=== PATIENT | male | born 1955 | race Caucasian/White ===

== ENCOUNTER 2016-11-18 22:45 | Inpatient (IN) | payer BC ==
[~2016-11-18] VITALS: Ht 182.9 cm; Wt 244.0 kg
[~2016-11-18 22:45] MED LIST: BUTA1TAB70 PO; CBCI IV; CHOL1TAB42 PO; CPR500 PO; EPP3 IM; INSDGI SC; LISI40TA PO; MAGNTAB4 PO; METO1TAB68 PO; MULT-877 PO; NVLGI/PEN PO; SIMV20TA2 PO; SITA50TA PO; TERA5CAP PO; WARF7.5T4 PO
[2016-11-18] MEDS ORDERED: SODIUM CHLORIDE 0.9% 1000ML 2,000 ML IV STA (23:18)
[2016-11-18] MEDS ORDERED: SODIUM CHLORIDE 0.9% IV STA (23:20)
[2016-11-18] MEDS ORDERED: PIPERACILLIN/TAZOBACTAM 4.5 GM/100ML D5W IV STA (23:20)
[2016-11-18] MEDS ORDERED: VANCOMYCIN IV STA (23:20)
[2016-11-18] MEDS ORDERED: ACETAMINOPHEN 500 MG TAB PO STA (23:23)
[2016-11-18] MEDS ORDERED: WARF5TAB90 PO (23:26)
[2016-11-18] MEDS ORDERED: DRON400T PO (23:30)
[2016-11-18] MEDS ORDERED: HYDROmorphone INJ 1 MG/ML SYR IV STA (23:33)
[2016-11-18] MEDS ORDERED: AMOX875T PO (23:33)
[2016-11-18] MEDS ORDERED: DOXY100C76 PO (23:34)
[2016-11-18] MEDS ORDERED: VANCOMYCIN INJ 2,700 MG in SODIUM CHLORIDE 0.9% 500ML 500 ML IV SCH (23:45)
[2016-11-19] VITALS (7 sets, daily range): BP systolic 132–168; BP diastolic 62–69; PULSE 81–90; TEMP 36.5–37.8; O2SAT 94–99; Ht 182.9 cm; Wt 244.0 kg
[2016-11-19 00:02] LABS: BASO % 0.1 %; BASO ABS # 0.01 K/uL (0-0.2); COMPLETE YES; EOS % 0.3 %; HEMATOCRIT 36.9 % (42-52); IG% 0.3 %; LYMPH % 3.2 %; LYMPH ABS # 0.37 K/uL (1.2-3.4); MEAN CORPUSCULAR HEMOGLOBIN 30.5 pg (25-34); MEAN CORPUSCULAR HGB CONC 33.9 g/dl (32-36); MEAN PLATELET VOLUME 9.4 fL (7.4-10.4); MONO % 3.8 %; NEUT % 92.3 %; PLATELET COUNT 103 K/uL (130-400); WHITE BLOOD COUNT 11.46 K/uL (4.8-10.8)
[2016-11-19] MEDS ORDERED: ONDANSETRON INJ 2 MG/ML 2 ML VIAL IV STA (00:10)
[2016-11-19 00:18] LABS: INR 2.1 (0.9-1.1)
[2016-11-19 00:25] LABS: ALT/SGPT 13 U/L (12-78); AST/SGOT 10 U/L (15-37); BLOOD UREA NITROGEN 35 mg/dl (7-18); BUN/CREATININE RATIO 18.2 (10-20); CALCIUM 8.3 mg/dl (8.5-10.1); CARBON DIOXIDE 29 mmol/L (21-32); CHLORIDE 108 mmol/L (98-107); GLUCOSE 150 mg/dl (70-99); MAGNESIUM 1.4 mg/dl (1.8-2.4); POTASSIUM 4.3 mmol/L (3.5-5.1); SODIUM 146 mmol/L (136-145)
[2016-11-19 00:30] LABS: ALKALINE PHOSPHATASE 47 U/L (45-117); CKMB/CK RATIO 2.2 (0-3.0)
[2016-11-19] MEDS ORDERED: SODIUM CHLORIDE 0.45% 1000ML 1,000 ML IV SCH (01:15)
[2016-11-19] MEDS ORDERED: ONDANSETRON INJ 2 MG/ML 2 ML VIAL IV PRN (02:00)
[2016-11-19] MEDS ORDERED: PROMETHAZINE HCL INJ 12.5 MG in SODIUM CHLORIDE 0.9% 50ML 50 ML IV PRN (02:00)
[2016-11-19] MEDS ORDERED: TRAMADOL HCL 50 MG TAB PO PRN (02:00)
[2016-11-19] MEDS ORDERED: LORAZEPAM 2 MG/ML 1 ML VIAL IV PRN (02:00)
[2016-11-19] MEDS ORDERED: HYDROmorphone INJ 1 MG/ML SYR IV PRN (02:00)
[2016-11-19] MEDS ORDERED: GLUCAGON FOR INJ 1 MG VIAL SQ PRN (02:00)
[2016-11-19] MEDS ORDERED: SODIUM CHLORIDE 0.45% 1000ML 1,000 ML IV ONE ×2 (02:00→02:45)
[2016-11-19] MEDS ORDERED: NITROGLYCERIN 0.4 MG SL PER TAB CHARGE SL PRN (02:00)
[2016-11-19] MEDS ORDERED: GLUCOSE 40% GEL 15 GM TUBE PO PRN (02:00)
[2016-11-19] MEDS ORDERED: DEXTROSE 50% 50 ML SYR IV PRN (02:00)
[2016-11-19] MEDS ORDERED: GLUCOSE 10 TABS/TUBE PO PRN (02:00)
[2016-11-19] MEDS ORDERED: METOPROLOL SUCC 50MG EXT REL TAB PO ONE (02:15)
[2016-11-19] MEDS ORDERED: INSULIN GLARGINE SOLOSTAR 100 UNITS/ML 3 ML PEN SC ONE (02:15)
[2016-11-19] MEDS: MAGNESIUM SULFATE 1GM / D5W 1 GM in PREMIXED IN D5W 100 ML IV SCH ×2 (03:00→03:11)
--- NOTE | 2016-11-19 04:13 | HISTORY & PHYSICAL EXAMINATION ---
DATE OF ADMISSION: 11/18/2016 PCP : Dr. Aden Mims. Hx obtained from px and records. CHIEF COMPLAINT: Fever, sick, left leg and left shoulder pain. 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 Recent confinement in April 2016 for cellulitis of LLE. Patient was discharged on IV daptomycin course. Yesterday, patient was not feeling well, left shoulder pain, left knee, left leg pain, left leg warm to touch, fever, chills, nausea and dry cough. No aspiration. No chest pain. Some shortness of breath. Patient was brought to the Emergency Room. Given vancomycin and Zosyn for sepsis. MEDICAL HISTORY: As above. SURGERIES: Gastric bypass, orthopedic surgeries, knee surgeries. HOME MEDICATIONS: Include; Hytrin, Coumadin, Zocor, NovoLog, Lantus, Toprol-XL, Slow-Mag, multivitamins, Januvia, butalbital, vitamin D, Multaq, monodox, EpiPen. ALLERGIES: TO BEE STING AND METFORMIN. FAMILY HISTORY: Diabetes, heart disease and hypertension. PERSONAL AND SOCIAL HISTORY: Nonsmoker. No chronic intake of alcoholic beverages. [employer] employee. REVIEW OF SYSTEMS: As per HPI, all other ROS negative. PHYSICAL EXAMINATION: VITAL SIGNS: Blood pressure was noted to 150/84 pulse rate 104, RR 27, T 38 O2sats 98 on room air. GENERAL: Noted to obese, slightly uncomfortable, min respiratory distress, anxious. SKIN : pallor GEN : pale palpebral conjunctivae. Dry mucosa. NECK: Short neck. LUNGS: Decreased effort. HEART: Tachycardic. ABDOMEN: Some distension, nontender. Healed midline incisional scar. EXTREMITIES: Bilateral lymphedema, left greater than the right; LLE warm to touch; tenderness on the left knee with some limitation of motion; Tenderness of left shoulder w/ some ROM limitation NEUROLOGIC: No gross focality. LABORATORIES: Hemoglobin was noted to be 12.5, hematocrit 36.9, white cell count 11.4 and platelets 103. Sodium 140, potassium 4.3, chloride 108, CO2 29, BUN 30, creatinine 1.9, glucose of 150. Lactic acid was normal. INR was 2.1. Hemoglobin A1c noted to March 2016 was 6.8. Chest x-ray; atelectasis. EKG : normal sinus rhythm, PVCs. ASSESSMENT: 1. Sepsis possible sources : recurrent LLE cellulitis, hx chronic lymphedem ro osteomyelitis septic arthritis, left knee and left shoulder, hx MRSA, Pseudomonas as per records 2. Hypertension, slightly elevated 3. PAF on Coumadin. Patient is slightly tachycardic. INR therapeutic. 4. hx morbid obesity sp gastric bypass. 5. ARF on CRI 2 to illness 6. DM2, insulin requiring, well-controlled as of recent HgA1c PLAN: PCU CS, Vancomycin, Zosyn Will ultimately need ID consult. Plain x-rays of the left shoulder, left knee (ro effusion ? septic joint) ; left tibia/fibula. (ro osteomyelitis). May need Orthopedics consult pending x-ray results. facilitate cindy BB, Multaq basal insulin, ISS BG goal 140-180 Patient is due for a hemoglobin A1c check. DVT prophylaxis, Coumadin INR 2-3. Full code. MTDD
[2016-11-19] MEDS ORDERED: LORAZEPAM INJ 0.5 MG in SYRINGE 0.75 ML IV PRN (05:00)
[2016-11-19] MEDS ORDERED: VANCOMYCIN CONSULT ACTIVE PRN (05:30)
[2016-11-19] MEDS ORDERED: PIPERACILL/TAZOBAC CONSULT ACTIVE PRN (05:30)
[2016-11-19] MEDS: PIPERACILL/TAZOBAC IV 4.5 GM in DEXTROSE 5% 100ML IV SCH ×3 (05:59→21:27)
[2016-11-19] MEDS ORDERED: VANCOMYCIN INJ 1,700 MG in SODIUM CHLORIDE 0.9% 500ML 500 ML IV ONE (06:00)
[2016-11-19 06:05] LABS: BASO % 0.1 %; BASO ABS # 0.01 K/uL (0-0.2); COMPLETE YES; HEMATOCRIT 34.9 % (42-52); IG% 0.5 %; LYMPH % 3.1 %; MEAN CELL VOLUME 89.7 fL (80-100); MEAN CORPUSCULAR HEMOGLOBIN 30.1 pg (25-34); MEAN CORPUSCULAR HGB CONC 33.5 g/dl (32-36); MEAN PLATELET VOLUME 9.3 fL (7.4-10.4); MONO % 3.6 %; NEUT % 92.7 %; PLATELET COUNT 102 K/uL (130-400); RED BLOOD COUNT 3.89 M/uL (4.7-6.1)
[2016-11-19 06:17] LABS: INR 2.3 (0.9-1.1); PROTHROMBIN TIME (PATIENT) 25.4 SECONDS (9.0-12.0)
[2016-11-19 06:31] LABS: ESTIMATED AVERAGE GLUCOSE 134 mg/dl; HA1C FLAG Normal (Normal)
--- NOTE | 2016-11-19 06:34 | EMERGENCY ROOM VISIT NOTE ---
History Report prepared by Deborah: Demetrius Geronimo Under the Supervision of: Dr. Carlos Wang M.D. First contact with patient: 23:09 Chief Complaint: PAIN (GENERALIZED) Stated Complaint: LEG, ARM, SHOULDER PAIN, NAUSEA, VOMITING History of Present Illness The patient is a 61 year old male who presents to the Emergency Room with complaints of persistent generalized pain for the past several hours. The patient's pain is mostly localized to the left leg and left shoulder. The pain is rated 8/10 in severity. He has not taken anything for pain. The patient also complains of nausea, vomiting, shortness of breath, and chills. He denies any fevers, chest pain, or abdominal pain. The patient also notes increased fluid buildup to the lower extremities and increased redness of the left lower extremity. The patient has had these symptoms before. He has a history of lymphedema and MRSA infection. He has had three total knee replacements, two of the left knee and one of the right. The patient is on Coumadin. He has a contact with a GI bug. Source of History: patient Onset: several hours Position: other (generalized) Symptom Intensity: 8/10 Timing: other (persistent) Associated Symptoms: + SOB, + chills, + nausea, + vomiting, No abdominal pain, No chest pain, No fevers Review of Systems See HPI for pertinent positives & negatives. A total of 10 systems reviewed and were otherwise negative. Past Medical & Surgical Medical Problems: (1) Atrial fibrillation (2) Benign hypertension (3) CKD (chronic kidney disease), stage III (4) Diabetes mellitus type 2 (5) Hyperlipidemia Nec/Nos (6) Lymphedema of both lower extremities (7) Methicillin resistant Staphylococcus aureus infection (8) Morbid Obesity (9) GISELL (obstructive sleep apnea) (10) Recurrent cellulitis of lower leg (11) Sepsis Surgical Problems: (1) H/O gastric bypass Family History Cancer Diabetes mellitus FATHER Heart disease FATHER MOTHER Hypertension MOTHER Social History Smoking Status: Never Smoker Alcohol Use: occasionally Drug Use: none Marital Status: Housing Status: lives with family Occupation Status: employed Current/Historical Medications Scheduled Amoxicillin & Pot Clavulanate (Augmentin 875-125 mg), 1 TAB PO DIRECTED Cholecalciferol (Vitamin D), 5,000 MG PO DAILY Doxycycline Monohydrate (Monodox), 100 MG PO BID Dronedarone Hcl (Multaq), 400 MG PO BID Epinephrine (Epipen *), 0.3 MG IM UD Insulin Aspart (Novolog Flexpen), 10 UNITS PO WM Insulin Glargine (Lantus), 52 UNITS SC HS Magnesium Chloride (Slow-Mag Tab), 64 MG PO BID Metoprolol Succinate (Toprol Xl), 100 MG PO DAILY Multiple Vitamins W/ Minerals (Multiple Vitamin/Minerals), 1 TAB PO DAILY Simvastatin (Zocor), 10 MG PO HS Sitagliptin Phosphate (Januvia), 50 MG PO DAILY Terazosin Hcl (Hytrin), 5 MG PO HS Warfarin Sodium (Coumadin), 5 MG PO DAILY Scheduled PRN Zzaldxzure-Fovcdginznqiy-Xgsmo (Esgic), 1 TAB PO UD PRN for Pain Allergies Coded Allergies: BEE STING (Verified Allergy, Intermediate, SWELLS, 11/18/16) Metformin (Verified Adverse Reaction, Intermediate, ITCH, 11/18/16) Physical Exam Vital Signs Date Time Temp Pulse Resp B/P Pulse Ox O2 Delivery O2 Flow Rate FiO2 11/19/16 00:57 102 11/19/16 00:49 102 21 141/69 95 Nasal Cannula 2.0 11/18/16 23:24 37.8 11/18/16 22:54 37.6 104 20 154/84 92 Room Air Physical Exam GENERAL: Patient is chronically unwell-appearing, ill-appearing, in moderate distress, morbidly obese. HEENT: No acute trauma, normocephalic atraumatic, mucous membranes moist, no nasal congestion, no scleral icterus. NECK: No stridor, no adenopathy, no meningismus, trachea is midline. LUNGS: No dyspnea. Clear to auscultation and equal bilaterally. No wheeze, no rhonchi. HEART: Tachycardic, regular rhythm. No murmurs, rubs, gallops appreciated. ABDOMEN: Soft, nontender, bowel sounds positive, no masses appreciated, no peritonitis. BACK: No midline tenderness, no CVA tenderness EXTREMITIES: Normal motion all extremities, no cyanosis. Extreme lymphedema to the bilateral lower legs, erythematous, warm cellulitis skin over the anterior left leg. NEUROLOGIC: Alert and oriented, no acute motor or sensory deficits, no focal weakness, cranial nerves grossly intact. SKIN: No rash, no jaundice, no diaphoresis. Medical Decision & Procedures ER Provider Diagnostic Interpretation: X ray results are stated below per my interpretation: Chest: 1 view: No infiltrate, no effusion, normal cardiac border. Laboratory Results Test 11/18/16 23:10 11/18/16 23:18 11/18/16 23:22 11/18/16 23:32 Influenza Type A Antigen Neg for Influ A (NEG) Influenza Type B Antigen Neg for Influ B (NEG) Est Creatinine Clear Calc Drug Dose 85.4 ml/min Estimated Average Glucose 134 mg/dl Hemoglobin A1c 6.3 % (4.5-5.6) Total Bilirubin 0.5 mg/dl (0.2-1) Direct Bilirubin 0.1 mg/dl (0-0.2) Aspartate Amino Transf (AST/SGOT) 10 U/L (15-37) Alanine Aminotransferase (ALT/SGPT) 13 U/L (12-78) Alkaline Phosphatase 47 U/L (45-117) Total Creatine Kinase 83 U/L (39-308) Creatine Kinase MB 1.8 ng/ml (0.5-3.6) Creatine Kinase MB Ratio 2.2 (0-3.0) Troponin I < 0.015 ng/ml (0-0.045) Total Protein 6.8 gm/dl (6.4-8.2) Albumin 3.5 gm/dl (3.4-5.0) Lipase 291 U/L (73-393) Thyroid Stimulating Hormone (TSH) 2.390 uIu/ml (0.300-4.500) Bedside Lactic Acid Venous 1.51 mmol/L (0.90-1.70) Laboratory results as reviewed by me. Medications Administered Medications (Trade) Dose Ordered Sig/Ching Route Start Time Stop Time Status Last Admin Dose Admin Sodium Chloride (Nss 1000ml) 2,000 ml @ 999 mls/hr Q2H1M STAT IV 11/18/16 23:18 11/19/16 01:16 DC 11/19/16 00:03 999 MLS/HR Piperacillin Sod/ Tazobactam Sod (Zosyn Iv) 4.5 gm NOW STAT IV 11/18/16 23:20 11/18/16 23:23 DC 11/19/16 00:47 4.5 GM Acetaminophen (Tylenol Tab) 1,000 mg NOW STAT PO 11/18/16 23:23 11/18/16 23:24 DC 11/18/16 23:56 1,000 MG Hydromorphone HCl 1 mg 1 mg NOW STAT IV 11/18/16 23:33 11/18/16 23:34 DC 11/19/16 00:04 1 MG Vancomycin HCl/ Sodium Chloride (Vancomycin Inj/ Nss 500ml) 554 ml @ 200 mls/hr TODAY@2345 IV 11/18/16 23:45 11/19/16 02:32 DC 11/19/16 01:19 200 MLS/HR Ondansetron HCl (Zofran Inj) 4 mg NOW STAT IV 11/19/16 00:10 11/19/16 00:11 DC 11/19/16 00:13 4 MG ECG Indication: back/shoulder pain Rate (beats per minute): 98 Rhythm: normal sinus Findings: 1st degree AV block, no acute ischemic change, no ectopy, other (QTC 383) ED Course 2311: The patient was evaluated in room B7. A complete history and physical exam was performed. 2320: Zosyn 4.5 gm IV. 2322: Patient has gained 30 kg since previous admission six months ago. 2323: Tylenol 1000 mg PO. 2333: Dilaudid 1 mg IV. 2345: Vancomycin HCl 2700 mg / NSS 554 ml @ 200 mls/hr. 0010: Zofran 4 mg IV. 0020: The patient is feeling better. 0103: [facility] The [facility] will be evaluated. Medical Decision Differential: Viral, Pharyngitis, Cellulitis, Pneumonia, Influenza, Meningitis, Sepsis, Bacteremia, UTI/Pyelonephritis, Endocrine, Toxicologic, amongst other pathologies entertained. 61 yr old male with long history of MRSA cellulitis causing sepsis arrives with left lower leg cellulitis and findings of early sepsis with rigors. He is ill appearing and in moderate distress. Empiric broad spectrum abx started along with fluid resus with 2 IVs. Labs note hypoMg. No hypotension and Lactic acid is OK currently. Consults Time Called: 99 Consulting Physician[facility] Returned Call: [phone]: [facility] The patient will be evaluated. Impression Primary Impression: Cellulitis of left leg Additional Impressions: Sepsis, Hypomagnesemia Scribe Attestation The scribe's documentation has been prepared under my direction and personally reviewed by me in its entirety. I confirm that the note above accurately reflects all work, treatment, procedures, and medical decision making performed by me. Departure Information Dispostion Being Evaluated By Hospitalist Referrals Aden Mims M.D. (PCP) Patient Instructions A Signature Page, My [facility]
--- NOTE | 2016-11-19 06:41 | DIAGNOSTIC IMAGING REPORT ---
CHEST ONE VIEW PORTABLE CLINICAL HISTORY: Fever. COMPARISON STUDY: Chest radiograph April 20, 2016. FINDINGS: This exam is compromised by suboptimal penetration related to portable technique and body habitus. Lung volumes are unchanged. Mild elevation of the right hemidiaphragm is unchanged. There is no evidence of pulmonary edema. No consolidation is identified. Cardiac size is normal. Mediastinal contours are normal. Arthritis of the left glenohumeral joint is incidentally noted. IMPRESSION: 1. No acute cardiopulmonary findings. 2. Study mildly compromised, as described above. Electronically signed by: Jesse Blount M.D. 11/19/2016 6:39 AM
[2016-11-19] MEDS: INSULIN ASPART 100 UNITS/ML 3 ML PEN SC SCH ×4 (07:00→21:00)
[2016-11-19] MEDS: CEROVITE ADV FORMULA TAB PO SCH (09:00)
[2016-11-19] MEDS: DRONEDARONE 400 MG TAB PO SCH ×2 (09:00→21:36)
[2016-11-19] MEDS ORDERED: CONSULT PHARMACY SCH (09:00)
--- NOTE | 2016-11-19 09:03 | DIAGNOSTIC IMAGING REPORT ---
LEFT TIBIA/FIBULA 2 VIEWS ROUTINE CLINICAL HISTORY: Left leg pain. Possible osteomyelitis. COMPARISON: None. DISCUSSION: Study is limited from a technical standpoint. There are postsurgical changes of the left knee arthroplasty. No acute fractures are visualized. No destructive lesions are evident. IMPRESSION: Technically limited study secondary to patient's large body habitus. No acute fracture. No conventional radiographic evidence of osteomyelitis. Soft tissue edema. Electronically signed by: Diego Deluca M.D. 11/19/2016 9:01 AM
--- NOTE | 2016-11-19 09:10 | DIAGNOSTIC IMAGING REPORT ---
LEFT SHOULDER MIN 2 VIEWS ROUTINE CLINICAL HISTORY: Left shoulder pain. COMPARISON: None FINDINGS: This exam is compromised by suboptimal penetration. There is no acute fracture. There is moderate to severe arthritis of the left acromioclavicular and glenohumeral joints. IMPRESSION: 1. 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 2. No acute fracture identified. Study compromised by suboptimal penetration. Electronically signed by: Jesse Blount M.D. 11/19/2016 9:08 AM
--- NOTE | 2016-11-19 09:15 | DIAGNOSTIC IMAGING REPORT ---
LEFT KNEE 1 OR 2 VIEWS ROUTINE CLINICAL HISTORY: Left knee pain. COMPARISON: CT of the left lower leg April 21, 2016 and left knee radiographs March 06, 2011. FINDINGS: This exam is compromised by suboptimal penetration and difficulty with positioning. There is subcutaneous edema. Alignment of the total left knee arthroplasty is anatomic. There is no periprosthetic fracture or lucency. Evaluation for joint effusion is significant compromised on this exam. 9 mm ossific density projects inferior to the patella. This is likely chronic. IMPRESSION: 1. Technically compromised exam, as described above. 2. Status post total left knee arthroplasty. Hardware intact with no periprosthetic fracture or lucency. 3. At least one ossific density either within or adjacent to the left knee joint which are likely chronic. 4. Edema of the left lower leg. Electronically signed by: Jesse Blount M.D. 11/19/2016 9:13 AM
[2016-11-19] MEDS: INSULIN GLARGINE SOLOSTAR 100 UNITS/ML 3 ML PEN SC SCH ×2 (10:10→21:35)
[2016-11-19 10:19] LABS: BUN/CREATININE RATIO 17.9 (10-20); CALCIUM 8.1 mg/dl (8.5-10.1); CREATININE 2.1 mg/dl (0.60-1.40); MAGNESIUM 1.9 mg/dl (1.8-2.4); POTASSIUM 4.4 mmol/L (3.5-5.1)
[2016-11-19] MEDS: SODIUM CHLORIDE 0.9% 1000ML 1,000 ML IV SCH ×2 (10:45→23:59)
--- NOTE | 2016-11-19 14:54 | Progress Note ---
Progress Note ID consult dictated #[id number] A/P: 1. LLE Cellulitis 2. Leukocytosis 3. Fever -Continue abx for now, follow blood cultures -Will follow, thank you
--- NOTE | 2016-11-19 15:32 | INFECT. DISEASE CONSULTATION ---
DATE OF CONSULTATION: 11/19/2016 DATE OF CONSULTATION: 11/19/2016. REQUESTING PHYSICIAN: Dr. Miranda. HISTORY OF PRESENT ILLNESS: This is a 61-year-old gentleman who was admitted after he had sudden onset of fever and shaking chills last evening while at home. He also noticed increasing pain in the left lower extremity. He does have a history of recurrent cellulitis. His most recent cultures are from March 2016. At that time he grew Enterococcus faecalis. In February of 2016 his wound cultures grew group B strep and pansensitive pseudomonas. He also has a history of knee replacement which resulted in infection with MRSA. He had this replaced in February of 2011. Per the H\T\P, he has been on chronic doxycycline for this. Yesterday when he noticed subjective fevers and chills he did take 1 pill of amoxicillin before coming to the hospital. Blood cultures were obtained in the hospital. He did have a fever of 37.8 on admission. Blood culture results are pending. He was started on broad spectrum antibiotics consisting of vancomycin and Zosyn and he is tolerating these well. He does have a history of kidney disease and his creatinine is 2.1 today. His vancomycin is being dosed by level. His family is present at the bedside. He currently is complaining of continued left lower extremity pain. He states this has not changed since admission. However, he does deny any additional fevers or chills. He is eating. He denies any nausea, vomiting, diarrhea or abdominal pain. He has no urinary symptoms. He denies any chest pain, cough, shortness of breath. All remaining review of systems are reviewed and are negative except or as noted above. PAST MEDICAL HISTORY: Significant for morbid obesity, hypertension, AFib on Coumadin, type 2 diabetes with insulin, obstructive sleep apnea with CPAP, lymphedema, history of MRSA, chronic kidney disease, anemia and thrombocytopenia. PAST SURGICAL HISTORY: Significant for gastric bypass, knee replacement with revision secondary to infection. ALLERGIES: HE HAS ALLERGIES TO METFORMIN. FAMILY HISTORY: Noncontributory. SOCIAL HISTORY: Negative for alcohol, drug or tobacco use. He does live with family. CURRENT MEDICATIONS: Include Toprol-XL, Hytrin, Coumadin, Multaq, Lantus, multivitamins, insulin, Zosyn, vancomycin, lorazepam, acetaminophen, nitroglycerin, Dilaudid, Toradol, Zofran, Ativan, promethazine. PHYSICAL EXAMINATION: VITAL SIGNS: T-max is 37.8, current temperature is 36.7, pulse 88, respiratory rate 20, blood pressure 132/68. Oxygen saturation is 94% on room air. GENERAL: He is awake, alert and oriented x3. He is in no acute distress. HEAD, EYES, EARS, NOSE, AND THROAT: Mucous membranes are dry. HEART: Without murmur. LUNGS: Clear anteriorly bilaterally. ABDOMEN: Soft, nontender, nondistended. EXTREMITIES: There is lymphedema of both lower extremities with chronic stasis changes. There is significant erythema of the left lower extremity with dried wounds, however there is no open draining wound on my exam. There is tenderness to palpation. LABORATORY STUDIES: CBC today reveals a white blood cell count of 12.7, hemoglobin 11.7, hematocrit 34.9 and platelets are 102. Chemistry panel reveals a sodium of 142, potassium 4.4, chloride 110, bicarbonate 22, BUN 38, creatinine 2.1, glucose 170. Urinalysis was canceled. Flu swab was negative. Blood cultures are pending. Chest x-ray was without acute disease. Shoulder x-ray showed severe degenerative arthritis. X-ray of the tibia and fibula of the left lower extremity showed soft tissue swelling with no evidence of osteomyelitis. Knee x-ray showed knee replacements to be intact without evidence of osteo. ASSESSMENT AND PLAN: 1. Left lower extremity cellulitis. 2. Leukocytosis. 3. Fever. He will be continued on broad-spectrum antibiotics pending the results of blood cultures. Should he have any additional fevers, repeat blood cultures can be obtained at that time. He will likely require broad-spectrum antibiotics with his history of pseudomonas and MRSA. We will follow along with you. Thank you for this consultation.
[2016-11-19] MEDS: DAPTOmycin IV 900 MG in SODIUM CHLORIDE 0.9% 50ML 50 ML IV SCH (16:21)
[2016-11-19] MEDS: WARFARIN SOD 5 MG TAB PO SCH (16:22)
[2016-11-19] MEDS: ACETAMINOPHEN 325 MG TAB PO PRN (16:23)
--- NOTE | 2016-11-19 16:49 | Hospitalist Progress Note ---
Hospitalist Progress Note Date of Service Nov 19, 2016. Subjective Pt evaluation today including: conversation w/ patient, physical exam, chart review, lab review, review of studies, review of inpatient medication list Patient is seen and examined at bedside. Patient complains of left lower extremity and left shoulder pain. Denies any chest pain, SOB currently. Medications Medications (Trade) Dose Ordered Sig/Ching Route Start Time Stop Time Status Last Admin Dose Admin Sodium Chloride (Nss 1000ml) 2,000 ml @ 999 mls/hr Q2H1M STAT IV 11/18/16 23:18 11/19/16 01:16 DC 11/19/16 00:03 999 MLS/HR Piperacillin Sod/ Tazobactam Sod (Zosyn Iv) 4.5 gm NOW STAT IV 11/18/16 23:20 11/18/16 23:23 DC 11/19/16 00:47 4.5 GM Acetaminophen (Tylenol Tab) 1,000 mg NOW STAT PO 11/18/16 23:23 11/18/16 23:24 DC 11/18/16 23:56 1,000 MG Hydromorphone HCl 1 mg 1 mg NOW STAT IV 11/18/16 23:33 11/18/16 23:34 DC 11/19/16 00:04 1 MG Vancomycin HCl/ Sodium Chloride (Vancomycin Inj/ Nss 500ml) 554 ml @ 200 mls/hr TODAY@2345 IV 11/18/16 23:45 11/19/16 02:32 DC 11/19/16 01:19 200 MLS/HR Ondansetron HCl 4 mg 4 mg NOW STAT IV 11/19/16 00:10 11/19/16 00:11 DC 11/19/16 00:13 4 MG Magnesium Sulfate/ Prmx (Magnesium Sulfate/Premixed D5W) 100 ml @ 100 mls/hr Q1H IV 11/19/16 02:00 11/19/16 03:59 DC 11/19/16 03:00 100 MLS/HR Insulin Glargine (Lantus Solostar Pen) 10 unit BID SC 11/19/16 09:00 12/19/16 08:59 11/19/16 10:10 10 UNIT Insulin Glargine (Lantus Solostar Pen) 15 unit 0215 ONCE SC 11/19/16 02:15 11/19/16 02:16 DC 11/19/16 03:12 15 UNIT Metoprolol Succinate 100 mg 100 mg 0215 ONCE PO 11/19/16 02:15 11/19/16 02:16 DC 11/19/16 02:26 100 MG Sodium Chloride 1,000 ml @ 100 mls/hr Q10H ONCE IV 11/19/16 02:45 11/19/16 12:44 DC 11/19/16 02:45 100 MLS/HR Vancomycin HCl 1700 mg/Sodium Chloride 534 ml @ 200 mls/hr TODAY@0600 ONCE IV 11/19/16 06:00 11/19/16 08:40 DC 11/19/16 05:59 200 MLS/HR Piperacillin Sod/ Tazobactam Sod/ Dextrose (Zosyn Iv/D5 100ml) 120 ml @ 30 mls/hr Q8H IV 11/19/16 06:00 11/21/16 05:59 11/19/16 13:59 30 MLS/HR Objective Vital Signs Date Time Temp Pulse Resp B/P Pulse Ox O2 Delivery O2 Flow Rate FiO2 11/19/16 15:50 37.8 81 24 168/62 96 Room Air 11/19/16 13:26 Room Air 11/19/16 13:24 88 20 132/68 94 Room Air 11/19/16 08:00 95 Nasal Cannula 2.0 11/19/16 07:57 36.7 83 20 135/69 99 Nasal Cannula 2.0 11/19/16 04:02 95 Nasal Cannula 2.0 11/19/16 02:50 36.5 90 20 150/63 95 Nasal Cannula 2.0 11/19/16 02:27 36.6 98 21 128/66 95 Nasal Cannula 2.0 11/19/16 01:20 37.2 11/19/16 00:57 102 11/19/16 00:49 102 21 141/69 95 Nasal Cannula 2.0 11/18/16 23:24 37.8 11/18/16 22:54 37.6 104 20 154/84 92 Room Air Physical Exam General Appearance: WD/WN, no apparent distress, + obese Eyes: normal inspection, PERRL, EOMI, sclerae normal ENT: normal ENT inspection, hearing grossly normal, TMs normal, pharynx normal Neck: supple, no adenopathy, thyroid normal, no JVD, no carotid bruits, trachea midline Respiratory/Chest: chest non-tender, lungs clear, normal breath sounds, no respiratory distress, no accessory muscle use Cardiovascular: regular rate, rhythm, no gallop, no JVD, no murmur Abdomen: normal bowel sounds, non tender, soft, no organomegaly, no pulsatile mass Extremities: + pertinent finding (Chronic lymphedematous legs, Left LE erythema , tender, chronic non open wounds) Neurologic/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: 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, no motor/sensory deficits, alert, normal mood/affect, oriented x 3 Skin: normal color, warm/dry, + rash Lymphatic: no adenopathy Laboratory Results Last 24 Hours Test 11/18/16 23:10 11/18/16 23:22 11/18/16 23:32 11/19/16 03:03 Influenza Type A Antigen Neg for Influ A Influenza Type B Antigen Neg for Influ B White Blood Count 11.46 K/uL Red Blood Count 4.10 M/uL Hemoglobin 12.5 g/dL Hematocrit 36.9 % Mean Corpuscular Volume 90.0 fL Mean Corpuscular Hemoglobin 30.5 pg Mean Corpuscular Hemoglobin Concent 33.9 g/dl Platelet Count 103 K/uL Mean Platelet Volume 9.4 fL Neutrophils (%) (Auto) 92.3 % Lymphocytes (%) (Auto) 3.2 % Monocytes (%) (Auto) 3.8 % Eosinophils (%) (Auto) 0.3 % Basophils (%) (Auto) 0.1 % Neutrophils # (Auto) 10.59 K/uL Lymphocytes # (Auto) 0.37 K/uL Monocytes # (Auto) 0.43 K/uL Eosinophils # (Auto) 0.03 K/uL Basophils # (Auto) 0.01 K/uL RDW Standard Deviation 48.9 fL RDW Coefficient of Variation 14.8 % Immature Granulocyte % (Auto) 0.3 % Immature Granulocyte # (Auto) 0.03 K/uL Prothrombin Time 23.0 SECONDS Prothromb Time International Ratio 2.1 Sodium Level 146 mmol/L Potassium Level 4.3 mmol/L Chloride Level 108 mmol/L Carbon Dioxide Level 29 mmol/L Anion Gap 9.0 mmol/L Blood Urea Nitrogen 35 mg/dl Creatinine 1.90 mg/dl Est Creatinine Clear Calc Drug Dose 85.4 ml/min Estimated GFR () 43.7 Estimated GFR (Non- 37.7 BUN/Creatinine Ratio 18.2 Random Glucose 150 mg/dl Estimated Average Glucose 134 mg/dl Hemoglobin A1c 6.3 % Calcium Level 8.3 mg/dl Magnesium Level 1.4 mg/dl Total Bilirubin 0.5 mg/dl Direct Bilirubin 0.1 mg/dl Aspartate Amino Transf (AST/SGOT) 10 U/L Alanine Aminotransferase (ALT/SGPT) 13 U/L Alkaline Phosphatase 47 U/L Total Creatine Kinase 83 U/L Creatine Kinase MB 1.8 ng/ml Creatine Kinase MB Ratio 2.2 Troponin I < 0.015 ng/ml Total Protein 6.8 gm/dl Albumin 3.5 gm/dl Lipase 291 U/L Thyroid Stimulating Hormone (TSH) 2.390 uIu/ml Bedside Lactic Acid Venous 1.51 mmol/L Bedside Glucose 183 mg/dl Test 11/19/16 05:33 11/19/16 11:36 White Blood Count 12.70 K/uL Red Blood Count 3.89 M/uL Hemoglobin 11.7 g/dL Hematocrit 34.9 % Mean Corpuscular Volume 89.7 fL Mean Corpuscular Hemoglobin 30.1 pg Mean Corpuscular Hemoglobin Concent 33.5 g/dl Platelet Count 102 K/uL Mean Platelet Volume 9.3 fL Neutrophils (%) (Auto) 92.7 % Lymphocytes (%) (Auto) 3.1 % Monocytes (%) (Auto) 3.6 % Eosinophils (%) (Auto) 0.0 % Basophils (%) (Auto) 0.1 % Neutrophils # (Auto) 11.77 K/uL Lymphocytes # (Auto) 0.40 K/uL Monocytes # (Auto) 0.46 K/uL Eosinophils # (Auto) 0.00 K/uL Basophils # (Auto) 0.01 K/uL RDW Standard Deviation 48.9 fL RDW Coefficient of Variation 15.0 % Immature Granulocyte % (Auto) 0.5 % Immature Granulocyte # (Auto) 0.06 K/uL Prothrombin Time 25.4 SECONDS Prothromb Time International Ratio 2.3 Sodium Level 142 mmol/L Potassium Level 4.4 mmol/L Chloride Level 110 mmol/L Carbon Dioxide Level 22 mmol/L Anion Gap 10.0 mmol/L Blood Urea Nitrogen 38 mg/dl Creatinine 2.10 mg/dl Est Creatinine Clear Calc Drug Dose 77.2 ml/min Estimated GFR () 38.8 Estimated GFR (Non- 33.4 BUN/Creatinine Ratio 17.9 Random Glucose 191 mg/dl Calcium Level 8.1 mg/dl Magnesium Level 1.9 mg/dl Bedside Glucose 170 mg/dl Diagnostic Results CXR: 1. No acute cardiopulmonary findings. 2. Study mildly compromised, as described above. Left Tibial X ray: Technically limited study secondary to patient's large body habitus. No acute fracture. No conventional radiographic evidence of osteomyelitis. Soft tissue edema. Left Shoulder X ray: 1. 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 2. No acute fracture identified. Study compromised by suboptimal penetration. Left Knee X ray: 1. Technically compromised exam, as described above. 2. Status post total left knee arthroplasty. Hardware intact with no periprosthetic fracture or lucency. 3. At least one ossific density either within or adjacent to the left knee joint which are likely chronic. 4. Edema of the left lower leg. 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
[2016-11-19 19:08] LABS: URINE APPEARANCE CLEAR (CLEAR); URINE BILIRUBIN NEG (NEG); URINE COLOR YELLOW; URINE NITRITE NEG (NEG); URINE SPECIFIC GRAVITY 1.016 (1.000-1.030); UROBILINOGEN NEG (NEG); ZZUR CULT IF INDIC CLEAN CATCH NO
[2016-11-19 19:12] LABS: MANUAL MICROSCOPIC REQUIRED? NO; REVIEW REQ? NO
[2016-11-20 00:15] VITALS: O2SAT 96
[2016-11-20 00:28] VITALS: BP 161/72; PULSE 75; TEMP 37.2; O2SAT 95
[2016-11-20] MEDS: PIPERACILL/TAZOBAC IV 4.5 GM in DEXTROSE 5% 100ML IV SCH ×3 (05:44→21:47)
[2016-11-20 07:25] LABS: HEMATOCRIT 32.6 % (42-52); MEAN CELL VOLUME 90.6 fL (80-100); MEAN CORPUSCULAR HEMOGLOBIN 29.7 pg (25-34); MEAN CORPUSCULAR HGB CONC 32.8 g/dl (32-36); WHITE BLOOD COUNT 6.12 K/uL (4.8-10.8)
[2016-11-20 07:28] LABS: PROTHROMBIN TIME (PATIENT) 22.2 SECONDS (9.0-12.0)
[2016-11-20 07:50] LABS: BUN/CREATININE RATIO 15.2 (10-20); CREATININE 2.4 mg/dl (0.60-1.40); POTASSIUM 4.1 mmol/L (3.5-5.1)
[2016-11-20 07:53] LABS: BASO % 0.2 %; BASO ABS # 0.01 K/uL (0-0.2); COMPLETE YES; EOS % 1.1 %; IG% 0.2 %; LYMPH % 10.6 %; LYMPH ABS # 0.65 K/uL (1.2-3.4); MEAN PLATELET VOLUME 9.8 fL (7.4-10.4); MONO % 6.5 %; NEUT % 81.4 %; PLATELET COUNT 81 K/uL (130-400); PLT ESTIMATE DECREASED
[2016-11-20 08:55] VITALS: BP 155/69; PULSE 75; TEMP 36.8; O2SAT 94
--- NOTE | 2016-11-20 09:08 | DIAGNOSTIC IMAGING REPORT ---
RENAL ULTRASOUND HISTORY: Acute kidney injury on chronic kidney disease. COMPARISON: Renal ultrasound 11/13/2011. FINDINGS: Right kidney: 15.5 cm. No hydronephrosis. Normal corticomedullary differentiation with moderate cortical thinning. Left kidney: 15.4 cm. No hydronephrosis. Normal corticomedullary differentiation with moderate cortical thinning. Probable 9 mm cyst within the kidney. Bladder: Not identified. IMPRESSION: 1. No hydronephrosis. 2. The bladder is not identified. 3. Bilateral moderate cortical thinning. Electronically signed by: Jae Robins M.D. 11/20/2016 9:07 AM
[2016-11-20] MEDS: CEROVITE ADV FORMULA TAB PO SCH (09:18)
[2016-11-20] MEDS: METOPROLOL SUCC 50MG EXT REL TAB PO SCH (09:18)
[2016-11-20] MEDS: DRONEDARONE 400 MG TAB PO SCH ×2 (09:18→21:16)
[2016-11-20] MEDS: INSULIN ASPART 100 UNITS/ML 3 ML PEN SC SCH ×4 (09:19→21:15)
[2016-11-20] MEDS: INSULIN GLARGINE SOLOSTAR 100 UNITS/ML 3 ML PEN SC SCH ×2 (09:22→21:15)
[2016-11-20] MEDS ORDERED: NURSING VERBAL MED ORDER ONE (09:45)
[2016-11-20] MEDS: SODIUM CHLORIDE 0.9% 1000ML 1,000 ML IV SCH ×2 (10:38→18:06)
--- NOTE | 2016-11-20 10:50 | Progress Note ---
Subjective Date of Service: Nov 20, 2016. Subjective Pt evaluation today including: conversation w/ patient, conversation w/ family , physical exam, chart review, lab review pt feeling much better today, sitting in bed, working on computer. isolated fever overnight, tmax 37.8, pt asymptomatic. No fevers this am. Changed to dapto /zosyn overnight. chronic doxy suppression held this admission. no n/v/d. only complaint today is of chronic left shoulder pain. States pain, swelling, erythema in lle is much improved today. all remaining ros reviewed and are negative. wbc significanlty improved today, blood cultures engative. Problem List Medical Problems: (1) Cellulitis Status: Acute (2) Cellulitis of left leg Status: Acute (3) Cellulitis of left lower extremity Status: Acute (4) Failure of outpatient treatment Status: Acute (5) Fever Status: Acute (6) History of bacteremia Status: Acute (7) Hypomagnesemia Status: Acute (8) Influenza Status: Acute (9) Sepsis Status: Acute Objective Vital Signs Date Time Temp Pulse Resp B/P Pulse Ox O2 Delivery O2 Flow Rate FiO2 11/20/16 08:58 Room Air 11/20/16 08:55 36.8 75 22 155/69 94 Room Air 11/20/16 00:28 37.2 75 18 161/72 95 CPAP 11/20/16 00:15 96 CPAP 11/19/16 16:03 96 Room Air 11/19/16 15:50 37.8 81 24 168/62 96 Room Air 11/19/16 13:26 Room Air 11/19/16 13:24 88 20 132/68 94 Room Air Physical Exam General Appearance: WD/WN, no apparent distress Eyes: normal inspection Neck: supple Respiratory/Chest: lungs clear, normal breath sounds, no respiratory distress Cardiovascular: regular rate, rhythm Abdomen: soft Extremities: non-tender Neurologic/Psychiatric: alert, oriented x 3 Skin: normal color Comments: lymphedema b/l le unchanged, lle erythema resolved, warmth resolved, non tender, significantly improved Laboratory Results Item Value Date Time Blood Culture - Preliminary Resulted 11/18/16 0035 Blood NO GROWTH TO DATE. Blood Culture - Preliminary Resulted 11/18/16 2322 Blood NO GROWTH TO DATE. Last 24 Hours Test 11/19/16 11:36 11/19/16 17:01 11/19/16 17:10 1/3/17 21:16 Bedside Glucose 170 mg/dl 163 mg/dl 154 mg/dl Urine Color YELLOW Urine Appearance CLEAR Urine pH 5.0 Urine Specific [place] 1.016 Urine Protein NEG Urine Glucose (UA) NEG Urine Ketones NEG Urine Occult Blood 1+ Urine Nitrite NEG Urine Bilirubin NEG Urine Urobilinogen NEG Urine Leukocyte Esterase NEG Urine WBC (Auto) 1-5 /hpf Urine RBC (Auto) 0-4 /hpf Urine Hyaline Casts (Auto) 1-5 /lpf Urine Epithelial Cells (Auto) 10-20 /lpf Urine Bacteria (Auto) NEG Test 11/20/16 06:48 11/20/16 07:57 White Blood Count 6.12 K/uL Red Blood Count 3.60 M/uL Hemoglobin 10.7 g/dL Hematocrit 32.6 % Mean Corpuscular Volume 90.6 fL Mean Corpuscular Hemoglobin 29.7 pg Mean Corpuscular Hemoglobin Concent 32.8 g/dl Platelet Count 81 K/uL Mean Platelet Volume 9.8 fL Neutrophils (%) (Auto) 81.4 % Lymphocytes (%) (Auto) 10.6 % Monocytes (%) (Auto) 6.5 % Eosinophils (%) (Auto) 1.1 % Basophils (%) (Auto) 0.2 % Neutrophils # (Auto) 4.98 K/uL Lymphocytes # (Auto) 0.65 K/uL Monocytes # (Auto) 0.40 K/uL Eosinophils # (Auto) 0.07 K/uL Basophils # (Auto) 0.01 K/uL RDW Standard Deviation 51.5 fL RDW Coefficient of Variation 15.3 % Immature Granulocyte % (Auto) 0.2 % Immature Granulocyte # (Auto) 0.01 K/uL Platelet Estimate DECREASED Red Blood Cell Morphology Unremarkable Prothrombin Time 22.2 SECONDS Prothromb Time International Ratio 2.0 Sodium Level 141 mmol/L Potassium Level 4.1 mmol/L Chloride Level 108 mmol/L Carbon Dioxide Level 25 mmol/L Anion Gap 8.0 mmol/L Blood Urea Nitrogen 36 mg/dl Creatinine 2.40 mg/dl Est Creatinine Clear Calc Drug Dose 67.6 ml/min Estimated GFR () 33.0 Estimated GFR (Non- 28.5 BUN/Creatinine Ratio 15.2 Random Glucose 163 mg/dl Calcium Level 8.0 mg/dl Bedside Glucose 176 mg/dl Assessment and Plan (1) Cellulitis of left leg Status: Acute Assessment & Plan: resolving, much improved today. can continue IV abx for now , upon d/c wound restart doxy suppression and additionally give 7 day course of keflex, renally dosed for strep coverage. hopefully can d/c in am (2) Leukocytosis Assessment & Plan: resolved (3) Lymphedema of both lower extremities Status: Chronic
--- NOTE | 2016-11-20 14:34 | Hospitalist Progress Note ---
Hospitalist Progress Note Date of Service Nov 20, 2016. Subjective Pt evaluation today including: conversation w/ patient, physical exam, lab review, review of inpatient medication list Patient is interviewed and examined at bedside. Left LE redness and pain is improving. Still has left shoulder pain. Denies any new symptoms. Medications Medications (Trade) Dose Ordered Sig/Ching Route Start Time Stop Time Status Last Admin Dose Admin Metoprolol Succinate (Toprol Xl Tab) 100 mg DAILY PO 11/20/16 09:00 12/20/16 08:59 11/20/16 09:18 100 MG Terazosin HCl (Hytrin Cap) 5 mg HS PO 11/19/16 21:00 12/19/16 20:59 11/19/16 21:27 5 MG Warfarin Sodium 5 mg 5 mg DAILY@16 PO 11/19/16 16:00 12/19/16 15:59 11/19/16 16:22 5 MG Daptomycin/Sodium Chloride (Cubicin IV/Nss 50ml) 68 ml @ 120 mls/hr DAILY@1600 IV 11/19/16 16:00 11/29/16 15:59 11/19/16 16:21 120 MLS/HR Objective Vital Signs Date Time Temp Pulse Resp B/P Pulse Ox O2 Delivery O2 Flow Rate FiO2 11/20/16 08:58 Room Air 11/20/16 08:55 36.8 75 22 155/69 94 Room Air 11/20/16 00:28 37.2 75 18 161/72 95 CPAP 11/20/16 00:15 96 CPAP 11/19/16 16:03 96 Room Air 11/19/16 15:50 37.8 81 24 168/62 96 Room Air Physical Exam Notes: General Appearance: WD/WN, no apparent distress, + obese Eyes: normal inspection, PERRL, EOMI, sclerae normal ENT: normal ENT inspection, hearing grossly normal, TMs normal, pharynx normal Neck: supple, no adenopathy, thyroid normal, no JVD, no carotid bruits, trachea midline Respiratory/Chest: chest non-tender, lungs clear, normal breath sounds, no respiratory distress, no accessory muscle use Cardiovascular: regular rate, rhythm, no gallop, no JVD, no murmur Abdomen: normal bowel sounds, non tender, soft, no organomegaly, no pulsatile mass Extremities: + pertinent finding (Chronic lymphedematous legs, Left LE erythema improving, non tender, chronic non open wounds) Neurologic/Psychiatric: 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, no motor/sensory deficits, alert, normal mood/affect, oriented x 3 Skin: normal color, warm/dry, + rash Lymphatic: no adenopathy Laboratory Results Last 24 Hours Test 11/19/16 17:01 11/19/16 17:10 11/19/16 21:16 11/20/16 06:48 Bedside Glucose 163 mg/dl 154 mg/dl Urine Color YELLOW Urine Appearance CLEAR Urine pH 5.0 Urine Specific [place] 1.016 Urine Protein NEG Urine Glucose (UA) NEG Urine Ketones NEG Urine Occult Blood 1+ Urine Nitrite NEG Urine Bilirubin NEG Urine Urobilinogen NEG Urine Leukocyte Esterase NEG Urine WBC (Auto) 1-5 /hpf Urine RBC (Auto) 0-4 /hpf Urine Hyaline Casts (Auto) 1-5 /lpf Urine Epithelial Cells (Auto) 10-20 /lpf Urine Bacteria (Auto) NEG White Blood Count 6.12 K/uL Red Blood Count 3.60 M/uL Hemoglobin 10.7 g/dL Hematocrit 32.6 % Mean Corpuscular Volume 90.6 fL Mean Corpuscular Hemoglobin 29.7 pg Mean Corpuscular Hemoglobin Concent 32.8 g/dl Platelet Count 81 K/uL Mean Platelet Volume 9.8 fL Neutrophils (%) (Auto) 81.4 % Lymphocytes (%) (Auto) 10.6 % Monocytes (%) (Auto) 6.5 % Eosinophils (%) (Auto) 1.1 % Basophils (%) (Auto) 0.2 % Neutrophils # (Auto) 4.98 K/uL Lymphocytes # (Auto) 0.65 K/uL Monocytes # (Auto) 0.40 K/uL Eosinophils # (Auto) 0.07 K/uL Basophils # (Auto) 0.01 K/uL RDW Standard Deviation 51.5 fL RDW Coefficient of Variation 15.3 % Immature Granulocyte % (Auto) 0.2 % Immature Granulocyte # (Auto) 0.01 K/uL Platelet Estimate DECREASED Red Blood Cell Morphology Unremarkable Prothrombin Time 22.2 SECONDS Prothromb Time International Ratio 2.0 Sodium Level 141 mmol/L Potassium Level 4.1 mmol/L Chloride Level 108 mmol/L Carbon Dioxide Level 25 mmol/L Anion Gap 8.0 mmol/L Blood Urea Nitrogen 36 mg/dl Creatinine 2.40 mg/dl Est Creatinine Clear Calc Drug Dose 67.6 ml/min Estimated GFR () 33.0 Estimated GFR (Non- 28.5 BUN/Creatinine Ratio 15.2 Random Glucose 163 mg/dl Calcium Level 8.0 mg/dl Test 11/20/16 07:57 11/20/16 11:32 Bedside Glucose 176 mg/dl 211 mg/dl Diagnostic Results Renal Ultrasound: 1. No hydronephrosis. 2. The bladder is not identified. 3. Bilateral moderate cortical thinning. 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 Continue IV fluids, IV zosyn and Daptomycin Plan to DC on Keflex for 7 days-renally dosed & Doxy suppresive therapy Pain control X ray: negative for any fractures Appreciate ID help PT/OT ARF on CKD II: Will increase IV fluids Renal Ultrasound: wnl Monitor renal function Left Shoulder pain: Probably musculoskeletal X ray of shoulder: no fracture Pain control, Cold therapy, PT/OT Will hold off on Ortho eval for now DM II: controlled Hb A1C: March 2016: 6.8 ISS, Lantus, Accu checks P.Afib: Stable, Continue Coumadin, Multaq, BB Monitor INR Hypertension: Stable Continue BB, Multaq H/O Morbid Obesity S/P Gastric Bypass Stable DVT Px: INR therapeutic, on Coumadin
[2016-11-20 15:03] VITALS: BP 166/77; PULSE 62; TEMP 36.5; O2SAT 97
[2016-11-20 16:00] VITALS: O2SAT 97
[2016-11-20] MEDS: DAPTOmycin IV 900 MG in SODIUM CHLORIDE 0.9% 50ML 50 ML IV SCH (16:25)
[2016-11-20] MEDS: WARFARIN SOD 5 MG TAB PO SCH (16:30)
[2016-11-20] MEDS: EUCERIN CR 120 GM JAR EXT SCH (21:16)
[2016-11-21] MEDS: ACETAMINOPHEN 325 MG TAB PO PRN (00:24)
[2016-11-21 00:49] VITALS: BP 181/82; PULSE 67; TEMP 36.7; O2SAT 98
[2016-11-21] MEDS ORDERED: HydrALAZINE HCL 20 MG/ML VIAL IV. STA (02:27)
[2016-11-21] MEDS: SODIUM CHLORIDE 0.9% 1000ML 1,000 ML IV SCH ×2 (04:03→13:44)
[2016-11-21 07:42] VITALS: BP 138/74; PULSE 75; TEMP 36.3; O2SAT 95
[2016-11-21 08:00] LABS: HEMATOCRIT 31.9 % (42-52); MEAN CELL VOLUME 88.1 fL (80-100); MEAN CORPUSCULAR HEMOGLOBIN 29.6 pg (25-34); MEAN CORPUSCULAR HGB CONC 33.5 g/dl (32-36); RED BLOOD COUNT 3.62 M/uL (4.7-6.1); WHITE BLOOD COUNT 4.81 K/uL (4.8-10.8)
[2016-11-21 08:03] LABS: BASO % 0.2 %; BASO ABS # 0.01 K/uL (0-0.2); COMPLETE YES; EOS % 2.3 %; IG% 0.2 %; LYMPH % 15.8 %; LYMPH ABS # 0.76 K/uL (1.2-3.4); MONO % 9.1 %; NEUT % 72.4 %; PLATELET COUNT 86 K/uL (130-400)
[2016-11-21 08:07] LABS: INR 1.8 (0.9-1.1); PROTHROMBIN TIME (PATIENT) 19.6 SECONDS (9.0-12.0)
[2016-11-21] MEDS: METOPROLOL SUCC 50MG EXT REL TAB PO SCH (08:24)
[2016-11-21] MEDS: INSULIN ASPART 100 UNITS/ML 3 ML PEN SC SCH ×4 (08:24→20:42)
[2016-11-21] MEDS: DRONEDARONE 400 MG TAB PO SCH ×2 (08:24→20:13)
[2016-11-21] MEDS: EUCERIN CR 120 GM JAR EXT SCH ×2 (08:24→20:13)
[2016-11-21] MEDS: CEROVITE ADV FORMULA TAB PO SCH (08:25)
[2016-11-21 08:26] LABS: BUN/CREATININE RATIO 13.5 (10-20); CALCIUM 7.9 mg/dl (8.5-10.1); CREATININE 2.1 mg/dl (0.60-1.40); POTASSIUM 3.8 mmol/L (3.5-5.1)
[2016-11-21] MEDS: INSULIN GLARGINE SOLOSTAR 100 UNITS/ML 3 ML PEN SC SCH ×2 (08:28→20:42)
[2016-11-21] MEDS: PIPERACILL/TAZOBAC IV 4.5 GM in DEXTROSE 5% 100ML IV SCH ×2 (12:06→20:13)
[2016-11-21 15:43] VITALS: BP 156/72; PULSE 62; TEMP 36.6; O2SAT 98
[2016-11-21 16:00] VITALS: O2SAT 98
[2016-11-21] MEDS: WARFARIN SOD 5 MG TAB PO SCH (16:14)
[2016-11-21] MEDS: DAPTOmycin IV 900 MG in SODIUM CHLORIDE 0.9% 50ML 50 ML IV SCH (16:14)
--- NOTE | 2016-11-21 16:18 | Hospitalist Progress Note ---
Hospitalist Progress Note Date of Service Nov 21, 2016. Subjective Pt evaluation today including: conversation w/ patient, physical exam, lab review, review of inpatient medication list Patient is seen and examined at bedside. States leg pain and redness is improving. Had an episode of diarrhea overnight. Medications Medications (Trade) Dose Ordered Sig/Ching Route Start Time Stop Time Status Last Admin Dose Admin Multi-Ingredient Ointment 1 appln 1 appln BID EXT 11/20/16 21:00 12/20/16 20:59 11/21/16 08:24 1 APPLN Sodium Chloride (Nss 1000ml) 1,000 ml @ 100 mls/hr Q10H IV 11/20/16 18:01 12/20/16 18:00 11/21/16 13:44 100 MLS/HR Insulin Glargine (Lantus Solostar Pen) 15 unit BID SC 11/20/16 21:00 12/20/16 20:59 11/21/16 08:28 15 UNIT Hydralazine HCl 10 mg 10 mg NOW STAT IV. 11/21/16 02:27 11/21/16 02:28 DC 11/21/16 03:17 10 MG Piperacillin Sod/ Tazobactam Sod/ Dextrose (Zosyn Iv/D5 100ml) 120 ml @ 30 mls/hr Q8H IV 11/21/16 11:30 11/29/16 11:29 11/21/16 12:06 30 MLS/HR Objective Vital Signs Date Time Temp Pulse Resp B/P Pulse Ox O2 Delivery O2 Flow Rate FiO2 11/21/16 15:43 36.6 62 17 156/72 98 Room Air 11/21/16 09:04 Room Air 11/21/16 07:42 36.3 75 18 138/74 95 Room Air 11/21/16 00:49 36.7 67 20 181/82 98 Room Air 11/21/16 00:00 Room Air Physical Exam Notes: General Appearance: WD/WN, no apparent distress, + obese Eyes: normal inspection, PERRL, EOMI, sclerae normal ENT: normal ENT inspection, hearing grossly normal, TMs normal, pharynx normal Neck: supple, no adenopathy, thyroid normal, no JVD, no carotid bruits, trachea midline Respiratory/Chest: chest non-tender, lungs clear, normal breath sounds, no respiratory distress, no accessory muscle use Cardiovascular: regular rate, rhythm, no gallop, no JVD, no murmur Abdomen: normal bowel sounds, non tender, soft, no organomegaly, no pulsatile mass Extremities: + pertinent finding (Chronic lymphedematous legs, Left LE erythema improving, non tender, chronic non open wounds) 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, no motor/sensory deficits, alert, normal mood/affect, oriented x 3 Skin: normal color, warm/dry, + rash Lymphatic: no adenopathy Laboratory Results Last 24 Hours Test 11/20/16 20:54 11/21/16 07:12 11/21/16 07:56 11/21/16 11:39 Bedside Glucose 221 mg/dl 170 mg/dl 181 mg/dl White Blood Count 4.81 K/uL Red Blood Count 3.62 M/uL Hemoglobin 10.7 g/dL Hematocrit 31.9 % Mean Corpuscular Volume 88.1 fL Mean Corpuscular Hemoglobin 29.6 pg Mean Corpuscular Hemoglobin Concent 33.5 g/dl Platelet Count 86 K/uL Mean Platelet Volume 10.0 fL Neutrophils (%) (Auto) 72.4 % Lymphocytes (%) (Auto) 15.8 % Monocytes (%) (Auto) 9.1 % Eosinophils (%) (Auto) 2.3 % Basophils (%) (Auto) 0.2 % Neutrophils # (Auto) 3.48 K/uL Lymphocytes # (Auto) 0.76 K/uL Monocytes # (Auto) 0.44 K/uL Eosinophils # (Auto) 0.11 K/uL Basophils # (Auto) 0.01 K/uL RDW Standard Deviation 48.1 fL RDW Coefficient of Variation 14.8 % Immature Granulocyte % (Auto) 0.2 % Immature Granulocyte # (Auto) 0.01 K/uL Prothrombin Time 19.6 SECONDS Prothromb Time International Ratio 1.8 Sodium Level 143 mmol/L Potassium Level 3.8 mmol/L Chloride Level 111 mmol/L Carbon Dioxide Level 24 mmol/L Anion Gap 8.0 mmol/L Blood Urea Nitrogen 28 mg/dl Creatinine 2.10 mg/dl Est Creatinine Clear Calc Drug Dose 77.2 ml/min Estimated GFR () 38.8 Estimated GFR (Non- 33.4 BUN/Creatinine Ratio 13.5 Random Glucose 167 mg/dl Calcium Level 7.9 mg/dl Assessment and Plan Patient is a 61 Yr old male with multiple comorbidities including recurrent cellulitis, chronic lymphedema and DM II, Afib on coumadin, GISELL on CPAP, CKD and chronic anemia Obesity S/P gastric bypass presented with not feeling well, left shoulder pain, left leg pain associated with warm to touch, fever, chills, nausea and dry cough, exertional SOB Sepsis: Secondary to left Lower Extremity Cellulitis Sepsis parameter and Erythema, leg pain improving H/O MRSA, 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 Continue IV zosyn and Daptomycin Plan to DC on Keflex for 7 days-renally dosed & Doxy suppressive therapy Pain control X ray: negative for any fractures Appreciate ID input PT/OT ARF on CKD II: Cr levels; 2.1 today Continue IV fluids Renal Ultrasound: wnl Monitor renal function Left Shoulder pain: Probably musculoskeletal X ray of shoulder: no fracture Pain and ROM improving Pain control, Cold therapy, PT/OT DM II: controlled Hb A1C: March 2016: 6.8 ISS, Lantus, Accu checks P.Afib: Stable, Continue Coumadin, Multaq, BB Monitor INR Hypertension: Stable Continue BB, Multaq H/O Morbid Obesity S/P Gastric Bypass Stable DVT Px: on Coumadin
[2016-11-21 20:17] VITALS: BP 178/81; PULSE 67; O2SAT 97
[2016-11-22 00:07] VITALS: BP 149/66; PULSE 65; TEMP 36.7; O2SAT 97
[2016-11-22] MEDS: SODIUM CHLORIDE 0.9% 1000ML 1,000 ML IV SCH (01:47)
[2016-11-22] MEDS: ACETAMINOPHEN 325 MG TAB PO PRN (01:53)
[2016-11-22] MEDS: PIPERACILL/TAZOBAC IV 4.5 GM in DEXTROSE 5% 100ML IV SCH (03:17)
[2016-11-22 07:42] VITALS: BP 160/63; PULSE 60; TEMP 36.7; O2SAT 96
[2016-11-22 07:44] LABS: HEMATOCRIT 31.2 % (42-52); MEAN CELL VOLUME 89.1 fL (80-100); MEAN CORPUSCULAR HEMOGLOBIN 29.7 pg (25-34); MEAN CORPUSCULAR HGB CONC 33.3 g/dl (32-36); WHITE BLOOD COUNT 3.98 K/uL (4.8-10.8)
[2016-11-22 07:55] LABS: INR 1.5 (0.9-1.1); PROTHROMBIN TIME (PATIENT) 16.4 SECONDS (9.0-12.0)
[2016-11-22 08:00] VITALS: O2SAT 96
[2016-11-22 08:10] LABS: BUN/CREATININE RATIO 11.9 (10-20); MEAN PLATELET VOLUME 9.4 fL (7.4-10.4); PLATELET COUNT 99 K/uL (130-400); POTASSIUM 3.8 mmol/L (3.5-5.1)
[2016-11-22 08:20] LABS: BASO % 0.3 %; BASO ABS # 0.01 K/uL (0-0.2); COMPLETE YES; IG% 0.3 %; LYMPH % 22.4 %; LYMPH ABS # 0.89 K/uL (1.2-3.4); MONO % 7.3 %; NEUT % 67.7 %
[2016-11-22] MEDS: DRONEDARONE 400 MG TAB PO SCH (09:07)
[2016-11-22] MEDS: CEROVITE ADV FORMULA TAB PO SCH (09:07)
[2016-11-22] MEDS: METOPROLOL SUCC 50MG EXT REL TAB PO SCH (09:07)
[2016-11-22] MEDS: EUCERIN CR 120 GM JAR EXT SCH (09:08)
[2016-11-22] MEDS: INSULIN ASPART 100 UNITS/ML 3 ML PEN SC SCH ×3 (09:09→16:30)
[2016-11-22] MEDS: INSULIN GLARGINE SOLOSTAR 100 UNITS/ML 3 ML PEN SC SCH (09:11)
--- NOTE | 2016-11-22 09:31 | Hospitalist Progress Note ---
Hospitalist Progress Note Date of Service Nov 22, 2016. Subjective Pt evaluation today including: conversation w/ patient, physical exam, lab review, review of inpatient medication list Patient is seen and examined at bedside. He reports left leg and shoulder pain is much improved. Denies any chest pain, SOB. Feels he ready to go home. Objective Vital Signs Date Time Temp Pulse Resp B/P Pulse Ox O2 Delivery O2 Flow Rate FiO2 11/22/16 07:42 36.7 60 20 160/63 96 11/22/16 00:07 36.7 65 16 149/66 97 Room Air 11/22/16 00:00 Room Air 11/21/16 20:17 67 178/81 97 Room Air 11/21/16 16:00 98 Room Air 11/21/16 15:43 36.6 62 17 156/72 98 Room Air Physical Exam Notes: General Appearance: WD/WN, no apparent distress, + obese Eyes: normal inspection, PERRL, EOMI, sclerae normal ENT: normal ENT inspection, hearing grossly normal, TMs normal, pharynx normal Neck: supple, no adenopathy, thyroid normal, no JVD, no carotid bruits, trachea midline Respiratory/Chest: chest non-tender, lungs clear, normal breath sounds, no respiratory distress, no accessory muscle use Cardiovascular: regular rate, rhythm, no gallop, no JVD, no murmur Abdomen: normal bowel sounds, non tender, soft, no organomegaly, no pulsatile mass Extremities: + pertinent finding (Chronic lymphedematous legs, Left LE erythema improving, non tender, chronic non open wounds) Neurologic/Psychiatric: dehydrator tender II-XII nml as tested, no motor/sensory deficits, alert, normal mood/affect, oriented x 3 Skin: normal color, warm/dry, Lymphatic: no adenopathy Laboratory Results Last 24 Hours Test 11/21/16 11:39 11/21/16 16:13 11/21/16 20:29 11/22/16 07:28 Bedside Glucose 181 mg/dl 172 mg/dl 209 mg/dl White Blood Count 3.98 K/uL Red Blood Count 3.50 M/uL Hemoglobin 10.4 g/dL Hematocrit 31.2 % Mean Corpuscular Volume 89.1 fL Mean Corpuscular Hemoglobin 29.7 pg Mean Corpuscular Hemoglobin Concent 33.3 g/dl Platelet Count 99 K/uL Mean Platelet Volume 9.4 fL Neutrophils (%) (Auto) 67.7 % Lymphocytes (%) (Auto) 22.4 % Monocytes (%) (Auto) 7.3 % Eosinophils (%) (Auto) 2.0 % Basophils (%) (Auto) 0.3 % Neutrophils # (Auto) 2.70 K/uL Lymphocytes # (Auto) 0.89 K/uL Monocytes # (Auto) 0.29 K/uL Eosinophils # (Auto) 0.08 K/uL Basophils # (Auto) 0.01 K/uL RDW Standard Deviation 48.4 fL RDW Coefficient of Variation 14.8 % Immature Granulocyte % (Auto) 0.3 % Immature Granulocyte # (Auto) 0.01 K/uL Red Blood Cell Morphology Unremarkable Prothrombin Time 16.4 SECONDS Prothromb Time International Ratio 1.5 Sodium Level 145 mmol/L Potassium Level 3.8 mmol/L Chloride Level 110 mmol/L Carbon Dioxide Level 26 mmol/L Anion Gap 9.0 mmol/L Blood Urea Nitrogen 24 mg/dl Creatinine 2.00 mg/dl Est Creatinine Clear Calc Drug Dose 81.1 ml/min Estimated GFR () 41.1 Estimated GFR (Non- 35.5 BUN/Creatinine Ratio 11.9 Random Glucose 144 mg/dl Calcium Level 8.0 mg/dl Test 11/22/16 07:38 Bedside Glucose 146 mg/dl Assessment and Plan Patient is a 61 Yr old male with multiple comorbidities including recurrent cellulitis, chronic lymphedema and DM II, Afib on coumadin, GISELL on CPAP, CKD and chronic anemia Obesity S/P gastric bypass presented with not feeling well, left shoulder pain, left leg pain associated with warm to touch, fever, chills, nausea and dry cough, exertional SOB Sepsis: Secondary to left Lower Extremity Cellulitis Sepsis parameter and Erythema, leg pain improving H/O MRSA, 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 DC IV zosyn and Daptomycin Start PO antibiotics today Plan to DC on Keflex for 7 days-renally dosed & Doxy suppressive therapy Pain control- well controlled X ray: negative for any fractures Appreciate ID input PT/OT ARF on CKD II: Cr levels; 2.0 today, Near baseline DC IV fluids Renal Ultrasound: wnl Monitor renal function Left Shoulder pain: Probably musculoskeletal Resolved X ray of shoulder: no fracture Pain and ROM improving Pain control, Cold therapy, PT/OT DM II: controlled Hb A1C: March 2016: 6.8 ISS, Lantus, Accu checks P.Afib: Stable, Continue Coumadin, Multaq, BB Monitor INR: subtherapeutic at 1.5 today Give 7.5 mg coumadin today and FU with with material planning analyst for further Coumadin dose management Hypertension: Stable Continue BB, Multaq H/O Morbid Obesity S/P Gastric Bypass Stable DVT Px: on Coumadin
[2016-11-22] MEDS ORDERED: CMD75 PO (09:45)
[2016-11-22] MEDS ORDERED: CMD5 PO (09:45)
[2016-11-22] MEDS ORDERED: CEPH500C2 PO ×2 (09:51→09:53)
--- NOTE | 2016-11-22 09:59 | Discharge Instructions ---
Discharge Instructions Admission Reason for Admission: Sepsis Discharge Discharge Diagnosis / Problem: Left leg cellulitis Discharge Goals Goal(s): Decrease discomfort, Improve function Activity Recommendations Activity Limitations: resume your previous activity . Instructions / Follow-Up Instructions / Follow-Up Follow up with your PCP within 1 week Also follow up with Sherice Modi on 12/03/16 at 1:00pm Complete the antibiotic course as prescribed Take 7.5 mg coumadin today(11/22/16) as your INR is low Start taking 5mg coumadin starting tomorrow (11/23/16) daily Follow up with your coagulation clinic for follow labs and further coumadin dosage Current Hospital Diet Patient's current hospital diet: Diabetes Type 2 Diet Discharge Diet Recommended Diet: Diabetes Type 2 Diet Pending Studies Studies pending at discharge: no Laboratory Results Hemoglobin A1c Test 11/18/16 23:22 Range/Units Estimated Average Glucose 134 mg/dl Hemoglobin A1c 6.3 H 4.5-5.6 % Medical Emergencies . Who to Call and When: Medical Emergencies: If at any time you feel your situation is an emergency, please call 911 immediately. . Non-Emergent Contact Non-Emergency issues call your: Primary Care Provider . . "Provider Documentation" section prepared by Gabe Nunez. VTE Core Measure Inpt VTE Proph given/why not?: Warfarin (Coumadin)
[2016-11-22 14:46] VITALS: BP 175/82; PULSE 61; TEMP 36.6; O2SAT 96
[2016-11-22 16:00] VITALS: O2SAT 96
[2016-11-22] MEDS: DAPTOmycin IV 900 MG in SODIUM CHLORIDE 0.9% 50ML 50 ML IV SCH (16:04)
[2016-11-22] MEDS: WARFARIN SOD 5 MG TAB PO SCH (16:04)
--- NOTE | 2016-11-22 18:53 | Discharge Summary ---
Discharge Summary Admission Date: Nov 19, 2016 at 01:17 Discharge Date: Nov 22, 2016 Principal Diagnosis: Sepsis, Left leg cellulitis Secondary Diagnoses/Problems: GARY on CKD III DM II P.afib Hypertension Procedures: CXR: 1. No acute cardiopulmonary findings. 2. Study mildly compromised, as described above. Left Tibia/Fibula X ray: Technically limited study secondary to patient's large body habitus. No acute fracture. No conventional radiographic evidence of osteomyelitis. Soft tissue edema. Left Shoulder X ray: 1. 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 2. No acute fracture identified. Study compromised by suboptimal penetration. Left Knee X ray: 1. Technically compromised exam, as described above. 2. Status post total left knee arthroplasty. Hardware intact with no periprosthetic fracture or lucency. 3. At least one ossific density either within or adjacent to the left knee joint which are likely chronic. 4. Edema of the left lower leg. Renal Ultrasound: 1. No hydronephrosis. 2. The bladder is not identified. 3. Bilateral moderate cortical thinning. Consultations: Infectious Disease Pending Studies/Follow-Up: Follow up with your PCP within 1 week Also follow up with Sherice Modi on 12/03/16 at 1:00pm Medication Reconciliation New Medications: Cephalexin Monohydrate (Keflex) 500 Mg Cap 500 MG PO BID for 7 Days, #14 CAP Continued Medications: Eekxkdsjcw-Duryndgyojfkl-Snlef (Esgic) 1 Tab Tab 1 TAB PO UD PRN for Pain Cholecalciferol (Vitamin D) 5,000 Unit Tab 5000 MG PO DAILY Doxycycline Monohydrate (Monodox) 100 Mg Cap 100 MG PO BID, CAP Dronedarone Hcl (Multaq) 400 Mg Tab 400 MG PO BID for 90 Days, #180 TAB 3 Refills Epinephrine (Epipen *) 0.3 Mg Inj 0.3 MG IM UD, 0 Refills Insulin Aspart (Novolog Flexpen) 100 Units/Ml Inj 10 UNITS PO WM Insulin Glargine (Lantus) Vial 52 UNITS SC HS, VIAL Magnesium Chloride (Slow-Mag Tab) 64 Mg Tabcr 64 MG PO BID, TAB Metoprolol Succinate (Toprol Xl) 100 Mg Tab 100 MG PO DAILY, TAB Multiple Vitamins W/ Minerals (Multiple Vitamin/Minerals) 1 Tab Tab 1 TAB PO DAILY Simvastatin (Zocor) 20 Mg Tab 10 MG PO HS Sitagliptin Phosphate (Januvia) 50 Mg Tab 50 MG PO DAILY, TAB Terazosin Hcl (Hytrin) 5 Mg Cap 5 MG PO HS, CAP Warfarin Sodium (Coumadin) 5 Mg Tab 5 MG PO DAILY, TAB Discontinued Medications: Amoxicillin & Pot Clavulanate (Augmentin 875-125 mg) 1 Tab Tab 1 TAB PO DIRECTED, #14 TAB pt to take if feels he is getting an infection Admission Information HPI (per Admitting provider): CHIEF COMPLAINT: Fever, sick, left leg and left shoulder pain. 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 Recent confinement in April 2016 for cellulitis of LLE. Patient was discharged on IV daptomycin course. Yesterday, patient was not feeling well, left shoulder pain, left knee, left leg pain, left leg warm to touch, fever, chills, nausea and dry cough. No aspiration. No chest pain. Some shortness of breath. Patient was brought to the Emergency Room. Given vancomycin and Zosyn for sepsis. PHYSICAL EXAMINATION: VITAL SIGNS: Blood pressure was noted to 150/84 pulse rate 104, RR 27, T 38 O2sats 98 on room air. GENERAL: Noted to obese, slightly uncomfortable, min respiratory distress, anxious. SKIN : pallor GEN : pale palpebral conjunctivae. Dry mucosa. NECK: Short neck. LUNGS: Decreased effort. HEART: Tachycardic. ABDOMEN: Some distension, nontender. Healed midline incisional scar. EXTREMITIES: Bilateral lymphedema, left greater than the right; LLE warm to touch; tenderness on the left knee with some limitation of motion; Tenderness of left shoulder w/ some ROM limitation NEUROLOGIC: No gross focality. Hospital Course Patient is a 61 Yr old male with multiple comorbidities including recurrent cellulitis, chronic lymphedema and DM II, Afib on coumadin, GISELL on CPAP, CKD and chronic anemia Obesity S/P gastric bypass presented with not feeling well, left shoulder pain, left leg pain associated with warm to touch, fever, chills, nausea and dry cough, exertional SOB. On further evaluation patient was diagnosed to have sepsis secondary to left LE cellulitis. Patient was treated with IV antibiotics, fluids and ID was consulted. Patient was advised to continue Doxycycline suppressive therapy and to take Keflex for 1 week given H/ O MRSA, Pseudomonas in the past. Patient was also found to have GARY which improved with IV fluids, renal ultrasound showed no acute pathology. Patient improved clinically with above management and was discharged home in stable condition. Sepsis: Secondary to left Lower Extremity Cellulitis Sepsis parameter and Erythema, leg pain improving H/O MRSA, 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 DC IV zosyn and Daptomycin Start PO antibiotics today Plan to DC on Keflex for 7 days-renally dosed & Doxy suppressive therapy Pain control- well controlled X ray: negative for any fractures Appreciate ID input PT/OT ARF on CKD II: Cr levels; 2.0 today, Near baseline DC IV fluids Renal Ultrasound: wnl Monitor renal function Left Shoulder pain: Probably musculoskeletal Resolved X ray of shoulder: no fracture Pain and ROM improving Pain control, Cold therapy, PT/OT DM II: controlled Hb A1C: March 2016: 6.8 ISS, Lantus, Accu checks P.Afib: Stable, Continue Coumadin, Multaq, BB Monitor INR: subtherapeutic at 1.5 today Give 7.5 mg coumadin today and FU with with prototype fabricator for further Coumadin dose management Hypertension: Stable Continue BB, Multaq H/O Morbid Obesity S/P Gastric Bypass Stable DVT Px: on Coumadin Total time spent on discharge = This includes examination of the patient, discharge planning, medication reconciliation, and communication with other providers. Discharge Instructions Discharge Instructions Admission Reason for Admission: Sepsis Discharge Discharge Diagnosis / Problem: Left leg cellulitis Discharge Goals Goal(s): Decrease discomfort, Improve function Activity Recommendations Activity Limitations: resume your previous activity . Instructions / Follow-Up Instructions / Follow-Up Follow up with your PCP within 1 week Also follow up with Sherice Modi on 12/03/16 at 1:00pm Complete the antibiotic course as prescribed Take 7.5 mg coumadin today(11/22/16) as your INR is low Start taking 5mg coumadin starting tomorrow (11/23/16) daily Follow up with your coagulation clinic for follow labs and further coumadin dosage Current Hospital Diet Patient's current hospital diet: Diabetes Type 2 Diet Discharge Diet Recommended Diet: Diabetes Type 2 Diet Pending Studies Studies pending at discharge: no Laboratory Results Hemoglobin A1c Test 11/18/16 23:22 Range/Units Estimated Average Glucose 134 mg/dl Hemoglobin A1c 6.3 H 4.5-5.6 % Medical Emergencies . Who to Call and When: Medical Emergencies: If at any time you feel your situation is an emergency, please call 911 immediately. . Non-Emergent Contact Non-Emergency issues call your: Primary Care Provider . . "Provider Documentation" section prepared by Gabe Nunez. VTE Core Measure Inpt VTE Proph given/why not?: Warfarin (Coumadin)
[2017-02-27] MEDS ORDERED: PRED10TA PO (13:44)
== END 2016-11-22 17:33 | disposition home or self-care (01) | DRG 872 ==
LOC: ENRESERVDT → CANRESERV → ENRESERVTM → EDBD 22:45 → C.EDB 22:47 → C.2T 11-19 01:17 → EDBEDREQ 11-19 01:50 → C.MS2W 11-19 12:58
PROVIDERS: ADMIT Internal Medicine; ATTEND Internal Medicine
DX: A41.9 Sepsis, unspecified organism (principal); L03.116 Cellulitis of left lower limb; N17.9 Acute kidney failure, unspecified; Z68.45 Body mass index [BMI] 70 or greater, adult; I48.0 Paroxysmal atrial fibrillation; G47.33 Obstructive sleep apnea (adult) (pediatric); I89.0 Lymphedema, not elsewhere classified; E66.01 Morbid (severe) obesity due to excess calories; N18.3 Chronic kidney disease, stage 3 (moderate); D64.9 Anemia, unspecified; D72.829 Elevated white blood cell count, unspecified; E78.5 Hyperlipidemia, unspecified; E83.42 Hypomagnesemia; B96.5 Pseudomonas (aeruginosa) (mallei) (pseudomallei) as the cause of diseases classified elsewhere; M25.512 Pain in left shoulder; I12.9 Hypertensive chronic kidney disease with stage 1 through stage 4 chronic kidney disease, or unspecified chronic kidney disease; E11.22 Type 2 diabetes mellitus with diabetic chronic kidney disease; Z86.14 Personal history of Methicillin resistant Staphylococcus aureus infection; Z79.01 Long term (current) use of anticoagulants; Z99.89 Dependence on other enabling machines and devices; Z96.659 Presence of unspecified artificial knee joint; Z98.84 Bariatric surgery status; Z79.4 Long term (current) use of insulin; Z79.2 Long term (current) use of antibiotics; Z79.899 Other long term (current) drug therapy

== ENCOUNTER 2017-02-24 01:24 | Inpatient (IN) | payer BC ==
[2017-02-24] VITALS (11 sets, daily range): BP systolic 149–171; BP diastolic 61–84; PULSE 64–88; TEMP 36.6–37.6; O2SAT 95–99; Ht 182.9 cm; Wt 235.4 kg
[~2017-02-24] VITALS: Ht 182.9 cm; Wt 235.4 kg
[~2017-02-24 01:24] MED LIST changes: -CBCI IV; -CPR500 PO; +DOXY100C76 PO; +DRON400T PO; -LISI40TA PO; +METO-479 PO; -METO1TAB68 PO; +WARF5TAB90 PO; -WARF7.5T4 PO
--- NOTE | 2017-02-24 04:59 | History and Physical ---
History & Physical Date & Time of Service: Feb 24, 2017 at 04:58 Chief Complaint: Copd Exacerbation Primary Care Physician: Kell History of Present Illness Source: patient, spouse This is a 62 yo Male with hx of Morbid obesity , s/p gastric bypass , HTN , Hx of Paroxysmal Afib on Coumadin , type 2 DM on insulin , GISELL on CPAP at night , chronic bilateral lower extremity severe Lymphedema , Hx of MRSA on chronic doxycycline , CKD stage 3 ( baseline Cr 1.5 ) , chronic anemia( baseline Hb ~9 ) , chronic thrombocytopenia was last admitted to [facility] form 11/19/16 to 11/22 for sepsis due to left lower leg cellulitis Pt mentions he recently recovered form respiratory infection , completed 1 week course of antibiotic developed worsening of SOB , cough and chest heaviness EMS was called , pt was initially taken to [facility] -as he was found to be hypoxic en route as per ED attending in [facility] pt's respiratory status improved after Neb tx , still requiring 2 L 02 ( not on home 02 ) Cxray was unremarkable , no infiltrate or effusion had mild elevation of WBC ~11 ; possible COPD exacerbation -pt was transferred to [facility] as he received all his prior care here/family and pt requests transfer Past Medical/Surgical History Medical Problems: (1) Atrial fibrillation Status: Chronic (2) Benign hypertension Status: Chronic (3) CKD (chronic kidney disease), stage III Status: Chronic (4) Diabetes mellitus type 2 Status: Chronic (5) Hyperlipidemia Nec/Nos Status: Chronic (6) Lymphedema of both lower extremities Status: Chronic (7) Methicillin resistant Staphylococcus aureus infection Status: Chronic (8) Morbid Obesity Status: Chronic (9) GISELL (obstructive sleep apnea) Status: Chronic Surgical Problems: (1) H/O gastric bypass Status: Chronic Family History Cancer Diabetes mellitus FATHER Heart disease FATHER MOTHER Hypertension MOTHER Social History Smoking Status: Never Smoker Drug Use: none Marital Status: Housing status: lives with family Occupational Status: employed Immunizations History of Influenza Vaccine: No Influenza Vaccine Date: Aug 17, 2010 History of Tetanus Vaccine?: Yes History of Pneumococcal: Yes Pneumococcal Date: Jan 15, 2010 History of Hepatitis B Vaccine: No Multi-Drug Resistant Organisms History of MDRO: Yes Type of MDRO: MRSA Allergies Coded Allergies: BEE STING (Verified Allergy, Intermediate, SWELLS, 11/18/16) Metformin (Verified Adverse Reaction, Intermediate, ITCH, 11/18/16) Home Medications Scheduled Cholecalciferol (Vitamin D), 5,000 MG PO DAILY Doxycycline Monohydrate (Monodox), 100 MG PO BID Dronedarone Hcl (Multaq), 400 MG PO BID Epinephrine (Epipen *), 0.3 MG IM UD Insulin Aspart (Novolog Flexpen), 10 UNITS PO WM Insulin Glargine (Lantus), 52 UNITS SC HS Magnesium Chloride (Slow-Mag Tab), 64 MG PO BID Metoprolol Succinate (Toprol Xl), 100 MG PO DAILY Multiple Vitamins W/ Minerals (Multiple Vitamin/Minerals), 1 TAB PO DAILY Simvastatin (Zocor), 10 MG PO HS Sitagliptin Phosphate (Januvia), 50 MG PO DAILY Terazosin Hcl (Hytrin), 5 MG PO HS Warfarin Sodium (Coumadin), 5 MG PO DAILY Scheduled PRN Pjezxgejxu-Yswpdhgrivckm-Irebv (Esgic), 1 TAB PO UD PRN for Pain Review of Systems Constitutional: + chills, + fatigue, + fever, + sweats, + weakness Respiratory: + cough, + dyspnea at rest, + dyspnea on exertion, + shortness of breath, + sputum Cardiovascular: + PND, + chest pain, + edema, + orthopnea Abdomen: + nausea Musculoskeletal: + joint pain, + muscle pain, + swelling (worsening of bilateral lower ext lyumphedema r> L ) Genitourinary - Male: No dysuria, No hematuria, No impotence, No lesions, No penile discharge, No problem reported, No urinary frequency, No urinary hesitancy, No urinary incontinence, No urinary retention, No urinary urgency Neurologic: + numbness/tingling, + vertigo, + weakness Endocrine: + fatigue Physical Exam Vital Signs Date Time Temp Pulse Resp B/P Pulse Ox O2 Delivery O2 Flow Rate FiO2 02/24/17 03:50 37.6 88 20 171/71 97 Nasal Cannula 2.0 General Appearance: no apparent distress (obese male , in moderate distress due to SOB , complains of pain in left shoulder and back ) Head: normocephalic, atraumatic Eyes: sclerae normal Respiratory/Chest: + decreased breath sounds, + wheezing Cardiovascular: regular rate, rhythm Abdomen/GI: non tender, soft Extremities/Musculoskelatal: + pedal edema (bilateral significant lymphedema with chronic venous statis change ) Neurologic/Psych: alert, normal mood/affect, oriented x 3 Skin: + pertinent finding (bilateral lower ext marked lymphedema , shallow 2x3 cm skin opening /ulcer on rt lower leg , with serous drainage ) Diagnostics Laboratory Results Results Past 24 Hours Test 02/24/17 04:54 02/24/17 04:55 Range/Units Diagnostic Radiology CHEST ONE VIEW PORTABLE CLINICAL HISTORY: Shortness of breath. COMPARISON STUDY: Chest radiograph November 18, 2016. FINDINGS: This study is compromised by suboptimal penetration related to portable technique and body habitus. The patient is rotated. The cardiomediastinal silhouette is stable. There is no evidence of pulmonary edema. Mild elevation of the right hemidiaphragm is unchanged. The appearance of the chest is unchanged. There is no lobar consolidation. IMPRESSION: 1. No acute cardiopulmonary findings. No change in appearance of the chest. 2. Technically compromised exam, as discussed above. Impression Assessment and Plan SOB /HYPOXIA/COPD EXACERBATION : with possible associated obesity hypoventilation syndrome cont Neb tx IV Solu Medrol empiric Abx with Levaquin Pulmonology eval requested low suspicion of PE as INR therapeutic ECHO ordered to assess LV function /pulmonary HTN TYPE 2 DM : on Insulin Lantus , , Januvia BSG elevated > 300 HB a1c 6.8 on 11/2016 repeat level ordered insulin SSI ordered Pharmacy consulted for glycemic control -as possible episode of steroid induced hyperglycemia GARY ON CKD STAGE 3 due to dehydration Cr elevated ~2 ( baseline 1.5 ) avoid NSAID , Nephrotoxins pt is not on any diuretics gentle IV F ordered NSS @ 75 ml /hr X1 liter only follow PRP HX OF PAROXYSMAL AFIB ON COUMADIN ; rate controlled cont Multaq /Lopressor INR therapeutic 2.2 cont Coumadin daily PT/INT monitoring as pt is on Levaquin GISELL ON CPAP ordered for CPAP at night CHRONIC LOWER EXT CELLULITIS : on Doxycycline chronic suppressive therapy for hx of MRSA -which will be continued gram stain and culture ordered for rt lower leg shallow ulcer wound care nurse consulted pt will need bariatric bed , offloading of heels already on Levaquin -should provide adequate coverage ID consulted -pt is known to the service LEFT SHOULDER PAIN : chronic had work up done in last admission on 11/2016 -DJD pain control , avoid NSAID for GARY ordered for heating pad PT/OT FULL CODE DVT PROPHYLAXIS : on Coumadin INR therapeutic DISPOSITION : to home when medically stable PT/OT eval prior to discharge home Level of Care Telemetry Resuscitation Status FULL RESUSCITATION VTE Prophylaxis VTE Risk Assessment Done? Y/N: Yes Risk Level: Moderate Given or contraindicated: Warfarin (Coumadin)
[2017-02-24] MEDS ORDERED: POLYETHYLENE (MIRALAX) 17 GM PACK PO PRN (05:00)
[2017-02-24] MEDS ORDERED: NITROGLYCERIN 0.4 MG SL PER TAB CHARGE SL PRN (05:00)
[2017-02-24] MEDS ORDERED: ALUMINUM/MAGNESIUM/SIMETH (MAALOX MAX) 30 ML UDC PO PRN (05:00)
[2017-02-24] MEDS ORDERED: MAGNESIUM HYDROXIDE SUSP 30 ML UDC PO PRN (05:00)
[2017-02-24] MEDS ORDERED: EPINEPHRINE ADULT AUTO-INJECT 0.3 MG SYR IM PRN (05:00)
[2017-02-24] MEDS ORDERED: ONDANSETRON INJ 2 MG/ML 2 ML VIAL IV PRN (05:00)
[2017-02-24] MEDS ORDERED: ZOLPIDEM TARTRATE 5 MG TAB PO PRN (05:00)
[2017-02-24] MEDS ORDERED: HydrALAZINE HCL 20 MG/ML VIAL IV. STA (05:02)
[2017-02-24] MEDS ORDERED: PATIENT'S HEIGHT AND/OR WEIGHT NEEDED SCH (05:15)
[2017-02-24 05:48] LABS: ALLEN TEST POS (POS); ARTERIAL BLD GAS O2 SATURATION 98.8 % (90-95); ARTERIAL BLOOD GAS BASE EXCESS 0.2 mEq/L (-9-1.8); ARTERIAL BLOOD GAS HCO3 24 mmol/L (19-24); ARTERIAL BLOOD GAS PO2 129 mm/Hg (80-95); ARTERIAL BLOOD GAS pH 7.46 (7.35-7.45); O2 ADMINISTRATION 4.5L
[2017-02-24 05:52] LABS: HEMATOCRIT 32.6 % (42-52); MEAN CELL VOLUME 88.6 fL (80-100); MEAN CORPUSCULAR HEMOGLOBIN 30.2 pg (25-34); MEAN PLATELET VOLUME 9.4 fL (7.4-10.4); PLATELET COUNT 117 K/uL (130-400); RED BLOOD COUNT 3.68 M/uL (4.7-6.1); WHITE BLOOD COUNT 14.59 K/uL (4.8-10.8)
[2017-02-24 06:02] LABS: PROTHROMBIN TIME (PATIENT) 22.2 SECONDS (9.0-12.0)
[2017-02-24] MEDS: LEVOFLOXACIN / D5W 750 MG in PREMIXED IN D5W 150 ML IV SCH (06:21)
[2017-02-24 06:22] LABS: BUN/CREATININE RATIO 18.8 (10-20); CALCIUM 8.2 mg/dl (8.5-10.1); CREATININE 1.9 mg/dl (0.60-1.40); POTASSIUM 4.2 mmol/L (3.5-5.1)
[2017-02-24 06:24] LABS: ALB/GLOB RATIO 0.9 (0.9-2)
[2017-02-24 07:00] LABS: ESTIMATED AVERAGE GLUCOSE 137 mg/dl; HA1C FLAG Normal (Normal)
--- NOTE | 2017-02-24 07:21 | DIAGNOSTIC IMAGING REPORT ---
CHEST ONE VIEW PORTABLE CLINICAL HISTORY: Shortness of breath. COMPARISON STUDY: Chest radiograph November 18, 2016. FINDINGS: This study is compromised by suboptimal penetration related to portable technique and body habitus. The patient is rotated. The cardiomediastinal silhouette is stable. There is no evidence of pulmonary edema. Mild elevation of the right hemidiaphragm is unchanged. The appearance of the chest is unchanged. There is no lobar consolidation. IMPRESSION: 1. No acute cardiopulmonary findings. No change in appearance of the chest. 2. Technically compromised exam, as discussed above. Electronically signed by: Jesse Blount M.D. 02/24/2017 7:19 AM Dictated Date/Time: 02/24/2017 7:18 AM
[2017-02-24] MEDS: ALBUT/IPRATROP 3MG/0.5MG NEB 3 ML VIAL INH SCH ×4 (07:26→20:07)
[2017-02-24] MEDS: SITAGLIPTIN 25 MG TAB PO SCH (08:55)
[2017-02-24] MEDS: DRONEDARONE 400 MG TAB PO SCH ×2 (08:56→21:10)
[2017-02-24] MEDS: CEROVITE ADV FORMULA TAB PO SCH (08:56)
[2017-02-24] MEDS: MAGNESIUM CHLORIDE 64MG DELAYED REL TAB PO SCH ×2 (08:57→21:10)
[2017-02-24] MEDS: METOPROLOL SUCC 50MG EXT REL TAB PO SCH (08:57)
[2017-02-24] MEDS: CHOLECALCIFEROL 1000 INTER.UNIT TAB PO SCH (08:58)
[2017-02-24] MEDS: ACETAMINOPHEN 325 MG TAB PO PRN (09:00)
[2017-02-24] MEDS ORDERED: PHARMACY GLYCEMIC MGMT CONSULT PRN (09:19)
[2017-02-24] MEDS ORDERED: MoRPHine SULFATE 2 MG/ML CARP IV PRN ×2 (09:30)
[2017-02-24] MEDS ORDERED: SODIUM CHLORIDE 0.9% 1000ML 1,000 ML IV ONE (09:30)
[2017-02-24] MEDS ORDERED: DEXTROSE 50% 50 ML SYR IV PRN (09:45)
[2017-02-24] MEDS ORDERED: GLUCOSE 40% GEL 15 GM TUBE PO PRN (09:45)
[2017-02-24] MEDS ORDERED: GLUCOSE 10 TABS/TUBE PO PRN (09:45)
[2017-02-24] MEDS ORDERED: INSULIN DETEMIR FLEXPEN/FLEX TOUCH 100 UNITS/ML 3ML SC ONE (09:45)
[2017-02-24] MEDS ORDERED: GLUCAGON FOR INJ 1 MG VIAL SQ PRN (09:45)
[2017-02-24] MEDS: DOXYCYCLINE HYCLATE 100 MG CAP PO SCH ×2 (10:13→21:09)
[2017-02-24] MEDS: INSULIN ASPART 100 UNITS/ML 3 ML PEN SC SCH ×4 (10:16→21:04)
[2017-02-24] MEDS: METHYLPREDNISOLONE IV 30 MG in SYRINGE 0 ML IV SCH ×2 (10:49→18:08)
--- NOTE | 2017-02-24 10:59 | PULMONARY CONSULTATION ---
DATE OF CONSULTATION: 02/24/2017 HISTORY OF PRESENT ILLNESS: The patient is a very pleasant 62-year-old male who was admitted to the hospital for possible cellulitis of the lower extremities. Dr. St has asked me to evaluate the patient from a pulmonary standpoint for COPD with exacerbation. The patient has chronic exertional dyspnea related to massive obesity. He was out traveling with his yesterday just mostly arriving in the automobile at dinner last night and after developed feeling of feeling poorly. 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 He has had a history of pseudomonas infection there as well. He had been hospitalized here in November 18 with sepsis. In general, he is followed by infectious disease. He carries a history of chronic anemia and chronic renal insufficiency, severe profound chronic lymphedema. Interestingly, he carries a history of sarcoid as well. He had a biopsy of his tattoo to his right arm about 30 years ago and was told he had sarcoid. He was not sure whether he had it in the lung. He does not remember any treatment. He also carries a history of severe obstructive sleep apnea. He has been on CPAP and is very compliant with that. From a pulmonary standpoint other than shortness of breath with exertion, he has no complaints. He denies cough, chest pain, fevers, night sweats, aspiration, reflux, hoarseness, hemoptysis or wheezing. Nothing in environment turns on any problems. He has never had industrial exposures. 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 He has never used tobacco. REVIEW OF SYSTEMS: Otherwise is unremarkable from a pulmonary standpoint. He denies any orthopnea. Apparently, his family physician had placed him on an inhaler in the past for some mild wheezing after respiratory infection, but he does not use it much. PAST MEDICAL HISTORY: Significant for gastric bypass, massive obesity, obstructive sleep apnea, degenerative joint disease of the knees with knee surgery, diabetes, chronic renal insufficiency, sarcoid, chronic cellulitis of the lower extremities, profound lymphedema, chronic kidney disease stage III, paroxysmal atrial fibrillation, diastolic congestive heart failure, hyperlipidemia, BPH, vitamin D deficiency. There is a history of intrinsic asthma from the records as far back as February 2016. I spoke with the patient and his and he states he has never had any asthma in the past. ALLERGIES: METFORMIN AND BEE STINGS. SOCIAL HISTORY: He has never been a tobacco or alcohol user. From an occupational standpoint, he has not had any industrial exposures. FAMILY HISTORY: No family history of any lung disease. MEDICATIONS: Are noted. PHYSICAL EXAMINATION: VITAL SIGNS: Stable and he is afebrile. Blood pressure is 152/61, oxygen saturation 99% on 4 liters. His weight is 236.3 kilograms. He was 215 kilograms in April of 2016. Some of this may be severe lymphedema of the lower extremities. HEENT: Reveals normal nose with no facial asymmetry. He has a very small posterior pharynx, a large tongue, redundant tissue in the posterior pharynx with no evidence of upper airway obstruction. No thrush is noted. No adenopathy is noted. Thyroid nonpalpable. HEART: Regular rate and rhythm. Heart sounds are distant. No murmurs are heard. LUNGS: Clear. Forced expiratory maneuver at 2 seconds with no wheezing. ABDOMEN: Soft and massively obese. No tenderness noted. EXTREMITIES: He has stasis changes of the lower extremities with profound lymphedema of the lower extremities. LABORATORY DATA: White count is 14.59, hemoglobin 11.1, platelet count 117,000, blood gas revealed pH 7.46, pCO2 of 34, pO2 129 on 4 liters, BUN is 36, creatinine 1.9. Liver function studies are normal. CO2 is normal at 26. INR is 2. Urinalysis is pending. IMAGING DATA: Chest x-ray done showed poor inspiratory effort and is a very light film, but no significant parenchymal abnormalities were noted. ASSESSMENT AND PLAN: 1. 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 I find no evidence of any significant obstructive lung disease. 2. Obstructive sleep apnea on CPAP. He has 100% compliant with that. I have instructed his to bring his CPAP machine in from home and she has agreed to do that today. 3. Cellulitis of the lower extremities. 4. Diabetes mellitus. 5. History of paroxysmal atrial fibrillation. RECOMMENDATIONS: At this point, I would continue his present antimicrobial agents. I would have infectious disease evaluate the patient. I do not see a need to add any inhalers or steroids at this point. He is on DuoNeb prn. MTDD
--- NOTE | 2017-02-24 12:21 | Progress Note ---
Progress Note Date of Service Feb 24, 2017. Progress Note ID Consult Dictated # [id number] A/P: 1. Lymphedema 2. Leukocytosis -Continue abx and follow cultures will follow
--- NOTE | 2017-02-24 13:59 | INFECT. DISEASE CONSULTATION ---
DATE OF CONSULTATION: 02/24/2017 REQUESTING PHYSICIAN: Dr. St. HISTORY OF PRESENT ILLNESS: This is a 62-year-old gentleman who was admitted secondary to left lower extremity pain and respiratory distress. He was reportedly on AN antibiotic as an outpatient but had worsening cough, chest heaviness and congestion. He did have an x-ray in the ER which was unremarkable. There was no consolidation noted. There was pulmonary edema and was unchanged from the previous x-ray in November. He did have a leukocytosis of 14.5. He is on chronic doxycycline for lower extremity cellulitis. He did have a temperature of 37.6 in the ER but is currently afebrile. He was placed on Levaquin, maintained on his doxycycline and also given IV steroids. All cultures are pending. On my examination, he states he is feeling better. He denies any shortness of breath, cough or chest pain on my examination. He denies any nausea, vomiting, diarrhea or abdominal pain. He does not admit to any weeping, drainage or erythema in his lower extremities, but states he has pain in the left lower extremity. All remaining review of systems is reviewed and is unremarkable. PAST MEDICAL HISTORY: Significant for aFib, hypertension, chronic kidney disease, type 2 diabetes, hyperlipidemia, lymphedema, history of MRSA infection, morbid obesity, and obstructive sleep apnea on CPAP. PAST SURGICAL HISTORY: Significant for gastric bypass. He also has some right knee surgery. FAMILY HISTORY: Noncontributory. SOCIAL HISTORY: Negative for tobacco use, drug use or alcohol use. He is and lives with his family. ALLERGIES: METFORMIN. CURRENT MEDICATIONS: Include Zocor, terazosin, Levemir, Coumadin, Solu-Medrol, insulin, morphine, doxycycline, Multaq, magnesium, multivitamins, Toprol-XL, Januvia, vitamin D, levofloxacin, DuoNebs, hydralazine, Tylenol, Maalox, milk of magnesia, Ambien, Zofran, and MiraLax. PHYSICAL EXAMINATION: VITAL SIGNS: Temperature is T-max of 37.6, current temperature is 36.9; pulse 70, respiratory rate 16, blood pressure 153/61, oxygen saturation is 99% on 4 liters nasal cannula. GENERAL: He is awake, alert and oriented x3 and he is in no acute distress. HEENT: Mucous membranes are moist. Extraocular muscles are intact. HEART: Regular. LUNGS: Clear. ABDOMEN: Soft. There is lymphedema bilaterally. There is no warmth, erythema, or tenderness bilaterally. LABORATORY STUDIES: Her white blood cell count is 14.5, hemoglobin 11.1, platelets are 117. Chemistry panel reveals a sodium of 142, potassium 4.2, chloride 107, bicarbonate 26, BUN 36, creatinine 1.9, glucose is 304. LFTs are within normal limits. Urinalysis is pending. Cultures are pending. IMAGING DATA: X-ray is as above. ASSESSMENT AND PLAN: 1. Leukocytosis, question of steroids versus underlying infection. He does have underlying lymphedema and is on chronic antibiotics. Blood cultures and wound cultures have been obtained and will follow the results of this. Thank you for this consultation.
--- NOTE | 2017-02-24 14:54 | Pharmacy Progress Note ---
Glycemic Control Intl Consult Date of Service Feb 24, 2017. Scope Glycemic Pharmacist consulted by Dr St on 02/24 for glycemic control and to write orders per [facility] inpatient glycemic control protocol Objective Weight (Kilograms): 236.300 Accuchecks BSG (last 24hrs): Test 02/24/17 05:23 02/24/17 08:53 02/24/17 11:23 Random Glucose 209 mg/dl (70-99) Bedside Glucose 304 mg/dl (70-99) 238 mg/dl (70-99) Laboratory Data (last 24hrs) Test 02/24/17 05:23 Anion Gap 9.0 mmol/L BUN/Creatinine Ratio 18.8 Blood Urea Nitrogen 36 mg/dl Creatinine 1.90 mg/dl Hemoglobin A1c 6.4 % Potassium Level 4.2 mmol/L Sodium Level 142 mmol/L White Blood Count 14.59 K/uL HbA1c Test 02/24/17 05:23 Hemoglobin A1c 6.4 % (4.5-5.6) H Recent Pertinent Medications Outpatient Anti-diabetic Regimen: (confirmed w/ patient's ) * Levemir 52 units qHS * Novolog 10 units w/ meals * Januvia 50 mg daily Risk Factors for Insulin Resistance: * Steroids: Solu-medrol 30 mg q8h - 1st dose at 1000 today * Infection: COPD exacerbation * Diet: AHA/type 2 diabetes Assessment & Plan ASSESSMENT: * ADA & AACE recommend a goal blood sugar range 140-180 mg/dl for the majority of critically ill & non-critically ill patients. However, more stringent targets may be selected in individual cases. 02/24/17 * Mr. Cooper is a 62 y/o male known to the glycemic service from a previous admission, admitted now for a COPD exacerbation and on ATC steroids * His A1c indicates excellent outpatient glycemic control on his current regimen * As an inpatient, will plan to utilize basal in the form of Levemir (since pt on at home) and correctional/prandial using Novolog. Januvia has been ordered and this is okay to continue as there are no contraindications at this time. * The patient required 50 units of basal + CF 15, CR 5 on a previous admission WITHOUT steroids (TDD ~80 units) so I'm going to dose him this admission based upon an est TDD of 120 units * He did not receive his Levemir last night so I started BID dosing 1st thing this AM - can transition back to qHS dosing closer to discharge PLAN FOR INPATIENT GLYCEMIC CONTROL: * Levemir 30 units BID * Novolog ACHS * Goal 110-140 mg/dL * CF 15 mg/dL/unit * CR 1 unit per 4 gm CHO consumed * Januvia 50 mg daily * Please note that the plan above was derived based on current level of insulin resistance and hospital stress. These recommendations are appropriate for inpatient admission only. Plan of care upon discharge will need to be reassessed to avoid potential outpatient hypo/hyperglycemia. Thank you.
[2017-02-24] MEDS ORDERED: LVMI SQ (14:55)
[2017-02-24] MEDS: WARFARIN SOD 5 MG TAB PO SCH (15:42)
--- NOTE | 2017-02-24 16:16 | DIAGNOSTIC IMAGING REPORT ---
ULTRASOUND BILATERAL LOWER EXTREMITY VENOUS CLINICAL HISTORY: Leg pain and swelling. COMPARISON STUDY: Bilateral lower extremity venous ultrasound dated 04/13/2016. TECHNIQUE: Real-time, grayscale, and color Doppler sonography of the deep veins of the right and left lower extremity was performed from the inguinal crease to the calf. Compression and augmentation were utilized. FINDINGS: There is no sonographic evidence of deep venous thrombosis identified in the right or left lower extremity. The common femoral, superficial femoral, and popliteal veins are patent and normally compressible bilaterally. The greater saphenous vein and the profunda femoris vein at the junction with the common femoral vein are clear in both legs. The visualized calf veins are patent bilaterally. Soft tissue edema is present in both calves. IMPRESSION: There is no sonographic evidence of deep venous thrombosis identified in the right or left lower extremity. Electronically signed by: Satish Rodriguez M.D. 02/24/2017 4:14 PM Dictated Date/Time: 02/24/2017 4:14 PM
--- NOTE | 2017-02-24 19:21 | Progress Note ---
Internal Med Progress Note Date of Service: Feb 24, 2017. Provider Documentation: SUBJECTIVE: The patient was seen and examined Morbidly obese but reasonably functional Admitted with leg cellulitis and SOB OBJECTIVE: Vital Signs-as noted below Exam: General-No distress at rest Eyes-normal ENT-normal Neck-supple Lungs-decreased breath sound bilaterally Heart-Regular Abdomen-Distended,fatty,difficult to feel for any organs Extremities-Chronic lymphedema some redness ,dry ulcer no drainage Neuro-AAOx3 Lab data as noted below. ASSESSMENT & PLAN: CHRONIC LOWER EXT CELLULITIS : on Doxycycline chronic suppressive therapy for hx of MRSA -which will be continued No draining ulcer noted in legs Wound care nurse consulted Pt will need bariatric bed , offloading of heels Already on Levaquin -should provide adequate coverage ID consulted -pt is known to the service SOB /HYPOXIA/COPD EXACERBATION : Has Sarcoid Obesity hypoventilation syndrome Has been on IV Solu Medrol and Nebs Empiric Abx with Levaquin Pulmonology eval requested -appreciate input Doubt any PE given therapeutic INR ECHO ordered to assess LV function /pulmonary HTN TYPE 2 DM : On Insulin Lantus , , Januvia BSG elevated > 300 HB a1c 6.8 on 11/2016 SSI and Blood sugars [facility] consulted for glycemic control -as possible episode of steroid induced hyperglycemia GARY ON CKD STAGE 3 Complicated by dehydration Cr elevated ~2 ( baseline 1.5 ) Avoid NSAID , Nephrotoxins Gentle IV F ordered NSS @ 75 ml /hr X1 liter only HX OF PAROXYSMAL AFIB ON COUMADIN ; Rate controlled Cont Multaq /Lopressor INR therapeutic 2.2 GISELL ON CPAP ordered for CPAP at night LEFT SHOULDER PAIN and PAIN IN GENERAL Chronic Had work up done in last admission on 11/2016 -DJD Pain control , avoid NSAID for GARY Ordered for heating pad PT/OT FULL CODE DVT PROPHYLAXIS : on Coumadin INR therapeutic DISPOSITION : to home when medically stable PT/OT eval prior to discharge home Discussed with the Vital Signs: Date Time Temp Pulse Resp B/P Pulse Ox O2 Delivery O2 Flow Rate FiO2 02/24/17 16:18 36.7 64 18 161/79 96 02/24/17 16:00 Room Air 02/24/17 15:06 64 18 96 Room Air 02/24/17 12:00 Nasal Cannula 2.0 02/24/17 11:35 36.6 73 16 149/84 99 Nasal Cannula 2.0 02/24/17 11:34 67 18 98 Nasal Cannula 2.0 02/24/17 08:00 Nasal Cannula 4.0 02/24/17 07:41 36.9 70 16 153/61 99 Nasal Cannula 4.0 02/24/17 07:26 73 18 99 Nasal Cannula 4.0 02/24/17 04:57 37.6 88 20 171/71 Nasal Cannula 2.0 02/24/17 03:50 37.6 88 20 171/71 97 Nasal Cannula 2.0 Lab Results: Results Past 24 Hours Test 02/24/17 05:23 02/24/17 05:34 02/24/17 08:53 02/24/17 11:23 Range/Units White Blood Count 14.59 4.8-10.8 K/uL Red Blood Count 3.68 4.7-6.1 M/uL Hemoglobin 11.1 14.0-18.0 g/dL Hematocrit 32.6 42-52 % Mean Corpuscular Volume 88.6 80-100 fL Mean Corpuscular Hemoglobin 30.2 25-34 pg Mean Corpuscular Hemoglobin Concent 34.0 32-36 g/dl RDW Standard Deviation 49.8 36.4-46.3 fL RDW Coefficient of Variation 15.3 11.5-14.5 % Platelet Count 117 130-400 K/uL Mean Platelet Volume 9.4 7.4-10.4 fL Prothrombin Time 22.2 9.0-12.0 SECONDS Prothromb Time International Ratio 2.0 0.9-1.1 Sodium Level 142 136-145 mmol/L Potassium Level 4.2 3.5-5.1 mmol/L Chloride Level 107 98-107 mmol/L Carbon Dioxide Level 26 21-32 mmol/L Anion Gap 9.0 3-11 mmol/L Blood Urea Nitrogen 36 7-18 mg/dl Creatinine 1.90 0.60-1.40 mg/dl Est Creatinine Clear Calc Drug Dose 82.5 ml/min Estimated GFR () 43.4 Estimated GFR (Non- 37.5 BUN/Creatinine Ratio 18.8 10-20 Random Glucose 209 70-99 mg/dl Estimated Average Glucose 137 mg/dl Hemoglobin A1c 6.4 4.5-5.6 % Calcium Level 8.2 8.5-10.1 mg/dl Total Bilirubin 0.9 0.2-1 mg/dl Aspartate Amino Transf (AST/SGOT) 12 15-37 U/L Alanine Aminotransferase (ALT/SGPT) 14 12-78 U/L Alkaline Phosphatase 40 45-117 U/L Total Protein 6.5 6.4-8.2 gm/dl Albumin 3.1 3.4-5.0 gm/dl Globulin 3.4 2.5-4.0 gm/dl Albumin/Globulin Ratio 0.9 0.9-2 Arterial Blood pH 7.46 7.35-7.45 Arterial Blood Partial Pressure CO2 34 35-46 mmHg Arterial Blood Partial Pressure O2 129 80-95 mm/Hg Arterial Blood HCO3 24 19-24 mmol/L Arterial Blood Oxygen Saturation 98.8 90-95 % Arterial Blood Base Excess 0.2 -9-1.8 mEq/L Arterial Blood Gas Delivery 4.5L Moisés Test POS POS Bedside Glucose 304 238 70-99 mg/dl Test 02/24/17 16:30 Range/Units Bedside Glucose 212 70-99 mg/dl Microbiology Results 02/24/17 Blood Culture, Received Pending 02/24/17 Blood Culture, Received Pending 02/24/17 MRSA DNA Surveillance Screen - Final, Complete Specimen Negative for MRSA by DNA Probe
[2017-02-24] MEDS ORDERED: INSULIN GLARGINE SOLOSTAR 100 UNITS/ML 3 ML PEN SC SCH (21:00)
[2017-02-24] MEDS ORDERED: INSULIN DETEMIR FLEXPEN/FLEX TOUCH 100 UNITS/ML 3ML SC SCH ×2 (21:00)
[2017-02-24] MEDS: SIMVASTATIN 10 MG TAB PO SCH (21:09)
[2017-02-25] VITALS (14 sets, daily range): BP systolic 142–200; BP diastolic 74–92; PULSE 58–102; TEMP 36.4–36.6; O2SAT 94–98
[2017-02-25 00:36] LABS: URINE APPEARANCE CLEAR (CLEAR); URINE BILIRUBIN NEG (NEG); URINE COLOR YELLOW; URINE NITRITE NEG (NEG); URINE SPECIFIC GRAVITY 1.025 (1.000-1.030); UROBILINOGEN NEG (NEG); ZZUR CULT IF INDIC CLEAN CATCH NO
[2017-02-25 00:37] LABS: MANUAL MICROSCOPIC REQUIRED? NO; REVIEW REQ? NO
[2017-02-25] MEDS: METHYLPREDNISOLONE IV 30 MG in SYRINGE 0 ML IV SCH ×3 (01:21→18:23)
[2017-02-25] MEDS: LEVOFLOXACIN / D5W 750 MG in PREMIXED IN D5W 150 ML IV SCH (05:38)
[2017-02-25 06:05] LABS: HEMATOCRIT 32.1 % (42-52); MEAN CELL VOLUME 88.2 fL (80-100); MEAN CORPUSCULAR HEMOGLOBIN 29.4 pg (25-34); MEAN CORPUSCULAR HGB CONC 33.3 g/dl (32-36); MEAN PLATELET VOLUME 9.3 fL (7.4-10.4); PLATELET COUNT 110 K/uL (130-400); RED BLOOD COUNT 3.64 M/uL (4.7-6.1); WHITE BLOOD COUNT 9.56 K/uL (4.8-10.8)
[2017-02-25 06:44] LABS: BUN/CREATININE RATIO 22.8 (10-20); CALCIUM 8.1 mg/dl (8.5-10.1); CREATININE 1.8 mg/dl (0.60-1.40); POTASSIUM 4.5 mmol/L (3.5-5.1)
[2017-02-25] MEDS: ALBUT/IPRATROP 3MG/0.5MG NEB 3 ML VIAL INH SCH ×4 (07:34→20:01)
[2017-02-25] MEDS: METOPROLOL SUCC 50MG EXT REL TAB PO SCH (09:39)
[2017-02-25] MEDS: CEROVITE ADV FORMULA TAB PO SCH (09:39)
[2017-02-25] MEDS: DRONEDARONE 400 MG TAB PO SCH ×2 (09:40→20:40)
[2017-02-25] MEDS: SITAGLIPTIN 25 MG TAB PO SCH (09:40)
[2017-02-25] MEDS: MAGNESIUM CHLORIDE 64MG DELAYED REL TAB PO SCH ×2 (09:41→20:40)
[2017-02-25] MEDS: CHOLECALCIFEROL 1000 INTER.UNIT TAB PO SCH (09:41)
[2017-02-25] MEDS: DOXYCYCLINE HYCLATE 100 MG CAP PO SCH ×2 (09:41→20:40)
[2017-02-25] MEDS: INSULIN ASPART 100 UNITS/ML 3 ML PEN SC SCH ×4 (09:44→20:43)
[2017-02-25] MEDS: INSULIN DETEMIR FLEXPEN/FLEX TOUCH 100 UNITS/ML 3ML SC SCH ×2 (09:45→20:43)
--- NOTE | 2017-02-25 13:16 | ECHOCARDIOGRAM REPORT ---
*NOTICE TO RECEIVING [employer] This information is strictly Confidential and protected under [place] law. [place] law prohibits you from making any further disclosure of this information unless further disclosure is expressly permitted by the written consent of the person to whom it pertains or is authorized by law. A general authorization for the release of medical or other information is not sufficient for this purpose. Hospital accepts no responsibility if the information is made available to any other person, INCLUDING THE PATIENT. Interpretation Summary * Name: KOBE RO Study Date: 02/25/2017 10:05 AM BP: 153/61 mmHg * Patient Location: [facility]\S\N288\S\2 HR: 70 * : 1955 (M/d/yyyy) Gender: Male Height: 72 in * Age: 62 yrs Ethnicity: CT Weight: 520 lb * Ordering Physician: Twyla St * Referring Physician: Twyla St * Performed By: Kim Salas RDCS * * Reason For Study: Congestive heart failure * BSA: 3.2 m2 * -- Conclusions -- * The left ventricle is normal in size. * There is normal left ventricular wall thickness. * Left ventricular systolic function is normal. * The left ventricular wall motion is normal. * Ejection Fraction = 55-60%. * Borderline left atrial enlargement. * The right ventricle is mildly dilated. * There is trace tricuspid regurgitation. * Doppler findings do not suggest pulmonary hypertension. Procedure Details * A complete two-dimensional transthoracic echocardiogram was performed (2D, M-mode, Doppler and color flow Doppler). * A contrast injection of Definity was performed to improve assessment of LV function. * Contrast was injected into an intravenous site in the right arm. * One vial of Definity ultrasound contrast was diluted in normal saline to a total volume of 10 ml. A total of '2' ml of solution was administered during imaging. * Lot # [id number] of Definity utilized for procedure. * Expiration date 1 JAN 04. * The attending nurse who injected the contrast agent was Deanna Osborn RN. Left Ventricle * The left ventricle is normal in size. * There is normal left ventricular wall thickness. * Ejection Fraction = 55-60%. * Left ventricular systolic function is normal. * The left ventricular wall motion is normal. Right Ventricle * The right ventricle is mildly dilated. Atria * Borderline left atrial enlargement. * Right atrial size is normal. * No ASD detected; PFO is not assessed. Mitral Valve * The mitral valve anatomy is normal. * There is no mitral valve stenosis. * There is trace mitral regurgitation. Tricuspid Valve * The tricuspid valve anatomy is normal. * There is no tricuspid stenosis. * There is trace tricuspid regurgitation. * Doppler findings do not suggest pulmonary hypertension. Aortic Valve * The aortic valve is trileaflet. * No hemodynamically significant valvular aortic stenosis. * No aortic regurgitation is present. Pulmonic Valve * The pulmonic valve is not well visualized. Great Vessels * The aortic root is normal size. Pericardium/Pleural * There is no pericardial effusion. Great Vessels * Normal inferior vena cava diameter and respiratory variation suggests normal central venous pressure. MMode 2D Measurements and Calculations IVSd 1.2 cm LVIDd 3.9 cm LVIDs 2.5 cm LVPWd 1.2 cm IVS/LVPW 1.0 FS 36.1 % EDV(Teich) 66.5 ml ESV(Teich) 22.4 ml EF(Teich) 66.4 % EDV(cubed) 60.0 ml ESV(cubed) 15.7 ml EF(cubed) 73.9 % LV mass(C)d 161.9 grams LV mass(C)dI 50.6 grams/m\S\2 SV(Teich) 44.1 ml SI(Teich) 13.8 ml/m\S\2 SV(cubed) 44.3 ml SI(cubed) 13.9 ml/m\S\2 Ao root diam 3.6 cm Ao root area 10.1 cm\S\2 ACS 2.1 cm asc Aorta Diam 4.1 cm LVOT diam 2.0 cm LVOT area 3.1 cm\S\2 LVAd ap4 34.2 cm\S\2 LVLd ap4 9.1 cm EDV(MOD-sp4) 105.6 ml EDV(sp4-el) 109.4 ml LVAs ap4 18.1 cm\S\2 LVLs ap4 7.6 cm ESV(MOD-sp4) 35.5 ml ESV(sp4-el) 36.6 ml EF(MOD-sp4) 66.4 % EF(sp4-el) 66.6 % LVAd ap2 28.3 cm\S\2 LVLd ap2 8.5 cm EDV(MOD-sp2) 77.3 ml EDV(sp2-el) 80.4 ml LVAs ap2 15.3 cm\S\2 LVLs ap2 6.9 cm ESV(MOD-sp2) 27.4 ml ESV(sp2-el) 28.5 ml EF(MOD-sp2) 64.5 % EF(sp2-el) 64.5 % LVLd %diff -7.31 % EDV(MOD-bp) 94.0 ml LVLs %diff -10.04 % ESV(MOD-bp) 32.8 ml EF(MOD-bp) 65.1 % SV(MOD-sp4) 70.1 ml SI(MOD-sp4) 21.9 ml/m\S\2 SV(MOD-sp2) 49.8 ml SI(MOD-sp2) 15.6 ml/m\S\2 SV(MOD-bp) 61.2 ml SI(MOD-bp) 19.1 ml/m\S\2 SV(sp4-el) 72.8 ml SI(sp4-el) 22.8 ml/m\S\2 SV(sp2-el) 51.8 ml SI(sp2-el) 16.2 ml/m\S\2 Doppler Measurements and Calculations MV E max payam 109.1 cm/sec MV dec time 0.21 sec Ao V2 max 134.5 cm/sec Ao max PG 7.2 mmHg Ao max PG (full) 2.8 mmHg PASHA(V,A) 2.4 cm\S\2 PASHA(V,D) 2.4 cm\S\2 LV V1 max PG 4.5 mmHg LV V1 max 105.8 cm/sec PA V2 max 96.4 cm/sec PA max PG 3.7 mmHg PA acc slope 872.5 cm/sec\S\2 PA acc time 0.08 sec TR max payam 242.4 cm/sec PA pr(Accel) 41.0 mmHg
--- NOTE | 2017-02-25 13:25 | Pharmacy Progress Note ---
Glycemic Control: Progress Nt Date of Service Feb 25, 2017. Scope Glycemic Pharmacist consulted by Dr St on 02/24 for glycemic control and to write orders per [facility] inpatient glycemic control protocol. Objective Accuchecks BSG (last 24hrs): Test 02/24/17 16:30 02/24/17 20:56 02/25/17 05:42 02/25/17 08:01 Bedside Glucose 212 mg/dl (70-99) 255 mg/dl (70-99) 242 mg/dl (70-99) Random Glucose 247 mg/dl (70-99) Test 02/25/17 11:10 Bedside Glucose 275 mg/dl (70-99) Laboratory Data (last 24hrs) Test 02/25/17 05:42 Anion Gap 6.0 mmol/L BUN/Creatinine Ratio 22.8 Blood Urea Nitrogen 41 mg/dl Creatinine 1.80 mg/dl Potassium Level 4.5 mmol/L Sodium Level 140 mmol/L White Blood Count 9.56 K/uL HbA1c: Test 02/24/17 05:23 Hemoglobin A1c 6.4 % (4.5-5.6) H Recent Pertinent Medications Outpatient Anti-diabetic Regimen: (confirmed w/ patient's ) * Levemir 52 units qHS * Novolog 10 units w/ meals * Januvia 50 mg daily Risk Factors for Insulin Resistance: * Steroids: Solu-medrol 30 mg q8h * Infection: COPD exacerbation * Diet: AHA/type 2 diabetes - ave of 50 gm CHO with each meal Assessment & Plan ASSESSMENT: * ADA & AACE recommend a goal blood sugar range 140-180 mg/dl for the majority of critically ill & non-critically ill patients. However, more stringent targets may be selected in individual cases. 02/24/17 * Mr. Cooper is a 62 y/o male known to the glycemic service from a previous admission, admitted now for a COPD exacerbation and on ATC steroids * His A1c indicates excellent outpatient glycemic control on his current regimen * As an inpatient, will plan to utilize basal in the form of Levemir (since pt on at home) and correctional/prandial using Novolog. Januvia has been ordered and this is okay to continue as there are no contraindications at this time. * The patient required 50 units of basal + CF 15, CR 5 on a previous admission WITHOUT steroids (TDD ~80 units) so I'm going to dose him this admission based upon an est TDD of 120 units * He did not receive his Levemir last night so I started BID dosing 1st thing this AM - can transition back to qHS dosing closer to discharge 02/25/17 * BSGs have remained in the mid 200s after receiving 121 units yesterday * Will adjust regimen based upon est TDD of 160 units and add overnight accucheck to provide addl correctional insulin PLAN FOR INPATIENT GLYCEMIC CONTROL: * Increase Levemir to 40 units BID * Novolog ACHS + 0200 accucheck * Goal 110-140 mg/dL * TIGHTEN CF 10 mg/dL/unit * TIGHTEN CR 1 unit per 3 gm CHO consumed * Continue Januvia 50 mg daily * Please note that the plan above was derived based on current level of insulin resistance and hospital stress. These recommendations are appropriate for inpatient admission only. Plan of care upon discharge will need to be reassessed to avoid potential outpatient hypo/hyperglycemia. Thank you.
[2017-02-25] MEDS ORDERED: PERFLUTREN LIPID MICROSPHERE (DEFINITY) IV ONE (14:00)
[2017-02-25] MEDS: WARFARIN SOD 5 MG TAB PO SCH (16:28)
--- NOTE | 2017-02-25 17:23 | Progress Note ---
Internal Med Progress Note Date of Service: Feb 25, 2017. Provider Documentation: SUBJECTIVE: Has pain in his left leg afebrile denies sob or cough no chest pain says he ambulated without help at home OBJECTIVE: Vital Signs-as noted below Exam: General-alert and awake and oriented. Morbidly obese ENT-normal hearing Neck-no neck masses Lungs-cta b/l no wheezing or crackles Heart-s1 and s2 heard regular rate and rhythm no murmurs Abdomen-soft bowel sounds present non tender no distension Extremities- b/l lower extremities chronic lymphedema with chronic changes Left lower extremity erythematous above the ankle region Neuro-alert and awake moves extremities Lab data as noted below. 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 TYPE 2 DM : On Insulin Lantus , , Januvia BSG elevated > 300 HB a1c 6.8 on 11/2016 will monitor GARY ON CKD STAGE 3 Complicated by dehydration Cr elevated ~2 ( baseline 1.5 ) received fluids cr 1.8 today will f/u labs HX OF PAROXYSMAL AFIB ON COUMADIN ; Rate controlled Cont Multaq /Lopressor INR therapeutic 2.0 GISELL ON CPAP CPAP at night LEFT SHOULDER PAIN and PAIN IN GENERAL Chronic Had work up done in last admission on 11/2016 -DJD pt/ot FULL CODE DVT PROPHYLAXIS : on Coumadin INR therapeutic DISPOSITION : expect to d/c home when stable PT/OT eval prior to discharge home Vital Signs: Date Time Temp Pulse Resp B/P Pulse Ox O2 Delivery O2 Flow Rate FiO2 02/25/17 15:19 36.5 71 20 167/89 95 Room Air 02/25/17 14:52 67 18 98 Room Air 02/25/17 12:00 94 Room Air 02/25/17 11:39 36.4 58 20 173/85 97 02/25/17 11:25 68 18 97 Room Air 02/25/17 08:19 36.5 63 20 200/75 96 02/25/17 08:00 94 Room Air 02/25/17 07:33 68 18 94 Room Air 02/25/17 04:05 36.5 68 16 142/74 94 Room Air 02/24/17 23:58 36.6 67 18 151/71 95 Room Air 02/24/17 19:30 96 Room Air 02/24/17 19:30 36.6 67 20 159/81 96 Room Air 02/24/17 19:05 68 18 96 Room Air Lab Results: Results Past 24 Hours Test 02/24/17 20:56 02/24/17 23:40 02/25/17 05:42 02/25/17 08:01 Range/Units Bedside Glucose 255 242 70-99 mg/dl Urine Color YELLOW Urine Appearance CLEAR CLEAR Urine pH 5.0 4.5-7.5 Urine Specific [place] 1.025 1.000-1.030 Urine Protein NEG NEG Urine Glucose (UA) 3+ NEG Urine Ketones NEG NEG Urine Occult Blood NEG NEG Urine Nitrite NEG NEG Urine Bilirubin NEG NEG Urine Urobilinogen NEG NEG Urine Leukocyte Esterase NEG NEG White Blood Count 9.56 4.8-10.8 K/uL Red Blood Count 3.64 4.7-6.1 M/uL Hemoglobin 10.7 14.0-18.0 g/dL Hematocrit 32.1 42-52 % Mean Corpuscular Volume 88.2 80-100 fL Mean Corpuscular Hemoglobin 29.4 25-34 pg Mean Corpuscular Hemoglobin Concent 33.3 32-36 g/dl RDW Standard Deviation 49.6 36.4-46.3 fL RDW Coefficient of Variation 15.2 11.5-14.5 % Platelet Count 110 130-400 K/uL Mean Platelet Volume 9.3 7.4-10.4 fL Sodium Level 140 136-145 mmol/L Potassium Level 4.5 3.5-5.1 mmol/L Chloride Level 107 98-107 mmol/L Carbon Dioxide Level 27 21-32 mmol/L Anion Gap 6.0 3-11 mmol/L Blood Urea Nitrogen 41 7-18 mg/dl Creatinine 1.80 0.60-1.40 mg/dl Est Creatinine Clear Calc Drug Dose 87.1 ml/min Estimated GFR () 46.4 Estimated GFR (Non- 40.0 BUN/Creatinine Ratio 22.8 10-20 Random Glucose 247 70-99 mg/dl Calcium Level 8.1 8.5-10.1 mg/dl Magnesium Level 2.0 1.8-2.4 mg/dl Test 02/25/17 11:10 02/25/17 16:03 Range/Units Bedside Glucose 275 281 70-99 mg/dl
[2017-02-25] MEDS: ACETAMINOPHEN 325 MG TAB PO PRN (20:36)
[2017-02-25] MEDS: SIMVASTATIN 10 MG TAB PO SCH (20:40)
[2017-02-25] MEDS: HydrALAZINE HCL 20 MG/ML VIAL IV. PRN (22:31)
[2017-02-25] MEDS ORDERED: NURSING VERBAL MED ORDER ONE (23:30)
[2017-02-25] MEDS: OXYCODONE/ACETAMINOPHEN 5-325 TAB PO PRN (23:47)
[2017-02-26] VITALS (14 sets, daily range): BP systolic 120–186; BP diastolic 73–95; PULSE 64–85; TEMP 36.4–36.9; O2SAT 93–99
[2017-02-26] MEDS ORDERED: INSULIN ASPART 100 UNITS/ML 3 ML PEN SC ONE (02:00)
[2017-02-26] MEDS: METHYLPREDNISOLONE IV 30 MG in SYRINGE 0 ML IV SCH ×3 (02:08→16:05)
[2017-02-26 06:32] LABS: HEMATOCRIT 33.4 % (42-52); MEAN CELL VOLUME 87.7 fL (80-100); MEAN CORPUSCULAR HEMOGLOBIN 29.7 pg (25-34); MEAN CORPUSCULAR HGB CONC 33.8 g/dl (32-36); MEAN PLATELET VOLUME 9.6 fL (7.4-10.4); PLATELET COUNT 124 K/uL (130-400); RED BLOOD COUNT 3.81 M/uL (4.7-6.1); WHITE BLOOD COUNT 9.31 K/uL (4.8-10.8)
[2017-02-26 06:40] LABS: INR 2.3 (0.9-1.1); PROTHROMBIN TIME (PATIENT) 25.8 SECONDS (9.0-12.0)
[2017-02-26 06:48] LABS: BUN/CREATININE RATIO 24.4 (10-20); CREATININE 1.6 mg/dl (0.60-1.40); MAGNESIUM 1.9 mg/dl (1.8-2.4); POTASSIUM 4.4 mmol/L (3.5-5.1)
[2017-02-26] MEDS: ALBUT/IPRATROP 3MG/0.5MG NEB 3 ML VIAL INH SCH ×2 (07:25→11:35)
[2017-02-26] MEDS: CHOLECALCIFEROL 1000 INTER.UNIT TAB PO SCH (08:32)
[2017-02-26] MEDS: SITAGLIPTIN 25 MG TAB PO SCH (08:32)
[2017-02-26] MEDS: CEROVITE ADV FORMULA TAB PO SCH (08:32)
[2017-02-26] MEDS: DRONEDARONE 400 MG TAB PO SCH ×2 (08:33→20:41)
[2017-02-26] MEDS: METOPROLOL SUCC 50MG EXT REL TAB PO SCH (08:33)
[2017-02-26] MEDS: DOXYCYCLINE HYCLATE 100 MG CAP PO SCH ×2 (08:33→20:41)
[2017-02-26] MEDS: MAGNESIUM CHLORIDE 64MG DELAYED REL TAB PO SCH ×2 (08:33→20:41)
[2017-02-26] MEDS: INSULIN ASPART 100 UNITS/ML 3 ML PEN SC SCH ×4 (08:36→21:16)
[2017-02-26] MEDS: INSULIN DETEMIR FLEXPEN/FLEX TOUCH 100 UNITS/ML 3ML SC SCH ×2 (08:36→20:47)
[2017-02-26] MEDS ORDERED: INSULIN DETEMIR FLEXPEN/FLEX TOUCH 100 UNITS/ML 3ML SC SCH (09:00)
[2017-02-26] MEDS ORDERED: LEVOFLOXACIN 750 MG TAB PO SCH (11:00)
--- NOTE | 2017-02-26 11:07 | Pharmacy Progress Note ---
Glycemic Control: Progress Nt Date of Service Feb 26, 2017. Scope Glycemic Pharmacist consulted by Dr St on 02/24 for glycemic control and to write orders per [facility] inpatient glycemic control protocol. Objective Accuchecks BSG (last 24hrs): Test 02/25/17 11:10 02/25/17 16:03 02/25/17 20:04 02/26/17 02:01 Bedside Glucose 275 mg/dl (70-99) 281 mg/dl (70-99) 268 mg/dl (70-99) 225 mg/dl (70-99) Test 02/26/17 06:16 02/26/17 07:52 Random Glucose 157 mg/dl (70-99) Bedside Glucose 125 mg/dl (70-99) Laboratory Data (last 24hrs) Test 02/26/17 06:16 Anion Gap 6.0 mmol/L BUN/Creatinine Ratio 24.4 Blood Urea Nitrogen 39 mg/dl Creatinine 1.60 mg/dl Potassium Level 4.4 mmol/L Sodium Level 140 mmol/L White Blood Count 9.31 K/uL HbA1c: Test 02/24/17 05:23 Hemoglobin A1c 6.4 % (4.5-5.6) H Recent Pertinent Medications Outpatient Anti-diabetic Regimen: (confirmed w/ patient's ) * Levemir 52 units qHS * Novolog 10 units w/ meals * Januvia 50 mg daily Risk Factors for Insulin Resistance: * Steroids: Solu-medrol 30 mg q8h * Infection: COPD exacerbation * Diet: AHA/type 2 diabetes - ave of 70 gm CHO with each meal Assessment & Plan ASSESSMENT: * ADA & AACE recommend a goal blood sugar range 140-180 mg/dl for the majority of critically ill & non-critically ill patients. However, more stringent targets may be selected in individual cases. 02/24/17 * Mr. Cooper is a 62 y/o male known to the glycemic service from a previous admission, admitted now for a COPD exacerbation and on ATC steroids * His A1c indicates excellent outpatient glycemic control on his current regimen * As an inpatient, will plan to utilize basal in the form of Levemir (since pt on at home) and correctional/prandial using Novolog. Januvia has been ordered and this is okay to continue as there are no contraindications at this time. * The patient required 50 units of basal + CF 15, CR 5 on a previous admission WITHOUT steroids (TDD ~80 units) so I'm going to dose him this admission based upon an est TDD of 120 units * He did not receive his Levemir last night so I started BID dosing 1st thing this AM - can transition back to qHS dosing closer to discharge 02/25/17 * BSGs have remained in the mid 200s after receiving 121 units yesterday * Will adjust regimen based upon est TDD of 160 units and add overnight accucheck to provide addl correctional insulin 02/26/17 * Mr. Cooper received 196 units of insulin yesterday and we are finally seeing some improvement in BSGs as of this AM * He received 9 units of correctional insulin overnight so I have added this into his basal dose * I initially tightened his CF and CR this AM but I feel this may be too much so will plan to go back to previously ordered CF/CR based upon est TDD of ~200 units * Will need to continue to follow BSGs closely and adjust regimen once steroids are tapered - will also attempt to transition back to outpatient regimen (once daily Levemir dosing) closer to discharge PLAN FOR INPATIENT GLYCEMIC CONTROL: * Increase Levemir to 45 units BID * Novolog ACHS * Goal 110-140 mg/dL * Continue CF 10 mg/dL/unit * Continue CR 1 unit per 3 gm CHO consumed * Continue Januvia 50 mg daily RECOMMENDATIONS FOR DISCHARGE: * A1c indicates excellent control as an outpatient * Resume outpatient regimen upon discharge Thank you.
[2017-02-26] MEDS: HydrALAZINE HCL 20 MG/ML VIAL IV. PRN (14:47)
--- NOTE | 2017-02-26 14:59 | Progress Note ---
Subjective Date of Service: Feb 26, 2017. Subjective pt wound culture cancelled, blood cultures negative. no clots noted. remains afebrile on abx. wbc improved. Problem List Medical Problems: (1) Cellulitis Status: Acute (2) Cellulitis of left leg Status: Acute (3) Cellulitis of left lower extremity Status: Acute (4) Failure of outpatient treatment Status: Acute (5) Fever Status: Acute (6) History of bacteremia Status: Acute (7) Hypomagnesemia Status: Acute (8) Influenza Status: Acute (9) Sepsis Status: Acute Medications Item Value Date Time Blood Culture - Preliminary Resulted 11/18/16 0035 Blood NO GROWTH TO DATE. Blood Culture - Preliminary Resulted 11/18/16 2322 Blood NO GROWTH TO DATE. C.difficile Toxin B Gene (PCR) - Final Complete 11/21/161999 Stool No C. difficile toxin B gene detected Blood Culture - Preliminary Resulted 02/24/17 0523 Blood NO GROWTH TO DATE. Blood Culture - Preliminary Resulted 02/24/17 0534 Blood NO GROWTH TO DATE. Objective Vital Signs Date Time Temp Pulse Resp B/P Pulse Ox O2 Delivery O2 Flow Rate FiO2 02/26/17 12:00 98 Room Air 02/26/17 11:35 36.4 64 16 168/80 99 Room Air 02/26/17 11:35 73 18 98 Room Air 02/26/17 08:09 36.7 69 16 159/75 97 Room Air 02/26/17 08:00 94 Room Air 02/26/17 07:28 67 18 98 Room Air 02/26/17 04:00 36.6 64 20 150/95 98 CPAP 02/26/17 01:41 36.6 76 18 154/80 97 Room Air 2.0 02/26/17 00:14 36.6 76 18 154/80 97 Room Air 02/25/17 22:25 82 183/79 02/25/17 20:02 102 18 98 Room Air 02/25/17 20:00 95 Room Air CPAP 02/25/17 19:35 36.6 75 18 186/92 98 Room Air 02/25/17 16:00 95 Room Air CPAP 02/25/17 15:19 36.5 71 20 167/89 95 Room Air Laboratory Results Last 24 Hours Test 02/25/17 16:03 02/25/17 20:04 02/26/17 02:01 02/26/17 06:16 Bedside Glucose 281 mg/dl 268 mg/dl 225 mg/dl White Blood Count 9.31 K/uL Red Blood Count 3.81 M/uL Hemoglobin 11.3 g/dL Hematocrit 33.4 % Mean Corpuscular Volume 87.7 fL Mean Corpuscular Hemoglobin 29.7 pg Mean Corpuscular Hemoglobin Concent 33.8 g/dl RDW Standard Deviation 49.0 fL RDW Coefficient of Variation 15.3 % Platelet Count 124 K/uL Mean Platelet Volume 9.6 fL Prothrombin Time 25.8 SECONDS Prothromb Time International Ratio 2.3 Sodium Level 140 mmol/L Potassium Level 4.4 mmol/L Chloride Level 107 mmol/L Carbon Dioxide Level 27 mmol/L Anion Gap 6.0 mmol/L Blood Urea Nitrogen 39 mg/dl Creatinine 1.60 mg/dl Est Creatinine Clear Calc Drug Dose 97.7 ml/min Estimated GFR () 53.5 Estimated GFR (Non- 46.1 BUN/Creatinine Ratio 24.4 Random Glucose 157 mg/dl Calcium Level 8.2 mg/dl Magnesium Level 1.9 mg/dl Test 02/26/17 07:52 02/26/17 11:51 Bedside Glucose 125 mg/dl 163 mg/dl Assessment and Plan (1) Lymphedema of both lower extremities Assessment & Plan: No clear sign of infection, remains on abx. can change to po doxy. If blood cultures remain negative, will likely stop levaquin.
--- NOTE | 2017-02-26 15:35 | Progress Note ---
Internal Med Progress Note Date of Service: Feb 26, 2017. Provider Documentation: SUBJECTIVE: pain in his left leg improved afebrile says has some sob on ambulation no chest pain says wants to go home OBJECTIVE: Vital Signs-as noted below Exam: General-alert and awake and oriented. Morbidly obese ENT-normal hearing Neck-no neck masses Lungs-cta b/l no wheezing or crackles Heart-s1 and s2 heard regular rate and rhythm no murmurs Abdomen-soft bowel sounds present non tender no distension Extremities- b/l lower extremities chronic lymphedema with chronic changes Left lower extremity erythematous above the ankle region Neuro-alert and awake moves extremities Lab data as noted below. 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 TYPE 2 DM : On Insulin Lantus , , Januvia BSG elevated > 300 HB a1c 6.8 on 11/2016 will monitor GARY ON CKD STAGE 3 Complicated by dehydration Cr elevated ~2 ( baseline 1.5 ) received fluids cr 1.6today will f/u labs HX OF PAROXYSMAL AFIB ON COUMADIN ; Rate controlled Cont Multaq /Lopressor INR therapeutic 2.3 GISELL ON CPAP CPAP at night LEFT SHOULDER PAIN and PAIN IN GENERAL Chronic Had work up done in last admission on 11/2016 -DJD pt/ot FULL CODE DVT PROPHYLAXIS : on Coumadin INR therapeutic DISPOSITION : possible d/c home in am ambulate in hallway PT/OT eval prior to discharge home Vital Signs: Date Time Temp Pulse Resp B/P Pulse Ox O2 Delivery O2 Flow Rate FiO2 02/26/17 15:05 36.6 70 16 186/88 97 Room Air 02/26/17 12:00 98 Room Air 02/26/17 11:35 36.4 64 16 168/80 99 Room Air 02/26/17 11:35 73 18 98 Room Air 02/26/17 08:09 36.7 69 16 159/75 97 Room Air 02/26/17 08:00 94 Room Air 02/26/17 07:28 67 18 98 Room Air 02/26/17 04:00 36.6 64 20 150/95 98 CPAP 02/26/17 01:41 36.6 76 18 154/80 97 Room Air 2.0 02/26/17 00:14 36.6 76 18 154/80 97 Room Air 02/25/17 22:25 82 183/79 02/25/17 20:02 102 18 98 Room Air 02/25/17 20:00 95 Room Air CPAP 02/25/17 19:35 36.6 75 18 186/92 98 Room Air 02/25/17 16:00 95 Room Air CPAP Lab Results: Results Past 24 Hours Test 02/25/17 16:03 02/25/17 20:04 02/26/17 02:01 02/26/17 06:16 Range/Units Bedside Glucose 281 268 225 70-99 mg/dl White Blood Count 9.31 4.8-10.8 K/uL Red Blood Count 3.81 4.7-6.1 M/uL Hemoglobin 11.3 14.0-18.0 g/dL Hematocrit 33.4 42-52 % Mean Corpuscular Volume 87.7 80-100 fL Mean Corpuscular Hemoglobin 29.7 25-34 pg Mean Corpuscular Hemoglobin Concent 33.8 32-36 g/dl RDW Standard Deviation 49.0 36.4-46.3 fL RDW Coefficient of Variation 15.3 11.5-14.5 % Platelet Count 124 130-400 K/uL Mean Platelet Volume 9.6 7.4-10.4 fL Prothrombin Time 25.8 9.0-12.0 SECONDS Prothromb Time International Ratio 2.3 0.9-1.1 Sodium Level 140 136-145 mmol/L Potassium Level 4.4 3.5-5.1 mmol/L Chloride Level 107 98-107 mmol/L Carbon Dioxide Level 27 21-32 mmol/L Anion Gap 6.0 3-11 mmol/L Blood Urea Nitrogen 39 7-18 mg/dl Creatinine 1.60 0.60-1.40 mg/dl Est Creatinine Clear Calc Drug Dose 97.7 ml/min Estimated GFR () 53.5 Estimated GFR (Non- 46.1 BUN/Creatinine Ratio 24.4 10-20 Random Glucose 157 70-99 mg/dl Calcium Level 8.2 8.5-10.1 mg/dl Magnesium Level 1.9 1.8-2.4 mg/dl Test 02/26/17 07:52 02/26/17 11:51 Range/Units Bedside Glucose 125 163 70-99 mg/dl
[2017-02-26 15:42] LABS: CALCIUM 8.8 mg/dl (8.5-10.1)
[2017-02-26] MEDS: WARFARIN SOD 5 MG TAB PO SCH (16:05)
[2017-02-26] MEDS ORDERED: ALBUT/IPRATROP 3MG/0.5MG NEB 3 ML VIAL INH PRN (17:15)
[2017-02-26] MEDS: SIMVASTATIN 10 MG TAB PO SCH (20:41)
[2017-02-26] MEDS: OXYCODONE/ACETAMINOPHEN 5-325 TAB PO PRN (20:42)
[2017-02-26] MEDS: IPRATROPIUM BROMIDE/ALBUTEROL respimat INH INH SCH (20:48)
[2017-02-27] MEDS: METHYLPREDNISOLONE IV 30 MG in SYRINGE 0 ML IV SCH ×2 (01:47→13:29)
[2017-02-27 04:43] VITALS: BP 148/89; PULSE 54; TEMP 36.8; O2SAT 97
[2017-02-27 06:34] LABS: HEMATOCRIT 35.2 % (42-52); MEAN CELL VOLUME 89.6 fL (80-100); MEAN CORPUSCULAR HEMOGLOBIN 30.5 pg (25-34); MEAN CORPUSCULAR HGB CONC 34.1 g/dl (32-36); MEAN PLATELET VOLUME 9.6 fL (7.4-10.4); PLATELET COUNT 143 K/uL (130-400); RED BLOOD COUNT 3.93 M/uL (4.7-6.1); WHITE BLOOD COUNT 8.88 K/uL (4.8-10.8)
[2017-02-27 06:44] LABS: INR 2.1 (0.9-1.1); PROTHROMBIN TIME (PATIENT) 22.8 SECONDS (9.0-12.0)
[2017-02-27 07:30] LABS: BUN/CREATININE RATIO 23.4 (10-20); CALCIUM 8.6 mg/dl (8.5-10.1); CREATININE 1.6 mg/dl (0.60-1.40); POTASSIUM 4.5 mmol/L (3.5-5.1)
[2017-02-27 07:41] VITALS: BP 172/82; PULSE 58; TEMP 36.3; O2SAT 99
[2017-02-27 08:00] VITALS: O2SAT 94
[2017-02-27] MEDS ORDERED: INSULIN DETEMIR FLEXPEN/FLEX TOUCH 100 UNITS/ML 3ML SC SCH (09:00)
[2017-02-27] MEDS: IPRATROPIUM BROMIDE/ALBUTEROL respimat INH INH SCH ×2 (09:01→13:30)
[2017-02-27] MEDS: METOPROLOL SUCC 50MG EXT REL TAB PO SCH (09:01)
[2017-02-27] MEDS: CEROVITE ADV FORMULA TAB PO SCH (09:01)
[2017-02-27] MEDS: MAGNESIUM CHLORIDE 64MG DELAYED REL TAB PO SCH (09:02)
[2017-02-27] MEDS: DOXYCYCLINE HYCLATE 100 MG CAP PO SCH (09:02)
[2017-02-27] MEDS: DRONEDARONE 400 MG TAB PO SCH (09:02)
[2017-02-27] MEDS: SITAGLIPTIN 25 MG TAB PO SCH (09:02)
[2017-02-27] MEDS: CHOLECALCIFEROL 1000 INTER.UNIT TAB PO SCH (09:03)
[2017-02-27] MEDS: INSULIN ASPART 100 UNITS/ML 3 ML PEN SC SCH ×2 (09:07→13:34)
--- NOTE | 2017-02-27 10:03 | Pharmacy Progress Note ---
Glycemic Control: Progress Nt Date of Service Feb 27, 2017. Scope Glycemic Pharmacist consulted by Dr St on 02/24 for glycemic control and to write orders per [facility] inpatient glycemic control protocol. Objective Accuchecks BSG (last 24hrs): Test 02/26/17 11:51 02/26/17 16:19 02/26/17 20:16 02/27/17 06:00 Bedside Glucose 163 mg/dl (70-99) 198 mg/dl (70-99) 183 mg/dl (70-99) Random Glucose 101 mg/dl (70-99) Test 02/27/17 07:25 Bedside Glucose 102 mg/dl (70-99) Laboratory Data (last 24hrs) Test 02/27/17 06:00 Anion Gap 6.0 mmol/L BUN/Creatinine Ratio 23.4 Blood Urea Nitrogen 37 mg/dl Creatinine 1.60 mg/dl Potassium Level 4.5 mmol/L Sodium Level 141 mmol/L White Blood Count 8.88 K/uL HbA1c: Test 02/24/17 05:23 Hemoglobin A1c 6.4 % (4.5-5.6) H Recent Pertinent Medications Outpatient Anti-diabetic Regimen: (confirmed w/ patient's ) * Levemir 52 units qHS * Novolog 10 units w/ meals * Januvia 50 mg daily Risk Factors for Insulin Resistance: * Steroids: Solu-medrol 30 mg q8h (this has not changed from admission) * Infection: COPD exacerbation * Diet: AHA/type 2 diabetes - ave of 70 gm CHO with each meal Assessment & Plan ASSESSMENT: * ADA & AACE recommend a goal blood sugar range 140-180 mg/dl for the majority of critically ill & non-critically ill patients. However, more stringent targets may be selected in individual cases. 02/24/17 * Mr. Cooper is a 62 y/o male known to the glycemic service from a previous admission, admitted now for a COPD exacerbation and on ATC steroids * His A1c indicates excellent outpatient glycemic control on his current regimen * As an inpatient, will plan to utilize basal in the form of Levemir (since pt on at home) and correctional/prandial using Novolog. Januvia has been ordered and this is okay to continue as there are no contraindications at this time. * The patient required 50 units of basal + CF 15, CR 5 on a previous admission WITHOUT steroids (TDD ~80 units) so I'm going to dose him this admission based upon an est TDD of 120 units * He did not receive his Levemir last night so I started BID dosing 1st thing this AM - can transition back to qHS dosing closer to discharge 02/25/17 * BSGs have remained in the mid 200s after receiving 121 units yesterday * Will adjust regimen based upon est TDD of 160 units and add overnight accucheck to provide addl correctional insulin 02/26/17 * Mr. Cooper received 196 units of insulin yesterday and we are finally seeing some improvement in BSGs as of this AM * He received 9 units of correctional insulin overnight so I have added this into his basal dose * I initially tightened his CF and CR this AM but I feel this may be too much so will plan to go back to previously ordered CF/CR based upon est TDD of ~200 units * Will need to continue to follow BSGs closely and adjust regimen once steroids are tapered - will also attempt to transition back to outpatient regimen (once daily Levemir dosing) closer to discharge 02/27/17 * Pt rec'd 196 units of insulin yesterday with BSGs ranging from 101-198 * BSGs are well controlled at this point but need to put the brakes on the insulin dosing as I'm concerned they will start to fall further as the Levemir dose reaches steady state * In addition, physician's note indicates that pt may be going home today so will most likely be on a steroid taper PLAN FOR INPATIENT GLYCEMIC CONTROL: * Decrease Levemir to 38 units BID - if pt to be discharged today, this will still provide ~90 units of basal, which is most likely needed if going home on steroids * Novolog ACHS * Goal 110-140 mg/dL * Continue CF 10 mg/dL/unit * Continue CR 1 unit per 3 gm CHO consumed * Continue Januvia 50 mg daily RECOMMENDATIONS FOR DISCHARGE: * A1c indicates excellent control as an outpatient * Resume outpatient regimen upon discharge - please consider calling pharmacy if the patient is going to be discharged on a steroid taper as insulin regimen will most likely need to be adjusted Thank you.
[2017-02-27 11:17] VITALS: BP 176/80; PULSE 61; TEMP 36.3; O2SAT 98
[2017-02-27 12:00] VITALS: O2SAT 94
--- NOTE | 2017-02-27 12:44 | Discharge Instructions ---
Discharge Instructions Date of Service Feb 27, 2017. Admission Reason for Admission: Copd Exacerbation? B/L lower extremity cellulitis Discharge Discharge Diagnosis / Problem: b/l lower extremity cellulitis Discharge Goals Goal(s): Decrease discomfort Activity Recommendations Activity Limitations: resume your previous activity . Instructions / Follow-Up Instructions / Follow-Up FOLLOWUP WITH FAMILY DOCTOR IN ONE WEEK. FOLLOWUP WITH PULMONARY SCHEDULED. FOLLOWUP WITH INFECTIOUS DISEASE SCHEDULED. Current Hospital Diet Patient's current hospital diet: AHA Diet (Heart Healthy), Diabetes Type 2 Diet Discharge Diet Recommended Diet: AHA Diet (Heart Healthy), Diabetes Type 2 Diet Pending Studies Studies pending at discharge: no Laboratory Results Hemoglobin A1c Test 02/24/17 05:23 Range/Units Estimated Average Glucose 137 mg/dl Hemoglobin A1c 6.4 H 4.5-5.6 % Medical Emergencies . Who to Call and When: Medical Emergencies: If at any time you feel your situation is an emergency, please call 911 immediately. . Non-Emergent Contact Non-Emergency issues call your: Primary Care Provider . . "Provider Documentation" section prepared by López Kay. VTE Core Measure Inpt VTE Proph given/why not?: Warfarin (Coumadin)
--- NOTE | 2017-02-27 12:45 | Progress Note ---
Subjective Date of Service: Feb 27, 2017. Subjective blood cultures remain negative, less pain, afebrile. wbc nml. tolerating abx. no events. Problem List Medical Problems: (1) Cellulitis Status: Acute (2) Cellulitis of left leg Status: Acute (3) Cellulitis of left lower extremity Status: Acute (4) Failure of outpatient treatment Status: Acute (5) Fever Status: Acute (6) History of bacteremia Status: Acute (7) Hypomagnesemia Status: Acute (8) Influenza Status: Acute (9) Sepsis Status: Acute Objective Vital Signs Date Time Temp Pulse Resp B/P Pulse Ox O2 Delivery O2 Flow Rate FiO2 02/27/17 12:00 94 Room Air 02/27/17 11:17 36.3 61 18 176/80 98 Room Air 02/27/17 08:00 94 Room Air 02/27/17 07:41 36.3 58 18 172/82 99 Room Air 02/27/17 04:43 36.8 54 20 148/89 97 CPAP 02/27/17 04:00 Room Air 02/27/17 00:00 Room Air 02/26/17 23:45 148/89 02/26/17 23:30 36.5 85 18 164/75 93 Room Air 02/26/17 20:03 36.6 85 18 153/82 97 Room Air 02/26/17 20:00 Room Air 02/26/17 16:15 68 18 98 Room Air 02/26/17 16:00 Room Air 02/26/17 15:05 36.6 70 16 186/88 97 Room Air Laboratory Results Item Value Date Time Blood Culture - Preliminary Resulted 02/24/17 0534 Blood NO GROWTH TO DATE. Blood Culture - Preliminary Resulted 02/24/17 0523 Blood NO GROWTH TO DATE. Last 24 Hours Test 02/26/17 16:19 02/26/17 20:16 02/27/17 06:00 02/27/17 07:25 Bedside Glucose 198 mg/dl 183 mg/dl 102 mg/dl White Blood Count 8.88 K/uL Red Blood Count 3.93 M/uL Hemoglobin 12.0 g/dL Hematocrit 35.2 % Mean Corpuscular Volume 89.6 fL Mean Corpuscular Hemoglobin 30.5 pg Mean Corpuscular Hemoglobin Concent 34.1 g/dl RDW Standard Deviation 50.9 fL RDW Coefficient of Variation 15.5 % Platelet Count 143 K/uL Mean Platelet Volume 9.6 fL Prothrombin Time 22.8 SECONDS Prothromb Time International Ratio 2.1 Sodium Level 141 mmol/L Potassium Level 4.5 mmol/L Chloride Level 107 mmol/L Carbon Dioxide Level 28 mmol/L Anion Gap 6.0 mmol/L Blood Urea Nitrogen 37 mg/dl Creatinine 1.60 mg/dl Est Creatinine Clear Calc Drug Dose 97.7 ml/min Estimated GFR () 53.5 Estimated GFR (Non- 46.1 BUN/Creatinine Ratio 23.4 Random Glucose 101 mg/dl Calcium Level 8.6 mg/dl Magnesium Level 2.0 mg/dl Test 02/27/17 11:10 Bedside Glucose 149 mg/dl Assessment and Plan (1) Lymphedema of both lower extremities Assessment & Plan: will stop levaquin, cultures negative, remains afebrile. continue po doxy suppression upon d/c. ok for d/c from ID standpoint when medically clear.
[2017-02-27 13:07] VITALS: BP 176/80; PULSE 61; TEMP 36.3; O2SAT 94
[2017-02-27] MEDS ORDERED: PRED10TA PO (13:44)
--- NOTE | 2017-02-27 18:51 | Progress Note ---
Internal Med Progress Note Date of Service: Feb 27, 2017. Provider Documentation: SUBJECTIVE: pain in his left leg improved ambulating ok' has some on exertion which is chronic afebrile want to go home OBJECTIVE: Vital Signs-as noted below Exam: General-alert and awake and oriented. Morbidly obese ENT-normal hearing Neck-no neck masses Lungs-cta b/l no wheezing or crackles Heart-s1 and s2 heard regular rate and rhythm no murmurs Abdomen-soft bowel sounds present non tender no distension Extremities- b/l lower extremities chronic lymphedema with chronic changes Left lower extremity erythematous above the ankle region improving Neuro-alert and awake moves extremities Lab data as noted below. ASSESSMENT & PLAN: Acute on CHRONIC LOWER EXT CELLULITIS : on Doxycycline chronic suppressive therapy for hx of MRSA -which will be continued No draining ulcer noted in legs ID consulted on Levaquin cx no growth so far discharged on home doxycycline to f/u with ID SOB /HYPOXIA/COPD EXACERBATION : Has Sarcoid Obesity hypoventilation syndrome echo unremarkable on iv steroid and nebs pulmonary on board tapering steroids f//u with pulmonary TYPE 2 DM : On Insulin Lantus , , Januvia BSG elevated > 300 HB a1c 6.8 on 11/2016 will monitor GARY ON CKD STAGE 3 Complicated by dehydration Cr elevated ~2 ( baseline 1.5 ) received fluids cr 1.6today will f/u labs HX OF PAROXYSMAL AFIB ON COUMADIN ; Rate controlled Cont Multaq /Lopressor INR therapeutic 2.1 GISLEL ON CPAP CPAP at night LEFT SHOULDER PAIN and PAIN IN GENERAL Chronic Had work up done in last admission on 11/2016 -DJD pt/ot Discharged home Vital Signs: Date Time Temp Pulse Resp B/P Pulse Ox O2 Delivery O2 Flow Rate FiO2 02/27/17 13:07 36.3 61 18 94 Nasal Cannula 02/27/17 12:00 94 Room Air 02/27/17 11:17 36.3 61 18 176/80 98 Room Air 02/27/17 08:00 94 Room Air 02/27/17 07:41 36.3 58 18 172/82 99 Room Air 02/27/17 04:43 36.8 54 20 148/89 97 CPAP 02/27/17 04:00 Room Air 02/27/17 00:00 Room Air 02/26/17 23:45 148/89 02/26/17 23:30 36.5 85 18 164/75 93 Room Air 02/26/17 20:03 36.6 85 18 153/82 97 Room Air 02/26/17 20:00 Room Air Lab Results: Results Past 24 Hours Test 02/26/17 20:16 02/27/17 06:00 02/27/17 07:25 02/27/17 11:10 Range/Units Bedside Glucose 183 102 149 70-99 mg/dl White Blood Count 8.88 4.8-10.8 K/uL Red Blood Count 3.93 4.7-6.1 M/uL Hemoglobin 12.0 14.0-18.0 g/dL Hematocrit 35.2 42-52 % Mean Corpuscular Volume 89.6 80-100 fL Mean Corpuscular Hemoglobin 30.5 25-34 pg Mean Corpuscular Hemoglobin Concent 34.1 32-36 g/dl RDW Standard Deviation 50.9 36.4-46.3 fL RDW Coefficient of Variation 15.5 11.5-14.5 % Platelet Count 143 130-400 K/uL Mean Platelet Volume 9.6 7.4-10.4 fL Prothrombin Time 22.8 9.0-12.0 SECONDS Prothromb Time International Ratio 2.1 0.9-1.1 Sodium Level 141 136-145 mmol/L Potassium Level 4.5 3.5-5.1 mmol/L Chloride Level 107 98-107 mmol/L Carbon Dioxide Level 28 21-32 mmol/L Anion Gap 6.0 3-11 mmol/L Blood Urea Nitrogen 37 7-18 mg/dl Creatinine 1.60 0.60-1.40 mg/dl Est Creatinine Clear Calc Drug Dose 97.7 ml/min Estimated GFR () 53.5 Estimated GFR (Non- 46.1 BUN/Creatinine Ratio 23.4 10-20 Random Glucose 101 70-99 mg/dl Calcium Level 8.6 8.5-10.1 mg/dl Magnesium Level 2.0 1.8-2.4 mg/dl
--- NOTE | 2017-02-27 18:54 | Discharge Summary ---
Discharge Summary Date of Service Feb 27, 2017. Discharge Summary Admission Date: Feb 24, 2017 at 03:27 Discharge Date: Feb 27, 2017 Discharge Disposition: Home Principal Diagnosis: LOWER EXTREMITY CELLULITIS SOB/HYPOXIA/COPD EX Secondary Diagnoses/Problems: (1) Atrial fibrillation Status: Chronic (2) Benign hypertension Status: Chronic (3) CKD (chronic kidney disease), stage III Status: Chronic (4) Diabetes mellitus type 2 Status: Chronic (5) Hyperlipidemia Nec/Nos Status: Chronic (6) Lymphedema of both lower extremities Status: Chronic (7) Methicillin resistant Staphylococcus aureus infection Status: Chronic (8) Morbid Obesity Status: Chronic (9) GISELL (obstructive sleep apnea) Status: Chronic Procedures: CXR: 1. No acute cardiopulmonary findings. No change in appearance of the chest. 2. Technically compromised exam VENOUS DOPPLER; There is no sonographic evidence of deep venous thrombosis identified in the right or left lower extremity. ECHO: * The left ventricle is normal in size. * There is normal left ventricular wall thickness. * Left ventricular systolic function is normal. * The left ventricular wall motion is normal. * Ejection Fraction = 55-60%. * Borderline left atrial enlargement. * The right ventricle is mildly dilated. * There is trace tricuspid regurgitation. Doppler findings do not suggest pulmonary hypertension Consultations: ID PULMONARY Medication Reconciliation New Medications: Prednisone Tab (Prednisone) 10 Mg Tab 40 MG PO UD, #20 TAB PREDNISONE 40MG PO DAILY X 2DAYS THEN PREDNISONE 30MG PO DAILY X 2DAYS THEN PREDNISONE 20MG PO DAILY X 2DAYS THEN PREDNISONE 10MG PO DAILY X 2DAYS AND STOP. Continued Medications: Srhrvtteid-Qqqwashxccspd-Mephw (Esgic) 1 Tab Tab 1 TAB PO UD PRN for Pain Cholecalciferol (Vitamin D) 5,000 Unit Tab 5000 MG PO DAILY Doxycycline Monohydrate (Monodox) 100 Mg Cap 100 MG PO BID, CAP Dronedarone Hcl (Multaq) 400 Mg Tab 400 MG PO BID for 90 Days, #180 TAB 3 Refills Epinephrine (Epipen *) 0.3 Mg Inj 0.3 MG IM UD, 0 Refills Insulin Aspart (Novolog Flexpen) 100 Units/Ml Inj 10 UNITS PO WM Insulin Detemir (Levemir) 100 Units/Ml Inj 52 UNITS SQ HS Magnesium Chloride (Slow-Mag Tab) 64 Mg Tabcr 64 MG PO BID, TAB Metoprolol Succinate (Toprol Xl) 100 Mg Tab 100 MG PO DAILY, TAB Multiple Vitamins W/ Minerals (Multiple Vitamin/Minerals) 1 Tab Tab 1 TAB PO DAILY Simvastatin (Zocor) 20 Mg Tab 10 MG PO HS Sitagliptin Phosphate (Januvia) 50 Mg Tab 50 MG PO DAILY, TAB Terazosin Hcl (Hytrin) 5 Mg Cap 5 MG PO HS, CAP Warfarin Sodium (Coumadin) 5 Mg Tab 5 MG PO DAILY, TAB Admission Information HPI (per Admitting provider): This is a 62 yo Male with hx of Morbid obesity , s/p gastric bypass , HTN , Hx of Paroxysmal Afib on Coumadin , type 2 DM on insulin , GISELL on CPAP at night , chronic bilateral lower extremity severe Lymphedema , Hx of MRSA on chronic doxycycline , CKD stage 3 ( baseline Cr 1.5 ) , chronic anemia( baseline Hb ~9 ) , chronic thrombocytopenia was last admitted to [facility] form 11/19/16 to 11/22 for sepsis due to left lower leg cellulitis Pt mentions he recently recovered form respiratory infection , completed 1 week course of antibiotic developed worsening of SOB , cough and chest heaviness EMS was called , pt was initially taken to [facility] -as he was found to be hypoxic en route as per ED attending in [facility] pt's respiratory status improved after Neb tx , still requiring 2 L 02 ( not on home 02 ) Cxray was unremarkable , no infiltrate or effusion had mild elevation of WBC ~11 ; possible COPD exacerbation -pt was transferred to [facility] as he received all his prior care here/family and pt requests transfer Physical Exam (per Admitting): General Appearance: no apparent distress (obese male , in moderate distress due to SOB , complains of pain in left shoulder and back ) Head: normocephalic, atraumatic Eyes: sclerae normal Respiratory/Chest: + decreased breath sounds, + wheezing Cardiovascular: regular rate, rhythm Abdomen/GI: non tender, soft Extremities/Musculoskelatal: + pedal edema (bilateral significant lymphedema with chronic venous statis change ) Neurologic/Psych: alert, normal mood/affect, oriented x 3 Skin: + pertinent finding (bilateral lower ext marked lymphedema , shallow 2x3 cm skin opening /ulcer on rt lower leg , with serous drainage ) Hospital Course Acute on CHRONIC LOWER EXT CELLULITIS : on Doxycycline chronic suppressive therapy for hx of MRSA -which will be continued No draining ulcer noted in legs ID consulted on Levaquin cx no growth so far discharged on home doxycycline to f/u with ID SOB /HYPOXIA/COPD EXACERBATION : Has Sarcoid Obesity hypoventilation syndrome echo unremarkable on iv steroid and nebs pulmonary on board tapering steroids f//u with pulmonary TYPE 2 DM : On Insulin Lantus , , Januvia BSG elevated > 300 HB a1c 6.8 on 11/2016 will monitor GARY ON CKD STAGE 3 Complicated by dehydration Cr elevated ~2 ( baseline 1.5 ) received fluids cr 1.6today will f/u labs HX OF PAROXYSMAL AFIB ON COUMADIN ; Rate controlled Cont Multaq /Lopressor INR therapeutic 2.1 GISELL ON CPAP CPAP at night LEFT SHOULDER PAIN and PAIN IN GENERAL Chronic Had work up done in last admission on 11/2016 -DJD pt/ot Discharged home Total time spent on discharge = 35MINUTES This includes examination of the patient, discharge planning, medication reconciliation, and communication with other providers. Discharge Instructions Discharge Instructions Date of Service Feb 27, 2017. Admission Reason for Admission: Copd Exacerbation? B/L lower extremity cellulitis Discharge Discharge Diagnosis / Problem: b/l lower extremity cellulitis Discharge Goals Goal(s): Decrease discomfort Activity Recommendations Activity Limitations: resume your previous activity . Instructions / Follow-Up Instructions / Follow-Up FOLLOWUP WITH FAMILY DOCTOR IN ONE WEEK. FOLLOWUP WITH PULMONARY SCHEDULED. FOLLOWUP WITH INFECTIOUS DISEASE SCHEDULED. Current Hospital Diet Patient's current hospital diet: AHA Diet (Heart Healthy), Diabetes Type 2 Diet Discharge Diet Recommended Diet: AHA Diet (Heart Healthy), Diabetes Type 2 Diet Pending Studies Studies pending at discharge: no Laboratory Results Hemoglobin A1c Test 02/24/17 05:23 Range/Units Estimated Average Glucose 137 mg/dl Hemoglobin A1c 6.4 H 4.5-5.6 % Medical Emergencies . Who to Call and When: Medical Emergencies: If at any time you feel your situation is an emergency, please call 911 immediately. . Non-Emergent Contact Non-Emergency issues call your: Primary Care Provider . . "Provider Documentation" section prepared by López Kay. VTE Core Measure Inpt VTE Proph given/why not?: Warfarin (Coumadin)
== END 2017-02-27 14:46 | disposition home or self-care (01) | DRG 191 ==
LOC: C.MED 03:27
PROVIDERS: ADMIT Hospitalist; ATTEND Internal Medicine
DX: J44.1 Chronic obstructive pulmonary disease with (acute) exacerbation (principal); Z68.45 Body mass index [BMI] 70 or greater, adult; E66.2 Morbid (severe) obesity with alveolar hypoventilation; N17.9 Acute kidney failure, unspecified; L03.116 Cellulitis of left lower limb; L03.115 Cellulitis of right lower limb; I13.0 Hypertensive heart and chronic kidney disease with heart failure and stage 1 through stage 4 chronic kidney disease, or unspecified chronic kidney disease; I50.30 Unspecified diastolic (congestive) heart failure; B95.62 Methicillin resistant Staphylococcus aureus infection as the cause of diseases classified elsewhere; R09.02 Hypoxemia; E11.65 Type 2 diabetes mellitus with hyperglycemia; T38.0X5A Adverse effect of glucocorticoids and synthetic analogues, initial encounter; E86.0 Dehydration; E11.628 Type 2 diabetes mellitus with other skin complications; D86.3 Sarcoidosis of skin; I48.0 Paroxysmal atrial fibrillation; E11.22 Type 2 diabetes mellitus with diabetic chronic kidney disease; N18.3 Chronic kidney disease, stage 3 (moderate); D64.9 Anemia, unspecified; E78.5 Hyperlipidemia, unspecified; I89.0 Lymphedema, not elsewhere classified; D69.6 Thrombocytopenia, unspecified; N40.0 Benign prostatic hyperplasia without lower urinary tract symptoms; E55.9 Vitamin D deficiency, unspecified; M17.0 Bilateral primary osteoarthritis of knee; G89.29 Other chronic pain; M25.512 Pain in left shoulder; M19.012 Primary osteoarthritis, left shoulder; Z98.84 Bariatric surgery status; Z79.01 Long term (current) use of anticoagulants; Z79.2 Long term (current) use of antibiotics; Z79.4 Long term (current) use of insulin; Z79.84 Long term (current) use of oral hypoglycemic drugs; Z79.899 Other long term (current) drug therapy

== ENCOUNTER 2017-12-19 17:48 | Inpatient (IN) | payer BC ==
[~2017-12-19] VITALS: Ht 182.9 cm; Wt 201.0 kg
[~2017-12-19 17:48] MED LIST changes: -INSDGI SC; +LVMI SQ
[2017-12-19] MEDS ORDERED: ONDANSETRON INJ 2 MG/ML 2 ML VIAL IV STA (18:08)
[2017-12-19] MEDS ORDERED: MoRPHine SULFATE 4 MG/ML 1 ML CARP\\VIAL IV STA (18:08)
[2017-12-19] MEDS ORDERED: ACET-1079 PO (18:27)
[2017-12-19] MEDS ORDERED: WARF5TAB7 PO (18:27)
[2017-12-19] MEDS ORDERED: FURO-85 PO (18:29)
[2017-12-19] MEDS ORDERED: LISI-729 PO (18:29)
[2017-12-19] MEDS ORDERED: ALLO100T PO (18:29)
[2017-12-19] MEDS ORDERED: IPRA1AER2 INH (18:29)
--- NOTE | 2017-12-19 18:31 | DIAGNOSTIC IMAGING REPORT ---
LEFT KNEE 2 VIEWS CLINICAL HISTORY: Left knee pain. FINDINGS: AP and crosstable lateral views of the left knee are compared to study dated 11/19/2016. The examination is degraded by large body habitus and inability to properly position the patient. The skeletal structures are osteopenic. A left knee arthroplasty is in place. There is mild posterior subluxation of the tibia seen on the lateral projection. Clinical correlation be required. There has been undersurface remodeling of the patella. No acute fracture is seen. A small ossific density is again noted within the joint space and may represent a loose body. There is a small joint effusion. Soft tissue edema is present around the knee. IMPRESSION: 1. Soft tissue swelling and joint effusion. No fracture is identified. 2. There is mild posterior subluxation of the tibia seen on the lateral projection. Clinical correlation will be required Electronically signed by: Satish Rodriguez M.D. 12/19/2017 6:30 PM Dictated Date/Time: 12/19/2017 6:27 PM
[2017-12-19 18:52] LABS: BASO % 0.1 %; BASO ABS # 0.01 K/uL (0-0.2); EOS % 0.5 %; EOS ABS # 0.05 K/uL (0-0.5); HEMATOCRIT 37.8 % (42-52); HEMOGLOBIN 12.5 g/dL (14.0-18.0); IG# 0.02 K/uL (0.00-0.02); LYMPH % 11.9 %; MEAN CELL VOLUME 92.2 fL (80-100); MEAN CORPUSCULAR HEMOGLOBIN 30.5 pg (25-34); MEAN CORPUSCULAR HGB CONC 33.1 g/dl (32-36); MEAN PLATELET VOLUME 9.8 fL (7.4-10.4); MONO % 4.2 %; MONO ABS # 0.39 K/uL (0.11-0.59); NEUT % 83.1 %; PLATELET COUNT 161 K/uL (130-400); RED CELL DISTRIBUTION WIDTH CV 14.9 % (11.5-14.5); RED CELL DISTRIBUTION WIDTH SD 50.6 fL (36.4-46.3); WHITE BLOOD COUNT 9.27 K/uL (4.8-10.8)
[2017-12-19 19:00] LABS: INR 1.9 (0.9-1.1); PTT PATIENT 30.9 SECONDS (21.0-31.0)
[2017-12-19] MEDS ORDERED: OPTIRAY 320 IV PRN (19:00)
[2017-12-19 19:07] LABS: CALCIUM 8.7 mg/dl (8.5-10.1); CREATININE 2.32 mg/dl (0.60-1.40); POTASSIUM 4.7 mmol/L (3.5-5.1)
--- NOTE | 2017-12-19 19:27 | DIAGNOSTIC IMAGING REPORT ---
L ANGIOGRAPHY LOWER EXT COMBO CLINICAL HISTORY: 62 years-old Male presenting with dislocation, dissection. TECHNIQUE: Multidetector CT angiography of the left knee was performed after the administration of intravenous contrast. 3-D volumetric and/or maximum intensity projection (MIP) images were subsequently reconstructed for review. IV contrast: None. A dose lowering technique was used consistent with the principles of ALARA (as low as reasonably achievable). Stenosis measurements were based on NASCET-like criteria. COMPARISON: None. CT DOSE (mGy.cm): The estimated cumulative dose is 1753.01 mGy.cm. FINDINGS: Conversion Developer topogram: Unremarkable. Streak artifact arising from orthopedic hardware degrades evaluation of the popliteal artery. Allowing for this, superficial femoral, popliteal, anterior and posterior tibial, and peroneal arteries are patent. Mild atherosclerosis without significant narrowing. No evidence of arterial dissection or occlusion to suggest injury. Diffuse significant infiltration of the subcutaneous fat which is visible not only in the left lower extremity but also in the right lower extremity. Associated skin thickening. Post surgical changes of total left knee arthroplasty with patellar resurfacing. No dislocation at this time. However, there is significant anterior subluxation of the femoral component relative to the prosthetic tibial plateau. Evaluation of soft tissues is limited on CT. Evaluation of regional soft tissues further limited by streak artifact arising from orthopedic hardware. No evidence of fracture. IMPRESSION: 1. No evidence of injury of the popliteal artery allowing for streak artifact arising from orthopedic hardware. 2. No acute osseous injury. However, significant anterior subluxation of the femoral prosthetic component may be present. 3. Postsurgical changes of total left knee arthroplasty with patellar resurfacing. Electronically signed by: Dalton Stanton M.D. 12/19/2017 7:26 PM Dictated Date/Time: 12/19/2017 7:12 PM
[2017-12-19] MEDS ORDERED: SODIUM CHLORIDE 0.9% 500ML 500 ML IV STA (19:34)
--- NOTE | 2017-12-19 21:34 | DIAGNOSTIC IMAGING REPORT ---
CHEST ONE VIEW PORTABLE CLINICAL HISTORY: 62 years-old Male presenting with arf. TECHNIQUE: Portable upright AP view of the chest was obtained. COMPARISON: 02/24/2017. FINDINGS: Cardiac silhouette top normal in size. Pulmonary vasculature enlarged. Apparent deep right lateral costophrenic sulcus. No focal infiltrate allowing for patient body habitus. No large effusion. Osseous structures normal. Upper abdomen normal. IMPRESSION: 1. No acute cardiopulmonary disease. 2. Possible cardiomegaly. 3. Volume overload. 4. Deep right lateral costophrenic sulcus. It is unlikely that this patient has a pneumothorax. If there is clinical concern for pneumothorax, PA chest radiograph could be obtained. Electronically signed by: Dalton Stanton M.D. 12/19/2017 9:33 PM Dictated Date/Time: 12/19/2017 9:31 PM
[2017-12-19] MEDS ORDERED: INSULIN DETEMIR FLEXPEN/FLEX TOUCH 100 UNITS/ML 3ML SC ONE (22:08)
[2017-12-19] MEDS ORDERED: INSULIN ASPART 100 UNITS/ML 3 ML PEN SC ONE (22:08)
[2017-12-19] MEDS ORDERED: DRONEDARONE 400 MG TAB PO ONE (22:08)
[2017-12-19] MEDS ORDERED: DOXYCYCLINE HYCLATE 100 MG CAP PO ONE (22:08)
[2017-12-19 22:15] VITALS: BP 126/75; PULSE 75; TEMP 36.3; O2SAT 94; Ht 182.9 cm; Wt 201.0 kg
[2017-12-19] MEDS ORDERED: GLUCOSE 40% GEL 15 GM TUBE PO PRN (22:15)
[2017-12-19] MEDS ORDERED: ACETAMINOPHEN 325 MG TAB PO PRN (22:15)
[2017-12-19] MEDS ORDERED: DEXTROSE 50% 50 ML SYR IV PRN (22:15)
[2017-12-19] MEDS ORDERED: GLUCAGON FOR INJ 1 MG VIAL SQ PRN (22:15)
[2017-12-19] MEDS ORDERED: GLUCOSE 10 TABS/TUBE PO PRN (22:15)
[2017-12-19] MEDS ORDERED: PROCHLORPERAZINE INJ 5 MG in SYRINGE 4 ML IV PRN (22:15)
--- NOTE | 2017-12-19 22:24 | ORTHOPEDIC CONSULTATION ---
DATE OF CONSULTATION: 12/19/2017 HISTORY OF PRESENT ILLNESS: This is a 62-year-old gentleman seen at the request of the Emergency Department for sudden onset left knee pain earlier this evening. The patient was trying to get off his powered recliner chair when he was repositioning the left leg and felt a painful left knee pop and then had severe pain at rest, unable to flex or extend the knee and is unable to ambulate or stand. The patient had previous left total knee arthroplasty by Dr. Painter in 2009 and then had a revision of his left total knee due to MRSA infection in [address] Teran. The patient had 6 weeks of IV antibiotics. The patient also states that he had flu a ago week ago and his symptoms have been resolved. Had no recent falls on the knee. No prior trauma recently. No recent fevers or chills with the exception of the flu mentioned previously. PAST MEDICAL HISTORY: Atrial fibrillation, benign hypertension, chronic kidney disease stage III, COPD exacerbation, diabetes mellitus type 2, hyperlipidemia, leukocytosis, severe chronic lymphedema bilateral lower extremities, methicillin-resistant Staph aureus infection left knee, morbid obesity, obstructive sleep apnea, sepsis. PAST SURGICAL HISTORY: Gastric bypass, bilateral knee replacements with revision knee replacement on the left in 2010. Original knee replacements performed by Dr. Painter. Dr. Teran did revision on the left in 2010. ALLERGIES: TO BEE STINGS AND METFORMIN. MEDICATIONS: Zyloprim, vitamin D, Monodox, Multaq, EpiPen, Lasix, NovoLog FlexPen, Levemir, Prinivil, Slow-Mag tab, Toprol-XL, multivitamins, Zocor, Januvia, Hytrin, Jantoven and Coumadin. P.r.n. Tylenol with Codeine. P.r.n. Combivent Respimat. SOCIAL HISTORY: Denies tobacco use. He drinks occasionally. Denies drug use. He is and lives with his . He is employed. PHYSICAL EXAMINATION: This is a morbidly obese 62-year-old gentleman with severe chronic lower extremity lymphedema, who is lying supine in the hospital room bed. He has discomfort related to his left knee. He is alert and oriented x3. Speech clear and fluent. Affect is appropriate. is present at bedside. He has chronic venous stasis changes bilateral lower extremities. He has severe hypertrophic lymphedema in bilateral lower extremities. He has small skin abrasions on his lower legs with hypertrophic skin. Dorsalis pedis and posterior tibial pulses are palpable bilateral lower extremities. Feet are warm. He is unable to actively or passively move the left knee due to pain. He has abnormal contour to the left knee compared to the right total knee replacement. He has midline, well-healed incisions bilaterally. There is no evidence of erythema, fluctuance or abscess bilateral knees. The left knee is in a resting position at approximately 25 degrees of flexion. The patient cannot tolerate any flexion or extension of the left knee. There is some varus and valgus movement; however, it causes extreme discomfort. It is difficult to palpate the musculotendinous anatomy due to the patient's severely obese body habitus. The tibia rests slightly posterior to its normal position as would be anticipated status post total knee replacement on the left compared to the right. Radiographs and CT images reviewed and demonstrate total knee arthroplasty on the left with what appears to be slight rotatory and posterior subluxation. There is no marcela dislocation noted. CT scan images, slightly obscured due to artifact, however, appear to have some degree of rotatory subluxation, possible subluxation of the polyethylene post. No definitive dislocation could be ascertained on radiographs or CT scans. LABORATORIES: Reviewed. IMPRESSION: 1. Left knee subluxation. 2. Painful total knee arthroplasty, possible subluxation. 3. Consider polyethylene subluxation versus spontaneous quadriceps tendon rupture versus patellar tendon rupture versus collateral ligament rupture. RECOMMENDATION: Ice and comfort care of the left knee. Recommend admission to the hospital for medical optimization for closed reduction, possible open reduction, possible ligament or tendon repair of the left knee. We will discuss the case with Dr. Painter for his recommendations and we will discuss with the ER physician and the director internal communications. The patient is not a candidate for surgical reduction at this time as the patient ate at approximately 3:00 p.m., and due to his delayed gastric emptying time due to his diabetes, it will be approximately midnight before he is ready for any type of anesthesia and the patient will not be ready for surgical incision or intervention due to his anticoagulation with Coumadin. We will plan for either closed reduction or open operative intervention when cleared by the Department of Medicine. Thank you for the opportunity to consult in the care of this patient.
[2017-12-19 22:53] LABS: ALBUMIN 3.4 gm/dl (3.4-5.0)
[2017-12-19 23:23] VITALS: BP 132/72; PULSE 73; TEMP 36.3; O2SAT 97
--- NOTE | 2017-12-19 23:39 | EMERGENCY ROOM VISIT NOTE ---
History Report prepared by Deborah: Moriah Nava Under the Supervision of: Dr. Thor Gatica M.D. First contact with patient: 18:03 Chief Complaint: KNEEPAIN Stated Complaint: L KNEE DISLOCATION History of Present Illness The patient is a 62 year old male who presents to the Emergency Room with complaints of an episode of a left knee injury occurring just prior to arrival. The patient states he was trying to get off his recliner when his left leg slid to the side and he felt his knee "pop". He states he did not fall. He reports he just sat back down on the recliner. The patient states he had the flu a week ago. He reports his symptoms from the flu are all resolved now. The patient has had both of his knees replaced. At baseline, the patient walks unassisted. Source of History: patient Onset: just prior to arrival Position: knee (left) Symptom Intensity: severe Quality: other (injury) Timing: other (episode) Modifying Factors (Worsening): movement Modifying Factors (Relieving): other (none) Review of Systems See HPI for pertinent positives & negatives. A total of 10 systems reviewed and were otherwise negative. Past Medical & Surgical Medical Problems: (1) ARF (acute renal failure) (2) Atrial fibrillation (3) Benign hypertension (4) CKD (chronic kidney disease), stage III (5) COPD exacerbation (6) Diabetes mellitus type 2 (7) Hyperlipidemia Nec/Nos (8) Leukocytosis (9) Lymphedema of both lower extremities (10) Methicillin resistant Staphylococcus aureus infection (11) Morbid Obesity (12) GISELL (obstructive sleep apnea) (13) Sepsis Surgical Problems: (1) H/O gastric bypass Family History Cancer Diabetes mellitus FATHER Heart disease FATHER MOTHER Hypertension MOTHER Social History Smoking Status: Never Smoker Alcohol Use: occasionally Drug Use: none Marital Status: Housing Status: lives with family Occupation Status: employed Current/Historical Medications Scheduled Allopurinol (Zyloprim), 100 MG PO BID Cholecalciferol (Vitamin D), 5,000 MG PO DAILY Doxycycline Monohydrate (Monodox), 100 MG PO BID Dronedarone Hcl (Multaq), 400 MG PO BID Epinephrine (Epipen *), 0.3 MG IM UD Furosemide (Lasix), 20 MG PO QPM Insulin Aspart (Novolog Flexpen), 10 UNITS PO WM Insulin Detemir (Levemir), 52 UNITS SQ HS Lisinopril (Prinivil), 5 MG PO QAM Magnesium Chloride (Slow-Mag Tab), 64 MG PO BID Metoprolol Succinate (Toprol Xl), 100 MG PO DAILY Multiple Vitamins W/ Minerals (Multiple Vitamin/Minerals), 1 TAB PO DAILY Simvastatin (Zocor), 10 MG PO HS Sitagliptin Phosphate (Januvia), 50 MG PO DAILY Terazosin Hcl (Hytrin), 5 MG PO HS Warfarin Sod (Jantoven), 12.5 MG PO DIRECTED Warfarin Sodium (Coumadin), 10 MG PO DIRECTED Scheduled PRN Acetaminophen W/ Codeine (Tylenol/Codeine #4), 1 TAB PO DAILY PRN for Pain Ipratropium-Albuterol (Combivent Respimat), 1 PUFFS INH QID PRN for Shortness of Breath Allergies Coded Allergies: BEE STING (Verified Allergy, Intermediate, SWELLS, 12/19/17) Metformin (Verified Adverse Reaction, Intermediate, ITCH, 12/19/17) Physical Exam Vital Signs Date Time Temp Pulse Resp B/P (MAP) Pulse Ox O2 Delivery O2 Flow Rate FiO2 12/19/17 20:28 66 18 120/69 98 Room Air 12/19/17 18:32 68 16 134/59 98 Room Air 12/19/17 18:08 62 12/19/17 17:52 36.6 62 22 149/70 97 Room Air Physical Exam Constitutional: Vital signs reviewed. Eyes: Pupils are equal round reactive to light. Conjunctiva are noninjected. ENT: Pharynx is clear without erythema or exudate. Mucous membranes are moist. Neck supple without meningeal signs. Respiratory: Clear to auscultation bilaterally. Breath sounds are equal bilaterally. Cardiovascular: Regular rate and rhythm. No rubs or gallops. GI: Soft, nondistended and nontender. Bowel sounds are present. Musculoskeletal: Diffuse tenderness to left knee. Difficult to access for deformity due to significant lymphedema bilaterally. 2+ dorsalis pedis pulse, unable to assess popliteal pulse secondary to lymphedema. Integumentary: No cyanosis. Neurological: The patient is awake and alert. No focal deficits. Psychiatric: Normal affect. Medical Decision & Procedures ER Provider Diagnostic Interpretation: Radiology results as stated below per my review and the radiologist's interpretation: LEFT KNEE 2 VIEWS FINDINGS: AP and crosstable lateral views of the left knee are compared to study dated 11/19/2016. The examination is degraded by large body habitus and inability to properly position the patient. The skeletal structures are osteopenic. A left knee arthroplasty is in place. There is mild posterior subluxation of the tibia seen on the lateral projection. Clinical correlation be required. There has been undersurface remodeling of the patella. No acute fracture is seen. A small ossific density is again noted within the joint space and may represent a loose body. There is a small joint effusion. Soft tissue edema is present around the knee. IMPRESSION: 1. Soft tissue swelling and joint effusion. No fracture is identified. 2. There is mild posterior subluxation of the tibia seen on the lateral projection. Clinical correlation will be required Electronically signed by: Satish Rodriguez M.D. L ANGIOGRAPHY LOWER EXT COMBO FINDINGS: Feeder/Folder topogram: Unremarkable. Streak artifact arising from orthopedic hardware degrades evaluation of the popliteal artery. Allowing for this, superficial femoral, popliteal, anterior and posterior tibial, and peroneal arteries are patent. Mild atherosclerosis without significant narrowing. No evidence of arterial dissection or occlusion to suggest injury. Diffuse significant infiltration of the subcutaneous fat which is visible not only in the left lower extremity but also in the right lower extremity. Associated skin thickening. Post surgical changes of total left knee arthroplasty with patellar resurfacing. No dislocation at this time. However, there is significant anterior subluxation of the femoral component relative to the prosthetic tibial plateau. Evaluation of soft tissues is limited on CT. Evaluation of regional soft tissues further limited by streak artifact arising from orthopedic hardware. No evidence of fracture. IMPRESSION: 1. No evidence of injury of the popliteal artery allowing for streak artifact arising from orthopedic hardware. 2. No acute osseous injury. However, significant anterior subluxation of the femoral prosthetic component may be present. 3. Postsurgical changes of total left knee arthroplasty with patellar resurfacing. Electronically signed by: Dalton Stanton M.D. Laboratory Results 12/19/17 18:27 Red Blood Count 4.10, Mean Corpuscular Volume 92.2, Mean Corpuscular Hemoglobin 30.5, Mean Corpuscular Hemoglobin Concent 33.1, Mean Platelet Volume 9.8, Neutrophils (%) (Auto) 83.1, Lymphocytes (%) (Auto) 11.9, Monocytes (%) (Auto) 4.2, Eosinophils (%) (Auto) 0.5, Basophils (%) (Auto) 0.1, Neutrophils # (Auto) 7.70, Lymphocytes # (Auto) 1.10, Monocytes # (Auto) 0.39, Eosinophils # (Auto) 0.05, Basophils # (Auto) 0.01 12/19/17 18:27 Test 12/19/17 18:27 White Blood Count 9.27 K/uL (4.8-10.8) Red Blood Count 4.10 M/uL (4.7-6.1) Hemoglobin 12.5 g/dL (14.0-18.0) Hematocrit 37.8 % (42-52) Mean Corpuscular Volume 92.2 fL (80-100) Mean Corpuscular Hemoglobin 30.5 pg (25-34) Mean Corpuscular Hemoglobin Concent 33.1 g/dl (32-36) Platelet Count 161 K/uL (130-400) Mean Platelet Volume 9.8 fL (7.4-10.4) Neutrophils (%) (Auto) 83.1 % Lymphocytes (%) (Auto) 11.9 % Monocytes (%) (Auto) 4.2 % Eosinophils (%) (Auto) 0.5 % Basophils (%) (Auto) 0.1 % Neutrophils # (Auto) 7.70 K/uL (1.4-6.5) Lymphocytes # (Auto) 1.10 K/uL (1.2-3.4) Monocytes # (Auto) 0.39 K/uL (0.11-0.59) Eosinophils # (Auto) 0.05 K/uL (0-0.5) Basophils # (Auto) 0.01 K/uL (0-0.2) RDW Standard Deviation 50.6 fL (36.4-46.3) RDW Coefficient of Variation 14.9 % (11.5-14.5) Immature Granulocyte % (Auto) 0.2 % Immature Granulocyte # (Auto) 0.02 K/uL (0.00-0.02) Prothrombin Time 19.4 SECONDS (9.0-12.0) Prothromb Time International Ratio 1.9 (0.9-1.1) Activated Partial Thromboplast Time 30.9 SECONDS (21.0-31.0) Partial Thromboplastin Ratio 1.2 Anion Gap 5.0 mmol/L (3-11) Est Creatinine Clear Calc Drug Dose 64.3 ml/min Estimated GFR () 34.1 Estimated GFR (Non- 29.4 BUN/Creatinine Ratio 18.2 (10-20) Calcium Level 8.7 mg/dl (8.5-10.1) Magnesium Level 1.9 mg/dl (1.8-2.4) Total Bilirubin 0.5 mg/dl (0.2-1) Direct Bilirubin 0.2 mg/dl (0-0.2) Aspartate Amino Transf (AST/SGOT) 15 U/L (15-37) Alanine Aminotransferase (ALT/SGPT) 13 U/L (12-78) Alkaline Phosphatase 45 U/L (45-117) Total Protein 7.0 gm/dl (6.4-8.2) Albumin 3.4 gm/dl (3.4-5.0) Thyroid Stimulating Hormone (TSH) 1.110 uIu/ml (0.300-4.500) Laboratory results as reviewed by me. Medications Administered Medications (Trade) Dose Ordered Sig/Ching Route Start Time Stop Time Status Last Admin Dose Admin Morphine Sulfate (MoRPHine SULFATE INJ) 4 mg NOW STAT IV 12/19/17 18:08 12/19/17 18:10 DC 12/19/17 18:28 4 MG Ondansetron HCl (Zofran Inj) 4 mg NOW STAT IV 12/19/17 18:08 12/19/17 18:10 DC 12/19/17 18:28 4 MG Sodium Chloride 500 ml @ 999 mls/hr Q31M STAT IV 12/19/17 19:34 12/19/17 20:04 DC 12/19/17 19:58 999 MLS/HR ED Course 1803: The patient was evaluated in room B5. A complete history and physical exam was performed. 1807: Ordered Zofran Inj 4 mg IV, Morphine Sulfate 4 m IV. 1839: The patient states he ate a donut and milk at 1530. 3: I updated the patient on his test results. His dorsalis pedis pulses are still 2+. 1933: Ordered Sodium Chloride 500 ml @ 999 mls/hr IV. 1953: I spoke with Dr. Mccarthy of Orthopedics. We discussed the patient and his results. He will look at the patient's films. 2001: I spoke with Dr. Mccarthy of Orthopedics. He will come in and evaluate the patient. 2045: Dr. Mccarthy of Orthopedics evaluated the patient. He said it is either a quadriceps tendon rupture or patellar tendon rupture. He said not to do the arterial doppler and recommended talking to medicine about the patient's case. 2049: [facility] We discussed the patient and his results. The patient will be further evaluated by him. Medical Decision This is a 62-year-old male who presents with a knee injury. Differential diagnosis includes knee dislocation, subluxation, patellar dislocation, meniscal tear, tendon rupture, vascular injury. I did perform a limited focused review of portions of the patient's old chart on the electronic medical record. The patient has had no recent pertinent visits to this hospital. I did evaluate the patient as noted above. The patient is presenting with knee pain after trying to get up from a recliner. It is difficult to assess for deformity due to his lymphedema and his body habitus. His distal pulse is intact. IV access was established. I did treat him with IV morphine and Zofran. I did order and personally review the patient's knee x-rays as described above. He does appear to have posterior subluxation. I did order and review the patient's blood work as noted in the electronic medical record. Because of the potential for posterior dislocation with spontaneous reduction I was concerned about a vascular injury as well. I did explain to them that he has poor kidney function and that IV dye can worsen his kidney function but we need to assess for any vascular injury. He agreed to the CT scan with contrast. I did order a CT angiogram of the left knee.. I did review the images myself as well as the radiology report as described above. He does not have a dislocation and no acute vascular injury was noted. There was some streak artifact limiting interpretation. I did discuss the test results with the patient. I did treat him with IV normal saline. I did discuss case with Dr. Mccarthy of orthopedics who came and evaluated patient. He felt that the patient likely had a tendon injury. He was not concerned about any vascular injury and did not recommend arterial Dopplers. He did recommend hospitalization to the medical service. I did discuss case with the hospitalist and case consultant. Medication Reconcilliation Current Medication List: was personally reviewed by me Blood Pressure Screening Patient's blood pressure: Elevated blood pressure Blood pressure disposition: Referred to PCP Consults Time Called: 1949 Consulting Physician: Dr. Mccarthy-Orthopedics Returned Call: [address] GonsalvesOrthopedicbuster. We discussed the patient and his results. He will look at the patient's films. Additional Consults: Time Called: 2047 Consulted Physician: Dr. Severino Returned Call: 2049 Additional Comments: I spoke with Dr. Severino. We discussed the patient and his results. The patient will be further evaluated by him. Impression Primary Impression: Internal derangement of left knee Additional Impressions: CKD (chronic kidney disease) Ambulatory dysfunction Anticoagulated Scribe Attestation The scribe's documentation has been prepared under my direct and personally reviewed by me in its entirety. I confirm that the note above accurately reflects all work, treatment, procedures, and medical decision making performed by me. Departure Information Dispostion Being Evaluated By Hospitalist Referrals (PCP) Patient Instructions My [facility] Problem Qualifiers Additional Impressions: CKD (chronic kidney disease) Chronic kidney disease stage: unspecified stage Qualified Codes: N18.9 - Chronic kidney disease, unspecified
[2017-12-20] VITALS (7 sets, daily range): BP systolic 98–133; BP diastolic 65–75; PULSE 58–72; TEMP 36.2–36.6; O2SAT 95–97
[2017-12-20] MEDS ORDERED: MAGNESIUM SULFATE 1GM / D5W 1 GM in PREMIXED IN D5W 100 ML IV ONE (00:15)
[2017-12-20] MEDS: ALBUMIN HUMAN 25% 12.5 GM/50 ML VIAL IV SCH ×2 (00:38→01:31)
--- NOTE | 2017-12-20 01:02 | HISTORY & PHYSICAL EXAMINATION ---
DATE OF ADMISSION: 12/19/2017 PRIMARY CARE PHYSICIAN: Dr. Mims. CHIEF COMPLAINT: Left knee pain. HISTORY OF PRESENT ILLNESS: History obtained from patient, , records. Medical history significant for HTN, AFib on anticoagulation, hypertension, obesity status post gastric bypass, DM2 insulin requiring, sleep apnea on CPAP, chronic lymphedema, chronic renal insufficiency baseline creatinine 1.6, chronic anemia (baseline hemoglobin of 11-12), history of chronic doxycycline Rx for MRSA L knee infection as per patient GISELL on CPAP Recent confinement February 2017 for bronchitis, lower extremity cellulitis. This afternoon, patient noted a popping of his left knee followed by excruciating left knee pain. Unable to replace back, trouble standing up. Denies chest pain, shortness of breath, or unusual fluid retention. Patient brought to the Emergency Room. 2D echo from February 2017 showed EF 55-60%, borderline LA enlargement, RV dilatation. No pulmonary hypertension. [facility]. As per note, stable atrial fibrillation at that time. He sees a flow coordinator from [facility] (Dr. Arrington). SURGERIES: He has had gastric bypass, orthopedic surgeries, knee surgeries. HOME MEDICATIONS: Include Lasix, Combivent, NovoLog, Levemir, lisinopril, Toprol-XL, multivitamins, Januvia, Zocor, Hytrin, Coumadin, Tylenol, Zyloprim, vitamin D, Multaq, doxycycline. ALLERGIES: BEE STINGS, METFORMIN. FAMILY HISTORY: Diabetes, heart disease. PERSONAL AND SOCIAL HISTORY: Nonsmoker, no chronic intake of alcoholic beverages. [employer] employee. REVIEW OF SYSTEMS: As per HPI. All 10 systems reviewed. All other ROS negative. FUNCTIONAL HISTORY: Still able to do [employer] ground work without unusual cp, shortness breath on exertion. PHYSICAL EXAMINATION: VITAL SIGNS: Blood pressure noted to be 130/80, pulse rate 75, RR 18, temperature 36.3, sats 94 on room air. GENERAL: Noted to be morbidly obese, slightly uncomfortable, no respiratory distress. Unkempt. SKIN: Pallor. Warm. HEENT: Pale palpebral conjuctivae. No ptosis. Dry mucosa. NECK: Short, supple. CHEST: Decreased breath sounds. No wheeze, no tenderness. HEART: Irregular. No murmur. ABDOMEN: Soft, marked distension. EXTREMITIES: Bilateral lower extremity edema, venous stasis (chronic). No tenderness. NEUROLOGIC: Coherent. No gross focality. LABORATORY DATA: Hemoglobin was noted to be 12.5, hematocrit 37.8, white cell count 9, platelets 161. Sodium 139, potassium 3.7, chloride 104, CO2 30, BUN 40, creatinine 2.2, glucose 215. Hemoglobin A1c from February 2017 was 6.4. INR 1.9. Chest x-ray cardiomegaly, some congestion. EKG as per my interpretation, rate 65, AFib, PVCs. Lower extremity CTA showed significant anterior subluxation of femoral prosthetic components, postsurgical changes of total left knee arthroplasty. ASSESSMENT: 1. Acute renal failure on chronic renal insufficiency equivocal volume status. Patient denies unusual fluid retention Some congestion however noted on CXR 2. Spontaneous left knee subluxation 3. Hypertension, stable. 4. Atrial fibrillation, rate controlled. Coumadin slightly subtherapeutic. cardiac status is stable as per recent outpatient [facility] Cardiology visit. 5. DM2, insulin requiring, well controlled as of recent inpatient hemoglobin A1c from last year blood sugar is currently elevated. 6. Chronic anemia secondary CKD, hemoglobin at baseline 7. hx chronic MRSA L knee infection on Doxycycline suppression Rx 8. History chronic lymphedema 9. Obesity status post gastric bypass PLAN: [facility] monitor creatinine response to IV fluid bolus given in the ER. Will give additional IV albumin given mild congestion on x-ray. Baseline urinalysis. Appropriate to hold home diuretics and EVITA inhibitor for now. Aim to optimize kidney function prior to prospective knee surgery Renal US, Nephrology consult if kidney function does not improve with initial fluid resuscitation. Orthopedics consult RE left knee pain. ER provider already in touch with Dr. Mccarthy. Basal insulin, ISS BG goal 140-180. Patient due for hemoglobin A1c recheck. DVT prophylaxis, SCDs while INR less than 2 while Coumadin on hold in anticipation of surgery. Full code. Case discussed with Dr. Mccarthy, orthopedic cast specialist information officer. Tentative schedule for left knee surgery on 12/21/17. Final medical evaluation pending results of kidney function testing following initial intervention. [facility]
[2017-12-20 05:16] LABS: BASO % 0.3 %; BASO ABS # 0.02 K/uL (0-0.2); EOS % 1.4 %; EOS ABS # 0.09 K/uL (0-0.5); HEMOGLOBIN 11.2 g/dL (14.0-18.0); IG# 0.02 K/uL (0.00-0.02); LYMPH % 26.2 %; LYMPH ABS # 1.67 K/uL (1.2-3.4); MEAN CELL VOLUME 92.9 fL (80-100); MEAN CORPUSCULAR HEMOGLOBIN 30.6 pg (25-34); MEAN CORPUSCULAR HGB CONC 32.9 g/dl (32-36); MEAN PLATELET VOLUME 9.7 fL (7.4-10.4); MONO % 7.8 %; NEUT ABS # 4.08 K/uL (1.4-6.5); PLATELET COUNT 140 K/uL (130-400); RED CELL DISTRIBUTION WIDTH CV 15.3 % (11.5-14.5); RED CELL DISTRIBUTION WIDTH SD 51.7 fL (36.4-46.3); WHITE BLOOD COUNT 6.38 K/uL (4.8-10.8)
[2017-12-20 05:33] LABS: INR 1.9 (0.9-1.1)
[2017-12-20 05:43] LABS: CALCIUM 8.5 mg/dl (8.5-10.1); CREATININE 1.98 mg/dl (0.60-1.40); POTASSIUM 4.1 mmol/L (3.5-5.1)
--- NOTE | 2017-12-20 07:18 | DIAGNOSTIC IMAGING REPORT ---
CHEST ONE VIEW PORTABLE CLINICAL HISTORY: Follow-up congestion. COMPARISON STUDY: Chest radiograph December 19, 2017. FINDINGS: Elevation of the right hemidiaphragm is unchanged. There is no pneumothorax or pleural effusion. There is no evidence of pulmonary edema. Cardiomegaly is unchanged. Mediastinal contours are stable. 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 IMPRESSION: No acute cardiopulmonary findings. No change in appearance of the chest. Electronically signed by: Jesse Blount M.D. 12/20/2017 7:17 AM Dictated Date/Time: 12/20/2017 7:16 AM
[2017-12-20 07:39] LABS: HEMOGLOBIN A1C 6.7 % (4.5-5.6)
[2017-12-20] MEDS: METOPROLOL SUCC 50MG EXT REL TAB PO SCH (09:00)
[2017-12-20] MEDS: CEROVITE ADV FORMULA TAB PO SCH (09:06)
[2017-12-20] MEDS: DRONEDARONE 400 MG TAB PO SCH ×2 (09:06→20:57)
[2017-12-20] MEDS: ALLOPURINOL 100 MG TAB PO SCH ×2 (09:08→20:56)
[2017-12-20] MEDS: DOXYCYCLINE HYCLATE 100 MG CAP PO SCH ×2 (09:08→20:56)
[2017-12-20] MEDS: INSULIN ASPART 100 UNITS/ML 3 ML PEN SC SCH ×4 (09:14→20:56)
[2017-12-20] MEDS: SODIUM CHLORIDE 0.9% 1000ML 1,000 ML IV SCH (13:19)
[2017-12-20] MEDS: TRAMADOL HCL 50 MG TAB PO PRN (13:21)
--- NOTE | 2017-12-20 13:25 | Orthopedic Progress Note ---
Orthopedic Progress Note Date of Service Dec 20, 2017. Subjective Denies: chest pain, SOB, nausea / vomiting, light headedness Additional Notes: Left knee discomfort managed with pain medications. No new complaints. Objective calves soft nontender, N/V intact, capillary refill less than 2 sec., A&O x3, toes mobile Left knee with slightly flexed and rotated tibial resting position. Tibia slightly posterior to normal alignment. Unable to actively or passively move the left knee. No erythema or fluctuance of the left knee. Stable, severe B LE lymphedema. Palpable DP/PT pulses B LE. Date Time Temp Pulse Resp B/P (MAP) Pulse Ox O2 Delivery O2 Flow Rate FiO2 12/20/17 08:00 Room Air 12/20/17 07:18 36.2 58 16 124/72 (89) 96 Room Air 12/20/17 03:40 36.6 62 16 133/70 (91) 97 Room Air 12/20/17 01:31 36.5 70 18 98/65 (76) 97 Room Air 12/20/17 00:39 36.6 62 16 125/70 (88) 97 Room Air 12/19/17 23:30 Room Air 12/19/17 23:23 36.3 73 16 132/72 (92) 97 Room Air 12/19/17 22:15 36.3 75 18 126/75 94 Room Air 12/19/17 22:05 69 18 133/66 97 12/19/17 21:30 69 16 119/69 98 Room Air 12/19/17 20:28 66 18 120/69 98 Room Air 12/19/17 18:32 68 16 134/59 98 Room Air 12/19/17 18:08 62 12/19/17 17:52 36.6 62 22 149/70 97 Room Air Laboratory Results 24 Hours: Test 12/19/17 18:27 12/20/17 05:00 White Blood Count 9.27 K/uL 6.38 K/uL Red Blood Count 4.10 M/uL 3.66 M/uL Hemoglobin 12.5 g/dL 11.2 g/dL Hematocrit 37.8 % 34.0 % Mean Corpuscular Volume 92.2 fL 92.9 fL Mean Corpuscular Hemoglobin 30.5 pg 30.6 pg Mean Corpuscular Hemoglobin Concent 33.1 g/dl 32.9 g/dl Platelet Count 161 K/uL 140 K/uL Mean Platelet Volume 9.8 fL 9.7 fL Neutrophils (%) (Auto) 83.1 % 64.0 % Lymphocytes (%) (Auto) 11.9 % 26.2 % Monocytes (%) (Auto) 4.2 % 7.8 % Eosinophils (%) (Auto) 0.5 % 1.4 % Basophils (%) (Auto) 0.1 % 0.3 % Neutrophils # (Auto) 7.70 K/uL 4.08 K/uL Lymphocytes # (Auto) 1.10 K/uL 1.67 K/uL Monocytes # (Auto) 0.39 K/uL 0.50 K/uL Eosinophils # (Auto) 0.05 K/uL 0.09 K/uL Basophils # (Auto) 0.01 K/uL 0.02 K/uL Prothromb Time International Ratio 1.9 1.9 Prothrombin Time 19.4 SECONDS 20.2 SECONDS Assessment & Plan Assessment: Likely subluxed left knee with impingement of the polyethylene post outside of the femoral cam. Possible collateral ligament laxity/tear, Patellar tendon tear, Quadriceps tear versus generalized laxity and new onset polyethylene liner sizing mismatch. Morbid obesity Prior MRSA infection left knee Severe bilateral LE lymphedema CKD stage 3 with recently worsened creatinine levels Chronic anticoagulation with Coumadin- INR 1.9 today Plan: NPO after 10 pm tonight due to delayed gastric emptying To OR for closed reduction with exam under anesthesia left knee in am when optimized for surgery as per discussion w/ Dr Kay Consent on chart
[2017-12-20] MEDS: HYDROmorphone INJ 0.5 MG/0.5 ML SYR IV PRN (16:43)
[2017-12-20 17:07] LABS: INR 1.8 (0.9-1.1)
[2017-12-20] MEDS ORDERED: PHYTONADIONE 5 MG TAB PO STA (18:19)
--- NOTE | 2017-12-20 18:32 | Progress Note ---
Internal Med Progress Note Date of Service: Dec 20, 2017. Provider Documentation: SUBJECTIVE: has pain in left knee denies sob or chest pain afebrile no nausea no other complaints OBJECTIVE: Vital Signs-as noted below Exam: General-alert and oriented. Not in distress. Morbidly obese ENT-Normal hearing Neck-no neck masses Lungs-cta b/l no wheezing or crackles Heart-S1 and S2 heard regular rate and rhythm, no murmurs Abdomen-soft bowel sounds present no tenderness no distension Extremities- gross lower extremity lymphedema present . left knee tender Neuro-alert and awake moves extremities Lab data as noted below. ASSESSMENT & PLAN: 1. Acute renal failure on chronic renal insufficiency on gentle fluids holding Lasix and lisinopril presented with cr 2.3 cr today 1.9 will f/u labs 2. Spontaneous left knee subluxation plan for surgery in am Plan for surgery in am by ortho If renal function improving patient should be at acceptable risk to pcoeed with surgery. 3. Hypertension,. On Toprol xl. Holding lisinopril will monitor. 4. Atrial fibrillation, rate controlled. rate controlled on Toprol xl holding Coumadin for surgery cardiac status is stable as per recent outpatient [facility] visit as per admission notes. . 5. DM2, insulin requiring, on Levemir And iss will monitor. 6. Chronic anemia secondary CKD, hemoglobin at baseline 7. hx chronic MRSA L knee infection on Doxycycline suppression Rx 8. History chronic lymphedema 9. Morbid Obesity status post gastric bypass f/u with pcp DVT PROPHYLAXIS hep sub when INr down DISPOSITION to be determined Vital Signs: Date Time Temp Pulse Resp B/P (MAP) Pulse Ox O2 Delivery O2 Flow Rate FiO2 12/20/17 16:30 Room Air 12/20/17 15:19 36.6 64 20 129/68 (88) 95 Room Air 12/20/17 08:00 Room Air 12/20/17 07:18 36.2 58 16 124/72 (89) 96 Room Air 12/20/17 03:40 36.6 62 16 133/70 (91) 97 Room Air 12/20/17 01:31 36.5 70 18 98/65 (76) 97 Room Air 12/20/17 00:39 36.6 62 16 125/70 (88) 97 Room Air 12/19/17 23:30 Room Air 12/19/17 23:23 36.3 73 16 132/72 (92) 97 Room Air 12/19/17 22:15 36.3 75 18 126/75 94 Room Air 12/19/17 22:05 69 18 133/66 97 12/19/17 21:30 69 16 119/69 98 Room Air 12/19/17 20:28 66 18 120/69 98 Room Air 12/19/17 18:32 68 16 134/59 98 Room Air 12/19/17 18:08 62 Lab Results: Results Past 24 Hours Test 12/19/17 18:27 12/19/17 22:28 12/20/17 05:00 12/20/17 06:37 Range/Units White Blood Count 9.27 6.38 4.8-10.8 K/uL Red Blood Count 4.10 3.66 4.7-6.1 M/uL Hemoglobin 12.5 11.2 14.0-18.0 g/dL Hematocrit 37.8 34.0 42-52 % Mean Corpuscular Volume 92.2 92.9 80-100 fL Mean Corpuscular Hemoglobin 30.5 30.6 25-34 pg Mean Corpuscular Hemoglobin Concent 33.1 32.9 32-36 g/dl Platelet Count 161 140 130-400 K/uL Mean Platelet Volume 9.8 9.7 7.4-10.4 fL Neutrophils (%) (Auto) 83.1 64.0 % Lymphocytes (%) (Auto) 11.9 26.2 % Monocytes (%) (Auto) 4.2 7.8 % Eosinophils (%) (Auto) 0.5 1.4 % Basophils (%) (Auto) 0.1 0.3 % Neutrophils # (Auto) 7.70 4.08 1.4-6.5 K/uL Lymphocytes # (Auto) 1.10 1.67 1.2-3.4 K/uL Monocytes # (Auto) 0.39 0.50 0.11-0.59 K/uL Eosinophils # (Auto) 0.05 0.09 0-0.5 K/uL Basophils # (Auto) 0.01 0.02 0-0.2 K/uL RDW Standard Deviation 50.6 51.7 36.4-46.3 fL RDW Coefficient of Variation 14.9 15.3 11.5-14.5 % Immature Granulocyte % (Auto) 0.2 0.3 % Immature Granulocyte # (Auto) 0.02 0.02 0.00-0.02 K/uL Prothrombin Time 19.4 20.2 9.0-12.0 SECONDS Prothromb Time International Ratio 1.9 1.9 0.9-1.1 Activated Partial Thromboplast Time 30.9 21.0-31.0 SECONDS Partial Thromboplastin Ratio 1.2 Sodium Level 139 139 136-145 mmol/L Potassium Level 4.7 4.1 3.5-5.1 mmol/L Chloride Level 104 105 98-107 mmol/L Carbon Dioxide Level 30 28 21-32 mmol/L Anion Gap 5.0 6.0 3-11 mmol/L Blood Urea Nitrogen 42 40 7-18 mg/dl Creatinine 2.32 1.98 0.60-1.40 mg/dl Est Creatinine Clear Calc Drug Dose 64.3 71.3 ml/min Estimated GFR () 34.1 41.3 Estimated GFR (Non- 29.4 35.7 BUN/Creatinine Ratio 18.2 20.2 10-20 Random Glucose 215 161 70-99 mg/dl Estimated Average Glucose 146 mg/dl Hemoglobin A1c 6.7 4.5-5.6 % Calcium Level 8.7 8.5 8.5-10.1 mg/dl Magnesium Level 1.9 1.8-2.4 mg/dl Total Bilirubin 0.5 0.2-1 mg/dl Direct Bilirubin 0.2 0-0.2 mg/dl Aspartate Amino Transf (AST/SGOT) 15 15-37 U/L Alanine Aminotransferase (ALT/SGPT) 13 12-78 U/L Alkaline Phosphatase 45 45-117 U/L Total Protein 7.0 6.4-8.2 gm/dl Albumin 3.4 3.4-5.0 gm/dl Thyroid Stimulating Hormone (TSH) 1.110 0.300-4.500 uIu/ml Bedside Glucose 194 70-99 mg/dl Urine Color YELLOW Urine Appearance CLEAR CLEAR Urine pH 5.0 4.5-7.5 Urine Specific [place] 1.038 1.000-1.030 Urine Protein NEG NEG Urine Glucose (UA) NEG NEG Urine Ketones NEG NEG Urine Occult Blood NEG NEG Urine Nitrite NEG NEG Urine Bilirubin NEG NEG Urine Urobilinogen NEG NEG Urine Leukocyte Esterase TRACE NEG Urine WBC (Auto) 1-5 0-5 /hpf Urine RBC (Auto) 0-4 0-4 /hpf Urine Hyaline Casts (Auto) 1-5 0-5 /lpf Urine Epithelial Cells (Auto) >30 0-5 /lpf Urine Bacteria (Auto) NEG NEG Test 12/20/17 12:07 12/20/17 16:48 12/20/17 17:04 Range/Units Bedside Glucose 158 169 70-99 mg/dl Prothrombin Time 18.4 9.0-12.0 SECONDS Prothromb Time International Ratio 1.8 0.9-1.1
[2017-12-20] MEDS: INSULIN DETEMIR FLEXPEN/FLEX TOUCH 100 UNITS/ML 3ML SC SCH (20:55)
[2017-12-20] MEDS: SIMVASTATIN 10 MG TAB PO SCH (20:56)
[2017-12-21] VITALS (11 sets, daily range): BP systolic 111–167; BP diastolic 61–88; PULSE 42–94; TEMP 36.4–37; O2SAT 92–99
[2017-12-21] MEDS: HYDROmorphone INJ 0.5 MG/0.5 ML SYR IV PRN (00:53)
[2017-12-21] MEDS: SODIUM CHLORIDE 0.9% 1000ML 1,000 ML IV SCH (00:57)
[2017-12-21] MEDS ORDERED: NURSING DECISION MEDICATION ORDER SCH (01:45)
[2017-12-21] MEDS ORDERED: INSULIN ASPART 100 UNITS/ML 3 ML PEN SC SCH (06:00)
[2017-12-21 06:52] LABS: BASO % 0.2 %; BASO ABS # 0.01 K/uL (0-0.2); EOS ABS # 0.06 K/uL (0-0.5); HEMATOCRIT 35.7 % (42-52); HEMOGLOBIN 11.5 g/dL (14.0-18.0); IG# 0.01 K/uL (0.00-0.02); LYMPH % 23.8 %; LYMPH ABS # 1.45 K/uL (1.2-3.4); MEAN CELL VOLUME 92.7 fL (80-100); MEAN CORPUSCULAR HEMOGLOBIN 29.9 pg (25-34); MEAN CORPUSCULAR HGB CONC 32.2 g/dl (32-36); MEAN PLATELET VOLUME 9.2 fL (7.4-10.4); MONO % 7.9 %; MONO ABS # 0.48 K/uL (0.11-0.59); NEUT % 66.9 %; NEUT ABS # 4.08 K/uL (1.4-6.5); PLATELET COUNT 132 K/uL (130-400); WHITE BLOOD COUNT 6.09 K/uL (4.8-10.8)
[2017-12-21 06:58] LABS: INR 1.5 (0.9-1.1)
[2017-12-21 07:27] LABS: CALCIUM 8.5 mg/dl (8.5-10.1); CREATININE 1.64 mg/dl (0.60-1.40); POTASSIUM 4.1 mmol/L (3.5-5.1)
--- NOTE | 2017-12-21 07:44 | History & Physical Bridge Note ---
H&P Re-Evaluation Bridge Note: I have examined the patient, reviewed the History & Physical and in the interval since the performance of the History & Physical I have noted the following changes of clinical significance: To OR today for attempted closed reduction left total knee subluxation/dislocation. NPO.
[2017-12-21] MEDS ORDERED: PHENYLEPHRINE HCL INJ 10 MG/ML VIAL ONE (07:56)
[2017-12-21] MEDS ORDERED: DEXAMETHASONE SOD INJ 4 MG/ML VIAL ONE (07:56)
[2017-12-21] MEDS ORDERED: NEOSTIGMINE METHYLSULFATE 5 MG/5 ML SYR ONE (07:56)
[2017-12-21] MEDS ORDERED: LIDOCAINE HCL 2% 2 ML VIAL (20MG/ML) ONE (07:56)
[2017-12-21] MEDS ORDERED: ONDANSETRON INJ 2 MG/ML 2 ML VIAL ONE (07:56)
[2017-12-21] MEDS ORDERED: EpHEDrine SULFATE INJ 50 MG/ML AMP ONE (07:56)
[2017-12-21] MEDS ORDERED: SUCCINYLCHOLINE CHLORIDE 20 MG/ML 10 ML VIAL IV ONE (07:56)
[2017-12-21] MEDS ORDERED: FENTANYL CITRATE INJ 50 MCG/1 ML 2 ML VIAL ONE ×2 (07:56)
[2017-12-21] MEDS ORDERED: GLYCOPYRROLATE INJ 0.2 MG/ML VIAL ONE (07:56)
[2017-12-21] MEDS ORDERED: MIDAZOLAM HCL 1 MG/ML 2ML VIAL ONE (07:56)
[2017-12-21] MEDS ORDERED: PROPOFOL IV EMULSION 10 MG/ML 20 ML VIAL IV ONE (07:56)
[2017-12-21] MEDS ORDERED: BACITRACIN 50000 UNIT VIAL ONE (07:57)
[2017-12-21] MEDS ORDERED: KETAMINE HCL INJ 50 MG/ML 10 ML VIAL ONE (07:58)
[2017-12-21] MEDS ORDERED: SODIUM CHLORIDE 0.9% INJ 10 ML VIAL ONE (07:58)
--- NOTE | 2017-12-21 08:38 | [facility] Post Operative Brief Note ---
Immediate Operative Summary Operative Date Dec 21, 2017. Pre-Operative Diagnosis Dislocation/subluxation Left total knee arthroplasty Post-Operative Diagnosis Dislocation/subluxation Left total knee arthroplasty Procedure(s) Performed Closed reduction left total knee arthroplsty Surgeon Dr. Mccarthy Social Work Specialist Surgeon(s) Ileana Carter, PAKrzysztof Estimated Blood Loss None Findings Consistent with Post-Op Diagnosis Specimens None Drains None Anesthesia Type General Complication(s) none Disposition Accompanied Pt To Recover: no Disposition: Recovery Room / PACU
--- NOTE | 2017-12-21 09:03 | DIAGNOSTIC IMAGING REPORT ---
L KNEE 1 OR 2 VIEWS CLINICAL HISTORY: 62 years-old Male presenting with CLOSED REDUCTION LEFT KNEE. TECHNIQUE: 2 fluoroscopic spot image(s) obtained as part of an intraoperative procedure. COMPARISON: Plain radiographs and CT from 12/19/2017. FINDINGS/IMPRESSION: Post surgical changes of total left knee arthroplasty with patellar resurfacing. The femoral component of the prosthesis is now appropriately aligned with the tibial component. No lateral or anteroposterior subluxation. Please see surgical report for further details. Fluoroscopy dosage (mGy): 0.97. Fluoroscopy time: 7.7 seconds. Number of fluoroscopic spot images: 2. Electronically signed by: Dalton Stanton M.D. 12/21/2017 9:02 AM Dictated Date/Time: 12/21/2017 9:01 AM
[2017-12-21] MEDS ORDERED: EpHEDrine SULFATE INJ 50 MG/ML AMP IV PRN (09:15)
[2017-12-21] MEDS ORDERED: ATROPINE SULFATE 0.1 MG/ML 5ML SYR IV PRN (09:15)
[2017-12-21] MEDS: HYDROmorphone INJ 1 MG/ML SYR ONE ×2 (09:26→09:27)
--- NOTE | 2017-12-21 09:29 | Anesthesiology Progress Note ---
Anesthesia Post Op Note Date & Time Dec 21, 2017 at 09:29 Vital Signs Pain Intensity: 0 Vital Signs Past 12 Hours Date Time Temp Pulse Resp B/P (MAP) Pulse Ox O2 Delivery O2 Flow Rate FiO2 12/21/17 09:20 36.6 76 14 123/66 93 Room Air 12/21/17 09:10 69 14 144/68 100 Oxymask 5 12/21/17 09:00 68 18 125/65 100 Oxymask 10 12/21/17 08:53 36.0 67 20 112/57 100 Oxymask 10 12/21/17 07:05 36.5 64 16 141/77 (98) 98 Room Air 12/21/17 00:45 Room Air 12/20/17 23:04 36.6 72 16 111/65 (80) 96 Room Air Notes Mental Status: alert / awake / arousable, participated in evaluation Pt Amnestic to Procedure: Yes Nausea / Vomiting: adequately controlled Pain: adequately controlled Airway Patency, RR, SpO2: stable & adequate BP & HR: stable & adequate Hydration State: stable & adequate Anesthetic Complications: no major complications apparent
[2017-12-21] MEDS ORDERED: NURSING VERBAL MED ORDER ONE (09:45)
--- NOTE | 2017-12-21 10:01 | OPERATIVE REPORT ---
DATE OF OPERATION: 12/21/2017 PREOPERATIVE DIAGNOSIS: Left total knee arthroplasty subluxation dislocation. POSTOPERATIVE DIAGNOSIS: Same. PROCEDURES: 1. Closed reduction left total knee arthroplasty. 2. Examination under anesthesia of the left knee with fluoroscopy. SURGEON: Dr. Mp Mccarthy. GREENSKEEPER: Dr. Thor Painter and Ileana Leon PA-C, who were present for patient positioning, sterile prep and drape, management of retractors and instruments. He was present through the critical portions of the case including wound closure, application of sterile dressing and transport of the patient to recovery. ANESTHESIA: General endotracheal tube. SPECIMENS: None. DRAINS: None. COMPLICATIONS: None. BLOOD LOSS: Zero. PERTINENT HISTORY: This is a 62-year-old gentleman who had a prior left total knee arthroplasty in [address] Painter. He had subsequent infection in 2010 and underwent irrigation, debridement and polyethylene exchange [place] [address] Teran. On Friday evening, the patient was attempting to move out of his lift chair and he felt a painful pop and was unable to move his left knee. He was then transferred to [facility], examined, had radiographs and a CT angiogram, and noted to have subluxation of the left total knee arthroplasty, possible ligamentous injury. The patient was then admitted to the hospital and optimized for a surgery as indicated. The patient was then scheduled for surgery when medically optimized. All potential risks, benefits, complications, alternatives, rehab, potential for incomplete relief of symptoms, need for further surgery, DVT, PE, , persistent pain, swelling, scarring, weakness, neurovascular injury, wound complications, hardware failure, bone fracture, need for open surgery and polyethylene revision was discussed with the patient. The patient decided to proceed with the procedure as indicated. DESCRIPTION OF PROCEDURE: The patient was taken to the operative suite and placed supine on the operating room table. I reviewed the consent and identification of proper operative site, the patient was anesthetized, endotracheal tube was placed. Next, closed reduction maneuver was then performed in an atraumatic fashion. A palpable clunk was felt in the left knee and then range of motion became markedly easier. It was able to achieve 90 degrees of flexion and full extension. Examination under anesthesia then commenced with flexion, extension, internal and external rotation of the tibia as well as varus and valgus stress at 0 and 30 degrees with anterior and posterior drawer testing performed. The knee was stable in all planes with some degree of laxity within normal limits. C-arm fluoroscopy was then utilized to image the knee, noting reduction of the total knee arthroplasty in 2 planes. No bone fracture was appreciated. Normal alignment of the well-fixed components was also noted. The patient was then awakened and a straight leg knee immobilizer was then applied in tandem with another straight leg knee immobilizer due to the patient's large body habitus. The patient was awakened and then taken to recovery in stable condition. I attest to the content of the Intraoperative Record and any orders documented therein. Any exception s are noted below.
[2017-12-21] MEDS: CEROVITE ADV FORMULA TAB PO SCH (10:13)
[2017-12-21] MEDS: DRONEDARONE 400 MG TAB PO SCH ×2 (10:13→21:11)
[2017-12-21] MEDS: ALLOPURINOL 100 MG TAB PO SCH ×2 (10:14→21:16)
[2017-12-21] MEDS: METOPROLOL SUCC 50MG EXT REL TAB PO SCH (10:14)
[2017-12-21] MEDS: DOXYCYCLINE HYCLATE 100 MG CAP PO SCH ×2 (10:14→21:14)
[2017-12-21] MEDS: TRAMADOL HCL 50 MG TAB PO PRN ×2 (12:13→21:40)
[2017-12-21] MEDS: INSULIN ASPART 100 UNITS/ML 3 ML PEN SC SCH ×3 (13:08→21:35)
--- NOTE | 2017-12-21 15:53 | Progress Note ---
Internal Med Progress Note Date of Service: Dec 21, 2017. Provider Documentation: SUBJECTIVE: s/p close reduction of left knee no pain r resting comfortably afebrile no sob OBJECTIVE: Vital Signs-as noted below Exam: General-alert and oriented. Not in distress. Morbidly obese ENT-Normal hearing Neck-no neck masses Lungs-cta b/l no wheezing or crackles Heart-S1 and S2 heard regular rate and rhythm, no murmurs Abdomen-soft bowel sounds present no tenderness no distension Extremities- gross lower extremity lymphedema present . left knee tender Neuro-alert and awake moves extremities Lab data as noted below. ASSESSMENT & PLAN: 1. Acute renal failure on chronic renal insufficiency on gentle fluids holding Lasix and lisinopril presented with cr 2.3 cr today 1.6 will f/u labs in am 2. Spontaneous left knee subluxation plan for surgery in am s/p closed reduction by ortho today. 3. Hypertension,. On Toprol xl. Holding lisinopril will monitor. 4. Atrial fibrillation, rate controlled. rate controlled on Toprol xl holding Coumadin for surgery cardiac status is stable as per recent outpatient [facility] Cardiology visit as per admission notes. will restart Coumadin in am . 5. DM2, insulin requiring, on Levemir And iss will monitor. 6. Chronic anemia secondary CKD, hemoglobin at baseline 7. hx chronic MRSA L knee infection on Doxycycline suppression Rx 8. History chronic lymphedema 9. Morbid Obesity status post gastric bypass f/u with pcp DVT PROPHYLAXIS hep sub when INr down DISPOSITION pt/ot to be determined Vital Signs: Date Time Temp Pulse Resp B/P (MAP) Pulse Ox O2 Delivery O2 Flow Rate FiO2 12/21/17 15:23 44 12/21/17 15:22 36.8 42 18 147/61 (89) 92 Room Air 12/21/17 13:00 36.7 78 16 134/75 (94) 95 Room Air 12/21/17 12:00 94 18 136/75 (95) 98 Room Air 12/21/17 10:58 84 18 167/78 (107) 99 12/21/17 10:15 36.4 71 16 149/71 (97) 95 Room Air 12/21/17 09:45 Room Air 12/21/17 09:45 94 Room Air 12/21/17 09:30 81 18 138/67 94 Room Air 12/21/17 09:20 36.6 76 14 123/66 93 Room Air 12/21/17 09:10 69 14 144/68 100 Oxymask 5 12/21/17 09:00 68 18 125/65 100 Oxymask 10 12/21/17 08:53 36.0 67 20 112/57 100 Oxymask 10 12/21/17 07:05 36.5 64 16 141/77 (98) 98 Room Air 12/21/17 00:45 Room Air 12/20/17 23:04 36.6 72 16 111/65 (80) 96 Room Air 12/20/17 21:00 68 132/75 (94) 12/20/17 16:30 Room Air Lab Results: Results Past 24 Hours Test 12/20/17 16:48 12/20/17 17:04 12/20/17 20:38 12/21/17 05:51 Range/Units Prothrombin Time 18.4 9.0-12.0 SECONDS Prothromb Time International Ratio 1.8 0.9-1.1 Bedside Glucose 169 225 121 70-99 mg/dl Test 12/21/17 06:27 12/21/17 08:58 12/21/17 11:59 Range/Units White Blood Count 6.09 4.8-10.8 K/uL Red Blood Count 3.85 4.7-6.1 M/uL Hemoglobin 11.5 14.0-18.0 g/dL Hematocrit 35.7 42-52 % Mean Corpuscular Volume 92.7 80-100 fL Mean Corpuscular Hemoglobin 29.9 25-34 pg Mean Corpuscular Hemoglobin Concent 32.2 32-36 g/dl Platelet Count 132 130-400 K/uL Mean Platelet Volume 9.2 7.4-10.4 fL Neutrophils (%) (Auto) 66.9 % Lymphocytes (%) (Auto) 23.8 % Monocytes (%) (Auto) 7.9 % Eosinophils (%) (Auto) 1.0 % Basophils (%) (Auto) 0.2 % Neutrophils # (Auto) 4.08 1.4-6.5 K/uL Lymphocytes # (Auto) 1.45 1.2-3.4 K/uL Monocytes # (Auto) 0.48 0.11-0.59 K/uL Eosinophils # (Auto) 0.06 0-0.5 K/uL Basophils # (Auto) 0.01 0-0.2 K/uL RDW Standard Deviation 51.0 36.4-46.3 fL RDW Coefficient of Variation 15.0 11.5-14.5 % Immature Granulocyte % (Auto) 0.2 % Immature Granulocyte # (Auto) 0.01 0.00-0.02 K/uL Prothrombin Time 15.6 9.0-12.0 SECONDS Prothromb Time International Ratio 1.5 0.9-1.1 Sodium Level 139 136-145 mmol/L Potassium Level 4.1 3.5-5.1 mmol/L Chloride Level 107 98-107 mmol/L Carbon Dioxide Level 26 21-32 mmol/L Anion Gap 6.0 3-11 mmol/L Blood Urea Nitrogen 38 7-18 mg/dl Creatinine 1.64 0.60-1.40 mg/dl Est Creatinine Clear Calc Drug Dose 86.0 ml/min Estimated GFR () 51.9 Estimated GFR (Non- 44.8 BUN/Creatinine Ratio 23.2 10-20 Random Glucose 120 70-99 mg/dl Calcium Level 8.5 8.5-10.1 mg/dl Bedside Glucose 119 166 70-99 mg/dl
[2017-12-21] MEDS: SIMVASTATIN 10 MG TAB PO SCH (21:14)
[2017-12-21] MEDS: INSULIN DETEMIR FLEXPEN/FLEX TOUCH 100 UNITS/ML 3ML SC SCH (21:35)
[2017-12-21] MEDS ORDERED: WARFARIN SOD 5 MG TAB PO ONE (23:15)
[2017-12-22] MEDS: SODIUM CHLORIDE 0.9% 1000ML 1,000 ML IV SCH (00:20)
[2017-12-22 03:47] VITALS: BP 152/72; PULSE 96; TEMP 37.2; O2SAT 94
[2017-12-22 05:13] LABS: BASO % 0.1 %; BASO ABS # 0.01 K/uL (0-0.2); EOS % 1.3 %; EOS ABS # 0.09 K/uL (0-0.5); HEMATOCRIT 35.3 % (42-52); HEMOGLOBIN 11.4 g/dL (14.0-18.0); IG# 0.02 K/uL (0.00-0.02); LYMPH % 24.5 %; LYMPH ABS # 1.69 K/uL (1.2-3.4); MEAN CELL VOLUME 93.6 fL (80-100); MEAN CORPUSCULAR HEMOGLOBIN 30.2 pg (25-34); MEAN CORPUSCULAR HGB CONC 32.3 g/dl (32-36); MEAN PLATELET VOLUME 9.6 fL (7.4-10.4); MONO % 7.4 %; MONO ABS # 0.51 K/uL (0.11-0.59); NEUT % 66.4 %; NEUT ABS # 4.59 K/uL (1.4-6.5); PLATELET COUNT 126 K/uL (130-400); RED CELL DISTRIBUTION WIDTH SD 50.9 fL (36.4-46.3); WHITE BLOOD COUNT 6.91 K/uL (4.8-10.8)
[2017-12-22] MEDS ORDERED: NURSING DECISION MEDICATION ORDER SCH (05:15)
[2017-12-22 05:20] LABS: INR 1.2 (0.9-1.1)
[2017-12-22 05:30] LABS: CALCIUM 8.4 mg/dl (8.5-10.1); CREATININE 1.82 mg/dl (0.60-1.40); POTASSIUM 4.5 mmol/L (3.5-5.1)
[2017-12-22 08:01] VITALS: BP 137/85; PULSE 63; TEMP 36.5; O2SAT 96
[2017-12-22] MEDS: DRONEDARONE 400 MG TAB PO SCH ×2 (08:46→20:35)
[2017-12-22] MEDS: CEROVITE ADV FORMULA TAB PO SCH (08:47)
[2017-12-22] MEDS: METOPROLOL SUCC 50MG EXT REL TAB PO SCH (08:49)
[2017-12-22] MEDS: DOXYCYCLINE HYCLATE 100 MG CAP PO SCH ×2 (08:50→20:36)
[2017-12-22] MEDS: ALLOPURINOL 100 MG TAB PO SCH ×2 (08:51→20:36)
[2017-12-22] MEDS: INSULIN ASPART 100 UNITS/ML 3 ML PEN SC SCH ×4 (09:03→20:45)
[2017-12-22 09:22] VITALS: O2SAT 96
[2017-12-22] MEDS: TRAMADOL HCL 50 MG TAB PO PRN ×2 (10:27→21:59)
[2017-12-22] MEDS: HYDROmorphone INJ 0.5 MG/0.5 ML SYR IV PRN ×2 (13:01→20:20)
--- NOTE | 2017-12-22 13:20 | Orthopedic Progress Note ---
Orthopedic Progress Note Date of Service Dec 22, 2017. Subjective Post OP Day: 1 Reports: feeling well, complaints (HAVING SOME SHARP ABDOMINAL/FLANK PAINS THIS AFTERNOON. NO BM X SEVERAL DAYS. DENIES CHEST PAIN OR SOB.), Denies: chest pain , SOB, nausea / vomiting, light headedness, calf pain Objective calves soft nontender, N/V intact, capillary refill less than 2 sec., dressing C /D/I, A&O x3, toes mobile PATIENT CURRENTLY IN DOUBLE KNEE IMMOBILIZER. Date Time Temp Pulse Resp B/P (MAP) Pulse Ox O2 Delivery O2 Flow Rate FiO2 12/22/17 09:22 96 Room Air 12/22/17 08:01 36.5 63 24 137/85 (102) 96 Room Air 12/22/17 07:30 Room Air 12/22/17 03:47 37.2 96 24 152/72 (98) 94 Room Air 12/22/17 00:20 Room Air 12/21/17 22:54 36.9 72 20 111/84 (93) 96 Room Air 12/21/17 19:15 37.0 69 18 122/88 (99) 97 Room Air 12/21/17 15:30 Room Air 12/21/17 15:24 62 12/21/17 15:23 44 12/21/17 15:22 36.8 42 18 147/61 (89) 92 Room Air Laboratory Results 24 Hours: Test 12/22/17 05:00 White Blood Count 6.91 K/uL Red Blood Count 3.77 M/uL Hemoglobin 11.4 g/dL Hematocrit 35.3 % Mean Corpuscular Volume 93.6 fL Mean Corpuscular Hemoglobin 30.2 pg Mean Corpuscular Hemoglobin Concent 32.3 g/dl Platelet Count 126 K/uL Mean Platelet Volume 9.6 fL Neutrophils (%) (Auto) 66.4 % Lymphocytes (%) (Auto) 24.5 % Monocytes (%) (Auto) 7.4 % Eosinophils (%) (Auto) 1.3 % Basophils (%) (Auto) 0.1 % Neutrophils # (Auto) 4.59 K/uL Lymphocytes # (Auto) 1.69 K/uL Monocytes # (Auto) 0.51 K/uL Eosinophils # (Auto) 0.09 K/uL Basophils # (Auto) 0.01 K/uL Prothromb Time International Ratio 1.2 Prothrombin Time 12.5 SECONDS Assessment & Plan Assessment: POD#1 SP CLOSED REDUCTION LEFT TKA Possible collateral ligament laxity/tear, Patellar tendon tear, Quadriceps tear versus generalized laxity and new onset polyethylene liner sizing mismatch. Morbid obesity Prior MRSA infection left knee- CONTACT [employer] LIFTED. Severe bilateral LE lymphedema CKD stage 3 with recently worsened creatinine levels Chronic anticoagulation with Coumadin- INR 1.2 today Plan: WBAT WITH KNEE IMMOBILIZER PT/OT PAIN MANAGEMENT MEDICAL MANAGEMENT -BUN/CR IMPROVING -WILL DISCUSS ABDOMINAL PAIN WHEN THEY SEE HIM TODAY -[facility] DC PLANNING- PATIENT WANTS TO CONSIDER SHORT REHAB STAY. WB STATUS WAS ADJUSTED JUST THIS AFTERNOON SO WILL SEE HOW HE DOES IN A REPEAT PT SESSION. MAINTAIN KNEE IMMOBILIZER AT ALL TIMES, HIGH FALL RISK. WILL NEED SCRIPT FOR DC FOR CUSTOM IMMOBILIZER MAY RESUME COUMADIN, NO PLANS FOR FURTHER SURGERY AT THIS TIME.
[2017-12-22 15:13] VITALS: BP 150/74; PULSE 72; TEMP 36.7; O2SAT 97
[2017-12-22] MEDS: WARFARIN SOD 2.5 MG TAB PO SCH (15:33)
--- NOTE | 2017-12-22 18:46 | Progress Note ---
Internal Med Progress Note Date of Service: Dec 22, 2017. Provider Documentation: SUBJECTIVE: s/p close reduction of left knee 12/21/17 knee in brace says still has significant pain radiating to his back and groin area no fevers no chest pain or sob OBJECTIVE: Vital Signs-as noted below Exam: General-alert and oriented. Not in distress. Morbidly obese ENT-Normal hearing Neck-no neck masses Lungs-cta b/l no wheezing or crackles Heart-S1 and S2 heard regular rate and rhythm, no murmurs Abdomen-soft bowel sounds present no tenderness no distension Extremities- gross lower extremity lymphedema present . left knee in brace Neuro-alert and awake moves extremities Lab data as noted below. ASSESSMENT & PLAN: 62m morbidly obese patient presented with subluxation of left knee. It was closely reduced after reversing INR.Left knee is in brace. Still has significant pain. pain management consulted. May need rehab. 1. Acute renal failure on chronic renal insufficiency stage 3 on gentle fluids holding Lasix and lisinopril presented with cr 2.3 cr today 1.8 at [facility]ine will f/u labs in am 2. Spontaneous left knee subluxation s/p closed reduction by ortho 12/21/17 knee in brace still has pain no more interventions as per ortho pain management plan for rehab 3. Hypertension,. On Toprol xl. Holding lisinopril will monitor. 4. Atrial fibrillation, rate controlled. rate controlled on Toprol xl held Coumadin for surgery cardiac status is stable as per recent outpatient [facility] Cardiology visit as per admission notes. will restart Coumadin today f/u inr . 5. DM2, insulin requiring, on Levemir And iss will monitor. 6. Chronic anemia secondary CKD, hemoglobin at baseline 7. hx chronic MRSA L knee infection on Doxycycline suppression Rx 8. History chronic lymphedema 9. Morbid Obesity status post gastric bypass f/u with pcp. 10. ? abdominal pain will f/u ct scan DVT PROPHYLAXIS hep sub when INr down DISPOSITION pt/ot plan for rehab social service for d/c planning Vital Signs: Date Time Temp Pulse Resp B/P (MAP) Pulse Ox O2 Delivery O2 Flow Rate FiO2 12/22/17 15:30 Room Air 12/22/17 15:13 36.7 72 18 150/74 (99) 97 Room Air 12/22/17 09:22 96 Room Air 12/22/17 08:01 36.5 63 24 137/85 (102) 96 Room Air 12/22/17 07:30 Room Air 12/22/17 03:47 37.2 96 24 152/72 (98) 94 Room Air 12/22/17 00:20 Room Air 12/21/17 22:54 36.9 72 20 111/84 (93) 96 Room Air Lab Results: Results Past 24 Hours Test 12/21/17 20:38 12/22/17 05:00 12/22/17 07:58 12/22/17 11:53 Range/Units Bedside Glucose 183 126 163 70-99 mg/dl White Blood Count 6.91 4.8-10.8 K/uL Red Blood Count 3.77 4.7-6.1 M/uL Hemoglobin 11.4 14.0-18.0 g/dL Hematocrit 35.3 42-52 % Mean Corpuscular Volume 93.6 80-100 fL Mean Corpuscular Hemoglobin 30.2 25-34 pg Mean Corpuscular Hemoglobin Concent 32.3 32-36 g/dl Platelet Count 126 130-400 K/uL Mean Platelet Volume 9.6 7.4-10.4 fL Neutrophils (%) (Auto) 66.4 % Lymphocytes (%) (Auto) 24.5 % Monocytes (%) (Auto) 7.4 % Eosinophils (%) (Auto) 1.3 % Basophils (%) (Auto) 0.1 % Neutrophils # (Auto) 4.59 1.4-6.5 K/uL Lymphocytes # (Auto) 1.69 1.2-3.4 K/uL Monocytes # (Auto) 0.51 0.11-0.59 K/uL Eosinophils # (Auto) 0.09 0-0.5 K/uL Basophils # (Auto) 0.01 0-0.2 K/uL RDW Standard Deviation 50.9 36.4-46.3 fL RDW Coefficient of Variation 15.0 11.5-14.5 % Immature Granulocyte % (Auto) 0.3 % Immature Granulocyte # (Auto) 0.02 0.00-0.02 K/uL Prothrombin Time 12.5 9.0-12.0 SECONDS Prothromb Time International Ratio 1.2 0.9-1.1 Sodium Level 140 136-145 mmol/L Potassium Level 4.5 3.5-5.1 mmol/L Chloride Level 106 98-107 mmol/L Carbon Dioxide Level 29 21-32 mmol/L Anion Gap 5.0 3-11 mmol/L Blood Urea Nitrogen 36 7-18 mg/dl Creatinine 1.82 0.60-1.40 mg/dl Est Creatinine Clear Calc Drug Dose 77.5 ml/min Estimated GFR () 45.8 Estimated GFR (Non- 39.5 BUN/Creatinine Ratio 19.6 10-20 Random Glucose 141 70-99 mg/dl Calcium Level 8.4 8.5-10.1 mg/dl Test 12/22/17 17:17 Range/Units Bedside Glucose 140 70-99 mg/dl
--- NOTE | 2017-12-22 19:40 | DIAGNOSTIC IMAGING REPORT ---
ADDENDUM Addendum: IMPRESSION: (Impression #7 was inadvertently omitted from the original dictation) 7. 13 mm left lower lobe groundglass pulmonary nodule. A follow-up CT scan in 6-12 months per Fleischner criteria is recommended. Please refer to below summary of Fleischner criteria recommendations for follow-up of incidental CT nodules (Virgen Higuera, Guidelines for management of small pulmonary nodules detected on CT scans: A statement from the Fleischner Society, Radiology 237: [phone].) SOLID NODULES Solitary nodule size: <6 mm * low risk patients: no follow-up needed * high risk patients: optional CT at 12 months Solitary nodule size: 6-8 mm * low risk patients: follow-up at 6-12 months, then consider further follow-up at 18-24 months * high risk patients: initial follow-up CT at 6-12 months and then at 18-24 months if no change Solitary nodule size: >8 mm * either low or high risk patients - consider follow-up CT at 3 months, and/or CT-PET, and/or biopsy Multiple nodules size: <6 mm * low risk patients: no routine follow-up * high risk patients: optional CT at 12 months Multiple nodules size: 6-8 mm * low risk patients: follow-up at 3-6 months, then consider further follow-up at 18-24 months * high risk patients: follow-up at 3-6 months, then at 18-24 months if no change Multiple nodules size: >8 mm * low risk patients: follow-up at 3-6 months, then consider further follow-up at 18-24 months * high risk patients: follow-up at 3-6 months, then at 18-24 months if no change Note: newly detected indeterminate nodule in persons 35 years of age or older. * low risk patients: minimal or absent history of smoking and/or other known risk factors * high risk patients: history of smoking or of other known risk factors (e.g. first degree relative with lung cancer, or exposure to asbestos, radon, uranium) * if a nodule up to 8 mm is partly solid or is ground glass further follow-up is required after 24 months to exclude possible slow growing adenocarcinoma (ROSA) SUBSOLID NODULES Solitary pure ground-glass nodule * nodule size <6 mm - no CT follow-up required * nodule size >=6 mm - follow-up CT at 6-12 months, then every 2 years until 5 years Solitary part-solid nodule * nodule size <6 mm - no CT follow-up required * nodule size >=6 mm - follow-up CT at 3-6 months. If unchanged, and solid component remains <6 mm, then annual follow-up for 5 years Multiple subsolid nodules * nodule size <6 mm - follow-up CT at 3-6 months, consider further follow-up at 2 and 4 years if stable * nodule size >=6 mm - follow-up CT at 3-6 months, subsequent management based on the most suspicious nodule(s) Electronically signed by: Diego Deluca M.D. 12/22/2017 8:03 PM Dictated Date/Time: 12/22/2017 8:[address] SCAN OF THE ABDOMEN AND PELVIS WITHOUT CONTRAST CLINICAL HISTORY: abdominal pain GENERALIZED ABDOMINAL PAIN COMPARISON STUDY: No previous studies for comparison. TECHNIQUE: CT scan of the abdomen and pelvis was performed from the lung bases to the proximal femurs. Images are reviewed in the axial, sagittal, and coronal planes. IV contrast was not administered for this examination. A dose lowering technique was utilized adhering to the principles of ALARA. CT DOSE: 2537.32 mGy.cm FINDINGS: Lower chest: There is a 13 mm left lower lobe groundglass pulmonary nodule. There are trace bilateral pleural effusions Liver: The unenhanced liver is normal in size, contour, and attenuation. There is no intrahepatic biliary ductal dilatation. Gallbladder: Nonvisualized and presumed surgically absent Spleen: Normal in size and attenuation. Pancreas: Unremarkable. Adrenal glands: Unremarkable. Kidneys: There is a 37 mm right renal mass which exceeds water attenuation and is therefore indeterminate. A dedicated renal CT scan is recommended in follow-up. Bowel: There are no transition zones indicate bowel obstruction. There is apparent gastric suture line. A portion of the anterior colon is not visualized due to the patient's large body habitus which exceeds the [id number]. There is no evidence of acute diverticulitis. Scattered colonic diverticula are visualized. The appendix is not visualized. Peritoneum: There is minimal nonspecific infiltration of the central mesentery. No free air is visualized although portions of the anterior abdominal wall are not included on the study. There is no significant ascites. There is a fat-containing lower ventral hernia. Vasculature: The abdominal aorta is normal in course and caliber. Adenopathy: None. Pelvic viscera: The bladder, and pelvic viscera are unremarkable. Skeletal structures: No destructive osseous lesions are seen. IMPRESSION: 1. Technically limited study secondary to the patient's very large body habitus 2. No evidence of bowel obstruction. No evidence of free air 3. No acute inflammatory changes 4. Fat-containing ventral hernia 5. Indeterminate 37 mm right renal mass. A nonemergent dedicated renal CT scan is recommended in follow-up 6. Very subtle infiltration of the central mesentery. This could indicate a nonspecific mesenteritis Electronically signed by: Diego Deluca M.D. 12/22/2017 7:39 PM Dictated Date/Time: 12/22/2017 7:30 PM
[2017-12-22] MEDS: SIMVASTATIN 10 MG TAB PO SCH (20:36)
[2017-12-22] MEDS: INSULIN DETEMIR FLEXPEN/FLEX TOUCH 100 UNITS/ML 3ML SC SCH (20:46)
[2017-12-22] MEDS: HEPARIN SOD 5000 UNIT/0.5 ML CARP SQ SCH (21:55)
[2017-12-22 23:11] VITALS: BP 151/75; PULSE 76; TEMP 36.9; O2SAT 95
[2017-12-23] MEDS: HYDROmorphone INJ 0.5 MG/0.5 ML SYR IV PRN ×3 (00:08→22:43)
[2017-12-23 05:25] LABS: BASO % 0.4 %; BASO ABS # 0.03 K/uL (0-0.2); EOS % 1.4 %; HEMATOCRIT 34.3 % (42-52); HEMOGLOBIN 11.3 g/dL (14.0-18.0); IG# 0.01 K/uL (0.00-0.02); LYMPH % 26.4 %; LYMPH ABS # 1.86 K/uL (1.2-3.4); MEAN CORPUSCULAR HEMOGLOBIN 30.6 pg (25-34); MEAN CORPUSCULAR HGB CONC 32.9 g/dl (32-36); MONO % 9.4 %; MONO ABS # 0.66 K/uL (0.11-0.59); NEUT % 62.3 %; NEUT ABS # 4.38 K/uL (1.4-6.5); PLATELET COUNT 132 K/uL (130-400); RED CELL DISTRIBUTION WIDTH CV 14.7 % (11.5-14.5); WHITE BLOOD COUNT 7.04 K/uL (4.8-10.8)
[2017-12-23 05:33] LABS: INR 1.2 (0.9-1.1)
[2017-12-23 05:53] LABS: CALCIUM 8.7 mg/dl (8.5-10.1); CREATININE 1.71 mg/dl (0.60-1.40); POTASSIUM 4.3 mmol/L (3.5-5.1)
[2017-12-23] MEDS: HEPARIN SOD 5000 UNIT/0.5 ML CARP SQ SCH ×3 (06:11→22:19)
[2017-12-23 07:08] VITALS: BP 133/80; PULSE 68; TEMP 36.5; O2SAT 96
--- NOTE | 2017-12-23 08:58 | Pain Management Consultation ---
Pain Management Consultation Date of Consultation Dec 23, 2017. Reason for Consultation Left-sided posterior lateral chest wall pain and left-sided thoracolumbar back pain Pain Location 1 - History Mr. Cooper is a morbidly obese 62-year-old white male who was admitted for sudden onset of left knee pain on 12/19/17. Patient was reportedly readjusting and has power recliner chair whenever he developed the acute left knee pain. Patient was found to have subluxation/dislocation of left total knee arthroplasty. The patient underwent closed reduction under general anesthesia on 12/21/2017. Patient is currently in a knee brace and participating in physical therapy. Patient is reporting minimal discomfort associated with the left knee. The patient reported onset of his current pain complaint immediately after participating in physical therapy yesterday. Patient describing pain in the left posterior lateral lower chest wall, paraspinal thoracic and lumbar regions. He reports the pain is minimal while lying still and exacerbates with any movement. He denies change in pain with deep breathing , coughing or sneezing activities. He denies radiation of the pain to the anterior chest wall or or abdominal location. He describes the discomfort as aching and occasionally sharp in characteristic. He is unable to report myofascial spasming component to his symptoms. Patient denies any recent falls or injuries. He does report increased use of his upper body for movements due to the left knee subluxation/dislocation and recent closed reduction and diminished use. He denies any shortness of breath, fevers, chills or night sweats. He denies all other constitutional complaints at this time. Plan of care discussed with Dr. Carrera. Past Medical/Surgical History (1) History of total knee arthroplasty (2) Leukocytosis (3) COPD exacerbation (4) ARF (acute renal failure) (5) CKD (chronic kidney disease) (6) Anticoagulated (7) Internal derangement of left knee (8) Ambulatory dysfunction (9) Hyperlipidemia Nec/Nos (10) Morbid Obesity (11) GISELL (obstructive sleep apnea) (12) CKD (chronic kidney disease), stage III (13) Atrial fibrillation (14) Lymphedema of both lower extremities (15) Benign hypertension (16) Diabetes mellitus type 2 (17) Methicillin resistant Staphylococcus aureus infection (18) Sepsis (19) H/O gastric bypass Family History Cancer Diabetes mellitus FATHER Heart disease FATHER MOTHER Hypertension MOTHER Social / Work History Smoking Status: Never smoker Smokeless Tobacco Use: No Alcohol Use: occasionally Drug Use: none Marital Status: Housing Status: lives with family Occupation: employed Allergies Coded Allergies: BEE STING (Verified Allergy, Intermediate, SWELLS, 12/19/17) Metformin (Verified Adverse Reaction, Intermediate, ITCH, 12/19/17) Medications Current Inpatient Medications Medications (Trade) Dose Ordered Sig/Ching Route Start Time Stop Time Status Last Admin Dose Admin Ioversol (Optiray 320) 111 ml UD PRN IV 12/19/17 19:00 12/23/17 18:59 Acetaminophen (Tylenol Tab) 650 mg Q4H PRN PO 12/19/17 22:15 01/18/18 22:14 12/20/17 11:12 650 MG Glucose (Glucose 40% Gel) 15-30 GRAMS 15 GRAMS... UD PRN PO 12/19/17 22:15 01/18/18 22:14 Glucose (Glucose Chew Tab) 4-8 Tablets 4 Tabl... UD PRN PO 12/19/17 22:15 01/18/18 22:14 Dextrose (Dextrose 50% 50ML Syringe) 25-50ML OF 50% DW IV FOR... UD PRN IV 12/19/17 22:15 01/18/18 22:14 Glucagon (Glucagon Inj) 1 mg UD PRN SQ 12/19/17 22:15 01/18/18 22:14 Hydromorphone HCl (Dilaudid Inj) 0.5 mg Q3H PRN IV 12/19/17 22:15 01/02/18 22:14 12/23/17 00:08 0.5 MG Tramadol HCl (Ultram Tab) not relieved ... Q6H PRN PO 12/19/17 22:15 01/18/18 22:14 12/22/17 21:59 50 MG Prochlorperazine Edisylate 5 mg/ Syringe 5 ml @ 5 mls/min Q6H PRN IV 12/19/17 22:15 01/18/18 22:14 Allopurinol (Zyloprim Tab) 100 mg BID PO 12/20/17 09:00 01/19/18 08:59 12/22/17 20:36 100 MG Doxycycline Hyclate (Vibramycin Cap) 100 mg BID PO 12/20/17 09:00 01/19/18 08:59 12/22/17 20:36 100 MG Dronedarone (Multaq Tab) 400 mg BID PO 12/20/17 09:00 01/19/18 08:59 12/22/17 20:35 400 MG Metoprolol Succinate (Toprol Xl Tab) 100 mg DAILY PO 12/20/17 09:00 01/19/18 08:59 12/22/17 08:49 100 MG Multivitamins/ Minerals (Multivitamin W/ Minerals Tab) 1 tab DAILY PO 12/20/17 09:00 01/19/18 08:59 12/22/17 08:47 1 TAB Simvastatin (Zocor Tab) 10 mg HS PO 12/20/17 21:00 01/19/18 20:59 12/22/17 20:36 10 MG Terazosin HCl (Hytrin Cap) 5 mg HS PO 12/20/17 21:00 01/19/18 20:59 12/22/17 20:35 5 MG Insulin Detemir (Levemir Flexpen/ FlexTouch) 40 units HS SC 12/20/17 21:00 01/19/18 20:59 12/22/17 20:46 40 UNITS Insulin Aspart (novoLOG ASPART) SLIDING SCALE If C... ACHS SC 12/21/17 12:00 01/20/18 11:59 12/22/17 20:45 1 UNITS Warfarin Sodium (Coumadin Tab) 12.5 mg DAILY@16 PO 12/22/17 16:00 01/21/18 15:59 12/22/17 15:33 12.5 MG Heparin Sodium (Porcine) (Heparin Sq 5000 Unit/0.5ml) 5,000 unit Q8 SQ 12/22/17 22:00 01/21/18 21:59 12/23/17 06:11 5,000 UNIT Review of Systems Patient denies complaints related to cardiac, pulmonary, GI, , endocrine, neurologic, hepatic, renal, ENT, dermatologic or musculoskeletal other than those described above in HPI. Physical Exam Height & Weight: Height 6 feet, 0.00 inches. Weight 201.000 (Kilograms) 443 (Pounds) Last Vital Signs Documentation Date Time Temp Pulse Resp B/P (MAP) Pulse Ox O2 Delivery O2 Flow Rate FiO2 12/23/17 07:08 36.5 68 18 133/80 (97) 96 Room Air 12/21/17 09:10 5 Exam: General: Patient lying quietly upon entering the room in no acute distress. Patient is morbidly obese and physically deconditioned state. Patient appears to be older than his stated age of 62. Speech and thought process appropriate. Cognition was intact. Mood and affect appropriate. Chest: Patient moderately tender to lateral compression along the left lateral chest wall. Patient is nontender with AP compression. Patient is tender along the posterior lateral chest wall in the mid and lower thoracic location. No focal palpable abnormality along the rib or intercostal space was appreciated. No visible abnormalities. Abdomen: Soft and nondistended. No rebound or guarding. Back/spine: Patient tender along the paravertebral musculature of the thoracic mid and lower and upper lumbar spinal location. Patient tender along the left latissimus dorsi and upper quadratus lumborum musculature to palpation. Minimal appreciable spasm in the paravertebral musculature. No definable moderate trigger points. Patient nontender over the midline to palpation or percussion. No focal facet joint tenderness appreciated. Lower extremities: Diffuse lymphedema appreciated bilaterally with chronic hemosiderosis with venous stasis changes. Hinged knee immobilizer brace intact on the left knee. No evidence of edema or erythema surrounding the knee location. He has minimal tenderness to generalized palpation over the knee joint. Well-healed anterior patellar incision status post prior TKA bilaterally. Sensation intact distally without notable deficits. Lower extremities are warm to touch. Neurologic: Cranial nerves grossly intact. Ambulatory function not witnessed. Patient was able to partially log roll towards his right for physical examination with assistance. Laboratory Laboratory Results (Last CBC): 12/23/17 04:57 Red Blood Count 3.69 L, Mean Corpuscular Volume 93.0, Mean Corpuscular Hemoglobin 30.6, Mean Corpuscular Hemoglobin Concent 32.9, Mean Platelet Volume 10.0, Neutrophils (%) (Auto) 62.3, Lymphocytes (%) (Auto) 26.4, Monocytes (%) ( Auto) 9.4, Eosinophils (%) (Auto) 1.4, Basophils (%) (Auto) 0.4, Neutrophils # ( Auto) 4.38, Lymphocytes # (Auto) 1.86, Monocytes # (Auto) 0.66 H, Eosinophils # (Auto) 0.10, Basophils # (Auto) 0.[address]: reports reviewed CT Findings Patient: KOBE COOPER Address1: [address] [facility] Rec: [id number] Address2: [facility] [address] Acct ID: [id number] [facility] Zip: [place] [address] Date: 1955 Sex: M Room/Bed: [facility] Ref Phy: Aden Mims M.D. SC: C.MSN Att Phy: López Kay MD Report #: [id number] Diane Phy: Aden Mims M.D. Test: APWO Admit Phy: López Kay MD Adhesive Bandage Making Operator: MONICA Interpreting Phy: Diego Deluca M.D. Diagnosis: ARF (ACUTE RENAL FAILURE) Ordering Phy: López Kay MD Service Date: 12/22/17 Admit Date: 12/19/1801/02/18 MNE: [id number] CONF: DICTATED BY: Diego Deluca M.D.]] CC: López Kay MD Roscoe, Brandon M. M.D. Endcc: [~ rep ct add3]] ADDENDUM Addendum: IMPRESSION: (Impression #7 was inadvertently omitted from the original dictation) 7. 13 mm left lower lobe groundglass pulmonary nodule. A follow-up CT scan in 6-12 months per Fleischner criteria is recommended. Please refer to below summary of Fleischner criteria recommendations for follow-up of incidental CT nodules (Virgen Higuera, Guidelines for management of small pulmonary nodules detected on CT scans: A statement from the Fleischner Society, Radiology 237: [phone].) SOLID NODULES Solitary nodule size: <6 mm * low risk patients: no follow-up needed * high risk patients: optional CT at 12 months Solitary nodule size: 6-8 mm * low risk patients: follow-up at 6-12 months, then consider further follow-up at 18-24 months * high risk patients: initial follow-up CT at 6-12 months and then at 18-24 months if no change Solitary nodule size: >8 mm * either low or high risk patients - consider follow-up CT at 3 months, and/or CT-PET, and/or biopsy Multiple nodules size: <6 mm * low risk patients: no routine follow-up * high risk patients: optional CT at 12 months Multiple nodules size: 6-8 mm * low risk patients: follow-up at 3-6 months, then consider further follow-up at 18-24 months * high risk patients: follow-up at 3-6 months, then at 18-24 months if no change Multiple nodules size: >8 mm * low risk patients: follow-up at 3-6 months, then consider further follow-up at 18-24 months * high risk patients: follow-up at 3-6 months, then at 18-24 months if no change Note: newly detected indeterminate nodule in persons 35 years of age or older. * low risk patients: minimal or absent history of smoking and/or other known risk factors * high risk patients: history of smoking or of other known risk factors (e.g. first degree relative with lung cancer, or exposure to asbestos, radon, uranium) * if a nodule up to 8 mm is partly solid or is ground glass further follow-up is required after 24 months to exclude possible slow growing adenocarcinoma (ROSA) SUBSOLID NODULES Solitary pure ground-glass nodule * nodule size <6 mm - no CT follow-up required * nodule size >=6 mm - follow-up CT at 6-12 months, then every 2 years until 5 years Solitary part-solid nodule * nodule size <6 mm - no CT follow-up required * nodule size >=6 mm - follow-up CT at 3-6 months. If unchanged, and solid component remains <6 mm, then annual follow-up for 5 years Multiple subsolid nodules * nodule size <6 mm - follow-up CT at 3-6 months, consider further follow-up at 2 and 4 years if stable * nodule size >=6 mm - follow-up CT at 3-6 months, subsequent management based on the most suspicious nodule(s) Electronically signed by: Diego Deluca M.D. 12/22/2017 8:03 PM Dictated Date/Time: 12/22/2017 8:[address] SCAN OF THE ABDOMEN AND PELVIS WITHOUT CONTRAST CLINICAL HISTORY: abdominal pain GENERALIZED ABDOMINAL PAIN COMPARISON STUDY: No previous studies for comparison. TECHNIQUE: CT scan of the abdomen and pelvis was performed from the lung bases to the proximal femurs. Images are reviewed in the axial, sagittal, and coronal planes. IV contrast was not administered for this examination. A dose lowering technique was utilized adhering to the principles of ALARA. CT DOSE: 2537.32 mGy.cm FINDINGS: Lower chest: There is a 13 mm left lower lobe groundglass pulmonary nodule. There are trace bilateral pleural effusions Liver: The unenhanced liver is normal in size, contour, and attenuation. There is no intrahepatic biliary ductal dilatation. Gallbladder: Nonvisualized and presumed surgically absent Spleen: Normal in size and attenuation. Pancreas: Unremarkable. Adrenal glands: Unremarkable. Kidneys: There is a 37 mm right renal mass which exceeds water attenuation and is therefore indeterminate. A dedicated renal CT scan is recommended in follow-up. Bowel: There are no transition zones indicate bowel obstruction. There is apparent gastric suture line. A portion of the anterior colon is not visualized due to the patient's large body habitus which exceeds the [id number]. There is no evidence of acute diverticulitis. Scattered colonic diverticula are visualized. The appendix is not visualized. Peritoneum: There is minimal nonspecific infiltration of the central mesentery. No free air is visualized although portions of the anterior abdominal wall are not included on the study. There is no significant ascites. There is a fat-containing lower ventral hernia. Vasculature: The abdominal aorta is normal in course and caliber. Adenopathy: None. Pelvic viscera: The bladder, and pelvic viscera are unremarkable. Skeletal structures: No destructive osseous lesions are seen. IMPRESSION: 1. Technically limited study secondary to the patient's very large body habitus 2. No evidence of bowel obstruction. No evidence of free air 3. No acute inflammatory changes 4. Fat-containing ventral hernia 5. Indeterminate 37 mm right renal mass. A nonemergent dedicated renal CT scan is recommended in follow-up 6. Very subtle infiltration of the central mesentery. This could indicate a nonspecific mesenteritis Electronically signed by: Diego Deluca M.D. 12/22/2017 7:39 PM Dictated Date/Time: 12/22/2017 7:30 PM The status of this report is Signed. Draft = Not yet reviewed or approved by Radiologist. Signed = Reviewed and approved by Radiologist. <AttendingPhy>López Kay MD</AttendingPhy> <FamilyPhy>Aden Mims M.D.</FamilyPhy> <PrimaryPhy>Aden Mims M.D.</PrimaryPhy> <UnitNumber> [id number]</UnitNumber [place] Drug Monitoring Program Search Results: patient reviewed within database Drug Monitoring Findings: PDMP was reviewed which revealed 2 separate prescriptions for 30 tablets of Tylenol with codeine dated 04/25/2017 and 12/01/2017. Assessment 1. Myofascial pain left posterior lateral chest wall/paravertebral thoracic spine 2. Status post closed reduction of left knee subluxation/dislocation with prior history of TKA 3. History of atrial fibrillation on chronic anticoagulation therapy with Coumadin 4. Diabetes [id number] 5. Chronic renal insufficiency 6. Morbid obesity Recommendations 1. We discussed likely myofascial etiology of his presenting complaints and treatment options. Patient poor candidate for use of NSAIDs due to his chronic anticoagulation therapy with Coumadin 2. Will initiate Lidoderm patch 2 applied to the affected area 3. Will initiate baclofen 10 mg twice daily 4. Patient may continue with tramadol and hydromorphone as needed for breakthrough pain. Patient was encouraged to utilize tramadol versus hydromorphone prior to planned physical therapy activities. 5. No apparent need for further diagnostic imaging at this time. Further diagnostic evaluation based on symptom progression. Thank you for allowing us to participate in the care of Mr. Cooper.
[2017-12-23] MEDS: DOXYCYCLINE HYCLATE 100 MG CAP PO SCH ×2 (10:26→21:28)
[2017-12-23] MEDS: METOPROLOL SUCC 50MG EXT REL TAB PO SCH (10:26)
[2017-12-23] MEDS: TRAMADOL HCL 50 MG TAB PO PRN (10:27)
[2017-12-23] MEDS: ALLOPURINOL 100 MG TAB PO SCH ×2 (10:27→21:28)
[2017-12-23] MEDS: CEROVITE ADV FORMULA TAB PO SCH (10:27)
[2017-12-23] MEDS: DRONEDARONE 400 MG TAB PO SCH ×2 (10:27→21:29)
[2017-12-23] MEDS: INSULIN ASPART 100 UNITS/ML 3 ML PEN SC SCH ×4 (10:32→22:18)
[2017-12-23] MEDS ORDERED: NURSING DECISION MEDICATION ORDER SCH (12:30)
--- NOTE | 2017-12-23 12:42 | Orthopedic Progress Note ---
Orthopedic Progress Note Date of Service Dec 23, 2017. Subjective Additional Notes: Patient seen at bedside, comfortable, no acute issues overnight. Objective LLE : Compartments soft NT, N/V intact, capillary refill less than 2 sec., dressing C/D/I, A&O x3, toes mobile Patient in hinged knee immobilizer locked in extension Date Time Temp Pulse Resp B/P (MAP) Pulse Ox O2 Delivery O2 Flow Rate FiO2 12/23/17 10:59 Room Air 12/23/17 07:08 36.5 68 18 133/80 (97) 96 Room Air 12/23/17 00:00 Room Air 12/22/17 23:11 36.9 76 18 151/75 (100) 95 Room Air 12/22/17 15:30 Room Air 12/22/17 15:13 36.7 72 18 150/74 (99) 97 Room Air Laboratory Results 24 Hours: Test 12/23/17 04:57 White Blood Count 7.04 K/uL Red Blood Count 3.69 M/uL Hemoglobin 11.3 g/dL Hematocrit 34.3 % Mean Corpuscular Volume 93.0 fL Mean Corpuscular Hemoglobin 30.6 pg Mean Corpuscular Hemoglobin Concent 32.9 g/dl Platelet Count 132 K/uL Mean Platelet Volume 10.0 fL Neutrophils (%) (Auto) 62.3 % Lymphocytes (%) (Auto) 26.4 % Monocytes (%) (Auto) 9.4 % Eosinophils (%) (Auto) 1.4 % Basophils (%) (Auto) 0.4 % Neutrophils # (Auto) 4.38 K/uL Lymphocytes # (Auto) 1.86 K/uL Monocytes # (Auto) 0.66 K/uL Eosinophils # (Auto) 0.10 K/uL Basophils # (Auto) 0.03 K/uL Prothromb Time International Ratio 1.2 Prothrombin Time 12.4 SECONDS Assessment & Plan Assessment: POD#2 SP CLOSED REDUCTION LEFT TKA Possible collateral ligament laxity/tear, Patellar tendon tear, Quadriceps tear versus generalized laxity and new onset polyethylene liner sizing mismatch. Morbid obesity Prior MRSA infection left knee- CONTACT [employer]. Severe bilateral LE lymphedema CKD stage 3 with recently worsened creatinine levels Chronic anticoagulation with Coumadin- INR 1.2 today Plan: WBAT WITH KNEE IMMOBILIZER PT/OT PAIN MANAGEMENT MEDICAL MANAGEMENT -BUN/CR IMPROVING -WILL DISCUSS ABDOMINAL PAIN WHEN THEY SEE HIM TODAY -[facility] DC PLANNING- PATIENT WANTS TO CONSIDER SHORT REHAB STAY. WB STATUS WAS ADJUSTED JUST THIS AFTERNOON SO WILL SEE HOW HE DOES IN A REPEAT PT SESSION. MAINTAIN Hinged KNEE IMMOBILIZER locked in extension AT ALL TIMES, HIGH FALL RISK. MAY RESUME COUMADIN, NO PLANS FOR FURTHER SURGERY AT THIS TIME.
[2017-12-23] MEDS: BACLOFEN 10 MG TAB PO SCH ×2 (13:37→22:43)
[2017-12-23] MEDS: LIDODERM (LIDOCAINE) PATCH 5% TD SCH (13:38)
[2017-12-23 15:05] VITALS: BP 149/77; PULSE 58; TEMP 36.7; O2SAT 97
[2017-12-23] MEDS: WARFARIN SOD 2.5 MG TAB PO SCH (15:33)
--- NOTE | 2017-12-23 15:39 | Progress Note ---
Medicine Progress Note Date & Time of Visit: Dec 23, 2017 at 15:24. Subjective patient seen resting in bed, comfortable states he mostly has pain on the back- left side also some on the right foot and right knee otherwise, no other symptoms Objective Last 8 Hrs Date Time Temp Pulse Resp B/P (MAP) Pulse Ox O2 Delivery O2 Flow Rate FiO2 12/23/17 15:05 36.7 58 16 149/77 (101) 97 Room Air 12/23/17 10:59 Room Air Physical Exam: General- oriented x 3, not in distress, speaks in sentences with no effort Head- atraumatic Eyes- PERRL, EOMI, anicteric ENT- oropharynx clear Neck- supple, no JVD, no adenopathy, no thyromegaly Lungs- clear breath sounds bilaterally, no rales/wheezes Heart- regular rhythm; no murmur, normal rate Abdomen- normal bowel sounds, soft, nontender Extremities- bilateral leg lymphedema, no erythema/warmth/tenderness Neuro- alert, oriented x 3; no gross focal deficits Skin- warm & dry Laboratory Results: Last 24 Hours Test 12/22/17 17:17 12/22/17 20:14 12/23/17 04:57 12/23/17 08:18 Bedside Glucose 140 mg/dl 203 mg/dl 126 mg/dl White Blood Count 7.04 K/uL Red Blood Count 3.69 M/uL Hemoglobin 11.3 g/dL Hematocrit 34.3 % Mean Corpuscular Volume 93.0 fL Mean Corpuscular Hemoglobin 30.6 pg Mean Corpuscular Hemoglobin Concent 32.9 g/dl Platelet Count 132 K/uL Mean Platelet Volume 10.0 fL Neutrophils (%) (Auto) 62.3 % Lymphocytes (%) (Auto) 26.4 % Monocytes (%) (Auto) 9.4 % Eosinophils (%) (Auto) 1.4 % Basophils (%) (Auto) 0.4 % Neutrophils # (Auto) 4.38 K/uL Lymphocytes # (Auto) 1.86 K/uL Monocytes # (Auto) 0.66 K/uL Eosinophils # (Auto) 0.10 K/uL Basophils # (Auto) 0.03 K/uL RDW Standard Deviation 50.0 fL RDW Coefficient of Variation 14.7 % Immature Granulocyte % (Auto) 0.1 % Immature Granulocyte # (Auto) 0.01 K/uL Prothrombin Time 12.4 SECONDS Prothromb Time International Ratio 1.2 Sodium Level 138 mmol/L Potassium Level 4.3 mmol/L Chloride Level 105 mmol/L Carbon Dioxide Level 29 mmol/L Anion Gap 4.0 mmol/L Blood Urea Nitrogen 32 mg/dl Creatinine 1.71 mg/dl Est Creatinine Clear Calc Drug Dose 82.5 ml/min Estimated GFR () 49.3 Estimated GFR (Non- 42.6 BUN/Creatinine Ratio 19.0 Random Glucose 140 mg/dl Calcium Level 8.7 mg/dl Test 12/23/17 12:07 Bedside Glucose 187 mg/dl Assessment & Plan 62m morbidly obese patient presented with subluxation of left knee. It was closely reduced after reversing INR.Left knee is in brace. Still has significant pain. pain management consulted. May need rehab. 1. Acute renal failure on chronic renal insufficiency stage 3 on gentle fluids HELD Lasix and lisinopril presented with cr 2.3 -- crea back to baseline at 1.7 2. Spontaneous left knee subluxation s/p closed reduction by ortho 12/21/17 knee in brace -- pain management added Baclofen and Lidoderm patch transition to Inpatient Rehab when accepted 3. Hypertension,. On Toprol xl. Holding lisinopril -- monitor 4. Atrial fibrillation, rate controlled. rate controlled on Toprol xl held Coumadin for surgery cardiac status is stable as per recent outpatient [facility] Cardiology visit as per admission notes. -- INR 1.2 continue Coumadin 12.5mg po daily . 5. DM2, insulin requiring, on Levemir And iss -- monitor 6. Chronic anemia secondary CKD, hemoglobin at baseline 7. hx chronic MRSA L knee infection on Doxycycline suppression Rx 8. History chronic lymphedema 9. Morbid Obesity status post gastric bypass f/u with pcp. 10. ? abdominal pain -- CT abdomen: non specific mesenteritis 3.7mm right renal mass 13 mm left lower lobe groundglass pulmonary nodule. ( A follow-up CT scan in 6-12 months per Fleischner criteria is recommended.) -- ff up as outpatient per guidelines DVT PROPHYLAXIS heparin DISPOSITION pt/ot plan for rehab social service for d/c planning Current Inpatient Medications: Current Inpatient Medications Medications (Trade) Dose Ordered Sig/Ching Route Start Time Stop Time Status Last Admin Dose Admin Ioversol (Optiray 320) 111 ml UD PRN IV 12/19/17 19:00 12/23/17 18:59 Acetaminophen (Tylenol Tab) 650 mg Q4H PRN PO 12/19/17 22:15 01/18/18 22:14 12/20/17 11:12 650 MG Glucose (Glucose 40% Gel) 15-30 GRAMS 15 GRAMS... UD PRN PO 12/19/17 22:15 01/18/18 22:14 Glucose (Glucose Chew Tab) 4-8 Tablets 4 Tabl... UD PRN PO 12/19/17 22:15 01/18/18 22:14 Dextrose (Dextrose 50% 50ML Syringe) 25-50ML OF 50% DW IV FOR... UD PRN IV 12/19/17 22:15 01/18/18 22:14 Glucagon (Glucagon Inj) 1 mg UD PRN SQ 12/19/17 22:15 01/18/18 22:14 Hydromorphone HCl (Dilaudid Inj) 0.5 mg Q3H PRN IV 12/19/17 22:15 01/02/18 22:14 12/23/17 13:30 0.5 MG Tramadol HCl (Ultram Tab) not relieved ... Q6H PRN PO 12/19/17 22:15 01/18/18 22:14 12/23/17 10:27 50 MG Prochlorperazine Edisylate 5 mg/ Syringe 5 ml @ 5 mls/min Q6H PRN IV 12/19/17 22:15 01/18/18 22:14 Allopurinol (Zyloprim Tab) 100 mg BID PO 12/20/17 09:00 01/19/18 08:59 12/23/17 10:27 100 MG Doxycycline Hyclate (Vibramycin Cap) 100 mg BID PO 12/20/17 09:00 01/19/18 08:59 12/23/17 10:26 100 MG Dronedarone (Multaq Tab) 400 mg BID PO 12/20/17 09:00 01/19/18 08:59 12/23/17 10:27 400 MG Metoprolol Succinate (Toprol Xl Tab) 100 mg DAILY PO 12/20/17 09:00 01/19/18 08:59 12/23/17 10:26 100 MG Multivitamins/ Minerals (Multivitamin W/ Minerals Tab) 1 tab DAILY PO 12/20/17 09:00 01/19/18 08:59 12/23/17 10:27 1 TAB Simvastatin (Zocor Tab) 10 mg HS PO 12/20/17 21:00 01/19/18 20:59 12/22/17 20:36 10 MG Terazosin HCl (Hytrin Cap) 5 mg HS PO 12/20/17 21:00 01/19/18 20:59 12/22/17 20:35 5 MG Insulin Detemir (Levemir Flexpen/ FlexTouch) 40 units HS SC 12/20/17 21:00 01/19/18 20:59 12/22/17 20:46 40 UNITS Insulin Aspart (novoLOG ASPART) SLIDING SCALE If C... ACHS SC 12/21/17 12:00 01/20/18 11:59 12/23/17 13:42 6 UNITS Warfarin Sodium (Coumadin Tab) 12.5 mg DAILY@16 PO 12/22/17 16:00 01/21/18 15:59 12/22/17 15:33 12.5 MG Heparin Sodium (Porcine) (Heparin Sq 5000 Unit/0.5ml) 5,000 unit Q8 SQ 12/22/17 22:00 01/21/18 21:59 12/23/17 14:20 5,000 UNIT Lidocaine (Lidoderm Patch 5%) 2 patch QAM TD 12/23/17 10:30 01/22/18 08:59 12/23/17 13:38 2 PATCH Baclofen (Lioresal Tab) 10 mg BID PO 12/23/17 10:15 01/22/18 08:59 12/23/17 13:37 10 MG Miscellaneous (Remove Lidoderm Patch) 1 ea DAILY@21 N/A 12/23/17 21:00 01/22/18 20:59 Multi-Ingredient Ointment (Eucerin Unscented Cr) 1 appln BID EXT 12/23/17 21:00 01/22/18 20:59
[2017-12-23] MEDS: EUCERIN CR 120 GM JAR EXT SCH (21:27)
[2017-12-23] MEDS: SIMVASTATIN 10 MG TAB PO SCH (21:29)
[2017-12-23 22:17] VITALS: BP 146/78; PULSE 66
[2017-12-23] MEDS: INSULIN DETEMIR FLEXPEN/FLEX TOUCH 100 UNITS/ML 3ML SC SCH (22:19)
[2017-12-23 23:12] VITALS: BP 137/79; PULSE 66; TEMP 37.3; O2SAT 97
[2017-12-24 05:32] LABS: BASO % 0.1 %; BASO ABS # 0.01 K/uL (0-0.2); EOS % 0.5 %; EOS ABS # 0.04 K/uL (0-0.5); HEMATOCRIT 33.7 % (42-52); HEMOGLOBIN 11.5 g/dL (14.0-18.0); IG# 0.02 K/uL (0.00-0.02); LYMPH % 17.6 %; LYMPH ABS # 1.36 K/uL (1.2-3.4); MEAN CELL VOLUME 91.8 fL (80-100); MEAN CORPUSCULAR HEMOGLOBIN 31.3 pg (25-34); MEAN CORPUSCULAR HGB CONC 34.1 g/dl (32-36); MONO % 9.3 %; MONO ABS # 0.72 K/uL (0.11-0.59); NEUT % 72.2 %; NEUT ABS # 5.56 K/uL (1.4-6.5); PLATELET COUNT 137 K/uL (130-400); RED CELL DISTRIBUTION WIDTH CV 14.7 % (11.5-14.5); RED CELL DISTRIBUTION WIDTH SD 49.7 fL (36.4-46.3); WHITE BLOOD COUNT 7.71 K/uL (4.8-10.8)
[2017-12-24 05:44] LABS: INR 1.3 (0.9-1.1)
[2017-12-24 05:56] LABS: CALCIUM 8.7 mg/dl (8.5-10.1); CREATININE 1.64 mg/dl (0.60-1.40); POTASSIUM 4.3 mmol/L (3.5-5.1)
[2017-12-24] MEDS: HEPARIN SOD 5000 UNIT/0.5 ML CARP SQ SCH ×3 (06:04→21:41)
[2017-12-24] MEDS: HYDROmorphone INJ 0.5 MG/0.5 ML SYR IV PRN ×4 (06:08→21:47)
[2017-12-24 07:30] VITALS: BP 122/76; PULSE 87; TEMP 37.2; O2SAT 96
[2017-12-24] MEDS: EUCERIN CR 120 GM JAR EXT SCH ×2 (10:01→21:25)
[2017-12-24] MEDS: METOPROLOL SUCC 50MG EXT REL TAB PO SCH (10:01)
[2017-12-24] MEDS: DOXYCYCLINE HYCLATE 100 MG CAP PO SCH ×2 (10:01→21:25)
[2017-12-24] MEDS: BACLOFEN 10 MG TAB PO SCH ×2 (10:01→21:25)
[2017-12-24] MEDS: CEROVITE ADV FORMULA TAB PO SCH (10:01)
[2017-12-24] MEDS: ALLOPURINOL 100 MG TAB PO SCH ×2 (10:01→21:25)
[2017-12-24] MEDS: DRONEDARONE 400 MG TAB PO SCH ×2 (10:01→21:25)
[2017-12-24] MEDS: LIDODERM (LIDOCAINE) PATCH 5% TD SCH (10:02)
[2017-12-24] MEDS: INSULIN ASPART 100 UNITS/ML 3 ML PEN SC SCH ×4 (10:05→21:42)
--- NOTE | 2017-12-24 11:36 | Orthopedic Progress Note ---
Orthopedic Progress Note Date of Service Dec 24, 2017. Subjective Reports: feeling well, pain controlled w PO medications, Denies: complaints, chest pain, SOB, nausea / vomiting, light headedness, calf pain Objective calves soft nontender, N/V intact, A&O x3, toes mobile Date Time Temp Pulse Resp B/P (MAP) Pulse Ox O2 Delivery O2 Flow Rate FiO2 12/24/17 09:13 Room Air 12/24/17 07:30 37.2 87 17 122/76 (91) 96 Room Air 12/24/17 00:50 Room Air 12/23/17 23:12 37.3 66 16 137/79 (98) 97 Room Air 12/23/17 22:17 66 146/78 (100) 12/23/17 15:25 Room Air 12/23/17 15:05 36.7 58 16 149/77 (101) 97 Room Air Laboratory Results 24 Hours: Test 12/24/17 05:02 White Blood Count 7.71 K/uL Red Blood Count 3.67 M/uL Hemoglobin 11.5 g/dL Hematocrit 33.7 % Mean Corpuscular Volume 91.8 fL Mean Corpuscular Hemoglobin 31.3 pg Mean Corpuscular Hemoglobin Concent 34.1 g/dl Platelet Count 137 K/uL Mean Platelet Volume 10.0 fL Neutrophils (%) (Auto) 72.2 % Lymphocytes (%) (Auto) 17.6 % Monocytes (%) (Auto) 9.3 % Eosinophils (%) (Auto) 0.5 % Basophils (%) (Auto) 0.1 % Neutrophils # (Auto) 5.56 K/uL Lymphocytes # (Auto) 1.36 K/uL Monocytes # (Auto) 0.72 K/uL Eosinophils # (Auto) 0.04 K/uL Basophils # (Auto) 0.01 K/uL Prothromb Time International Ratio 1.3 Prothrombin Time 13.8 SECONDS Assessment & Plan Assessment: POD#3 SP CLOSED REDUCTION LEFT TKA Possible collateral ligament laxity/tear, Patellar tendon tear, Quadriceps tear versus generalized laxity and new onset polyethylene liner sizing mismatch. Morbid obesity Prior MRSA infection left knee- CONTACT PRECAUTIONS LIFTED. Severe bilateral LE lymphedema CKD stage 3 with recently worsened creatinine levels Chronic anticoagulation with Coumadin Plan: WBAT WITH KNEE IMMOBILIZER PT/OT PAIN MANAGEMENT MEDICAL MANAGEMENT STABLE FROM ORTHO STANDPOINT, MAY BE D/C PER MEDICINE. F/U IN 2-3 WEEKS FOR RECHECK AT [facility]. [place] PLANNING- PATIENT WANTS TO CONSIDER SHORT REHAB STAY MAINTAIN Hinged KNEE IMMOBILIZER locked in extension AT ALL TIMES, HIGH FALL RISK. MAY RESUME COUMADIN, NO PLANS FOR FURTHER SURGERY AT THIS TIME.
--- NOTE | 2017-12-24 11:41 | Consultant Recommendations ---
Yarn Tester Recommendations Date of Service Dec 24, 2017. Yarn Tester Recommendations Plan: WBAT WITH KNEE IMMOBILIZER, LOCKED IN EXTENSION WHILE AMBULATING, MAY UNLOCK 0- 30 DEGREES WHEN SITTING/IN BED. PT/OT ICE/ELEVATE FOR SWELLING MAINTAIN Hinged KNEE IMMOBILIZER locked in extension AT ALL TIMES WHILE AMBULATING, HIGH FALL RISK FOLLOW UP AT [facility] WITH DR HDEZ ON 01/12/18 @ 915AM.
[2017-12-24 15:22] VITALS: BP 164/72; PULSE 65; TEMP 37.7; O2SAT 96
[2017-12-24 15:35] VITALS: O2SAT 96
[2017-12-24] MEDS: WARFARIN SOD 2.5 MG TAB PO SCH (15:46)
--- NOTE | 2017-12-24 17:30 | Progress Note ---
Medicine Progress Note Date & Time of Visit: Dec 24, 2017 at 17:24. Subjective patient seen resting in bed, comfortable has some mild back discomfort no knee pain or leg pain denies other symptoms Objective Last 8 Hrs Date Time Temp Pulse Resp B/P (MAP) Pulse Ox O2 Delivery O2 Flow Rate FiO2 12/24/17 15:22 37.7 65 16 164/72 (102) 96 Room Air Physical Exam: General- oriented x 3, not in distress, speaks in sentences with no effort Eyes- EOMI, anicteric Neck- supple, no JVD Lungs- clear to auscultation bilaterally Heart- regular rhythm; no murmur, normal rate Abdomen- normal bowel sounds, soft, nontender Extremities- bilateral leg lymphedema, no erythema/warmth/tenderness Neuro- alert, oriented x 3; no gross focal deficits Skin- warm & dry Laboratory Results: Last 24 Hours Test 12/23/17 20:42 12/24/17 05:02 12/24/17 08:24 12/24/17 12:10 Bedside Glucose 196 mg/dl 134 mg/dl 190 mg/dl White Blood Count 7.71 K/uL Red Blood Count 3.67 M/uL Hemoglobin 11.5 g/dL Hematocrit 33.7 % Mean Corpuscular Volume 91.8 fL Mean Corpuscular Hemoglobin 31.3 pg Mean Corpuscular Hemoglobin Concent 34.1 g/dl Platelet Count 137 K/uL Mean Platelet Volume 10.0 fL Neutrophils (%) (Auto) 72.2 % Lymphocytes (%) (Auto) 17.6 % Monocytes (%) (Auto) 9.3 % Eosinophils (%) (Auto) 0.5 % Basophils (%) (Auto) 0.1 % Neutrophils # (Auto) 5.56 K/uL Lymphocytes # (Auto) 1.36 K/uL Monocytes # (Auto) 0.72 K/uL Eosinophils # (Auto) 0.04 K/uL Basophils # (Auto) 0.01 K/uL RDW Standard Deviation 49.7 fL RDW Coefficient of Variation 14.7 % Immature Granulocyte % (Auto) 0.3 % Immature Granulocyte # (Auto) 0.02 K/uL Prothrombin Time 13.8 SECONDS Prothromb Time International Ratio 1.3 Sodium Level 137 mmol/L Potassium Level 4.3 mmol/L Chloride Level 103 mmol/L Carbon Dioxide Level 29 mmol/L Anion Gap 5.0 mmol/L Blood Urea Nitrogen 32 mg/dl Creatinine 1.64 mg/dl Est Creatinine Clear Calc Drug Dose 86.0 ml/min Estimated GFR () 51.9 Estimated GFR (Non- 44.8 BUN/Creatinine Ratio 19.5 Random Glucose 150 mg/dl Calcium Level 8.7 mg/dl Assessment & Plan 62m morbidly obese patient presented with subluxation of left knee. It was closely reduced after reversing INR.Left knee is in brace. Still has significant pain. pain management consulted. May need rehab. 1. Acute renal failure on chronic renal insufficiency stage 3 - given IV fluids HELD Lasix and lisinopril presented with cr 2.3 -- crea back to baseline at 1.6 2. Spontaneous left knee subluxation s/p closed reduction by ortho 12/21/17 -- knee in brace -- pain management added Baclofen and Lidoderm patch transition to Inpatient Rehab when accepted 3. Hypertension On Toprol xl. Holding lisinopril -- monitor 4. Atrial fibrillation, rate controlled. rate controlled on Toprol xl -- held Coumadin for surgery cardiac status is stable as per recent outpatient [facility] Cardiology visit as per admission notes. -- INR 1.3 continue Coumadin 12.5mg po daily . 5. DM2, insulin requiring, -- on Levemir And iss -- monitor 6. Chronic anemia secondary CKD, hemoglobin at baseline 7. hx chronic MRSA L knee infection on Doxycycline suppression Rx 8. History chronic lymphedema 9. Morbid Obesity status post gastric bypass f/u with pcp. 10. Abdominal pain, Resolved -- CT abdomen: non specific mesenteritis 3.7mm right renal mass 13 mm left lower lobe ground glass pulmonary nodule. ( A follow-up CT scan in 6-12 months per Fleischner criteria is recommended.) -- ff up as outpatient per guidelines DVT PROPHYLAXIS heparin DISPOSITION pt/ot plan for rehab social service for d/c planning Current Inpatient Medications: Current Inpatient Medications Medications (Trade) Dose Ordered Sig/Ching Route Start Time Stop Time Status Last Admin Dose Admin Acetaminophen (Tylenol Tab) 650 mg Q4H PRN PO 12/19/17 22:15 01/18/18 22:14 12/20/17 11:12 650 MG Glucose (Glucose 40% Gel) 15-30 GRAMS 15 GRAMS... UD PRN PO 12/19/17 22:15 01/18/18 22:14 Glucose (Glucose Chew Tab) 4-8 Tablets 4 Tabl... UD PRN PO 12/19/17 22:15 01/18/18 22:14 Dextrose (Dextrose 50% 50ML Syringe) 25-50ML OF 50% DW IV FOR... UD PRN IV 12/19/17 22:15 01/18/18 22:14 Glucagon (Glucagon Inj) 1 mg UD PRN SQ 12/19/17 22:15 01/18/18 22:14 Hydromorphone HCl (Dilaudid Inj) 0.5 mg Q3H PRN IV 12/19/17 22:15 01/02/18 22:14 12/24/17 15:49 0.5 MG Tramadol HCl (Ultram Tab) not relieved ... Q6H PRN PO 12/19/17 22:15 01/18/18 22:14 12/23/17 10:27 50 MG Prochlorperazine Edisylate 5 mg/ Syringe 5 ml @ 5 mls/min Q6H PRN IV 12/19/17 22:15 01/18/18 22:14 Allopurinol (Zyloprim Tab) 100 mg BID PO 12/20/17 09:00 01/19/18 08:59 12/24/17 10:01 100 MG Doxycycline Hyclate (Vibramycin Cap) 100 mg BID PO 12/20/17 09:00 01/19/18 08:59 12/24/17 10:01 100 MG Dronedarone (Multaq Tab) 400 mg BID PO 12/20/17 09:00 01/19/18 08:59 12/24/17 10:01 400 MG Metoprolol Succinate (Toprol Xl Tab) 100 mg DAILY PO 12/20/17 09:00 01/19/18 08:59 12/24/17 10:01 100 MG Multivitamins/ Minerals (Multivitamin W/ Minerals Tab) 1 tab DAILY PO 12/20/17 09:00 01/19/18 08:59 12/24/17 10:01 1 TAB Simvastatin (Zocor Tab) 10 mg HS PO 12/20/17 21:00 01/19/18 20:59 12/23/17 21:29 10 MG Terazosin HCl (Hytrin Cap) 5 mg HS PO 12/20/17 21:00 01/19/18 20:59 12/23/17 21:27 5 MG Insulin Detemir (Levemir Flexpen/ FlexTouch) 40 units HS SC 12/20/17 21:00 01/19/18 20:59 12/23/17 22:19 40 UNITS Insulin Aspart (novoLOG ASPART) SLIDING SCALE If C... ACHS SC 12/21/17 12:00 01/20/18 11:59 12/24/17 12:00 2 UNITS Warfarin Sodium (Coumadin Tab) 12.5 mg DAILY@16 PO 12/22/17 16:00 01/21/18 15:59 12/24/17 15:46 12.5 MG Heparin Sodium (Porcine) (Heparin Sq 5000 Unit/0.5ml) 5,000 unit Q8 SQ 12/22/17 22:00 01/21/18 21:59 12/24/17 06:04 5,000 UNIT Lidocaine (Lidoderm Patch 5%) 2 patch QAM TD 12/23/17 10:30 01/22/18 08:59 12/24/17 10:02 2 PATCH Baclofen (Lioresal Tab) 10 mg BID PO 12/23/17 10:15 01/22/18 08:59 12/24/17 10:01 10 MG Miscellaneous (Remove Lidoderm Patch) 1 ea DAILY@21 N/A 12/23/17 21:00 01/22/18 20:59 12/23/17 22:19 1 EA Multi-Ingredient Ointment (Eucerin Unscented Cr) 1 appln BID EXT 12/23/17 21:00 01/22/18 20:59 12/24/17 10:01 1 APPLN
[2017-12-24 21:21] VITALS: BP 163/83
[2017-12-24 21:23] VITALS: PULSE 72
[2017-12-24] MEDS: SIMVASTATIN 10 MG TAB PO SCH (21:25)
[2017-12-24] MEDS: INSULIN DETEMIR FLEXPEN/FLEX TOUCH 100 UNITS/ML 3ML SC SCH (21:42)
[2017-12-24 23:05] VITALS: BP 162/70; PULSE 78; TEMP 37.4; O2SAT 97
[2017-12-25] MEDS: HEPARIN SOD 5000 UNIT/0.5 ML CARP SQ SCH ×2 (05:43→14:00)
[2017-12-25] MEDS: HYDROmorphone INJ 0.5 MG/0.5 ML SYR IV PRN ×3 (05:46→13:17)
[2017-12-25 05:50] LABS: BASO % 0.1 %; BASO ABS # 0.01 K/uL (0-0.2); EOS % 0.9 %; EOS ABS # 0.07 K/uL (0-0.5); HEMATOCRIT 33.7 % (42-52); HEMOGLOBIN 11.2 g/dL (14.0-18.0); IG# 0.02 K/uL (0.00-0.02); LYMPH % 17.7 %; LYMPH ABS # 1.34 K/uL (1.2-3.4); MEAN CELL VOLUME 92.3 fL (80-100); MEAN CORPUSCULAR HEMOGLOBIN 30.7 pg (25-34); MEAN CORPUSCULAR HGB CONC 33.2 g/dl (32-36); MEAN PLATELET VOLUME 9.7 fL (7.4-10.4); MONO % 9.9 %; MONO ABS # 0.75 K/uL (0.11-0.59); NEUT % 71.1 %; NEUT ABS # 5.39 K/uL (1.4-6.5); PLATELET COUNT 135 K/uL (130-400); RED CELL DISTRIBUTION WIDTH CV 14.9 % (11.5-14.5); RED CELL DISTRIBUTION WIDTH SD 50.5 fL (36.4-46.3); WHITE BLOOD COUNT 7.58 K/uL (4.8-10.8)
[2017-12-25 06:07] LABS: INR 1.5 (0.9-1.1)
[2017-12-25 06:25] LABS: CALCIUM 8.7 mg/dl (8.5-10.1); CREATININE 1.86 mg/dl (0.60-1.40); POTASSIUM 4.5 mmol/L (3.5-5.1)
[2017-12-25 07:17] VITALS: BP 151/87; PULSE 81; TEMP 37.2; O2SAT 96
[2017-12-25] MEDS: EUCERIN CR 120 GM JAR EXT SCH (09:06)
[2017-12-25] MEDS: DOXYCYCLINE HYCLATE 100 MG CAP PO SCH (09:06)
[2017-12-25] MEDS: DRONEDARONE 400 MG TAB PO SCH (09:06)
[2017-12-25] MEDS: LIDODERM (LIDOCAINE) PATCH 5% TD SCH (09:07)
[2017-12-25] MEDS: BACLOFEN 10 MG TAB PO SCH (09:07)
[2017-12-25] MEDS: ALLOPURINOL 100 MG TAB PO SCH (09:07)
[2017-12-25] MEDS: CEROVITE ADV FORMULA TAB PO SCH (09:08)
[2017-12-25] MEDS: METOPROLOL SUCC 50MG EXT REL TAB PO SCH (09:08)
[2017-12-25] MEDS: INSULIN ASPART 100 UNITS/ML 3 ML PEN SC SCH ×2 (09:10→13:14)
--- NOTE | 2017-12-25 13:34 | Progress Note ---
Medicine Progress Note Date & Time of Visit: Dec 25, 2017 at 13:25. Subjective patient seen resting in bedside chair, at bedside still has some back pain and left knee pain denies headache, dizziness, chest pain, dyspnea, palpitations, dizziness states he is ready and is ok to be transferred to today no other symptoms Objective Last 8 Hrs Date Time Temp Pulse Resp B/P (MAP) Pulse Ox O2 Delivery O2 Flow Rate FiO2 12/25/17 07:17 37.2 81 16 151/87 (108) 96 Room Air 12/25/17 07:15 Room Air Physical Exam: General- oriented x 3, not in distress, speaks in sentences with no effort Eyes- anicteric Neck- no JVD Lungs- clear breath sounds bilaterally Heart- regular rhythm; no murmur, normal rate Abdomen- normal bowel sounds, soft, nontender Extremities- bilateral leg lymphedema, no erythema/warmth/tenderness Neuro- alert, oriented x 3; no gross focal deficits Skin- warm & dry Laboratory Results: Last 24 Hours Test 12/24/17 17:04 12/24/17 20:43 12/25/17 05:12 12/25/17 08:19 Bedside Glucose 153 mg/dl 214 mg/dl 148 mg/dl White Blood Count 7.58 K/uL Red Blood Count 3.65 M/uL Hemoglobin 11.2 g/dL Hematocrit 33.7 % Mean Corpuscular Volume 92.3 fL Mean Corpuscular Hemoglobin 30.7 pg Mean Corpuscular Hemoglobin Concent 33.2 g/dl Platelet Count 135 K/uL Mean Platelet Volume 9.7 fL Neutrophils (%) (Auto) 71.1 % Lymphocytes (%) (Auto) 17.7 % Monocytes (%) (Auto) 9.9 % Eosinophils (%) (Auto) 0.9 % Basophils (%) (Auto) 0.1 % Neutrophils # (Auto) 5.39 K/uL Lymphocytes # (Auto) 1.34 K/uL Monocytes # (Auto) 0.75 K/uL Eosinophils # (Auto) 0.07 K/uL Basophils # (Auto) 0.01 K/uL RDW Standard Deviation 50.5 fL RDW Coefficient of Variation 14.9 % Immature Granulocyte % (Auto) 0.3 % Immature Granulocyte # (Auto) 0.02 K/uL Prothrombin Time 16.1 SECONDS Prothromb Time International Ratio 1.5 Sodium Level 135 mmol/L Potassium Level 4.5 mmol/L Chloride Level 103 mmol/L Carbon Dioxide Level 29 mmol/L Anion Gap 3.0 mmol/L Blood Urea Nitrogen 36 mg/dl Creatinine 1.86 mg/dl Est Creatinine Clear Calc Drug Dose 75.8 ml/min Estimated GFR () 44.6 Estimated GFR (Non- 38.5 BUN/Creatinine Ratio 19.6 Random Glucose 162 mg/dl Calcium Level 8.7 mg/dl Test 12/25/17 12:24 Bedside Glucose 177 mg/dl Assessment & Plan 62 year old male, with DM, HTN, A fib, morbidly obese, and other problems noted below presented with subluxation of left knee Spontaneous left knee subluxation s/p closed reduction by Ortho 12/21/17 Dr. Mccarthy -- Discharge Instructions per Ortho WBAT WITH KNEE IMMOBILIZER, LOCKED IN EXTENSION WHILE AMBULATING, MAY UNLOCK 0-30 DEGREES WHEN SITTING/IN BED. PT/OT ICE/ELEVATE FOR SWELLING MAINTAIN Hinged KNEE IMMOBILIZER locked in extension AT ALL TIMES WHILE AMBULATING, HIGH FALL RISK FOLLOW UP AT [facility] WITH DR HDEZ ON 01/12/18 @ 915AM. -- pain management consulted, added Baclofen and Lidoderm patch monitor closely for pain -- transition to [facility] for continuation of Rehab today Acute renal failure on chronic renal insufficiency stage 3 -- given IV fluids HELD Lasix and lisinopril presented with cr 2.3 -- crea back to baseline at 1.6 -- resume Lasix repeat crea in 1-2 days, monitor regularly Hypertension On Toprol xl -- held usual Lisinopril 5mg daily for acute kidney injury -- monitor Atrial fibrillation, rate controlled -- rate controlled on Toprol xl -- held Coumadin for surgery cardiac status is stable as per recent outpatient [facility] Cardiology visit as per admission notes. -- INR increased from 1.2 to 1.5 on day of discharge continue Coumadin 12.5mg po daily monitor INR daily (usually on coumadin 12.5mg M&F and 10mg other days) . DM2, insulin requiring -- on Levemir And iss -- monitor Chronic anemia secondary CKD -- hemoglobin at baseline History of chronic MRSA L knee infection -- on Doxycycline suppression Rx History chronic lymphedema -- monitor while on Lasix monitor crea Morbid Obesity status post gastric bypass Abdominal pain, Resolved Abnormal CT abdomen/pelvis findings -- CT abdomen: non specific mesenteritis 3.7mm right renal mass 13 mm left lower lobe ground glass pulmonary nodule. ( A follow-up CT scan in 6-12 months per Fleischner criteria is recommended.) -- ff up as outpatient per guidelines DVT PROPHYLAXIS heparin given may need heparin subcutaneous if INR still remains subtherapeutic DISPOSITION discharge to [facility] FOLLOW UP AT [facility] WITH DR HDEZ ON 01/12/18 @ 915AM. FOLLOW UP WITH PCP IN 1 WEEK Current Inpatient Medications: Current Inpatient Medications Medications (Trade) Dose Ordered Sig/Ching Route Start Time Stop Time Status Last Admin Dose Admin Acetaminophen (Tylenol Tab) 650 mg Q4H PRN PO 12/19/17 22:15 01/18/18 22:14 12/20/17 11:12 650 MG Glucose (Glucose 40% Gel) 15-30 GRAMS 15 GRAMS... UD PRN PO 12/19/17 22:15 01/18/18 22:14 Glucose (Glucose Chew Tab) 4-8 Tablets 4 Tabl... UD PRN PO 12/19/17 22:15 01/18/18 22:14 Dextrose (Dextrose 50% 50ML Syringe) 25-50ML OF 50% DW IV FOR... UD PRN IV 12/19/17 22:15 01/18/18 22:14 Glucagon (Glucagon Inj) 1 mg UD PRN SQ 12/19/17 22:15 01/18/18 22:14 Hydromorphone HCl (Dilaudid Inj) 0.5 mg Q3H PRN IV 12/19/17 22:15 01/02/18 22:14 12/25/17 09:21 0.5 MG Tramadol HCl (Ultram Tab) not relieved ... Q6H PRN PO 12/19/17 22:15 01/18/18 22:14 12/23/17 10:27 50 MG Prochlorperazine Edisylate 5 mg/ Syringe 5 ml @ 5 mls/min Q6H PRN IV 12/19/17 22:15 01/18/18 22:14 Allopurinol (Zyloprim Tab) 100 mg BID PO 12/20/17 09:00 01/19/18 08:59 12/25/17 09:07 100 MG Doxycycline Hyclate (Vibramycin Cap) 100 mg BID PO 12/20/17 09:00 01/19/18 08:59 12/25/17 09:06 100 MG Dronedarone (Multaq Tab) 400 mg BID PO 12/20/17 09:00 01/19/18 08:59 12/25/17 09:06 400 MG Metoprolol Succinate (Toprol Xl Tab) 100 mg DAILY PO 12/20/17 09:00 01/19/18 08:59 12/25/17 09:08 100 MG Multivitamins/ Minerals (Multivitamin W/ Minerals Tab) 1 tab DAILY PO 12/20/17 09:00 01/19/18 08:59 12/25/17 09:08 1 TAB Simvastatin (Zocor Tab) 10 mg HS PO 12/20/17 21:00 01/19/18 20:59 12/24/17 21:25 10 MG Terazosin HCl (Hytrin Cap) 5 mg HS PO 12/20/17 21:00 01/19/18 20:59 12/24/17 21:25 5 MG Insulin Detemir (Levemir Flexpen/ FlexTouch) 40 units HS SC 12/20/17 21:00 01/19/18 20:59 12/24/17 21:42 40 UNITS Insulin Aspart (novoLOG ASPART) SLIDING SCALE If C... ACHS SC 12/21/17 12:00 01/20/18 11:59 12/25/17 09:10 1 UNITS Warfarin Sodium (Coumadin Tab) 12.5 mg DAILY@16 PO 12/22/17 16:00 01/21/18 15:59 12/24/17 15:46 12.5 MG Heparin Sodium (Porcine) (Heparin Sq 5000 Unit/0.5ml) 5,000 unit Q8 SQ 12/22/17 22:00 01/21/18 21:59 12/25/17 05:43 5,000 UNIT Lidocaine (Lidoderm Patch 5%) 2 patch QAM TD 12/23/17 10:30 01/22/18 08:59 12/25/17 09:07 2 PATCH Baclofen (Lioresal Tab) 10 mg BID PO 12/23/17 10:15 01/22/18 08:59 2/8/18 09:07 10 MG Miscellaneous (Remove Lidoderm Patch) 1 ea DAILY@21 N/A 12/23/17 21:00 01/22/18 20:59 12/24/17 21:00 1 EA Multi-Ingredient Ointment (Eucerin Unscented Cr) 1 appln BID EXT 12/23/17 21:00 01/22/18 20:59 12/25/17 09:06 1 APPLN
[2017-12-25] MEDS ORDERED: ULT50X PO (13:41)
[2017-12-25] MEDS ORDERED: CMD25 PO (13:41)
[2017-12-25] MEDS ORDERED: NVLGIPEN SC ×2 (13:41→13:42)
[2017-12-25] MEDS ORDERED: ECRCR EXT (13:41)
[2017-12-25] MEDS ORDERED: LVMIPEN SC (13:41)
[2017-12-25] MEDS ORDERED: LDDP5 TD (13:41)
[2017-12-25] MEDS ORDERED: LRS10 PO (13:41)
--- NOTE | 2017-12-25 13:49 | Discharge Instructions ---
Discharge Instructions Date of Service Dec 25, 2017. Admission Reason for Admission: Arf (Acute Renal Failure) Discharge Discharge Diagnosis / Problem: LEFT KNEE SUBLUXATION Discharge Goals Goal(s): Diagnostic testing, Therapeutic intervention Activity Recommendations Activity Level: Assistance Required Therapies: Physical Therapy, Occupational Therapy Weightbearing Status: Left weightbearing (as tolerated) . Additional Information Patient informed of condition: Yes Advance Directives: No (UNKNOWN) DNR: No (PATIENT IS A FULL CODE) Level of Care: Acute Rehab Communicable Disease: No Prognosis: Stable Instructions / Follow-Up Instructions / Follow-Up PLEASE FOLLOW ORTHO DISCHARGE INSTRUCTIONS: WBAT WITH KNEE IMMOBILIZER, LOCKED IN EXTENSION WHILE AMBULATING, MAY UNLOCK 0- 30 DEGREES WHEN SITTING/IN BED. PT/OT ICE/ELEVATE FOR SWELLING MAINTAIN Hinged KNEE IMMOBILIZER locked in extension AT ALL TIMES WHILE AMBULATING, HIGH FALL RISK FOLLOW UP AT [facility] WITH DR HDEZ ON 01/12/18 @ 915AM. MONITOR BLOOD PRESSURE DAILY.. CHECK BUN/CREA IN 1-2 DAYS, THEN REGULARLY. CHECK INR DAILY AND ADJUST COUMADIN ACCORDINGLY. MONITOR PAIN CONTROL. FOLLOW UP ABNORMAL CT ABDOMEN FINDINGS. PLEASE REFER TO ACCOMPANYING HOSPITAL DISCHARGE SUMMARY FOR FURTHER DETAILS. Current Hospital Diet Patient's current hospital diet: Diabetes Type 2 Diet, AHA Diet (Heart Healthy) Discharge Diet Recommended Diet: AHA Diet (Heart Healthy), Diabetes Type 2 Diet Procedures Procedures Performed: Closed reduction left total knee arthroplasty, Examination under anesthesia left knee Pending Studies Studies pending at discharge: yes List of pending studies: MONITOR BLOOD PRESSURE DAILY.. CHECK BUN/CREA IN 1-2 DAYS, THEN REGULARLY. CHECK INR DAILY AND ADJUST COUMADIN ACCORDINGLY. PLEASE REFER TO ACCOMPANYING HOSPITAL DISCHARGE SUMMARY FOR FURTHER DETAILS. Physician Orders On Transfer Special Precautions: PLEASE FOLLOW ORTHO DISCHARGE INSTRUCTIONS: WBAT WITH KNEE IMMOBILIZER, LOCKED IN EXTENSION WHILE AMBULATING, MAY UNLOCK 0- 30 DEGREES WHEN SITTING/IN BED. PT/OT ICE/ELEVATE FOR SWELLING MAINTAIN Hinged KNEE IMMOBILIZER locked in extension AT ALL TIMES WHILE AMBULATING, HIGH FALL RISK FOLLOW UP AT [facility] WITH DR HDEZ ON 01/12/18 @ 915AM. MONITOR BLOOD PRESSURE DAILY.. CHECK BUN/CREA IN 1-2 DAYS, THEN REGULARLY. CHECK INR DAILY AND ADJUST COUMADIN ACCORDINGLY. MONITOR PAIN CONTROL. FOLLOW UP ABNORMAL CT ABDOMEN FINDINGS. PLEASE REFER TO ACCOMPANYING HOSPITAL DISCHARGE SUMMARY FOR FURTHER DETAILS. Laboratory Results Hemoglobin A1c Test 12/19/17 18:27 Range/Units Estimated Average Glucose 146 mg/dl Hemoglobin A1c 6.7 H 4.5-5.6 % Medical Emergencies . Who to Call and When: Medical Emergencies: If at any time you feel your situation is an emergency, please call 911 immediately. . Non-Emergent Contact Non-Emergency issues call your: Primary Care Provider, Surgeon Call Non-Emergent contact if: you have a fever, your pain is not controlled, your pain is worsening, you have any medication questions . Past History Medical & Surgical History: (1) CKD (chronic kidney disease) (2) Anticoagulated (3) Internal derangement of left knee (4) Ambulatory dysfunction (5) Leukocytosis (6) ARF (acute renal failure) (7) COPD exacerbation (8) Hyperlipidemia Nec/Nos (9) Morbid Obesity (10) GISELL (obstructive sleep apnea) (11) CKD (chronic kidney disease), stage III (12) Atrial fibrillation (13) Lymphedema of both lower extremities (14) Benign hypertension (15) Diabetes mellitus type 2 (16) Methicillin resistant Staphylococcus aureus infection (17) Sepsis (18) History of total knee arthroplasty (19) H/O gastric bypass . "Provider Documentation" section prepared by Curry Rodriguez. . Groundhand Recommendations Groundhand Recommendations: Plan: WBAT WITH KNEE IMMOBILIZER, LOCKED IN EXTENSION WHILE AMBULATING, MAY UNLOCK 0- 30 DEGREES WHEN SITTING/IN BED. PT/OT ICE/ELEVATE FOR SWELLING MAINTAIN Hinged KNEE IMMOBILIZER locked in extension AT ALL TIMES WHILE AMBULATING, HIGH FALL RISK FOLLOW UP AT [facility] WITH DR HDEZ ON 01/12/18 @ 915AM. Core Measure Problem Core Measures: None
--- NOTE | 2017-12-25 13:54 | Discharge Summary ---
Discharge Summary Date of Service Dec 25, 2017. Discharge Summary Admission Date: Dec 19, 2017 at 21:03 Discharge Date: Dec 25, 2017 Discharge Disposition: Rehab Principal Diagnosis: Spontaneous left knee subluxation s/p closed reduction by Ortho 12/21/17 Dr. Mccarthy Secondary Diagnoses/Problems: Please refer to hospital course below. Procedures: s/p closed reduction by Ortho 12/21/17 Dr. Mccarthy Consultations: Ortho Dr. Mccarthy Pending Studies/Follow-Up: WBAT WITH KNEE IMMOBILIZER, LOCKED IN EXTENSION WHILE AMBULATING, MAY UNLOCK 0- 30 DEGREES WHEN SITTING/IN BED. PT/OT ICE/ELEVATE FOR SWELLING MAINTAIN Hinged KNEE IMMOBILIZER locked in extension AT ALL TIMES WHILE AMBULATING, HIGH FALL RISK FOLLOW UP AT [facility] WITH DR HDEZ ON 01/12/18 @ 915AM. MONITOR BLOOD PRESSURE DAILY.. CHECK BUN/CREA IN 1-2 DAYS, THEN REGULARLY. CHECK INR DAILY AND ADJUST COUMADIN ACCORDINGLY. MONITOR PAIN CONTROL. FOLLOW UP ABNORMAL CT ABDOMEN FINDINGS. PLEASE REFER TO HOSPITAL COURSE BELOW FOR FURTHER DETAILS. Medication Reconciliation New Medications: Baclofen (Baclofen) 10 Mg Tab 10 MG PO BID for 7 Days Eucerin (Hydrocerin) 360 Appln/120 Gm Cr 1 APPLN EXT BID for 30 Days Insulin Aspart (Novolog Flexpen) 100 Units/Ml Inj 0 UNITS SC ACHS for 30 Days Insulin Detemir (Levemir Flextouch) 100 Unit/Ml Inj 40 UNITS SC HS for 30 Days Lidocaine (Lidocaine) 1 Patch Tdsy 2 PATCH TD QAM for 7 Days Tramadol HCl (Tramadol HCl) 50 Mg Tab 25-50 MG PO Q6H PRN for Pain for 7 Days Warfarin Sod (Coumadin) 2.5 Mg Tab 12.5 MG PO DAILY@16 for 30 Days Continued Medications: Allopurinol (Zyloprim) 100 Mg Tab 100 MG PO BID, TAB Cholecalciferol (Vitamin D) 5,000 Unit Tab 5000 MG PO DAILY Doxycycline Monohydrate (Monodox) 100 Mg Cap 100 MG PO BID, CAP Dronedarone Hcl (Multaq) 400 Mg Tab 400 MG PO BID for 90 Days, #180 TAB 3 Refills Epinephrine (Epipen *) 0.3 Mg Inj 0.3 MG IM UD, 0 Refills Furosemide (Lasix) 20 Mg Tab 20 MG PO QPM, TAB Ipratropium-Albuterol (Combivent Respimat) 1 Aer Aer 1 PUFFS INH QID PRN for Shortness of Breath, INH Magnesium Chloride (Slow-Mag Tab) 64 Mg Tabcr 64 MG PO BID, TAB Metoprolol Succinate (Toprol Xl) 100 Mg Tab 100 MG PO DAILY, TAB Multiple Vitamins W/ Minerals (Multiple Vitamin/Minerals) 1 Tab Tab 1 TAB PO DAILY Simvastatin (Zocor) 20 Mg Tab 10 MG PO HS Sitagliptin Phosphate (Januvia) 50 Mg Tab 50 MG PO DAILY, TAB Terazosin Hcl (Hytrin) 5 Mg Cap 5 MG PO HS, CAP Discontinued Medications: Acetaminophen W/ Codeine (Tylenol/Codeine #4) 1 Tab Tab 1 TAB PO DAILY PRN for Pain, TAB Insulin Aspart (Novolog Flexpen) 100 Units/Ml Inj 10 UNITS PO WM Insulin Detemir (Levemir) 100 Units/Ml Inj 52 UNITS SQ HS Lisinopril (Prinivil) 5 Mg Tab 5 MG PO QAM, TAB Warfarin Sod (Jantoven) 5 Mg Tab 12.5 MG PO DIRECTED, TAB TAKE 12.5MG FRIDAY AND FRIDAY Warfarin Sodium (Coumadin) 5 Mg Tab 10 MG PO DIRECTED, TAB TAKE 10MG EVERYDAY EXCEPT FRIDAY AND FRIDAY Admission Information HPI (per Admitting provider): CHIEF COMPLAINT: Left knee pain. HISTORY OF PRESENT ILLNESS: History obtained from patient, , records. Medical history significant for HTN, AFib on anticoagulation, hypertension, obesity status post gastric bypass, DM2 insulin requiring, sleep apnea on CPAP, chronic lymphedema, chronic renal insufficiency baseline creatinine 1.6, chronic anemia (baseline hemoglobin of 11-12), history of chronic doxycycline Rx for MRSA L knee infection as per patient GISELL on CPAP Recent confinement February 2017 for bronchitis, lower extremity cellulitis. This afternoon, patient noted a popping of his left knee followed by excruciating left knee pain. Unable to replace back, trouble standing up. Denies chest pain, shortness of breath, or unusual fluid retention. Patient brought to the Emergency Room. 2D echo from February 2017 showed EF 55-60%, borderline LA enlargement, RV dilatation. No pulmonary hypertension. [facility] As per note, stable atrial fibrillation at that time. He sees a breaker layer from [facility] (Dr. Arrington). SURGERIES: He has had gastric bypass, orthopedic surgeries, knee surgeries. HOME MEDICATIONS: Include Lasix, Combivent, NovoLog, Levemir, lisinopril, Toprol-XL, multivitamins, Januvia, Zocor, Hytrin, Coumadin, Tylenol, Zyloprim, vitamin D, Multaq, doxycycline. ALLERGIES: BEE STINGS, METFORMIN. FAMILY HISTORY: Diabetes, heart disease. PERSONAL AND SOCIAL HISTORY: Nonsmoker, no chronic intake of alcoholic beverages. [employer] employee. REVIEW OF SYSTEMS: As per HPI. All 10 systems reviewed. All other ROS negative. FUNCTIONAL HISTORY: Still able to do [employer] ground work without unusual cp, shortness breath on exertion. Physical Exam (per Admitting): PHYSICAL EXAMINATION: VITAL SIGNS: Blood pressure noted to be 130/80, pulse rate 75, RR 18, temperature 36.3, sats 94 on room air. GENERAL: Noted to be morbidly obese, slightly uncomfortable, no respiratory distress. Unkempt. SKIN: Pallor. Warm. HEENT: Pale palpebral conjuctivae. No ptosis. Dry mucosa. NECK: Short, supple. CHEST: Decreased breath sounds. No wheeze, no tenderness. HEART: Irregular. No murmur. ABDOMEN: Soft, marked distension. EXTREMITIES: Bilateral lower extremity edema, venous stasis (chronic). No tenderness. NEUROLOGIC: Coherent. No gross focality. Hospital Course 62 year old male, with DM, HTN, A fib, morbidly obese, and other problems noted below presented with subluxation of left knee Spontaneous left knee subluxation s/p closed reduction by Ortho 12/21/17 Dr. Mccarthy -- Discharge Instructions per Ortho WBAT WITH KNEE IMMOBILIZER, LOCKED IN EXTENSION WHILE AMBULATING, MAY UNLOCK 0-30 DEGREES WHEN SITTING/IN BED. PT/OT ICE/ELEVATE FOR SWELLING MAINTAIN Hinged KNEE IMMOBILIZER locked in extension AT ALL TIMES WHILE AMBULATING, HIGH FALL RISK FOLLOW UP AT [facility] WITH DR HDEZ ON 01/12/18 @ 915AM. -- pain management consulted, added Baclofen and Lidoderm patch monitor closely for pain -- transition to [facility] for continuation of Rehab today Acute renal failure on chronic renal insufficiency stage 3 -- given IV fluids HELD Lasix and lisinopril presented with cr 2.3 -- crea back to baseline at 1.6 -- resume Lasix repeat crea in 1-2 days, monitor regularly Hypertension On Toprol xl -- held usual Lisinopril 5mg daily for acute kidney injury -- monitor Atrial fibrillation, rate controlled -- rate controlled on Toprol xl -- held Coumadin for surgery cardiac status is stable as per recent outpatient [facility] Cardiology visit as per admission notes. -- INR increased from 1.2 to 1.5 on day of discharge continue Coumadin 12.5mg po daily monitor INR daily and adjust coumadin accordingly (usually on coumadin 12.5mg M&F and 10mg other days) . DM2, insulin requiring -- on Levemir And iss -- monitor Chronic anemia secondary CKD -- hemoglobin at baseline History of chronic MRSA L knee infection -- on Doxycycline suppression Rx History chronic lymphedema -- monitor while on Lasix monitor crea Morbid Obesity status post gastric bypass Abdominal pain, Resolved Abnormal CT abdomen/pelvis findings -- CT abdomen: non specific mesenteritis 3.7mm right renal mass 13 mm left lower lobe ground glass pulmonary nodule. ( A follow-up CT scan in 6-12 months peR Fleischner criteria is recommended.) -- ff up as outpatient per guidelines DVT PROPHYLAXIS heparin given may need heparin subcutaneous if INR still remains subtherapeutic DISPOSITION discharge to [facility] FOLLOW UP AT [facility] WITH DR HDEZ ON 01/12/18 @ 915AM. FOLLOW UP WITH PCP IN 1 WEEK Total time spent on discharge = This includes examination of the patient, discharge planning, medication reconciliation, and communication with other providers. Discharge Instructions Discharge Instructions Date of Service Dec 25, 2017. Admission Reason for Admission: Arf (Acute Renal Failure) Discharge Discharge Diagnosis / Problem: LEFT KNEE SUBLUXATION Discharge Goals Goal(s): Diagnostic testing, Therapeutic intervention Activity Recommendations Activity Level: Assistance Required Therapies: Physical Therapy, Occupational Therapy Weightbearing Status: Left weightbearing (as tolerated) . Additional Information Patient informed of condition: Yes Advance Directives: No (UNKNOWN) DNR: No (PATIENT IS A FULL CODE) Level of Care: Acute Rehab Communicable Disease: No Prognosis: Stable Instructions / Follow-Up Instructions / Follow-Up PLEASE FOLLOW ORTHO DISCHARGE INSTRUCTIONS: WBAT WITH KNEE IMMOBILIZER, LOCKED IN EXTENSION WHILE AMBULATING, MAY UNLOCK 0- 30 DEGREES WHEN SITTING/IN BED. PT/OT ICE/ELEVATE FOR SWELLING MAINTAIN Hinged KNEE IMMOBILIZER locked in extension AT ALL TIMES WHILE AMBULATING, HIGH FALL RISK FOLLOW UP AT [facility] WITH DR HDEZ ON 01/12/18 @ 915AM. MONITOR BLOOD PRESSURE DAILY.. CHECK BUN/CREA IN 1-2 DAYS, THEN REGULARLY. CHECK INR DAILY AND ADJUST COUMADIN ACCORDINGLY. MONITOR PAIN CONTROL. FOLLOW UP ABNORMAL CT ABDOMEN FINDINGS. PLEASE REFER TO ACCOMPANYING HOSPITAL DISCHARGE SUMMARY FOR FURTHER DETAILS. Current Hospital Diet Patient's current hospital diet: Diabetes Type 2 Diet, AHA Diet (Heart Healthy) Discharge Diet Recommended Diet: AHA Diet (Heart Healthy), Diabetes Type 2 Diet Procedures Procedures Performed: Closed reduction left total knee arthroplasty, Examination under anesthesia left knee Pending Studies Studies pending at discharge: yes List of pending studies: MONITOR BLOOD PRESSURE DAILY.. CHECK BUN/CREA IN 1-2 DAYS, THEN REGULARLY. CHECK INR DAILY AND ADJUST COUMADIN ACCORDINGLY. PLEASE REFER TO ACCOMPANYING HOSPITAL DISCHARGE SUMMARY FOR FURTHER DETAILS. Physician Orders On Transfer Special Precautions: PLEASE FOLLOW ORTHO DISCHARGE INSTRUCTIONS: WBAT WITH KNEE IMMOBILIZER, LOCKED IN EXTENSION WHILE AMBULATING, MAY UNLOCK 0- 30 DEGREES WHEN SITTING/IN BED. PT/OT ICE/ELEVATE FOR SWELLING MAINTAIN Hinged KNEE IMMOBILIZER locked in extension AT ALL TIMES WHILE AMBULATING, HIGH FALL RISK FOLLOW UP AT [facility] WITH DR HDEZ ON 01/12/18 @ 915AM. MONITOR BLOOD PRESSURE DAILY.. CHECK BUN/CREA IN 1-2 DAYS, THEN REGULARLY. CHECK INR DAILY AND ADJUST COUMADIN ACCORDINGLY. MONITOR PAIN CONTROL. PLEASE REFER TO ACCOMPANYING HOSPITAL DISCHARGE SUMMARY FOR FURTHER DETAILS. Laboratory Results Hemoglobin A1c Test 12/19/17 18:27 Range/Units Estimated Average Glucose 146 mg/dl Hemoglobin A1c 6.7 H 4.5-5.6 % Medical Emergencies . Who to Call and When: Medical Emergencies: If at any time you feel your situation is an emergency, please call 911 immediately. . Non-Emergent Contact Non-Emergency issues call your: Primary Care Provider, Surgeon Call Non-Emergent contact if: you have a fever, your pain is not controlled, your pain is worsening, you have any medication questions . Past History Medical & Surgical History: (1) CKD (chronic kidney disease) (2) Anticoagulated (3) Internal derangement of left knee (4) Ambulatory dysfunction (5) Leukocytosis (6) ARF (acute renal failure) (7) COPD exacerbation (8) Hyperlipidemia Nec/Nos (9) Morbid Obesity (10) GISELL (obstructive sleep apnea) (11) CKD (chronic kidney disease), stage III (12) Atrial fibrillation (13) Lymphedema of both lower extremities (14) Benign hypertension (15) Diabetes mellitus type 2 (16) Methicillin resistant Staphylococcus aureus infection (17) Sepsis (18) History of total knee arthroplasty (19) H/O gastric bypass . "Provider Documentation" section prepared by Curry Rodriguez. . Absorption Operator Recommendations Absorption Operator Recommendations: Plan: WBAT WITH KNEE IMMOBILIZER, LOCKED IN EXTENSION WHILE AMBULATING, MAY UNLOCK 0- 30 DEGREES WHEN SITTING/IN BED. PT/OT ICE/ELEVATE FOR SWELLING MAINTAIN Hinged KNEE IMMOBILIZER locked in extension AT ALL TIMES WHILE AMBULATING, HIGH FALL RISK FOLLOW UP AT [facility] WITH DR HDEZ ON 01/12/18 @ 915AM. Core Measure Problem Core Measures: None
[2017-12-25 13:55] VITALS: BP 151/87; PULSE 81; TEMP 37.2; O2SAT 96
== END 2017-12-25 14:48 | DRG 563 ==
LOC: EDBD 17:48 → C.EDB 17:49 → C.MSN 21:03 → EDBEDREQ 21:17 → ENRESERV 21:23
PROVIDERS: ADMIT Internal Medicine; ATTEND Internal Medicine
PROC: 0SSDXZZ Reposition Left Knee Joint, External Approach (ICD-10-PCS; principal; 2017-12-21 10:00)
PROC: BQ18ZZZ Fluoroscopy of Left Knee (ICD-10-PCS; principal; 2017-12-21 10:00)
DX: S83.122A Posterior subluxation of proximal end of tibia, left knee, initial encounter (principal); N17.9 Acute kidney failure, unspecified; Z68.44 Body mass index [BMI] 60.0-69.9, adult; I48.91 Unspecified atrial fibrillation; N18.3 Chronic kidney disease, stage 3 (moderate); J44.9 Chronic obstructive pulmonary disease, unspecified; I12.9 Hypertensive chronic kidney disease with stage 1 through stage 4 chronic kidney disease, or unspecified chronic kidney disease; E11.9 Type 2 diabetes mellitus without complications; E78.5 Hyperlipidemia, unspecified; D63.1 Anemia in chronic kidney disease; E66.01 Morbid (severe) obesity due to excess calories; G47.33 Obstructive sleep apnea (adult) (pediatric); Z86.14 Personal history of Methicillin resistant Staphylococcus aureus infection; Z98.84 Bariatric surgery status; Z80.9 Family history of malignant neoplasm, unspecified; Z83.3 Family history of diabetes mellitus; Z82.49 Family history of ischemic heart disease and other diseases of the circulatory system; Z79.4 Long term (current) use of insulin; Z79.01 Long term (current) use of anticoagulants; Z91.030 Bee allergy status; Z88.8 Allergy status to other drugs, medicaments and biological substances; X58.XXXA Exposure to other specified factors, initial encounter

== ENCOUNTER 2018-01-21 10:14 | Emergency (ER) | payer BC ==
[~2018-01-21 10:14] MED LIST changes: +ALLO100T PO; -BUTA1TAB70 PO; +CMD25 PO; +ECRCR EXT; +FURO-85 PO; +IPRA1AER2 INH; +LDDP5 TD; +LRS10 PO; -LVMI SQ; +LVMIPEN SC; -NVLGI/PEN PO; +NVLGIPEN SC; +ULT50X PO; -WARF5TAB90 PO
[2018-01-21 10:25] VITALS: TEMP 37.5
[2018-01-21] MEDS ORDERED: INSU3INJ3 PO (11:06)
[2018-01-21] MEDS ORDERED: SLWMEC PO (11:06)
[2018-01-21] MEDS ORDERED: NVLGIPEN SC (11:06)
[2018-01-21] MEDS ORDERED: WARF10TA4 PO (11:06)
[2018-01-21] MEDS ORDERED: ACET300T4 PO (11:06)
[2018-01-21] MEDS ORDERED: LISI-729 PO (11:06)
[2018-01-21] MEDS ORDERED: WARF7.5T4 PO (11:06)
--- NOTE | 2018-01-21 11:42 | EMERGENCY ROOM VISIT NOTE ---
History Report prepared by Deborah: Lee Swan Under the Supervision of: Dr. Lion Sarabia M.D. First contact with patient: 11:10 Chief Complaint: LEG PAIN,LEG INJURY Stated Complaint: HEADACHE,FEVER, CHILLS (POSSIBLE L-LEG INFECTION) History of Present Illness The patient is a 62 year old white male with a past medical history of leg infections, atrial fibrillation, HTN, HLD who presents to the ED with a cc of a persistent fever beginning last night. Positive shaking, dry cough, chills, left leg warmness and pain. Negative urinary symptoms, bowel movement problems. The patient states that he thinks he has an infection. The patient notes that he recent dislocated his left knee and had a reduction done early last month with Dr. Mccarthy of [facility]. He denies any recent trauma or bites to the leg. He states that he is on Doxycycline all the time for a history of MRSA. He adds that he took one dose of Amoxicillin last night. The patient's recently had bronchitis. The patient did have his flu shot this season. Source of History: patient, spouse/significant other Onset: Last night Position: other (global) Symptom Intensity: thinks has infection Quality: other (fevers) Timing: other (persistent) Associated Symptoms: + chills, + cough, No urinary symptoms (or bowel movement problems) Note: Left leg warmness and pain. Review of Systems See HPI for pertinent positives and negatives. A total of ten systems were reviewed and were otherwise negative. Past Medical & Surgical Medical Problems: (1) ARF (acute renal failure) (2) Atrial fibrillation (3) Benign hypertension (4) CKD (chronic kidney disease), stage III (5) COPD exacerbation (6) Diabetes mellitus type 2 (7) Hyperlipidemia Nec/Nos (8) Leukocytosis (9) Lymphedema of both lower extremities (10) Methicillin resistant Staphylococcus aureus infection (11) Morbid Obesity (12) GISELL (obstructive sleep apnea) (13) Sepsis Surgical Problems: (1) H/O gastric bypass (2) History of total knee arthroplasty Family History Cancer Diabetes mellitus FATHER Heart disease FATHER MOTHER Hypertension MOTHER Social History Smoking Status: Never Smoker Alcohol Use: occasionally Drug Use: none Marital Status: Housing Status: lives with family Occupation Status: employed Current/Historical Medications Scheduled Allopurinol (Zyloprim), 100 MG PO BID Baclofen (Baclofen), 10 MG PO BID Cephalexin Monohydrate (Keflex), 500 MG PO QID Cholecalciferol (Vitamin D), 5,000 MG PO DAILY Doxycycline Monohydrate (Monodox), 100 MG PO BID Dronedarone Hcl (Multaq), 400 MG PO BID Epinephrine (Epipen *), 0.3 MG IM UD Eucerin (Hydrocerin), 1 APPLN EXT BID Furosemide (Lasix), 20 MG PO QPM Insulin Aspart (Novolog Flexpen), 10 ML SC AC Insulin Detemir (Levemir Flextouch), 50 UNITS PO HS Lisinopril (Zestril), 5 MG PO DAILY Magnesium Chloride (Slow-Mag Tab), 64 MG PO BID Metoprolol Succinate (Toprol Xl), 100 MG PO DAILY Multiple Vitamins W/ Minerals (Multiple Vitamin/Minerals), 1 TAB PO DAILY Simvastatin (Zocor), 10 MG PO HS Sitagliptin Phosphate (Januvia), 50 MG PO DAILY Terazosin Hcl (Hytrin), 5 MG PO HS Warfarin Sod (Jantoven), 7.5 MG PO 2XWK Warfarin Sod (Jantoven), 10 MG PO 5XWK Scheduled PRN Acetaminophen W/ Codeine (Acetaminophen/Codeine), 1 TAB PO Q8 PRN for Pain Ipratropium-Albuterol (Combivent Respimat), 1 PUFFS INH QID PRN for Shortness of Breath Tramadol HCl (Tramadol HCl), 25-50 MG PO Q6H PRN for Pain Allergies Coded Allergies: BEE STING (Verified Allergy, Intermediate, SWELLS, 12/19/17) Metformin (Verified Adverse Reaction, Intermediate, ITCH, 12/19/17) Physical Exam Vital Signs Date Time Temp Pulse Resp B/P (MAP) Pulse Ox O2 Delivery O2 Flow Rate FiO2 01/21/18 14:10 85 20 136/78 95 01/21/18 14:01 125/74 01/21/18 13:49 82 22 96 01/21/18 13:19 80 25 95 01/21/18 13:14 84 23 96 01/21/18 13:01 132/61 01/21/18 12:44 80 20 96 01/21/18 12:28 81 01/21/18 12:01 126/52 01/21/18 11:57 73 22 141/77 97 Room Air 01/21/18 11:56 96 Room Air 01/21/18 10:25 37.5 84 18 152/76 96 Room Air Physical Exam GENERAL: Awake, alert, well-appearing, NAD, bearded. HENT: Normocephalic, atraumatic. EYES: Normal conjunctiva. Sclera non-icteric. NECK: Supple. No nuchal rigidity. FROM. RESPIRATORY: CTAB, no rhonchi, wheezing, crackles CARDIAC: RRR, no MRG ABDOMEN: Obese, soft, NTND, BS+ MSK: No chest wall TTP. Very edematous bilateral lower extremities, appears symmetric. Diffuse redness over left lower extremity. Compartments soft. NVI. Incision scar over left anterior knee. NEURO: GCS 15, CN 2-12 intact, moves all 4s on command SKIN: No rash or jaundice noted. Medical Decision & Procedures ER Provider Diagnostic Interpretation: X-ray: Per my interpretation, radiologist review. CHEST ONE VIEW PORTABLE HISTORY: 62 years-old Male Evaluate Fever/Sepsis acute fever with sepsis COMPARISON: Chest radiograph 12/20/2017, CT 12/22/2017 TECHNIQUE: Portable AP view of the chest FINDINGS: Cardiac silhouette is within the upper limits of normal in size. Moderate right hemidiaphragmatic elevation is unchanged. Linear subsegmental atelectasis or scarring of the right lung base is also unchanged. No pneumothorax, pleural effusion, focal airspace consolidation or overt pulmonary edema. Bones of the chest appear grossly intact. Degenerative changes are noted about the left shoulder and spine. IMPRESSION: No acute process. The above report was generated using voice recognition software. It may contain grammatical, syntax or spelling errors. Electronically signed by: Cesar Prince M.D 01/21/2018 12:10 PM Dictated Date/Time: 01/21/2018 12:08 PM Laboratory Results 01/21/18 10:50 Red Blood Count 3.55, Mean Corpuscular Volume 92.4, Mean Corpuscular Hemoglobin 29.6, Mean Corpuscular Hemoglobin Concent 32.0, Mean Platelet Volume 10.0, Neutrophils (%) (Auto) 89.0, Lymphocytes (%) (Auto) 6.8, Monocytes (%) (Auto) 3.8, Eosinophils (%) (Auto) 0.0, Basophils (%) (Auto) 0.1, Neutrophils # (Auto) 8.44, Lymphocytes # (Auto) 0.64, Monocytes # (Auto) 0.36, Eosinophils # (Auto) 0.00, Basophils # (Auto) 0.01 01/21/18 10:50 Test 01/21/18 10:50 01/21/18 11:51 White Blood Count 9.48 K/uL (4.8-10.8) Red Blood Count 3.55 M/uL (4.7-6.1) Hemoglobin 10.5 g/dL (14.0-18.0) Hematocrit 32.8 % (42-52) Mean Corpuscular Volume 92.4 fL (80-100) Mean Corpuscular Hemoglobin 29.6 pg (25-34) Mean Corpuscular Hemoglobin Concent 32.0 g/dl (32-36) Platelet Count 129 K/uL (130-400) Mean Platelet Volume 10.0 fL (7.4-10.4) Neutrophils (%) (Auto) 89.0 % Lymphocytes (%) (Auto) 6.8 % Monocytes (%) (Auto) 3.8 % Eosinophils (%) (Auto) 0.0 % Basophils (%) (Auto) 0.1 % Neutrophils # (Auto) 8.44 K/uL (1.4-6.5) Lymphocytes # (Auto) 0.64 K/uL (1.2-3.4) Monocytes # (Auto) 0.36 K/uL (0.11-0.59) Eosinophils # (Auto) 0.00 K/uL (0-0.5) Basophils # (Auto) 0.01 K/uL (0-0.2) RDW Standard Deviation 53.2 fL (36.4-46.3) RDW Coefficient of Variation 15.8 % (11.5-14.5) Immature Granulocyte % (Auto) 0.3 % Immature Granulocyte # (Auto) 0.03 K/uL (0.00-0.02) Erythrocyte Sedimentation Rate 41 mm/hr (0-14) Anion Gap 5.0 mmol/L (3-11) Estimated GFR () 46.7 Estimated GFR (Non- 40.3 BUN/Creatinine Ratio 16.7 (10-20) Calcium Level 8.3 mg/dl (8.5-10.1) Total Bilirubin 1.0 mg/dl (0.2-1) Direct Bilirubin 0.3 mg/dl (0-0.2) Aspartate Amino Transf (AST/SGOT) 11 U/L (15-37) Alanine Aminotransferase (ALT/SGPT) 9 U/L (12-78) Alkaline Phosphatase 46 U/L (45-117) C-Reactive Protein 11.50 mg/dl (0-0.29) Total Protein 6.3 gm/dl (6.4-8.2) Albumin 2.9 gm/dl (3.4-5.0) Influenza Type A Antigen Neg for Influ A (NEG) Influenza Type B Antigen Neg for Influ B (NEG) Laboratory results reviewed by me Medications Administered Medications (Trade) Dose Ordered Sig/Ching Route Start Time Stop Time Status Last Admin Dose Admin Cephalexin Monohydrate (Keflex Cap) 500 mg NOW ONCE PO 01/21/18 13:00 01/21/18 13:01 DC 01/21/18 13:06 500 MG ED Course 1137: The patient was evaluated in room C8. A complete history and physical exam was performed. 1247: I reevaluated and updated the patient. 1250: I discussed the patient with Dr. Do - [facility] [place] infectious disease - she says Keflex is fine, and to follow-up on Friday. 1315: I reevaluated the patient and he is resting comfortably. Discussed results and discharge instructions: he verbalized understanding and agreement. The patient is ready for discharge. Medical Decision The patient is a 62 year old white male with a past medical history of leg infections, atrial fibrillation, HTN, HLD who presents to the ED with a cc of a persistent fever beginning last night. Positive shaking, dry cough, chills, left leg warmness and pain. Negative urinary symptoms, bowel movement problems. Differential diagnosis: Etiologies such as viral syndrome, otitis, pharyngitis, pneumonia, influenza, meningitis, urinary tract infection, sepsis, bacteremia, as well as others were entertained. Patient was seen and evaluated the bedside. Patient does have a history of chronic leg infections. Patient is on doxy chronically. Patient does see Dr. Do with infectious disease at the wound care clinic. Patient was complaining some mild Reiger's and chills along with some left lower extremity redness beginning yesterday. Patient did have blood work completed along with an ESR and CRP. Patient with blood cell count normal. ESR and CRP mildly elevated. The patient does have some cellulitic changes to the left lower extremity. Patient denies any chest pains or shortness of breath. He does not have any asymmetry noted. Given the patient's infectious symptoms I believe is more likely etiology than something like a DVT. Patient denies SOB/CP. Patient is also on coumadin. No ultrasound was obtained at this time. I did discuss the patient with Dr. Do who was willing to see the patient in clinic on Friday. Patient was given first dose of Keflex. Patient was told to continue his doxycycline and then would also take the Keflex. Patient was deemed suitable for outpatient follow-up treatment at this time. Patient was given strict follow-up, discharge, and return precautions. All questions were answered. Patient was deemed suitable for outpatient follow-up at this time. Patient agreed with the plan of care and was safely discharged home. Medication Reconcilliation Current Medication List: was personally reviewed by me Blood Pressure Screening Patient's blood pressure: Elevated blood pressure Blood pressure disposition: Referred to PCP Consults Time Called: 1245 Consulting Physician: Dr. Hi GEORGES infectious disease Returned Call: 1250 I discussed the patient with Dr. Hi GEORGES infectious disease - she says Keflex is fine, and to follow-up on Friday. Impression Primary Impression: Cellulitis Additional Impression: Lymphedema Scribe Attestation The scribe's documentation has been prepared under my direction and personally reviewed by me in its entirety. I confirm that the note above accurately reflects all work, treatment, procedures, and medical decision making performed by me. Departure Information Dispostion Home / Self-Care Prescriptions Cephalexin Monohydrate (Keflex) 500 Mg Cap 500 MG PO QID for 7 Days, #28 CAP Prov: Lion Sarabia M.D. 01/21/18 Referrals Aden Mims M.D. (PCP) Patient Instructions Cellulitis Dc, My [facility] Additional Instructions Please return to the emergency department if you have worsening or recurrent symptoms not amenable to at-home treatment. Please call for a follow-up appointment with her primary care physician. Please take your medications as prescribed. If you have other concerns and/or complaints please feel free to also call your primary care physician's office or return the ED for further evaluation, management, and treatment. You were found to have an elevated blood pressure today (>120 sytolic or >90 diastolic). Per medicare guidelines, you need to follow up with this blood pressure screening with your Primary Care Physician (PCP). For a new PCP call [phone]. You may take tylenol 650 mg every 6 hours as needed for pain. Take your medications as prescribed. If taking an antibiotic consider taking a probiotic and/or eating yogurt, but at the least, please take with food as it can cause upset stomach. If culture results are not available at discharge, if they are positive for concern of infection, you will be informed of the results as soon as they are available. If you were seen between 11pm and 7AM all radiology reads will be re-read by our in house staff. If any major discrepancies are discovered, you will be notified. You have been examined and treated today on an emergency basis only. This is not a substitute for, or an effort to provide, complete comprehensive medical care. It is impossible to recognize and treat all injuries or illnesses in a single emergency department visit. It is therefore important that you follow up closely with [facility], your PCP, and/or your specialist(s). Call as soon as possible for an appointment. Thank you for your time and consideration. I look forward to speaking with you again soon. Please don't hesitate to call us if you have any questions. Problem Qualifiers Primary Impression: Cellulitis Site of cellulitis: extremity Site of cellulitis of extremity: lower extremity Laterality: left Qualified Codes: L03.116 - Cellulitis of left lower limb
[2018-01-21 11:56] VITALS: O2SAT 96
[2018-01-21 12:04] LABS: BASO % 0.1 %; BASO ABS # 0.01 K/uL (0-0.2); HEMATOCRIT 32.8 % (42-52); HEMOGLOBIN 10.5 g/dL (14.0-18.0); IG# 0.03 K/uL (0.00-0.02); LYMPH % 6.8 %; LYMPH ABS # 0.64 K/uL (1.2-3.4); MEAN CELL VOLUME 92.4 fL (80-100); MEAN CORPUSCULAR HEMOGLOBIN 29.6 pg (25-34); MONO % 3.8 %; MONO ABS # 0.36 K/uL (0.11-0.59); NEUT ABS # 8.44 K/uL (1.4-6.5); PLATELET COUNT 129 K/uL (130-400); RED CELL DISTRIBUTION WIDTH CV 15.8 % (11.5-14.5); RED CELL DISTRIBUTION WIDTH SD 53.2 fL (36.4-46.3); WHITE BLOOD COUNT 9.48 K/uL (4.8-10.8)
[2018-01-21 12:11] LABS: ALBUMIN 2.9 gm/dl (3.4-5.0); ALT/SGPT 9 U/L (12-78); BLOOD UREA NITROGEN 30 mg/dl (7-18); CALCIUM 8.3 mg/dl (8.5-10.1); CARBON DIOXIDE 26 mmol/L (21-32); CREATININE 1.79 mg/dl (0.60-1.40); GLUCOSE 136 mg/dl (70-99); POTASSIUM 4.3 mmol/L (3.5-5.1); SODIUM 137 mmol/L (136-145)
--- NOTE | 2018-01-21 12:11 | DIAGNOSTIC IMAGING REPORT ---
CHEST ONE VIEW PORTABLE HISTORY: 62 years-old Male Evaluate Fever/Sepsis acute fever with sepsis COMPARISON: Chest radiograph 12/20/2017, CT 12/22/2017 TECHNIQUE: Portable AP view of the chest FINDINGS: Cardiac silhouette is within the upper limits of normal in size. Moderate right hemidiaphragmatic elevation is unchanged. Linear subsegmental atelectasis or scarring of the right lung base is also unchanged. No pneumothorax, pleural effusion, focal airspace consolidation or overt pulmonary edema. Bones of the chest appear grossly intact. Degenerative changes are noted about the left shoulder and spine. IMPRESSION: No acute process. The above report was generated using voice recognition software. It may contain grammatical, syntax or spelling errors. Electronically signed by: Cesar Prince M.D. 01/21/2018 12:10 PM Dictated Date/Time: 01/21/2018 12:08 PM
[2018-01-21 12:14] LABS: ALKALINE PHOSPHATASE 46 U/L (45-117); AST/SGOT 11 U/L (15-37); TOTAL PROTEIN 6.3 gm/dl (6.4-8.2)
[2018-01-21 12:31] LABS: INFLUENZA B ANTIGEN Neg for Influ B (NEG)
[2018-01-21] MEDS ORDERED: CEPHALEXIN MONOHYDRATE 250 MG CAP PO ONE (13:00)
[2018-01-21] MEDS ORDERED: CEPH500C PO (13:42)
[2018-01-21 14:10] VITALS: BP 136/78; PULSE 85; O2SAT 95
== END 2018-01-21 14:10 | disposition home or self-care (01) ==
LOC: C.EDB 10:16 → C.EDC 14:10
DX: L03.116 Cellulitis of left lower limb (principal); I89.0 Lymphedema, not elsewhere classified; I48.91 Unspecified atrial fibrillation; I10 Essential (primary) hypertension; E78.5 Hyperlipidemia, unspecified; Z86.14 Personal history of Methicillin resistant Staphylococcus aureus infection; N17.9 Acute kidney failure, unspecified; J44.1 Chronic obstructive pulmonary disease with (acute) exacerbation; E11.9 Type 2 diabetes mellitus without complications; E66.01 Morbid (severe) obesity due to excess calories; G47.33 Obstructive sleep apnea (adult) (pediatric); Z98.84 Bariatric surgery status; Z80.9 Family history of malignant neoplasm, unspecified; Z83.3 Family history of diabetes mellitus; Z82.49 Family history of ischemic heart disease and other diseases of the circulatory system; Z79.4 Long term (current) use of insulin; Z79.2 Long term (current) use of antibiotics; Z79.01 Long term (current) use of anticoagulants; Z79.899 Other long term (current) drug therapy; Z91.030 Bee allergy status; Z88.8 Allergy status to other drugs, medicaments and biological substances

== ENCOUNTER 2023-01-12 19:21 | Inpatient (IN) ==
[2023-01-12] MEDS ORDERED: SODIUM CHLORIDE 0.9% 1000ML 1,000 ML IV SCH (19:45)
--- NOTE | 2023-01-12 20:06 | XRay Report ---
XR chest 1V portable CLINICAL HISTORY: weakness COMPARISON STUDY: Chest radiograph 01/06/2021. FINDINGS: Elevation of the right hemidiaphragm is unchanged. Mild cardiomegaly is unchanged. There is pulmonary vascular congestion without overt pulmonary edema. No consolidation. No pneumothorax or pl eural effusion. IMPRESSION: Cardiomegaly with pulmonary vascular congestion. ACT 112: Negative or not required by law. Electronically signed by: Jesse Blount M.D. 01/12/2023 8:05 PM
[2023-01-12 20:25] LABS: Basophils # (auto) 0.02 K/uL (0-0.2); Basophils % (auto) 0.2 %; Eosinophils # (auto) 0.01 K/uL (0-0.50); Eosinophils % (auto) 0.1 %; Hematocrit (blood only) 41.1 % (42.0-52.0); Hemoglobin 13.7 g/dl (14.0-18.0); Immature Granulocytes # (auto) 0.05 K/uL (0.01-0.20); Immature Granulocytes % (auto) 0.4 %; Lymphocytes % (auto) 4.9 %; Mean Corpuscular Hemoglobin 31.7 pg (25.0-34.0); Mean Corpuscular Hgb Conc 33.3 g/dL (32.0-36.0); Mean Corpuscular Volume 95.1 fL (80.0-100.0); Mean Platelet Volume 10.4 fL (9.4-12.4); Monocytes # (auto) 0.65 K/uL (0.11-0.59); Monocytes % (auto) 5.3 %; Neutrophils # (auto) 10.97 K/uL (1.40-6.50); Neutrophils % (auto) 89.1 %; Platelet Count 113 K/uL (130-400); RDW Coefficient of Variation 14.6 % (11.5-14.5); RDW Standard Deviation 50.8 fL (36.4-46.3); Red Blood Count 4.32 M/uL (4.70-6.10)
--- NOTE | 2023-01-12 20:36 | Emergency Department Note ---
Impression & Plan Left arm numbness, Headache, Generalized weakness, Sinusitis, Near syncope ED Provider Note INFORMANT: Patient, EMS, and ED PROVIDER(S): Sid Hawkins MD CHIEF COMPLAINT: Weakness and left arm numbness PLAN: Disposition: Admitted Condition: Good Outpatient prescription management: none Referral: None MEDICAL DECISION MAKING: Patient presented to the emergency department because of weakness and left arm numbness. He was generally weak and had a near syncopal event while the was trying to bring him to the ER. EMS completed the transport here. His prehospital ECG did not show any obvious ischemia. Transport was uneventful per discussion with the agronomy specialist. Patient had an IV established. He was gently hydrated. Blood work was obtained. ECG did not show any obvious ischemia. The patient was sent for CT imaging. He has the complaints of left arm numbness which raise concerns for neurologic issue such as TIA or stroke however he is out of the window for thrombolysis. Stroke alert was not performed. The patient had no evidence of ischemia or bleed on head CT. He was noted to have sinusitis. No bony erosion noted per radiology. Patient was given a dose of IV Rocephin. Tylenol was also ordered. Patient's arrived in the ED and we discussed the issues. Patient was significantly weak at home and was doing very poorly during her attempts to get him to the emergency department. She was concerned as he has a history of sepsis years ago but also had other bacterial infections that caused generalized weakness. Vital signs do not indicate sepsis at this time. Overall the patient is generally weak and given his overall health would benefit from treatment in the hospital. Consultation was made with the [facility] service, Dr. Lee. Patient was evaluated in the ER and admitted for further management. Discussed with residential mortgage manager. After review of the information above and other included data, I feel the patient requires treatment in the hospital.. Triage Nursing notes reviewed and agree them. Vital Signs: reviewed and remarkable for no significant abnormalities Prior /Outside records reviewed: Previous office visit notes reviewed. Patient follows with diabetes management. Differential diagnosis: CVA, TIA, infection, dehydration, metabolic abnormality, hypo/hyperglycemia, electrolyte disturbance, anemia, hypoxia, ACS, intracerebral event, toxicologic, neurologic, as well as other pathologies. Diagnostics, as interpreted by me: ECG: Twelve-lead ECG reveals atrial fibrillation with occasional PVCs at [address] elevation. RSR prime pattern noted in V2. Cardiac Monitoring: Cardiac monitoring ordered by me: The patient was placed on continuous cardiac monitoring and observed. It revealed a atrial fibrillation at 87 bpm. Medical decision rules: none Imaging studies: Chest x-ray shows mild cardiomegaly and vascular congestion but no evidence of infiltrate or pneumothorax. Head CT reveals the presence of sphenoid sinusitis but no evidence of acute stroke or bleed. I refer you to the EMR for further details. HPI: The patient is a 67 year old diabetic male who presents to the Emergency Room with complaints of generalized weakness and left arm numbness. This started today around 1330 and is persisting. Patient notes that his had to help him ambulate around the house this afternoon because he was getting progressively weaker. Patient states he also has a headache but states he has chronic headaches. Today seemed somewhat worse than usual. Denies any trauma. Dealing with some constipation but did take a laxative and prune juice today. Because of the weakness and the left arm numbness the patient's struggled to get him into the car and was bringing him to the ER. He was feeling worse in the car ride and felt like he was going to pass out. The pulled into the local EMS station. He was evaluated by EMS and transition to the ambulance for transport to the ER. Patient was transported to the ER uneventfully. No medications given prehospital. The patient has taken no medication at home for relieving factors. Current pain is rated as 5/10. Patient has a history of left arm and shoulder pain but denies ever having any numbness. Pt denies LOC, fevers, chills, diaphoresis, visual changes, neck pain, chest pain, breathing difficulties, nausea, vomiting, abdominal pain, back pain, melena, hematochezia, urinary symptoms, lymphadenopathy, rash, or other complaints. PAST MEDICAL HISTORY: See Below, diabetes PAST SURGICAL HISTORY: See Below, SOCIAL HISTORY: See Below, HOME MEDICATIONS: See Below ALLERGIES: See Below VITALS: See Below PHYSICAL EXAMINATION: GENERAL: Awake, alert, nontoxic-appearing, in no distress HENT: Normocephalic, atraumatic. Oropharynx unremarkable. EYES: Normal conjunctiva. Sclera non-icteric. PERRLA. EOMI. NECK: Inspection normal. Non-tender. Supple. No nuchal rigidity. FROM. No masses. RESPIRATORY: Clear to auscultation. No wheezes. No rales. Normal respiratory effort. CARDIAC: Normal rate. Irregular rhythm. No murmurs. No rubs. Extremities warm and well perfused. Pulses equal. No JVD. GI: Soft, non-distended. No tenderness to palpation. No rebound or guarding. No masses. RECTAL: Deferred. MUSCULOSKELETAL: Atraumatic. Chest examination reveals no tenderness. The back is symmetrical on inspection without obvious abnormality. There is no CVA tenderness to palpation. No joint edema. LOWER EXTREMITIES: Calves are equal size bilaterally and non-tender. 2+ edema. Chronic venous discoloration. NEURO: Normal sensorium. No sensory or motor deficits noted except for subjective tingling in the left upper extremity.. SKIN: No rash or jaundice noted. Past Med/Surg History Medical History (Updated 01/12/23 @ 23:24 by Sid Hawkins MD) ARF (acute renal failure) CKD (chronic kidney disease), stage III COPD exacerbation Elevated lactic acid level Hyperlipidemia Hypertension Leukocytosis Lymphedema of both lower extremities Obesity GISELL (obstructive sleep apnea) Sepsis Sepsis due to group B Streptococcus T2DM (type 2 diabetes mellitus) Surgical History H/O gastric bypass 1998 Total knee replacement status R once; L twice Family History Mother Heart disease Kidney disease Hypertension Father Dementia Diabetes Heart disease Social History Smoking Status: Never smoker Hx Alcohol Use: Yes Alcohol type: beer Alcohol Intake Frequency Comment: Occasionally Preferred Language: [place] marital status: Current Living Situation: Spouse current occupational status: retired 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 Feels Safe at Home: Yes Allergies Allergies Allergy/AdvReac Type Severity Reaction Status Date / Time bee venom protein (honey bee) Allergy Intermediate SWELLS Verified 01/12/23 23:16 metformin AdvReac Intermediate HIVES Verified 01/12/23 23:16 Home Meds Home Medications Medication Instructions Recorded Confirmed acetaminophen 300 mg-codeine 60 mg 1 tab PO Q8H PRN pain #30 tabs 06/30/19 01/12/23 tablet allopurinol 100 mg tablet 100 mg PO BID 06/30/19 01/12/23 cholecalciferol (vitamin D3) 125 5,000 units PO DAILY 06/30/19 01/12/23 mcg (5,000 unit) capsule ipratropium 20 mcg-albuterol 100 2 spray inhalation QID PRN 06/30/19 01/12/23 mcg/actuation mist for inhalation Shortness Of Breath Or Wheezing lisinopril 5 mg tablet 5 mg PO DAILY #30 tabs 06/30/19 01/12/23 metoprolol succinate 100 mg 100 mg PO DAILY #90 tabs 06/30/19 01/12/23 tablet,extended release 24 hr pantoprazole 40 mg tablet,delayed 40 mg PO DAILY 06/30/19 01/12/23 release simvastatin 20 mg tablet 20 mg PO DAILY 06/30/19 01/12/23 terazosin 5 mg capsule 5 mg PO DAILY 06/30/19 01/12/23 epinephrine 0.3 mg/0.3 mL 0.3 mg IM UD PRN hypersensitivity 10/12/19 01/12/23 injection, auto-injector (EpiPen) reaction magnesium chloride 71.5 mg 71.5 mg PO BID 12/09/19 01/12/23 (magnesium chloride) tablet,delayed release (Slow-Mag) multivit,Ca,min-iron 8 mg-folic 1 tab PO DAILY 01/02/20 01/12/23 acid 200 mcg-lycopene 600 mcg tablet (Centrum Men) gabapentin 100 mg capsule 100 mg PO TID 07/03/20 01/12/23 warfarin 5 mg tablet (Jantoven) 7.5 mg PO SUTUWETHSA 08/10/20 01/12/23 insulin detemir U-100 100 unit/mL 24 unit subcut HS 01/15/22 01/12/23 (3 mL) subcutaneous pen (Levemir FlexTouch U-100 Insulin) furosemide 40 mg tablet 40 mg PO DAILY 01/12/23 01/12/23 insulin lispro 100 unit/mL 0 unit subcut TIDM 01/12/23 01/12/23 subcutaneous pen (Humalog KwikPen (U-100) Insulin) warfarin 5 mg tablet (Jantoven) 5 mg PO MOFR 01/12/23 01/12/23 Previous Rx's Medication Instructions Recorded cephalexin 500 mg capsule 500 mg PO BID #60 caps 02/28/20 semaglutide 2 mg/dose (8 mg/3 mL) 2 mg (0.75 mL) subcut ONCE 30 days 12/04/22 subcutaneous pen injector #3 mL Results & Data (ED) Vital Signs Vital Signs - 24 hr 01/12/23 19:38 01/12/23 19:13 Temperature 37 C Temperature Source Oral Pulse Rate 88 87 Respiratory Rate 21 Respiratory Depth Normal Respiratory Pattern Regular Blood Pressure 105/79 Blood Pressure Mean 87 Pulse Oximetry 96 96 Oxygen Delivery Method Room Air Room Air Sepsis Recent Fever Within 48 Hours No Sepsis New/Unexplained Change in Mental Status No Sepsis Action Taken by Nursing No Action Required Laboratory Data 01/12/23 19:56 01/12/23 19:56 Lab Results 01/12/23 01/12/23 01/12/23 Range/Units 19:56 19:56 19:56 WBC 12.30 H (4.8-10.8) K/ul RBC 4.32 L (4.70-6.10) M/uL Hgb 13.7 L (14.0-18.0) g/dl Hct 41.1 L (42.0-52.0) % MCV 95.1 (80.0-100.0) fL MCH 31.7 (25.0-34.0) pg MCHC 33.3 (32.0-36.0) g/dL RDW Std Deviation 50.8 H (36.4-46.3) fL RDW Coeff of Jack 14.6 H (11.5-14.5) % Plt Count 113 L (130-400) K/uL MPV 10.4 (9.4-12.4) fL Immature Gran % (Auto) 0.4 % Neut % (Auto) 89.1 % Lymph % (Auto) 4.9 % Daggett % (Auto) 5.3 % Eos % (Auto) 0.1 % Baso % (Auto) 0.2 % Neut # (Auto) 10.97 H (1.40-6.50) K/uL Lymph # (Auto) 0.60 L (1.2-3.4) K/uL Daggett # (Auto) 0.65 H (0.11-0.59) K/uL Eos # (Auto) 0.01 (0-0.50) K/uL Baso # (Auto) 0.02 (0-0.2) K/uL Immature Gran # (Auto) 0.05 (0.01-0.20) K/uL PT (9.0-12.0) Seconds INR (0.9-1.1) Sodium 136 (136-145) mmol/L Potassium TNP Chloride 105 (98-107) mmol/L Carbon Dioxide 27 (21-32) mmol/L Anion Gap 4 (3-11) BUN 55 H (6-23) mg/dl Creatinine 1.95 H (0.6-1.4) mg/dl Est Cr Clr Drug Dosing 65.3 ml/min Est GFR ( Amer) 40.6 ml/min Est GFR (Non-Af Amer) 35.1 ml/min BUN/Creatinine Ratio 28.2 H (10-20) Glucose 129 H (70-99(Fasting)) mg/dl Calcium 9.1 (8.5-10.1) mg/dl Magnesium 1.8 (1.7-2.4) mg/dl Total Bilirubin 0.9 (0.2-1.0) mg/dl AST TNP ALT 5 L (7-52) U/L Alkaline Phosphatase 37 (34-104) U/L Total Protein 6.8 (6.0-8.3) gm/dl Albumin 3.9 (3.4-5.0) gm/dl Globulin 2.9 (2.5-4.0) gm/dl Albumin/Globulin Ratio 1.3 (0.9-2) TSH 1.392 (0.300-4.500) uIu/ml Urine Color Urine Appearance (Clear) Urine pH (4.5-7.5) Ur Specific Bangs (1.000-1.030) Urine Protein (Negative) Urine Glucose (UA) (Negative) Urine Ketones (Negative) Urine Blood (Negative) Urine Nitrite (Negative) Urine Bilirubin (Negative) Urine Urobilinogen (Negative) Ur Leukocyte Esterase (Negative) Urine WBC (Auto) (0-5) /hpf Urine RBC (Auto) (0-4) /hpf U Hyaline Cast (Auto) (0-5) /lpf U Epithel Cells (Auto) (0-5) /lpf Urine Bacteria (Auto) (Negative) SARS-CoV-2, RNA, NAAT (NEGATIVE) 01/12/23 01/12/23 01/12/23 Range/Units 20:21 20:21 21:26 WBC (4.8-10.8) K/ul RBC (4.70-6.10) M/uL Hgb (14.0-18.0) g/dl Hct (42.0-52.0) % MCV (80.0-100.0) fL MCH (25.0-34.0) pg MCHC (32.0-36.0) g/dL RDW Std Deviation (36.4-46.3) fL RDW Coeff of Jack (11.5-14.5) % Plt Count (130-400) K/uL MPV (9.4-12.4) fL Immature Gran % (Auto) % Neut % (Auto) % Lymph % (Auto) % Daggett % (Auto) % Eos % (Auto) % Baso % (Auto) % Neut # (Auto) (1.40-6.50) K/uL Lymph # (Auto) (1.2-3.4) K/uL Daggett # (Auto) (0.11-0.59) K/uL Eos # (Auto) (0-0.50) K/uL Baso # (Auto) (0-0.2) K/uL Immature Gran # (Auto) (0.01-0.20) K/uL PT (9.0-12.0) Seconds INR (0.9-1.1) Sodium (136-145) mmol/L Potassium 4.3 Chloride (98-107) mmol/L Carbon Dioxide (21-32) mmol/L Anion Gap (3-11) BUN (6-23) mg/dl Creatinine (0.6-1.4) mg/dl Est Cr Clr Drug Dosing ml/min Est GFR ( Amer) ml/min Est GFR (Non-Af Amer) ml/min BUN/Creatinine Ratio (10-20) Glucose (70-99(Fasting)) mg/dl Calcium (8.5-10.1) mg/dl Magnesium (1.7-2.4) mg/dl Total Bilirubin (0.2-1.0) mg/dl AST 12 L ALT (7-52) U/L Alkaline Phosphatase (34-104) U/L Total Protein (6.0-8.3) gm/dl Albumin (3.4-5.0) gm/dl Globulin (2.5-4.0) gm/dl Albumin/Globulin Ratio (0.9-2) TSH (0.300-4.500) uIu/ml Urine Color Yellow Urine Appearance Clear (Clear) Urine pH 5.0 (4.5-7.5) Ur Specific Bangs 1.017 (1.000-1.030) Urine Protein Negative (Negative) Urine Glucose (UA) Negative (Negative) Urine Ketones Negative (Negative) Urine Blood Negative (Negative) Urine Nitrite Negative (Negative) Urine Bilirubin Negative (Negative) Urine Urobilinogen Negative (Negative) Ur Leukocyte Esterase 2+ H (Negative) Urine WBC (Auto) >30 H (0-5) /hpf Urine RBC (Auto) 0-4 (0-4) /hpf U Hyaline Cast (Auto) 1-5 (0-5) /lpf U Epithel Cells (Auto) 10-20 H (0-5) /lpf Urine Bacteria (Auto) Negative (Negative) SARS-CoV-2, RNA, NAAT NEGATIVE (NEGATIVE) 01/12/23 Range/Units 23:01 WBC (4.8-10.8) K/ul RBC (4.70-6.10) M/uL Hgb (14.0-18.0) g/dl Hct (42.0-52.0) % MCV (80.0-100.0) fL MCH (25.0-34.0) pg MCHC (32.0-36.0) g/dL RDW Std Deviation (36.4-46.3) fL RDW Coeff of Jack (11.5-14.5) % Plt Count (130-400) K/uL MPV (9.4-12.4) fL Immature Gran % (Auto) % Neut % (Auto) % Lymph % (Auto) % Daggett % (Auto) % Eos % (Auto) % Baso % (Auto) % Neut # (Auto) (1.40-6.50) K/uL Lymph # (Auto) (1.2-3.4) K/uL Daggett # (Auto) (0.11-0.59) K/uL Eos # (Auto) (0-0.50) K/uL Baso # (Auto) (0-0.2) K/uL Immature Gran # (Auto) (0.01-0.20) K/uL PT 20.7 H (9.0-12.0) Seconds INR 2.0 H (0.9-1.1) Sodium (136-145) mmol/L Potassium Chloride (98-107) mmol/L Carbon Dioxide (21-32) mmol/L Anion Gap (3-11) BUN (6-23) mg/dl Creatinine (0.6-1.4) mg/dl Est Cr Clr Drug Dosing ml/min Est GFR ( Amer) ml/min Est GFR (Non-Af Amer) ml/min BUN/Creatinine Ratio (10-20) Glucose (70-99(Fasting)) mg/dl Calcium (8.5-10.1) mg/dl Magnesium (1.7-2.4) mg/dl Total Bilirubin (0.2-1.0) mg/dl AST ALT (7-52) U/L Alkaline Phosphatase (34-104) U/L Total Protein (6.0-8.3) gm/dl Albumin (3.4-5.0) gm/dl Globulin (2.5-4.0) gm/dl Albumin/Globulin Ratio (0.9-2) TSH (0.300-4.500) uIu/ml Urine Color Urine Appearance (Clear) Urine pH (4.5-7.5) Ur Specific Bangs (1.000-1.030) Urine Protein (Negative) Urine Glucose (UA) (Negative) Urine Ketones (Negative) Urine Blood (Negative) Urine Nitrite (Negative) Urine Bilirubin (Negative) Urine Urobilinogen (Negative) Ur Leukocyte Esterase (Negative) Urine WBC (Auto) (0-5) /hpf Urine RBC (Auto) (0-4) /hpf U Hyaline Cast (Auto) (0-5) /lpf U Epithel Cells (Auto) (0-5) /lpf Urine Bacteria (Auto) (Negative) SARS-CoV-2, RNA, NAAT (NEGATIVE) Administered Medications Sodium Chloride (Nss 1000ml) 1,000 mls @ 125 mls/hr IV .Q8H [facility] Stop: 01/13/23 03:44 Last Admin: 01/12/23 20:35 Dose: 125 mls/hr Documented By: JOSE RAMON Discontinued Medications Sodium Chloride (Nss 1000ml) 500 mls @ 999 mls/hr IV .Q31M ONE Stop: 01/12/23 21:32 Last Infusion: 01/12/23 22:18 Dose: 0 mls/hr Documented By: JOSE RAMON Admin: 01/12/23 21:25 Dose: 999 mls/hr Documented By: JOSE RAMON Ceftriaxone Sodium (Rocephin) 2,000 mg in 70 mls @ 140 mls/hr IV NOW STA Stop: 01/12/23 21:31 Last Infusion: 01/12/23 22:18 Dose: 0 mls/hr Documented By: JOSE RAMON Admin: 01/12/23 21:24 Dose: 140 mls/hr Documented By: JOSE RAMON Imaging Data Radiologist's Impression: Chest X-Ray 01/12/23 19:38 XR chest 1V portable CLINICAL HISTORY: weakness COMPARISON STUDY: Chest radiograph 01/06/2021. FINDINGS: Elevation of the right hemidiaphragm is unchanged. Mild cardiomegaly is unchanged. There is pulmonary vascular congestion without overt pulmonary edema. No consolidation. No pneumothorax or pleural effusion. IMPRESSION: Cardiomegaly with pulmonary vascular congestion. ACT 112: Negative or not required by law. Electronically signed by: Jesse Blount M.D. 01/12/2023 8:05 PM Discharge Plan Visit Data Chief Complaint: Leg Weakness, Bilateral Stated Complaint: lt. ARM NUMBNESS/TINGLING/WEAKNESS/LIGHTHEADED ED Provider: Sid Hawkins Discharge Problem: Left arm numbness, Headache, Generalized weakness, Sinusitis, Near syncope Forms Stand Alone Forms: [facility] [employer] Prescriptions Prescriptions: No Action cephalexin 500 mg capsule 500 mg PO BID Qty: 60 3RF Levemir FlexTouch U-100 Insuln 100 unit/mL (3 mL) insulin pen 24 unit SUBCUT HS semaglutide 2 mg/dose (8 mg/3 mL) pen injector 2 mg subcut ONCE 30 Days Qty: 3 5RF Rx Instructions: Inject once a week on the same day each week. Combivent Respimat 20-100 mcg/actuation mist 2 spray inhalation QID PRN (Reason: Shortness Of Breath Or Wheezing) cholecalciferol (vitamin D3) 5,000 unit capsule 5,000 units PO DAILY lisinopril 5 mg tablet 5 mg PO DAILY Qty: 30 acetaminophen-codeine 300-60 mg tablet 1 tab PO Q8H PRN (Reason: pain) Qty: 30 allopurinol 100 mg tablet 100 mg PO BID metoprolol succinate 100 mg tablet extended release 24 hr 100 mg PO DAILY Qty: 90 pantoprazole 40 mg tablet,delayed release (DR/EC) 40 mg PO DAILY simvastatin 20 mg tablet 20 mg PO DAILY terazosin 5 mg capsule 5 mg PO DAILY epinephrine [EpiPen] 0.3 mg/0.3 mL auto-injector 0.3 mg IM UD PRN (Reason: hypersensitivity reaction) gabapentin 100 mg capsule 100 mg PO TID Slow-Mag 71.5 mg tablet,delayed release (DR/EC) 71.5 mg PO BID Centrum Men 8 mg iron- 200 mcg-600 mcg tablet 1 tab PO DAILY warfarin [Jantoven] 5 mg tablet 7.5 mg PO SUTUWETHSA Rx Instructions: 10 M, F 7.5 rest furosemide 40 mg tablet 40 mg PO DAILY warfarin [Jantoven] 5 mg tablet 5 mg PO MOFR insulin lispro [Humalog KwikPen Insulin] 100 unit/mL insulin pen 0 unit subcut TIDM Referrals Referrals: Aden Mims [Primary Care Provider] -
[2023-01-12 20:53] LABS: Alanine Aminotransferase 5 U/L (7-52); Albumin Globulin Ratio 1.3 (0.9-2); Albumin Level 3.9 gm/dl (3.4-5.0); Alkaline Phosphatase 37 U/L (34-104); Anion Gap 4 (3-11); BUN Creatinine Ratio 28.2 (10-20); Bilirubin,Total 0.9 mg/dl (0.2-1.0); Blood Urea Nitrogen 55 mg/dl (6-23); Calcium 9.1 mg/dl (8.5-10.1); Carbon Dioxide 27 mmol/L (21-32); Chloride 105 mmol/L (98-107); Creatinine Clr Calc Pharmacy 65.3 ml/min; Est GFR (African American) 40.6 ml/min; Est GFR (Non-African American) 35.1 ml/min; Globulin 2.9 gm/dl (2.5-4.0); Glucose 129 mg/dl (70-99(Fasting)); Magnesium 1.8 mg/dl (1.7-2.4); Sodium 136 mmol/L (136-145); Total Protein 6.8 gm/dl (6.0-8.3)
[2023-01-12 20:53] LABS: Appearance Urine Clear (Clear); Bacteria Urine Automated Negative (Negative); Bilirubin Urine Negative (Negative); Blood Urine Negative (Negative); Color Urine Yellow; Glucose Urine UA Negative (Negative); Ketones Urine Negative (Negative); Leukocyte Esterase Urine 2+ (Negative); Nitrite Urine Negative (Negative); Protein Urine Negative (Negative); RBC Urine Automated 0-4 /hpf (0-4); Specific Gravity Urine 1.017 (1.000-1.030); Urobilinogen Urine Negative (Negative); WBC Urine Automated >30 /hpf (0-5)
[2023-01-12] MEDS ORDERED: SODIUM CHLORIDE 0.9% 1000ML 500 ML IV ONE (21:02)
[2023-01-12] MEDS ORDERED: cefTRIAXone SODIUM 2,000 MG/70 ML BAG IV STA (21:02)
[2023-01-12 22:02] LABS: Potassium 4.3 mmol/L (3.5-5.1)
[2023-01-12] MEDS ORDERED: ACETAMINOPHEN 500 MG TAB PO STA (23:24)
[2023-01-12 23:51] LABS: Prothrombin Time 20.7 Seconds (9.0-12.0)
--- NOTE | 2023-01-13 00:54 | History & Physical Report ---
Date of Service January 13, 2023 Assessment & Plan (1) Generalized weakness: Plan: 67yo male presenting with one day of subjective fever, chills and rigors as well as headache, suprapubic abdominal pain, malaise and generalized weakness. No obvious source of infection. UA with pyuria - elevated WBC. No nitrites or bacteria present. Patient with history of prior sepsis with unknown source. He had a MRSA infection in his leg as well. -Admit to medical -Follow cultures. Blood cultures sent after antibiotics administered -Continue Ceftriaxone -Tylenol PRN -PT/OT (2) Atrial fibrillation, chronic: Plan: Chronic -Continue metoprolol -Continue Coumadin -Monitor INR (3) Hyperlipidemia: Plan: Chronic. Stable -Continue Simvastatin 20mg po daily (4) Hypertension: Plan: Chronic. Blood pressure well controlled -Continue Lisinopril 5mg po daily -Continue metoprolol 100mg po daily (5) T2DM (type 2 diabetes mellitus): Plan: Overall well controlled. Last ShpV9G=9.1 on 08/17/22 -Lantus 10u BID -ISS -Goal blood sugar 110 - 140 (6) GISELL (obstructive sleep apnea): Plan: Chronic. Patient reports compliance with his CPAP. Does not know his settings -CPAP qHS F/E/N - NSS at 125mL/hr x 1 liter, monitor electrolytes and replete as needed, CC/AHA diet as tolerated - Colace and Miralax for bowel regimen - patient re ports constipation Ppx - On Coumadin, will continue Code - Full per discussion with patient Dispo - Admit to medical History of Present Illness Chief Complaint: concern for sepsis Primary Care Provider: Aden Cooper is a 67yo male with history of HTN, HLP, DM and Atrial Fibrillation on Coumadin anticoagulation presenting with concern for sepsis. Patient has had history of MRSA infection in the past. History of sepsis from unknown source. He reports feeling subjective fever, chills, rigors, fatigue generalized weakness and malaise. Also with severe headache, pain in left arm and suprapubic discomfort. Additionally, he has nausea, lightheadedness and some SOB. Patient denies chest pain, cough, rash, joint pain or swelling. In the ER he is afebrile, HD stable, NAD. Adequate oxygenation on room air. ER Course: NSS x 2L Tylenol x 1gm Ceftriaxone x 2gm Allergies Allergy/AdvReac Type Severity Reaction Status Date / Time bee venom protein (honey bee) Allergy Intermediate SWELLS Verified 01/12/23 23:16 metformin AdvReac Intermediate HIVES Verified 01/12/23 23:16 Home Medications Medication Instructions Recorded Confirmed Type acetaminophen 300 mg-codeine 60 mg 1 tab PO Q8H PRN pain #30 tabs 06/30/19 01/12/23 History tablet allopurinol 100 mg tablet 100 mg PO BID 06/30/19 01/12/23 History cholecalciferol (vitamin D3) 125 5,000 units PO DAILY 06/30/19 01/12/23 History mcg (5,000 unit) capsule ipratropium 20 mcg-albuterol 100 2 spray inhalation QID PRN 06/30/19 01/12/23 History mcg/actuation mist for inhalation Shortness Of Breath Or Wheezing lisinopril 5 mg tablet 5 mg PO DAILY #30 tabs 06/30/19 01/12/23 History metoprolol succinate 100 mg 100 mg PO DAILY #90 tabs 06/30/19 01/12/23 History tablet,extended release 24 hr pantoprazole 40 mg tablet,delayed 40 mg PO DAILY 06/30/19 01/12/23 History release simvastatin 20 mg tablet 20 mg PO DAILY 06/30/19 01/12/23 History terazosin 5 mg capsule 5 mg PO DAILY 06/30/19 01/12/23 History epinephrine 0.3 mg/0.3 mL 0.3 mg IM UD PRN hypersensitivity 10/12/19 01/12/23 History injection, auto-injector (EpiPen) reaction magnesium chloride 71.5 mg 71.5 mg PO BID 12/09/19 01/12/23 History (magnesium chloride) tablet,delayed release (Slow-Mag) multivit,Ca,min-iron 8 mg-folic 1 tab PO DAILY 01/02/20 01/12/23 History acid 200 mcg-lycopene 600 mcg tablet (Centrum Men) cephalexin 500 mg capsule 500 mg PO BID #60 caps 02/28/20 01/12/23 Rx gabapentin 100 mg capsule 100 mg PO TID 07/03/20 01/12/23 History warfarin 5 mg tablet (Jantoven) 7.5 mg PO SUTUWETHSA 08/10/20 01/12/23 History insulin detemir U-100 100 unit/mL 24 unit subcut HS 01/15/22 01/12/23 History (3 mL) subcutaneous pen (Levemir FlexTouch U-100 Insulin) semaglutide 2 mg/dose (8 mg/3 mL) 2 mg (0.75 mL) subcut ONCE 30 days 12/04/22 01/12/23 Rx subcutaneous pen injector #3 mL furosemide 40 mg tablet 40 mg PO DAILY 01/12/23 01/12/23 History insulin lispro 100 unit/mL 0 unit subcut TIDM 01/12/23 01/12/23 History subcutaneous pen (Humalog KwikPen (U-100) Insulin) warfarin 5 mg tablet (Jantoven) 5 mg PO MOFR 01/12/23 01/12/23 History Past Med/Surg History Medical History ARF (acute renal failure) CKD (chronic kidney disease), stage III COPD exacerbation Elevated lactic acid level Hyperlipidemia Hypertension Leukocytosis Lymphedema of both lower extremities Obesity GISELL (obstructive sleep apnea) Sepsis Sepsis due to group B Streptococcus T2DM (type 2 diabetes mellitus) Surgical History H/O gastric bypass 1998 Total knee replacement status R once; L twice Family History Mother Heart disease Kidney disease Hypertension Father Dementia Diabetes Heart disease Social History Smoking Status: Never smoker Hx Alcohol Use: Yes Alcohol type: beer Alcohol Intake Frequency Comment: Occasionally Preferred Language: Slovak marital status: Current Living Situation: Spouse current occupational status: retired 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 Feels Safe at Home: Yes Review of Systems Review of Systems: All systems reviewed & are unremarkable except as noted in HPI & below Physical Exam Physical Exam: General: morbidly obese male patient resting comfortably, ill in appearance but nontoxic, AA&O x 4 Skin: warm, dry, intact, no rashes or lesions HEENT: NC/AT, PERRL, EOMI, anicteric sclera, conjunctiva without injection, ext ernal ear normal to inspection and nontender, nares patent, dry mucus membranes, dentition intact, no oropharyngeal lesions, neck supple, trachea midline, no LAD, no thyromegaly, no JVD Heart: +S1/S2, irregularly irregular, no m/r/g Lungs: equal air entry bilaterally, no rales/rhonchi/wheezes Abd: +BS, soft, ND, +Suprapubic tenderness with no rebound/guarding or peritonitis, no masses/organomegaly/ascites Ext: warm, 2+ pulses in UE/LE bilaterally, no clubbing/cyanosis Neuro: nonfocal, patient AA&O x 4, speech intact, no facial droop, moving all extremities on command with equal strength 5/5 Results & Data Results & Data ([facility]) Vital Signs (Past 12 Hours) Vital Signs Temp Pulse Resp BP Pulse Ox O2 Del Method 01/12/23 19:13 37 C 87 21 105/79 96 Room Air 01/12/23 19:38 88 96 Room Air Laboratory Results Laboratory Results WBC 12.30 K/ul (4.8-10.8) H 01/12/23 19:56 RBC 4.32 M/uL (4.70-6.10) L 01/12/23 19:56 Hgb 13.7 g/dl (14.0-18.0) L 01/12/23 19:56 Hct 41.1 % (42.0-52.0) L 01/12/23 19:56 MCV 95.1 fL (80.0-100.0) 01/12/23 19:56 MCH 31.7 pg (25.0-34.0) 01/12/23 19:56 MCHC 33.3 g/dL (32.0-36.0) 01/12/23 19:56 RDW Std Deviation 50.8 fL (36.4-46.3) H 01/12/23 19:56 RDW Coeff of Jack 14.6 % (11.5-14.5) H 01/12/23 19:56 Plt Count 113 K/uL (130-400) L 01/12/23 19:56 MPV 10.4 fL (9.4-12.4) 01/12/23 19:56 Immature Gran % (Auto) 0.4 % 01/12/23 19:56 Neut % (Auto) 89.1 % 01/12/23 19:56 Lymph % (Auto) 4.9 % 01/12/23 19:56 [place] % (Auto) 5.3 % 01/12/23 19:56 Eos % (Auto) 0.1 % 01/12/23 19:56 Baso % (Auto) 0.2 % 01/12/23 19:56 Neut # (Auto) 10.97 K/uL (1.40-6.50) H 01/12/23 19:56 Lymph # (Auto) 0.60 K/uL (1.2-3.4) L 01/12/23 19:56 [place] # (Auto) 0.65 K/uL (0.11-0.59) H 01/12/23 19:56 Eos # (Auto) 0.01 K/uL (0-0.50) 01/12/23 19:56 Baso # (Auto) 0.02 K/uL (0-0.2) 01/12/23 19:56 Immature Gran # (Auto) 0.05 K/uL (0.01-0.20) 01/12/23 19:56 PT 20.7 Seconds (9.0-12.0) H 01/12/23 23:01 INR 2.0 (0.9-1.1) H 01/12/23 23:01 Sodium 136 mmol/L (136-145) 01/12/23 19:56 Potassium 4.3 mmol/L (3.5-5.1) 01/12/23 21:26 Chloride 105 mmol/L (98-107) 01/12/23 19:56 Carbon Dioxide 27 mmol/L (21-32) 01/12/23 19:56 Anion Gap 4 (3-11) 01/12/23 19:56 BUN 55 mg/dl (6-23) H 01/12/23 19:56 Creatinine 1.95 mg/dl (0.6-1.4) H 01/12/23 19:56 Est Cr Clr Drug Dosing 65.3 ml/min 01/12/23 19:56 Est GFR ( Amer) 40.6 ml/min 01/12/23 19:56 Est GFR (Non-Af Amer) 35.1 ml/min 01/12/23 19:56 BUN/Creatinine Ratio 28.2 (10-20) H 01/12/23 19:56 Glucose 129 mg/dl (70-99(Fasting)) H 01/12/23 19:56 Calcium 9.1 mg/dl (8.5-10.1) 01/12/23 19:56 Magnesium 1.8 mg/dl (1.7-2.4) 01/12/23 19:56 Total Bilirubin 0.9 mg/dl (0.2-1.0) 01/12/23 19:56 AST 12 U/L (13-39) L 01/12/23 21:26 ALT 5 U/L (7-52) L 01/12/23 19:56 Alkaline Phosphatase 37 U/L (34-104) 01/12/23 19:56 Total Protein 6.8 gm/dl (6.0-8.3) 01/12/23 19:56 Albumin 3.9 gm/dl (3.4-5.0) 01/12/23 19:56 Globulin 2.9 gm/dl (2.5-4.0) 01/12/23 19:56 Albumin/Globulin Ratio 1.3 (0.9-2) 01/12/23 19:56 TSH 1.392 uIu/ml (0.300-4.500) 01/12/23 19:56 Urine Color Yellow 01/12/23 20:21 Urine Appearance Clear (Clear) 01/12/23 20:21 Urine pH 5.0 (4.5-7.5) 01/12/23 20:21 Ur Specific Bryan 1.017 (1.000-1.030) 01/12/23 20:21 Urine Protein Negative (Negative) 01/12/23 20:21 Urine Glucose (UA) Negative (Negative) 01/12/23 20:21 Urine Ketones Negative (Negative) 01/12/23 20:21 Urine Blood Negative (Negative) 01/12/23 20:21 Urine Nitrite Negative (Negative) 01/12/23 20:21 Urine Bilirubin Negative (Negative) 01/12/23 20:21 Urine Urobilinogen Negative (Negative) 01/12/23 20:21 Ur Leukocyte Esterase 2+ (Negative) H 01/12/23 20:21 Urine WBC (Auto) >30 /hpf (0-5) H 01/12/23 20:21 Urine RBC (Auto) 0-4 /hpf (0-4) 01/12/23 20:21 U Hyaline Cast (Auto) 1-5 /lpf (0-5) 01/12/23 20:21 U Epithel Cells (Auto) 10-20 /lpf (0-5) H 01/12/23 20:21 Urine Bacteria (Auto) Negative (Negative) 01/12/23 20:21 SARS-CoV-2, RNA, NAAT NEGATIVE (NEGATIVE) 01/12/23 20:21 Impressions Chest X-Ray 01/12/23 19:38 XR chest 1V portable CLINICAL HISTORY: weakness COMPARISON STUDY: Chest radiograph 01/06/2021. FINDINGS: Elevation of the right hemidiaphragm is unchanged. Mild cardiomegaly is unchanged. There is pulmonary vascular congestion without overt pulmonary edema. No consolidation. No pneumothorax or pleural effusion. IMPRESSION: Cardiomegaly with pulmonary vascular congestion. ACT 112: Negative or not required by law. Electronically signed by: Jesse Blount M.D. 01/12/2023 8:05 PM PG Care Time/CCT Total # of Minutes Spent Total Time Spent with Patient: Total time spent is greater than 50% in coordination of care (as documented) at patient's floor/unit and/or counseling patient: Coding Level of Care Code 21444 INT INP/OBS CARE 3/75MIN Diagnoses Generalized weakness R53.1 Atrial fibrillation, chronic I48.20 Hyperlipidemia E78.5 Hypertension I10 T2DM (type 2 diabetes mellitus) E11.9 GISELL (obstructive sleep apnea) G47.33
[2023-01-13] MEDS ORDERED: IPRATROPIUM BROMIDE/ALBUTEROL respimat INH INH PRN (02:56)
[2023-01-13] MEDS ORDERED: DOCUSATE SODIUM 100 MG CAP PO PRN (02:56)
[2023-01-13] MEDS ORDERED: SODIUM CHLORIDE 0.9% 1000ML 1,000 ML IV SCH (02:56)
[2023-01-13] MEDS ORDERED: GLUCAGON FOR INJ 1 MG VIAL SQ PRN (02:56)
[2023-01-13] MEDS ORDERED: DEXTROSE 50% 50 ML SYRINGE IV PRN (02:56)
[2023-01-13] MEDS ORDERED: GLUCOSE 10 TAB/TUBE PO PRN (02:56)
[2023-01-13] MEDS ORDERED: GLUCOSE 40% GEL 15 GM TUBE PO PRN (02:56)
[2023-01-13] MEDS ORDERED: ACETAMINOPHEN 325 MG TAB PO PRN (02:56)
[2023-01-13] MEDS ORDERED: CARBOHYDRATES FOR HYPOGLYCEMIA PO PRN (02:56)
[2023-01-13] MEDS ORDERED: ONDANSETRON INJ 2 MG/ML 2 ML VIAL ONE (03:02)
[2023-01-13] MEDS ORDERED: Ipratropium HFA Inhaler (Combivent Respimat P&T Subs) INH PRN ×2 (03:04→03:05)
[2023-01-13] MEDS ORDERED: Albuterol HFA 8 GM Inhaler (Combivent Respimat P&T Subs) INH PRN ×2 (03:04→03:05)
[2023-01-13] MEDS: ONDANSETRON INJ 2 MG/ML 2 ML VIAL IV PRN ×2 (03:04→09:44)
[2023-01-13] MEDS: ACETAMINOPHEN W/CODEINE #3 1 TAB PO PRN ×2 (03:17→21:03)
[2023-01-13 07:12] LABS: INR 2.1 (0.9-1.1); Prothrombin Time 21.4 Seconds (9.0-12.0)
--- NOTE | 2023-01-13 07:23 | CT Scan Report ---
CT head/brain wo con CLINICAL HISTORY: headache, left arm numbness Technique: Contiguous axial CT images of the head were acquired from the base of the skull to the luis enrique tesfaye without intravenous contrast administration. Images were viewed in brain, subdural and bone [facility]. Automated dose lowering techniques and/or adjustment according to patient size were utilized for this exam. Comparison: None available at the time of this dictation. Findings: The ventricles, basal cisterns, and cerebral sulci are normal. There is no acute intracranial hemorrh age or evidence of acute territorial infarction. Neither mass effect, shift of the midline structures , nor abnormal extra-axial fluid collections are shown. Calcifications of the falx incidentally note d. Opacification of the left sphenoid sinus is noted. The orbits appear normal. There are no acute frac tures of the calvaria or scalp swelling. Impression: Sinus disease is noted. ACT 112: Negative or not required by law. Electronically signed by: Emanuel Cobian M.D. 01/13/2023 7:22 AM
--- NOTE | 2023-01-13 08:22 | Hospitalist Progress Note ---
Date of Service January 13, 2023 Assessment & Plan (1) Generalized weakness: Plan: 67yo male with multiple chronic health conditions presented yesterday with 1 day of subjective fever, chills and rigors as well as headache, malaise and generalized weakness with particular L arm pain and numbness. -Given suprapubic tenderness and urine culture growing Gram negative bacilli, suspect urinary tract infection with potential bacteremia, but other differentials for source of infection include septic glenohumeral joint, cellulitis, viral infxn. -Patient with history of prior sepsis with unknown source in 2018. He had a MRSA infection in his leg as well. - Generalized weakness likely due to UTI, underlying lack of physical activity, recent constipation, but continue to follow symptoms with antibiotic course -01/12: UA with pyuria, + leuk esterase, - nitrates. Follow cultures. Blood cultures sent after antibiotics administered. WBC 12.3 -01/13: Urine culture resulted growing Gram negative bacilli. WBC 13.38 -Continue Ceftriaxone -Follow blood cultures -Tylenol PRN - Continue PT/OT (2) Left shoulder pain: Plan: -01/13: noted continued persistent L shoulder pain 06/26. Shoulder XR revealed se lenny left glenohumeral joint osteoarthritis with complete loss of joint space and extensive osteophytosis and no fracture -Given lack of erythema, warmth, swelling on exam, less likely septic joint, but considered. Follow CBC and consider arthrocentesis if worsening -Continue PT and refer to outpatient orthopedics post-discharge (3) Atrial fibrillation, chronic: Plan: Chronic -Continue metoprolol -Continue Coumadin -Monitor INR - 01/13: 2.1 (4) Hyperlipidemia: Plan: Chronic. Stable -Continue Simvastatin 20mg po daily (5) Hypertension: Plan: Chronic. Blood pressure well controlled -Continue Lisinopril 5mg po daily -Continue Metoprolol 100mg po daily (6) T2DM (type 2 diabetes mellitus): Plan: Overall well controlled. Last [id number]=2.1 on 08/17/22 -Lantus 10u BID -ISS -Goal blood sugar 110 - 140 (7) GISELL (obstructive sleep apnea): Plan: Chronic. Patient reports compliance with his CPAP. Does not know his settings -CPAP qHS F/E/N - NSS at 125mL/hr x 1 liter, monitor electrolytes and replete as needed, CC/AHA diet as tolerated - Colace and Miralax for bowel regimen - patient reports constipation DVT prophylaxis: on Coumadin, will continue Dispo: Med CODE STATUS: Full Admission and Anticipated Discharge Date Admission Date: January 13, 2023 Supervising Physician Co-Signing Physician Notes I personally examined the patient and verified all guzmán points of history and exam, discussed case, and agree with decision making with Douglas Fuentes MS4 Still nauseatedrelates that to the constipation. Shoulder pain is within the range of what he feels frequently. No bowel movement vitals noted, in general he is awake and alert pleasant no distress. HEENT normocephalic atraumatic mucous membranes moist. Breathing unlabored no accessory muscle use good effort. Skin shows no rashes no pallor or icterus. Neuro no focal deficits. Appearance of sepsis syndromecontinue empiric Rocephin pending further culturesright now working diagnosis would be UTI, I do wonder if his overall appearance is compounded by poor p.o. intake from dehydration/nausea from constipation. Serial exams/vigilance. Otherwise as above Subjective Mr. Cooper is still not feeling well today. He feels weak, cold, has some lightheadedness, and has significant L shoulder/arm pain. He continues to have constipation but doesnt have much abdominal pain; he no longer has any suprapubic pain. Notes no dysuria, hematuria, or urgency with urination. He talked about this worsening of his L shoulder pain compared to baseline; he has a long history of L shoulder pain after an accident at work where he fell on the ice. He states that he his shoulder and was seen by [facility]. They recommended surgery but he did not follow through. He said that the shoulder bothers him on and off since then but has been much worse the past few days. He still feels generally weak. Review of Systems Constitutional: + night sweats, + lightheaded Eyes: no change in vision or hearing Respiratory: sob when walking long distances Cardiovascular: Additional Comments: no chest pain, feels occasional palpitations Gastrointestinal: no abd pain, + constipation Musculoskeletal: + pain in L shoulder, pain in back Neurologic: + weakness Physical Exam Physical Exam: Gen- obese male sitting comfortably, pain with any moving around in the bed HEENT- NC/AT, PERRL. Oral and pharyngeal mucosa moist. Pulm- CTA in all 6 lung ortiz CV- difficult to assess, S1 and S2, Abd- non-tender to palpation in all 4 quadrants MSK/Derm- L shoulder Inspection: no erythema, swelling, gross deformity Palpation: exquisitely tender to palpation over the deltoid, acromioclavicular joint, over the bicep to elbow. ROM: active: limited abduction to 30 degrees, flexion, extension. Passive: limited flexion, extension, abduction to 30 degrees due to pain Motor: strength 4/5 in the R fingers and hand , 5/5 in the L fingers and hand. Strength in shoulder not assessed. Sensation: Bilateral shoulders, arm, fingers sensation to crude touch intact LE-- lymphedema with erythema seen bilaterally. No other rashes, bruises, swelling. Neuro- CN II-XII intact, sensation grossly intact bilaterally UE, LE Results & Data Results & Data ([facility]) Vital Signs (Past 12 Hours) Vital Signs Temp Pulse Pulse Pulse Resp BP BP 01/13/23 08:14 36.8 C 72 17 120/76 01/13/23 02:30 01/13/23 02:30 37 C 88 17 112/74 01/13/23 02:00 98 H 23 130/63 01/13/23 01:30 83 21 01/13/23 01:00 91 H 19 135/59 L 01/13/23 00:30 83 22 01/13/23 00:00 80 22 120/52 L 01/12/23 23:54 01/12/23 23:00 91 H 23 111/61 01/12/23 22:30 92 H 24 01/12/23 22:00 88 23 143/65 H 01/12/23 21:30 88 21 01/12/23 21:00 84 22 133/65 01/12/23 20:36 75 18 01/12/23 23:19 83 Pulse Ox O2 Del Method 01/13/23 08:14 97 Room Air 01/13/23 02:30 Room Air, CPAP 01/13/23 02:30 98 Room Air 01/13/23 02:00 93 Room Air 01/13/23 01:30 01/13/23 01:00 95 Room Air 01/13/23 00:30 94 Room Air 01/13/23 00:00 96 Room Air 01/12/23 23:54 95 Room Air 01/12/23 23:00 01/12/23 22:30 96 Room Air 01/12/23 22:00 96 Room Air 01/12/23 21:30 97 Room Air 01/12/23 21:00 96 Room Air 01/12/23 20:36 96 Room Air 01/12/23 23:19
[2023-01-13] MEDS ORDERED: lisinopril 5 MG TAB PO SCH (09:00)
[2023-01-13] MEDS ORDERED: POLYETHYLENE (MIRALAX) 17 GM PACK PO SCH ×2 (09:00→21:00)
[2023-01-13] MEDS: INSULIN ASPART PER UNIT SC SCH ×4 (09:08→21:02)
[2023-01-13] MEDS: LANTUS PER UNIT CHARGE SQ SCH ×2 (09:13→21:02)
[2023-01-13] MEDS: SIMVASTATIN 20 MG TAB PO SCH (09:15)
[2023-01-13] MEDS: TERAZOSIN HCL 5 MG CAP PO SCH (09:15)
[2023-01-13] MEDS: PANTOprazole 40 MG TAB PO SCH (09:15)
[2023-01-13] MEDS: allopurinoL 100 MG TAB PO SCH ×2 (09:15→21:05)
[2023-01-13] MEDS: GABAPENTIN 100 MG CAP PO SCH ×3 (09:16→21:05)
[2023-01-13] MEDS: METOPROLOL SUCC 50MG EXT REL TAB PO SCH (09:16)
[2023-01-13 11:08] LABS: Basophils # (auto) 0.02 K/uL (0-0.2); Basophils % (auto) 0.1 %; Eosinophils # (auto) 0.02 K/uL (0-0.50); Eosinophils % (auto) 0.1 %; Hematocrit (blood only) 37.3 % (42.0-52.0); Hemoglobin 12.4 g/dl (14.0-18.0); Immature Granulocytes # (auto) 0.08 K/uL (0.01-0.20); Immature Granulocytes % (auto) 0.6 %; Lymphocytes # (auto) 1.01 K/uL (1.2-3.4); Lymphocytes % (auto) 7.5 %; Mean Corpuscular Hgb Conc 33.2 g/dL (32.0-36.0); Mean Corpuscular Volume 96.1 fL (80.0-100.0); Mean Platelet Volume 9.6 fL (9.4-12.4); Monocytes # (auto) 0.73 K/uL (0.11-0.59); Monocytes % (auto) 5.5 %; Neutrophils # (auto) 11.52 K/uL (1.40-6.50); Neutrophils % (auto) 86.2 %; Platelet Count 101 K/uL (130-400); RDW Coefficient of Variation 14.8 % (11.5-14.5); Red Blood Count 3.88 M/uL (4.70-6.10); White Blood Count 13.38 K/ul (4.8-10.8)
--- NOTE | 2023-01-13 11:14 | XRay Report ---
XR shoulder LT min 2V routine CLINICAL HISTORY: Left shoulder pain. COMPARISON: Left shoulder radiographs May 19, 2018. FINDINGS: Severe left glenohumeral joint osteoarthritis has progressed since prior radiographs. Ther e is near complete loss of the joint space with extensive osteophytosis. There is mild flattening of the medial aspect of the left humeral head. There is no fracture. There is also severe AC joint osteo arthritis. IMPRESSION: 1. Progression of severe left glenohumeral joint osteoarthritis. 2. No fractures. ACT 112: Negative or not required by law. Electronically signed by: Jesse Blount M.D. 01/13/2023 11:13 AM
[2023-01-13 12:24] LABS: Albumin Globulin Ratio 1.4 (0.9-2); Albumin Level 3.4 gm/dl (3.4-5.0); BUN Creatinine Ratio 28.6 (10-20); Bilirubin,Total 1.2 mg/dl (0.2-1.0); Calcium 8.5 mg/dl (8.5-10.1); Creatinine Clr Calc Pharmacy 62.9 ml/min; Est GFR (African American) 38.7 ml/min; Est GFR (Non-African American) 33.4 ml/min; Globulin 2.4 gm/dl (2.5-4.0); Potassium 4.2 mmol/L (3.5-5.1); Total Protein 5.8 gm/dl (6.0-8.3)
[2023-01-13 12:29] LABS: Troponin I High Sensitivity 6.3 pg/ml (0-20)
--- NOTE | 2023-01-13 12:34 | Electrocardiogram Report ---
Test Reason : Blood Pressure : / mmHG Vent. Rate : 091 BPM Atrial Rate : 163 BPM P-R Int : 000 ms QRS Dur : 166 ms QT Int : 402 ms P-R-T Axes : 000 014 -19 degrees QTc Int : 494 ms Atrial fibrillation with occasional ventricular-paced complexes Right bundle branch block Abnormal ECG When compared with ECG of 06-JAN-2021 19:30, Electronic ventricular pacemaker has replaced Atrial fibrillation Confirmed by Morales Whitehead ([id number]) on 01/13/2023 12:34:16 PM Referred By: REFERRED SELF Confirmed By:Morales Whitehead
[2023-01-13] MEDS ORDERED: WARFARIN SOD 5 MG TAB PO SCH (16:00)
--- NOTE | 2023-01-13 18:50 | Billing Data ---
Date of Service January 13, 2023 Coding Level of Care Code 39729 SUB INP/OBS CARE MIN
[2023-01-13] MEDS ORDERED: cefTRIAXone SODIUM 2,000 MG in DEXTROSE 5% 50 ML IV SCH (21:00)
[2023-01-13] MEDS: POLYETHYLENE (MIRALAX) 17 GM PACK PO SCH (21:03)
[2023-01-14 07:43] LABS: Albumin Level 3.2 gm/dl (3.4-5.0); Bilirubin Direct 0.2 mg/dl (0-0.2); Bilirubin,Total 0.9 mg/dl (0.2-1.0); Calcium 8.2 mg/dl (8.5-10.1); Creatinine Clr Calc Pharmacy 47.1 ml/min; Est GFR (African American) 27.3 ml/min; Est GFR (Non-African American) 23.6 ml/min; Potassium 4.1 mmol/L (3.5-5.1); Total Protein 5.8 gm/dl (6.0-8.3)
--- NOTE | 2023-01-14 08:03 | Hospitalist Progress Note ---
Date of Service January 14, 2023 Assessment & Plan (1) Urinary tract infection in male: Plan: 67yo male with multiple chronic health conditions presented 01/12 with 1 day of subjective fever, chills and rigors as well as headache, malaise, suprapubic tenderness, and generalized weakness with particular L arm pain and numbness. -Given suprapubic tenderness and urine culture growing Gram negative bacilli, suspect urinary tract infection with potential bacteremia, but other differentials for source of infection include septic glenohumeral joint, cellulitis, viral infxn. -Patient with history of prior sepsis with unknown source in 2018. He had a MRSA infection in his leg as well. - Generalized weakness likely due to UTI, underlying lack of physical activity, recent constipation, but continue to follow symptoms with antibiotic course -01/12: UA with pyuria, + leuk esterase, - nitrates. Follow cultures. Blood cultures sent after antibiotics administered. WBC 12.3 -01/13: Urine culture resulted growing Gram negative bacilli. WBC 13.38 -01/14: Urine culture resulted growing Pseudomonas. WBC 10.67 -01/12-01/13: Ceftriaxone administered; 01/14: Switched to Cefepime. Renally dosed to 1 g/24 hrs. -Follow blood cultures -Tylenol PRN -Continue PT/OT (2) ARF (acute renal failure): Plan: - 01/14: Bump in Creatinine from 2.0 (01/13) to 2.7; GARY likely pre-renal in origin, multifactorial - Given 500 ml NS bolus; continue maintenance IV fluids - Follow Creatinine (3) Left shoulder pain: Plan: -01/13: noted continued persistent L shoulder pain 06/26. Shoulder XR revealed severe left glenohumeral joint osteoarthritis with complete loss of joint space and extensive osteophytosis and no fracture -Given lack of erythema, warmth, swelling on exam, less likely septic joint, but considered. Follow CBC and consider arthrocentesis if worsening -Continue PT and refer to outpatient orthopedics post-discharge (4) Atrial fibrillation, chronic: Plan: Chronic -Continue metoprolol -Continue Coumadin -Monitor INR - 01/13: 2.1 (5) Hyperlipidemia: Plan: Chronic. Stable -Continue Simvastatin 20mg po daily (6) Hypertension: Plan: Chronic. Blood pressure well controlled -Continue Lisinopril 5mg po daily -Continue Metoprolol 100mg po daily (7) T2DM (type 2 diabetes mellitus): Plan: Overall well controlled. Last VcdU9D=4.1 on 08/17/22 -Lantus 10u BID -ISS -Goal blood sugar 110 - 140 (8) GISELL (obstructive sleep apnea): Plan: Chronic. Patient reports compliance with his CPAP. Does not know his settings -CPAP qHS F/E/N - NSS at 100mL/hr x 1 liter, monitor electrolytes and replete as needed, CC/AHA diet as tolerated - Colace and Miralax for bowel regimen - patient reports constipation DVT prophylaxis: on Coumadin, will continue Dispo: Med CODE STATUS: Full Admission and Anticipated Discharge Date Admission Date: January 13, 2023 Supervising Physician Co-Signing Physician Notes I personally examined the patient and verified all guzmán points of history and exam, discussed case, and agree with decision making with Douglas Dill MS4 Feeling a good bit better and eating better. No bowel movement but moving flatus. No urinary symptoms no return of suprapubic pain. No bowel movement vitals noted, in general he is awake and alert pleasant no distress. HEENT normocephalic atraumatic mucous membranes moist. Breathing unlabored no accessory muscle use good effort. Skin shows no rashes no pallor or icterus. Neuro no focal deficits. Appearance of sepsis syndromewithout overt signs or symptoms, right now working diagnosis would be UTI (since growing Pseudomonas, ceftriaxone changed to cefepime), I do wonder if his overall appearance is compounded by poor p.o. intake from dehydration/nausea from constipationthis certainly would be corroborated by his GARY which appears to be prerenalgiving IV fluids. Serial exams/vigilance. Otherwise as above Subjective Mr. Cooper was seen sitting in his chair today; he says he feels a little better. He continues to have constipation but doesnt have any abdominal pain. He has not been able to pass a bowel movement. He reports no suprapubic pain, no dysuria, no urgency, increased frequency, no hematuria. His shoulder pain is about the same. Notes no subj. fevers, chills, sob, chest pain, or palpitations. Review of Systems Eyes: no change in vision or hearing Musculoskeletal: + pain in L shoulder, pain in back Physical Exam 2 Physical Exam: Gen- WN, WD, obese male sitting comfortably at chair next to bedside HEENT- NC/AT, PERRL. Oral and pharyngeal mucosa moist. Pulm- CTA in all 6 lung ortiz CV- difficult to assess, S1 and S2, no m/r/g Abd- non-tender to palpation in all 4 quadrants MSK/Derm- BL extremities with lymphedema and erythema, dry skin. no new rashes, bruises, increased swelling Neuro- CN II-XII intact, sensation grossly intact bilaterally UE, LE Results & Data Results & Data ([facility]) Vital Signs (Past 12 Hours) Vital Signs Temp Pulse Resp BP BP Pulse Ox O2 Del Method 01/14/23 07:44 37.2 C 79 18 102/65 95 Room Air 01/13/23 20:33 36.8 C 80 18 124/68 98 Room Air
[2023-01-14] MEDS ORDERED: SODIUM CHLORIDE 0.9% 1000ML 500 ML IV ONE (08:05)
[2023-01-14 08:07] LABS: Prothrombin Time 20.9 Seconds (9.0-12.0)
[2023-01-14] MEDS: INSULIN ASPART PER UNIT SC SCH ×4 (08:53→21:18)
[2023-01-14] MEDS: LANTUS PER UNIT CHARGE SQ SCH ×2 (08:53→21:18)
[2023-01-14] MEDS: PANTOprazole 40 MG TAB PO SCH (08:54)
[2023-01-14] MEDS: GABAPENTIN 100 MG CAP PO SCH ×3 (08:54→20:20)
[2023-01-14] MEDS: SIMVASTATIN 20 MG TAB PO SCH (08:55)
[2023-01-14] MEDS: allopurinoL 100 MG TAB PO SCH ×2 (08:55→20:22)
[2023-01-14] MEDS: TERAZOSIN HCL 5 MG CAP PO SCH (08:55)
[2023-01-14] MEDS: METOPROLOL SUCC 50MG EXT REL TAB PO SCH (08:55)
[2023-01-14] MEDS: CEROVITE ADV FORMULA TAB PO SCH (08:56)
[2023-01-14] MEDS: POLYETHYLENE (MIRALAX) 17 GM PACK PO SCH ×2 (08:56→20:21)
[2023-01-14] MEDS: CEFEPIME 2,000 MG in SYRINGE 0 ML IV SCH ×2 (09:13→20:19)
[2023-01-14] MEDS: SODIUM CHLORIDE 0.9% 1000ML 1,000 ML IV SCH ×2 (10:01→20:19)
[2023-01-14 10:24] LABS: Hematocrit (blood only) 35.7 % (42.0-52.0); Hemoglobin 11.9 g/dl (14.0-18.0); Mean Corpuscular Hemoglobin 31.8 pg (25.0-34.0); Mean Corpuscular Hgb Conc 33.3 g/dL (32.0-36.0); Mean Corpuscular Volume 95.5 fL (80.0-100.0); Mean Platelet Volume 9.4 fL (9.4-12.4); Platelet Count 102 K/uL (130-400); RDW Coefficient of Variation 14.8 % (11.5-14.5); RDW Standard Deviation 51.8 fL (36.4-46.3); Red Blood Count 3.74 M/uL (4.70-6.10); White Blood Count 10.67 K/ul (4.8-10.8)
[2023-01-14] MEDS: WARFARIN SOD 7.5 MG TAB PO SCH (17:56)
--- NOTE | 2023-01-14 19:24 | Billing Data ---
Date of Service January 14, 2023 Coding Level of Care Code 61414 SUB INP/OBS CARE MIN
[2023-01-14] MEDS: ACETAMINOPHEN W/CODEINE #3 1 TAB PO PRN (20:18)
[2023-01-15] MEDS: SODIUM CHLORIDE 0.9% 1000ML 1,000 ML IV SCH (06:37)
--- NOTE | 2023-01-15 07:46 | Discharge Summary ---
Date of Service January 15, 2023 Admission HPI Per Admitting Provider Melchor Cooper is a 67yo male with history of HTN, HLP, DM and Atrial Fibrillation on Coumadin anticoagulation presenting with concern for sepsis. Patient has had history of MRSA infection in the past. History of sepsis from unknown source. He reports feeling subjective fever, chills, rigors, fatigue generalized weakness and malaise. Also with severe headache, pain in left arm and suprapubic discomfort. Additionally, he has nausea, lightheadedness and some SOB. Patient denies chest pain, cough, rash, joint pain or swelling. In the ER he is afebrile, HD stable, NAD. Adequate oxygenation on room air. ER Course: NSS x 2L Tylenol x 1gm Ceftriaxone x 2gm Principal Diagnosis UTI Discharge Exam Constitutional: well-appearing, no acute distress HEENT: NCAT, no conjunctival injection CV: regular rhythm, no murmur appreciated, extremities well-perfused, no LE edema Resp: CTABL, no wheezes/rales/rhonchi appreciated, no increased work of breathing GI: soft, nondistended, nontender, BS normoactive MSK: no gross deformities appreciated Skin: chronic venous stasis with lymphedema B/L Neuro: alert, oriented, no focal neurologic deficit appreciated Discharge Data Allergies Allergy/AdvReac Type Severity Reaction Status Date / Time bee venom protein (honey bee) Allergy Intermediate SWELLS Verified 01/12/23 23:16 metformin AdvReac Intermediate HIVES Verified 01/12/23 23:16 Consultations 01/12/23 23:24 ED Decision to Admit Stat Ordered Studies 01/12/23 19:38 CT head/brain wo con Urgent Laboratory Results WBC 5.38 K/ul (4.8-10.8) 01/15/23 07:14 RBC 3.61 M/uL (4.70-6.10) L 01/15/23 07:14 Hgb 11.3 g/dl (14.0-18.0) L 01/15/23 07:14 Hct 34.0 % (42.0-52.0) L 01/15/23 07:14 MCV 94.2 fL (80.0-100.0) 01/15/23 07:14 MCH 31.3 pg (25.0-34.0) 01/15/23 07:14 MCHC 33.2 g/dL (32.0-36.0) 01/15/23 07:14 RDW Std Deviation 50.6 fL (36.4-46.3) H 01/15/23 07:14 RDW Coeff of Jack 14.6 % (11.5-14.5) H 01/15/23 07:14 Plt Count 95 K/uL (130-400) L 01/15/23 07:14 MPV 10.1 fL (9.4-12.4) 01/15/23 07:14 Immature Gran % (Auto) 0.4 % 01/15/23 07:14 Neut % (Auto) 80.1 % 01/15/23 07:14 Lymph % (Auto) 11.3 % 01/15/23 07:14 [place] % (Auto) 6.5 % 01/15/23 07:14 Eos % (Auto) 1.3 % 01/15/23 07:14 Baso % (Auto) 0.4 % 01/15/23 07:14 Neut # (Auto) 4.31 K/uL (1.40-6.50) 01/15/23 07:14 Lymph # (Auto) 0.61 K/uL (1.2-3.4) L 01/15/23 07:14 [place] # (Auto) 0.35 K/uL (0.11-0.59) 01/15/23 07:14 Eos # (Auto) 0.07 K/uL (0-0.50) 01/15/23 07:14 Baso # (Auto) 0.02 K/uL (0-0.2) 01/15/23 07:14 Immature Gran # (Auto) 0.02 K/uL (0.01-0.20) 01/15/23 07:14 Absolute Nucleated RBC Cancelled 01/14/23 06:37 Nucleated RBC % (auto) Cancelled 01/14/23 06:37 Platelet Estimate Cancelled 01/14/23 06:37 Polychromasia 1+ 01/15/23 07:14 Echinocytes 1+ 01/15/23 07:14 PT 19.3 Seconds (9.0-12.0) H 01/15/23 07:14 INR 1.9 (0.9-1.1) H 01/15/23 07:14 Sodium 138 mmol/L (136-145) 01/15/23 07:14 Potassium 4.0 mmol/L (3.5-5.1) 01/15/23 07:14 Chloride 110 mmol/L (98-107) H 01/15/23 07:14 Carbon Dioxide 23 mmol/L (21-32) 01/15/23 07:14 Anion Gap 5 (3-11) 01/15/23 07:14 BUN 57 mg/dl (6-23) H 01/15/23 07:14 Creatinine 2.23 mg/dl (0.6-1.4) H D 01/15/23 07:14 Est Cr Clr Drug Dosing 57.3 ml/min 01/15/23 07:14 Est GFR ( Amer) 34.6 ml/min 01/15/23 07:14 Est GFR (Non-Af Amer) 29.8 ml/min 01/15/23 07:14 BUN/Creatinine Ratio 25.6 (10-20) H 01/15/23 07:14 Glucose 104 mg/dl (70-99(Fasting)) H 01/15/23 07:14 POC Glucose 110 mg/dl (70-99) H 01/15/23 17:08 Calcium 8.2 mg/dl (8.5-10.1) L 01/15/23 07:14 Magnesium 1.8 mg/dl (1.7-2.4) 01/12/23 19:56 Total Bilirubin 0.6 mg/dl (0.2-1.0) 01/15/23 07:14 Direct Bilirubin 0.2 mg/dl (0-0.2) 01/14/23 06:37 AST 15 U/L (13-39) 01/15/23 07:14 ALT 5 U/L (7-52) L 01/15/23 07:14 Alkaline Phosphatase 34 U/L (34-104) 01/15/23 07:14 Troponin I High Sens 6.3 pg/ml (0-20) 01/13/23 11:48 Total Protein 6.0 gm/dl (6.0-8.3) 01/15/23 07:14 Albumin 3.2 gm/dl (3.4-5.0) L 01/15/23 07:14 Globulin 2.8 gm/dl (2.5-4.0) 01/15/23 07:14 Albumin/Globulin Ratio 1.1 (0.9-2) 01/15/23 07:14 Procalcitonin 0.42 ng/ml (0-0.5) 01/13/23 10:19 TSH 1.392 uIu/ml (0.300-4.500) 01/12/23 19:56 Urine Color Yellow 01/12/23 20:21 Urine Appearance Clear (Clear) 01/12/23 20:21 Urine pH 5.0 (4.5-7.5) 01/12/23 20:21 Ur Specific [place] 1.017 (1.000-1.030) 01/12/23 20:21 Urine Protein Negative (Negative) 01/12/23 20:21 Urine Glucose (UA) Negative (Negative) 01/12/23 20:21 Urine Ketones Negative (Negative) 01/12/23 20:21 Urine Blood Negative (Negative) 01/12/23 20:21 Urine Nitrite Negative (Negative) 01/12/23 20:21 Urine Bilirubin Negative (Negative) 01/12/23 20:21 Urine Urobilinogen Negative (Negative) 01/12/23 20:21 Ur Leukocyte Esterase 2+ (Negative) H 01/12/23 20:21 Urine WBC (Auto) >30 /hpf (0-5) H 01/12/23 20:21 Urine RBC (Auto) 0-4 /hpf (0-4) 01/12/23 20:21 U Hyaline Cast (Auto) 1-5 /lpf (0-5) 01/12/23 20:21 U Epithel Cells (Auto) 10-20 /lpf (0-5) H 01/12/23 20:21 Urine Bacteria (Auto) Negative (Negative) 01/12/23 20:21 Hepatitis C Ab (EIA) NON-REACTIVE (NON-REACTIVE) 01/13/23 06:05 Hep C Ab Signal/Cutoff 0.06 (<1.00) 01/13/23 06:05 SARS-CoV-2, RNA, NAAT NEGATIVE (NEGATIVE) 01/12/23 20:21 Impressions Chest X-Ray 01/12/23 19:38 XR chest 1V portable CLINICAL HISTORY: weakness COMPARISON STUDY: Chest radiograph 01/06/2021. FINDINGS: Elevation of the right hemidiaphragm is unchanged. Mild cardiomegaly is unchanged. There is pulmonary vascular congestion without overt pulmonary edema. No consolidation. No pneumothorax or pleural effusion. IMPRESSION: Cardiomegaly with pulmonary vascular congestion. ACT 112: Negative or not required by law. Electronically signed by: Jesse Blount M.D. 01/12/2023 8:[address] 01/12/23 19:38 CT head/brain wo con CLINICAL HISTORY: headache, left arm numbness Technique: Contiguous axial CT images of the head were acquired from the base of the skull to the vertex without intravenous contrast administration. Images were viewed in brain, subdural and bone windows. Automated dose lowering techniques and/or adjustment according to patient size were utilized for this exam. Comparison: None available at the time of this dictation. Findings: The ventricles, basal cisterns, and cerebral sulci are normal. There is no acute intracranial hemorrhage or evidence of acute territorial infarction. Neither mass effect, shift of the midline structures, nor abnormal extra-axial fluid collections are shown. Calcifications of the falx incidentally noted. Opacification of the left sphenoid sinus is noted. The orbits appear normal. There are no acute fractures of the calvaria or scalp swelling. Impression: Sinus disease is noted. ACT 112: Negative or not required by law. Electronically signed by: Emanuel Cobian M.D. 01/13/2023 7:22 AM Shoulder X-Ray 01/13/23 09:43 XR shoulder LT min 2V routine CLINICAL HISTORY: Left shoulder pain. COMPARISON: Left shoulder radiographs May 19, 2018. FINDINGS: Severe left glenohumeral joint osteoarthritis has progressed since prior radiographs. There is near complete loss of the joint space with extensive osteophytosis. There is mild flattening of the medial aspect of the left humeral head. There is no fracture. There is also severe AC joint osteoarthritis. IMPRESSION: 1. Progression of severe left glenohumeral joint osteoarthritis. 2. No fractures. ACT 112: Negative or not required by law. Electronically signed by: Jesse Blount M.D. 01/13/2023 11:13 AM Hospital Course (1) Urinary tract infection in male: 67yo male with multiple chronic health conditions presented 01/12 with 1 day of subjective fever, chills and rigors as well as headache, malaise, suprapubic tenderness, and generalized weakness with particular L arm pain and numbness. -Given suprapubic tenderness and urine culture growing Gram negative bacilli, suspect urinary tract infection. -Patient with history of prior sepsis with unknown source in 2018. He had a MRSA infection in his leg as well. - Urine culture growing Pseudomonas, blood cultures without growth -Treated with Cefepime. Transited to ciprofloxacin upon dc, renally dosed for a total of 7 days (2) ARF (acute renal failure): -Likely prerenal secondary to poor PO intake. Imporved with IVF. - Repeat BMP next week. Lisinopril/furosemide held until f/u with PCP. (3) Left shoulder pain: - Shoulder XR revealed severe left glenohumeral joint osteoarthritis with complete loss of joint space and extensive osteophytosis and no fracture -Given lack of erythema, warmth, swelling on exam, less likely septic joint, but considered. (4) Atrial fibrillation, chronic: Chronic -Continue metoprolol -Continue Coumadin INR= 1.9 upon discharge, will call Coumadin Clinic for dose adjustment/INR recheck on Friday (5) Hyperlipidemia: -Continue Simvastatin 20mg po daily (6) Hypertension: Chronic. Blood pressure well controlled -Continue Metoprolol 100mg po daily - Lisinopril held due to GARY, plan to resume per PCP (7) T2DM (type 2 diabetes mellitus): Overall well controlled. Last QktE3D=6.1 on 08/17/22 -Plan to resume home regimen upon discharge (8) GISELL (obstructive sleep apnea): Chronic. Patient reports compliance with his CPAP. -CPAP qHS Total Time Total Time Spent Total Time Spent (In Minutes): <30 Discharge Plan Discharge Items Patient Disposition: Home - Self-Care Reason For Visit: FATIGURE, RIGORS Discharge Diagnosis: Urinary Tract Infection Activity: Resume your previous activity Non-emergency contact: Primary Care Provider Call non-emergency contact if: you have any medication questions, your symptoms worsen and you have a fever Follow-up/Referrals: Aden Mims [Primary Care Provider] - 01/20/23 11:15 am (YUDELKA Vega will see you in the [place] office for this follow up appt. If you need to reschedule, please call [place] office.) Mejia Mart MD [Physician] - 01/17/23 2:00 pm (Recurrent sepsis. Concern for underlying immunocompromising ) Diet: Regular Addtl Attending Provider Instructions: Urinary Tract Infection We think that your weakness/fatigue was due to decreased eating/drinking because of both constipation and a UTI. There was bacteria in your urine, so we have be en treating you with IV antibiotics. We are going to send a prescription for Ciprofloxacin to your pharmacy. This is an oral antibiotic that will treat the specific bacteria that was growing in your urine. You should take it 1 tab (500mg) every 12 hours for the next 5 days. If you were to develop a fever or new or worsening urinary symptoms you should call you primary care doctor or go back to the ED. Ciprofloxacin can cause rupture of Achilles. There is a low risk of this happening, but do not do any strenuous activity while you are on it. Because of your recurrent infections, we placed a referral for you to see the immunology to consider other reasons that you could be getting these recurrent infections. The ciprofloxacin can effect your INR. Please reach out to your Coumadin clinic and plan to get your INR checked again on Friday, so that they can adjust your Coumadin dosing prior to the weekend. Acute Kidney Injury Your creatine (kidney function number) was elevated. It has started to come down with IV fluids and now that you are eating and drinking better. We would like you to follow you with your primary care provider to have lab work re checked next week. Please hold off on taking your lisinopril and furosemide until you see your primary care provider. Constipation We have been giving your Miralax for your constipation. Here you have been getting 2 caps twice a day. You should continue to take 1-2 caps as needed for constipation. Left Shoulder Pain We got an x-ray of your shoulder that showed osteoarthritis. There was no indication of any new changes that could be causing your pain. You should discuss further options for pain management moving forward with your primary care doctor. Pending Studies at Discharge: No Stand-Alone Forms: My M-Changa, Smoking Cessation Medications and DC Order Prescriptions: New ciprofloxacin HCl 500 mg tablet 500 mg PO Q12H 5 Days Qty: 11 0RF Continued cephalexin 500 mg capsule 500 mg PO BID Qty: 60 3RF Levemir FlexTouch U-100 Insuln 100 unit/mL (3 mL) insulin pen 24 unit SUBCUT HS semaglutide 2 mg/dose (8 mg/3 mL) pen injector 2 mg subcut ONCE 30 Days Qty: 3 5RF Rx Instructions: Inject once a week on the same day each week. ipratropium-albuterol 20-100 mcg/actuation mist 2 spray inhalation QID PRN (Reason: Shortness Of Breath Or Wheezing) cholecalciferol (vitamin D3) 5,000 unit capsule 5,000 units PO DAILY acetaminophen-codeine 300-60 mg tablet 1 tab PO Q8H PRN (Reason: pain) Qty: 30 allopurinol 100 mg tablet 100 mg PO BID metoprolol succinate 100 mg tablet extended release 24 hr 100 mg PO DAILY Qty: 90 pantoprazole 40 mg tablet,delayed release (DR/EC) 40 mg PO DAILY simvastatin 20 mg tablet 20 mg PO DAILY terazosin 5 mg capsule 5 mg PO DAILY epinephrine [EpiPen] 0.3 mg/0.3 mL auto-injector 0.3 mg IM UD PRN (Reason: hypersensitivity reaction) gabapentin 100 mg capsule 100 mg PO TID Slow-Mag 71.5 mg tablet,delayed release (DR/EC) 71.5 mg PO BID Centrum Men 8 mg iron- 200 mcg-600 mcg tablet 1 tab PO DAILY warfarin [Jantoven] 5 mg tablet 7.5 mg PO SUTUWETHSA warfarin [Jantoven] 5 mg tablet 5 mg PO MOFR insulin lispro [Humalog KwikPen Insulin] 100 unit/mL insulin pen 0 unit subcut TIDM Discontinued lisinopril 5 mg tablet 5 mg PO DAILY Qty: 30 furosemide 40 mg tablet 40 mg PO DAILY Discharge Orders: Discharge Order (Routine); Ordered 01/15/23 Ordered By: Mary Jane Carranza Admission Data Admit Date/Time: 01/13/23 00:53 Attending Provider: David Trujillo Admit Provider: Debbie Lee Primary Care Provider: Aden Mims Other Providers: Debbie Lee Other Interventions: Discharge Summary Assessment (RN) Last Done: 01/15/23 12:58 Supervising Physician Co-Signing Physician Notes I personally examined the patient and verified all guzmán points of history and exa m, discussed case, and agree with decision making with Dr. Carranza Up and out of bed, feeling better. Feels up to going home. Discussed oral antibiotics. Discussed immunology follow-up. No bowel movement vitals noted, in general he is awake and alert pleasant no distress. HEENT normocephalic atraumatic mucous membranes moist. Breathing unlabored no accessory muscle use good effort. Skin shows no rashes no pallor or icterus. Neuro no focal deficits. Appearance of sepsis syndromepseudomonal UTI. Improved. Was on cefepime here (after initial empiric ceftriaxonewhich was changed once Pseudomonas was identified). Safe/stable for home on ciprofloxacin. Given recurrent bacterial sepsis syndromes, will ask for outpatient immunology evaluation. Resident Activity Tracking Resident Involvement: Resident Care Provided Care Provided: Adult Hospital Medicine
[2023-01-15 07:56] LABS: Albumin Globulin Ratio 1.1 (0.9-2); Albumin Level 3.2 gm/dl (3.4-5.0); BUN Creatinine Ratio 25.6 (10-20); Bilirubin,Total 0.6 mg/dl (0.2-1.0); Calcium 8.2 mg/dl (8.5-10.1); Creatinine Clr Calc Pharmacy 57.3 ml/min; Est GFR (African American) 34.6 ml/min; Est GFR (Non-African American) 29.8 ml/min; Globulin 2.8 gm/dl (2.5-4.0)
[2023-01-15 08:37] LABS: Basophils # (auto) 0.02 K/uL (0-0.2); Basophils % (auto) 0.4 %; Echinocytes 1+; Eosinophils # (auto) 0.07 K/uL (0-0.50); Eosinophils % (auto) 1.3 %; Hemoglobin 11.3 g/dl (14.0-18.0); Immature Granulocytes # (auto) 0.02 K/uL (0.01-0.20); Immature Granulocytes % (auto) 0.4 %; Lymphocytes # (auto) 0.61 K/uL (1.2-3.4); Lymphocytes % (auto) 11.3 %; Mean Corpuscular Hemoglobin 31.3 pg (25.0-34.0); Mean Corpuscular Hgb Conc 33.2 g/dL (32.0-36.0); Mean Corpuscular Volume 94.2 fL (80.0-100.0); Mean Platelet Volume 10.1 fL (9.4-12.4); Monocytes # (auto) 0.35 K/uL (0.11-0.59); Monocytes % (auto) 6.5 %; Neutrophils # (auto) 4.31 K/uL (1.40-6.50); Neutrophils % (auto) 80.1 %; Platelet Count 95 K/uL (130-400); Polychromasia 1+; RDW Coefficient of Variation 14.6 % (11.5-14.5); RDW Standard Deviation 50.6 fL (36.4-46.3); Red Blood Count 3.61 M/uL (4.70-6.10); White Blood Count 5.38 K/ul (4.8-10.8)
[2023-01-15 08:44] LABS: INR 1.9 (0.9-1.1); Prothrombin Time 19.3 Seconds (9.0-12.0)
[2023-01-15] MEDS: POLYETHYLENE (MIRALAX) 17 GM PACK PO SCH ×3 (09:11→14:59)
[2023-01-15] MEDS: SIMVASTATIN 20 MG TAB PO SCH (09:11)
[2023-01-15] MEDS: GABAPENTIN 100 MG CAP PO SCH ×2 (09:11→14:58)
[2023-01-15] MEDS: allopurinoL 100 MG TAB PO SCH (09:11)
[2023-01-15] MEDS: TERAZOSIN HCL 5 MG CAP PO SCH (09:11)
[2023-01-15] MEDS: CEROVITE ADV FORMULA TAB PO SCH (09:11)
[2023-01-15] MEDS: CEFEPIME 2,000 MG in SYRINGE 0 ML IV SCH (09:11)
[2023-01-15] MEDS: PANTOprazole 40 MG TAB PO SCH (09:11)
[2023-01-15] MEDS: METOPROLOL SUCC 50MG EXT REL TAB PO SCH (09:11)
[2023-01-15] MEDS: LANTUS PER UNIT CHARGE SQ SCH (09:49)
[2023-01-15] MEDS: INSULIN ASPART PER UNIT SC SCH ×3 (09:49→17:32)
[2023-01-15] MEDS: WARFARIN SOD 7.5 MG TAB PO SCH (17:32)
--- NOTE | 2023-01-15 20:22 | Billing Data ---
Date of Service January 15, 2023 Coding Level of Care Code 10646 IN/OBS DISCH 30 MIN/LESS
== END 2023-01-15 18:16 | disposition home or self-care (01) | DRG 872 ==
LOC: ED 19:21 → 3W 01-13 00:53 → SUATTDRO 01-13 00:53 → 3W 01-13 02:20

== ENCOUNTER 2023-06-09 13:31 | Inpatient (IN) ==
--- NOTE | 2023-06-09 13:42 | ED Triage Note ---
Date of Service June 09, 2023 History of Present Illness This patient was briefly evaluated while in triage. An abbreviated physical exam was performed. This patient is a 68-year-old Male who presents to the ED for evaluation of severe abdominal pain, Upper abd in a band like distriburtion. No BM for a cou ple days. He has tried to vomit but no vomiting. He notes body aches and chills. Pain started over a week ago but worsened today. Currently anticoagulated. Physical Exam GENERAL: 68 year old male. In no acute distress. SKIN: No lesions or rashes. HEART: Regular rate and rhythm. LUNGS: Clear to auscultation. ABDOMEN: Bowel sounds normoactive. No guarding or rigidity. Ventral hernia noted. TTP in upper abdomen noted. NEURO: Alert and oriented. No deficits.. PSYCH: Patient is pleasant and answers all questions appropriately. Initial orders for labs and / or imaging were placed and patient was placed in the waiting area until a bed is available. Please see further documentation for the full ED course.
--- NOTE | 2023-06-09 15:28 | CT Scan Report ---
ABDOMEN AND PELVIS CT WITHOUT CONTRAST CT DOSE: 1942.59 mGy.cm HISTORY: Acute upper abdominal pain Upper abd pain TECHNIQUE: Multiaxial CT images of the abdomen and pelvis were performed without contrast. A dose lo wering technique was utilized adhering to the principles of ALARA. COMPARISON STUDY: 12/22/2017 FINDINGS: Limited exam secondary to patient body habitus and lack of contrast. Extensive coronary art melissa calcifications with trace pericardial effusion. Trace pleural effusions. Partially imaged irregul ar subsolid 1.1 cm irregular nodule within the left lower lobe on image 1 series 3 was previously marv sured at 1.3 cm. No pneumatosis or pneumoperitoneum. The unenhanced spleen, moderately atrophic pancreas and adrenal glands are unremarkable. Cholelithias is with equivocal gallbladder wall thickening. Hepatic steatosis. Cortical thinning of the kidneys with bilateral perinephric stranding. There is an exophytic lesion o f the posterior superior pole right kidney measuring 3.8 cm with Hounsfield unit of 45, stable in siz e from prior. There is an additional possible lesion of the inferior pole right kidney measuring 3.6 cm on image 204. No urolith or hydronephrosis. Prostatomegaly. Unremarkable urinary bladder. No abdom inal aortic aneurysm. Mild nonspecific iliac chain lymphadenopathy with lymph nodes measuring up to 1 .7 cm on the left. Postoperative changes of this down neck. Colonic diverticulosis. There are a few scattered small mihai l air-fluid levels noted within the lower abdomen and pelvis with mild dilation measuring up to 3.4 c m. Hernias within the lower abdominal pannus containing mesenteric fat and loops of small bowel. Smal l bowel narrowing at the hernia ostia are noted. Moderate interloop edema with trace ascites. Mesente zeyad stranding at the abdominal hernia site. Several small additional fat filled abdominal wall hernia s are noted. Appendectomy. Degenerative changes of the spine, pelvis and hips. IMPRESSION: 1. Abdominal hernias within the lower anterior abdominal wall contain mesenteric fat and a few loops of fluid-filled small bowel. There is narrowing of the small bowel loops at the hernia ostia with a f ew mildly dilated loops within the pelvis demonstrating adjacent inflammatory stranding with trace in terloop edema. Correlate clinically to exclude a developing small bowel obstruction. 2. No pneumoperitoneum. 3. Cholelithiasis. 4. Stable indeterminate 3.8 cm exophytic mass of the superior pole right kidney appears stable dating back to the 2018 exam. 5. Possible lesion of the inferior pole right kidney could be correlated with a nonemergent follow-up renal protocol CT. 6. Partially imaged subsolid 1.1 cm nodule within the left lower lobe also appears stable from 2018. 7. Additional findings as above. ACT 112: Negative or not required by law. The above report was generated using voice recognition software. It may contain grammatical, syntax o r spelling errors. Electronically signed by: Rommel Prince M.D. 06/09/2023 3:27 PM
[2023-06-09 16:22] LABS: Basophils # (auto) 0.02 K/uL (0-0.2); Basophils % (auto) 0.2 %; Eosinophils # (auto) 0.03 K/uL (0-0.50); Eosinophils % (auto) 0.3 %; Hemoglobin 15.9 g/dl (14.0-18.0); Immature Granulocytes # (auto) 0.03 K/uL (0.01-0.20); Immature Granulocytes % (auto) 0.3 %; Lymphocytes # (auto) 1.13 K/uL (1.2-3.4); Lymphocytes % (auto) 12.7 %; Mean Corpuscular Hemoglobin 32.4 pg (25.0-34.0); Mean Corpuscular Hgb Conc 34.6 g/dL (32.0-36.0); Mean Corpuscular Volume 93.7 fL (80.0-100.0); Mean Platelet Volume 10.3 fL (9.4-12.4); Monocytes # (auto) 0.28 K/uL (0.11-0.59); Monocytes % (auto) 3.2 %; Neutrophils # (auto) 7.39 K/uL (1.40-6.50); Neutrophils % (auto) 83.3 %; Platelet Count 141 K/uL (130-400); RDW Coefficient of Variation 14.5 % (11.5-14.5); RDW Standard Deviation 50.2 fL (36.4-46.3); Red Blood Count 4.91 M/uL (4.70-6.10); White Blood Count 8.88 K/ul (4.8-10.8)
[2023-06-09 16:41] LABS: Albumin Globulin Ratio 1.6 (0.9-2); Albumin Level 4.5 gm/dl (3.4-5.0); BUN Creatinine Ratio 19.7 (10-20); Bilirubin,Total 1.5 mg/dl (0.2-1.0); Calcium 10.1 mg/dl (8.6-10.3); Creatinine Clr Calc Pharmacy 67.8 ml/min; Est GFR (African American) 45.1 ml/min; Est GFR (Non-African American) 38.9 ml/min; Globulin 2.9 gm/dl (2.5-4.0); Magnesium 1.6 mg/dl (1.7-2.4); Potassium 3.9 mmol/L (3.5-5.1); Total Protein 7.4 gm/dl (6.0-8.3)
[2023-06-09 16:48] LABS: INR 2.2 (0.9-1.1); Partial Thromboplastin Ratio 1.3; Partial Thromboplastin Time 35.9 Seconds (21.0-31.0); Prothrombin Time 22.7 Seconds (9.0-12.0)
[2023-06-09] MEDS ORDERED: MoRPHine SULFATE 4 MG/ML 1 ML CARP\\VIAL IV STA (17:27)
[2023-06-09] MEDS ORDERED: ONDANSETRON INJ 2 MG/ML 2 ML VIAL IV STA (17:27)
[2023-06-09] MEDS ORDERED: SODIUM CHLORIDE 0.9% 1000ML 1,000 ML IV SCH (17:30)
[2023-06-09 18:03] LABS: Appearance Urine Clear (Clear); Bilirubin Urine Negative (Negative); Blood Urine Negative (Negative); Color Urine Yellow; Glucose Urine UA Negative (Negative); Ketones Urine Negative (Negative); Leukocyte Esterase Urine Negative (Negative); Nitrite Urine Negative (Negative); Protein Urine Negative (Negative); Specific Gravity Urine 1.008 (1.000-1.030); Urobilinogen Urine Negative (Negative)
--- NOTE | 2023-06-09 18:05 | History & Physical Report ---
Date of Service June 09, 2023 Assessment & Plan (1) Abdominal pain: Plan: -Admit to med/tele -Currently stable -Patient has been having increased abdominal pain, decreased appetite, constipation, and nausea over the past week -CT of the abd/pelvis today shows signs of possible bowel obstruction due to bowel located within the abdominal wall -Patient is currently comfortable lying flat but symptoms are exacerbated with increased intra-abdominal pressure -Evaluated by general surgery -Strict NPO overnight -Light IV fluids overnight while NPO -If any acute clinical decline overnight would have General Surgery re-evaluate -Will transition the patient to a heparin drip for anticoagulation with afib in case the patient would need the OR in the near future -AM CBC, CMP, Mag, PT/INR (2) Atrial fibrillation, chronic: Plan: -Stable (3) Morbid obesity: (4) Hypertension: (5) T2DM (type 2 diabetes mellitus): (6) GISELL (obstructive sleep apnea): (7) Lymphedema of both lower extremities: (8) Hypomagnesemia: History of Present Illness Chief Complaint: abdominal pain, nausea, constipation Primary Care Provider: Aden Roche is a 67yo male with history of bariatric surgery at [facility] in 1998, HTN, HLP, DMII, Atrial Fibrillation on Coumadin, GISELL, recurrent MRSA infection (follows with [facility] Incubator ID and on chronic Keflex therapy), and morbid obesity who presented to the [facility] ED on 06/09 with complaints of abdominal pain and constipation. In the ED, vitals were stable. Labs were significant for an INR of 2.2, amg of 1.6, total bili of 1.5. CT of the abd/pelvis wo con was read as "1. Abdominal hernias within the lower anterior abdominal wall contain mesenteric fat and a few loops of fluid-filled small bowel. There is narrowing of the small bowel loops at the hernia ostia with a few mildly dilated loops within the pelv is demonstrating adjacent inflammatory stranding with trace interloop edema. Correlate clinically to exclude a developing small bowel obstruction. 2. No pneumoperitoneum. 3. Cholelithiasis. 4. Stable indeterminate 3.8 cm exophytic mass of the superior pole right kidney appears stable dating back to the 2018 exam. 5. Possible lesion of the inferior pole right kidney could be correlated with a nonemergent follow-up renal protocol CT. 6. Partially imaged subsolid 1.1 cm nodule within the left lower lobe also appears stable from 2018. 7. Additional findings as above.". General Surgery was consulted and recommended Medicine admission with General Surgery following. Prior to admission the patient was given 4mg IV morphine, 4mg IV zofran, and started on NSS at 80 mL/hr. At the time of the exam the patient was lying in bed in no acute distress with is sitting bedside, history was obtained from both. They state that the patient has two, large abdominal wall hernias at the site of his previous bariatric surgery. His hernias frequently protrude through the abdominal wall and stay out for hours, but always reduce themselves. He states that he has chronic abd pain and inconsistent bowel movements since his bariatric surgery. Approximately one week ago the patient started to develop increased abdominal pain, decreased appetite, nausea, and constipation. He had a large bowel movement on 06/06 and a small bowel movement yesterday, he states he is currently passing a small amount amount of gas. He states that yesterday his abdominal hernia protruded severely after bending over, he experienced severe pain after that. While in the waiting room today the patient states that he was in severe pain as sitting in the chair was increasing his intra-abdominal pressure. He walked to the bathroom earlier which exacerbated his symptoms, but he is currently without pain while lying flat. He denies recent fever, chills, chest pain, SOB, cough, nausea, vomiting, diarrhea, dysuria hematuria, melena, worsening LE swelling and recent trauma. He is a full code and would want his to make medical decisions for him if he cannot make them himself. Please refer Dr. Aguayo's attestation for any changes to the treatment plan Allergies Allergy/AdvReac Type Severity Reaction Status Date / Time bee venom protein (honey bee) Allergy Intermediate SWELLS Verified 06/09/23 17:06 metformin Allergy Intermediate HIVES Verified 06/09/23 17:06 Home Medications Medication Instructions Recorded Confirmed Type allopurinol 100 mg tablet 100 mg PO BID 06/30/19 06/09/23 History cholecalciferol (vitamin D3) 125 5,000 units PO Q2D 06/30/19 06/09/23 History mcg (5,000 unit) capsule ipratropium 20 mcg-albuterol 100 2 spray inhalation QID PRN 06/30/19 06/09/23 History mcg/actuation mist for inhalation Shortness Of Breath Or Wheezing metoprolol succinate 100 mg 100 mg PO DAILY #90 tabs 06/30/19 06/09/23 History tablet,extended release 24 hr simvastatin 20 mg tablet 20 mg PO DAILY 06/30/19 06/09/23 History terazosin 5 mg capsule 5 mg PO DAILY 06/30/19 06/09/23 History epinephrine 0.3 mg/0.3 mL 0.3 mg IM UD PRN hypersensitivity 10/12/19 06/09/23 History injection, auto-injector (EpiPen) reaction magnesium chloride 71.5 mg 71.5 mg PO BID 12/09/19 06/09/23 History (magnesium chloride) tablet,delayed release (Slow-Mag) multivit,Ca,min-iron 8 mg-folic 1 tab PO DAILY 01/02/20 06/09/23 History acid 200 mcg-lycopene 600 mcg tablet (Centrum Men) cephalexin 500 mg capsule 500 mg PO BID #60 caps 02/28/20 06/09/23 Rx warfarin 5 mg tablet (Jantoven) 10 mg PO WK 08/10/20 06/09/23 History insulin lispro 100 unit/mL 0 unit subcut TIDM 01/12/23 06/09/23 History subcutaneous pen (Humalog KwikPen (U-100) Insulin) warfarin 5 mg tablet (Jantoven) 7.5 mg PO 6XWK 01/12/23 06/09/23 History furosemide 40 mg tablet 40 mg PO DAILY 02/18/23 06/09/23 History gabapentin 100 mg capsule 100 mg PO BID 02/18/23 06/09/23 History lisinopril 5 mg tablet 5 mg PO DAILY 02/18/23 06/09/23 History ascorbic acid (vitamin C) 500 mg 500 mg PO DAILY 06/09/23 06/09/23 History tablet insulin glargine U-300 conc 300 24 unit subcut HS 06/09/23 06/09/23 History unit/mL (3 mL) subcutaneous pen (Toujeo Max U-300 SoloStar) Past Med/Surg History Medical History (Updated 06/09/23 @ 18:48 by Brock Zacarias PA-C) ARF (acute renal failure) CKD (chronic kidney disease), stage III COPD exacerbation Elevated lactic acid level Generalized weakness Headache Hyperlipidemia Hypertension Leukocytosis Lymphedema of both lower extremities Near syncope Obesity GISELL (obstructive sleep apnea) Sepsis Sepsis due to group B Streptococcus Sinusitis T2DM (type 2 diabetes mellitus) Surgical History H/O gastric bypass 1998 Total knee replacement status R once; L twice Family History Mother Heart disease Kidney disease Hypertension Father Dementia Diabetes Heart disease Social History Smoking Status: Never smoker Hx Alcohol Use: Yes Alcohol type: beer and hard liquor Alcohol Intake Frequency Comment: Occasionally Hx Substance Use: No Preferred Language: Angolan Communication Ability: Effective Manager Of Creative Services Required: No Beliefs That Will Affect Care: None marital status: Current Living Situation: Spouse current occupational status: retired 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 [email or web address] Feels Safe at Home: Yes Assistive Devices: None Physical Exam Physical Exam: Physical Exam: General: In no acute distress, stated age, morbidly obese, non-toxic appearing HEENT: Normocephalic, atraumatic, no scleral icterus, pupils around round, symmetrical, and reactive to light, moist mucus membranes, trachea midline, no thyromegaly Chest/Pulm: No respiratory distress, symmetrical chest expansion, clear breath sounds throughout Cardiac: RRR, no murmurs noted Abdomen: Large central abdominal scar from previous bariatric surgery is well/healed and without signs on infection, no sign of protruding hernia while patient is lying flat, hyperactive bowel sounds, soft, tender to palpation in the central abdomen and BL lower abdominal ortiz Musculoskeletal: S/P previous left pointer finger amputation, otherwise Symmetrical and without signs of acute trauma, upper and lower extremities with full ROM, no atrophy, spasticity, or flaccidity Extremities: Radial, dorsalis pedis, and posterior tibial pulses are intact and symmetrical, chronic severe venous stasis in the BL LE's Skin: Warm, dry, no rashes , lesions, or scars noted Neuro: Alert and oriented to person, place, month, year, and president, no focal defects, no tremors noted Psych: No acute distress, calm and cooperative during the exam Results & Data Results & Data Vital Signs (Past 12 Hours) Vital Signs Temp Pulse Resp BP Pulse Ox O2 Del Method 06/09/23 13:40 36.9 C 72 20 111/77 100 Room Air Laboratory Results Abnormal lab results 06/09/23 06/09/23 06/09/23 Range/Units 16:00 16:00 16:00 RDW Std Deviation 50.2 H (36.4-46.3) fL Neut # (Auto) 7.39 H (1.40-6.50) K/uL Lymph # (Auto) 1.13 L (1.2-3.4) K/uL PT 22.7 H (9.0-12.0) Seconds INR 2.2 H (0.9-1.1) APTT 35.9 H (21.0-31.0) Seconds BUN 35 H (6-23) mg/dl Creatinine 1.78 H (0.6-1.4) mg/dl Glucose 101 H (70-99(Fasting)) mg/dl Magnesium 1.6 L (1.7-2.4) mg/dl Total Bilirubin 1.5 H (0.2-1.0) mg/dl ALT 6 L (7-52) U/L Diagnostic Findings Abdomen/Pelvis CT 06/09/23 13:[address] WITHOUT CONTRAST CT DOSE: 1942.59 mGy.cm HISTORY: Acute upper abdominal pain Upper abd pain TECHNIQUE: Multiaxial CT images of the abdomen and pelvis were performed without contrast. A dose lowering technique was utilized adhering to the principles of ALARA. COMPARISON STUDY: 12/22/2017 FINDINGS: Limited exam secondary to patient body habitus and lack of contrast. Extensive coronary artery calcifications with trace pericardial effusion. Trace pleural effusions. Partially imaged irregular subsolid 1.1 cm irregular nodule within the left lower lobe on image 1 series 3 was previously measured at 1.3 cm. No pneumatosis or pneumoperitoneum. The unenhanced spleen, moderately atrophic pancreas and adrenal glands are unremarkable. Cholelithiasis with equivocal gallbladder wall thickening. Hepatic steatosis. Cortical thinning of the kidneys with bilateral perinephric stranding. There is an exophytic lesion of the posterior superior pole right kidney measuring 3.8 cm with Hounsfield unit of 45, stable in size from prior. There is an additional possible lesion of the inferior pole right kidney measuring 3.6 cm on image 204. No urolith or hydronephrosis. Prostatomegaly. Unremarkable urinary bladder. No abdominal aortic aneurysm. Mild nonspecific iliac chain lymphadenopathy with lymph nodes measuring up to 1.7 cm on the left. Postoperative changes of this down neck. Colonic diverticulosis. There are a few scattered small bowel air-fluid levels noted within the lower abdomen and pelvis with mild dilation measuring up to 3.4 cm. Hernias within the lower abdominal pannus containing mesenteric fat and loops of small bowel. Small bowel narrowing at the hernia ostia are noted. Moderate interloop edema with trace ascites. Mesenteric stranding at the abdominal hernia site. Several small additional fat filled abdominal wall hernias are noted. Appendectomy. Degenerative changes of the spine, pelvis and hips. IMPRESSION: 1. Abdominal hernias within the lower anterior abdominal wall contain mesenteric fat and a few loops of fluid-filled small bowel. There is narrowing of the small bowel loops at the hernia ostia with a few mildly dilated loops within the pelvis demonstrating adjacent inflammatory stranding with trace interloop edema. Correlate clinically to exclude a developing small bowel obstruction. 2. No pneumoperitoneum. 3. Cholelithiasis. 4. Stable indeterminate 3.8 cm exophytic mass of the superior pole right kidney appears stable dating back to the 2018 exam. 5. Possible lesion of the inferior pole right kidney could be correlated with a nonemergent follow-up renal protocol CT. 6. Partially imaged subsolid 1.1 cm nodule within the left lower lobe also appears stable from 2018. 7. Additional findings as above. ACT 112: Negative or not required by law. The above report was generated using voice recognition software. It may contain grammatical, syntax or spelling errors. Electronically signed by: Rommel Prince M.D. 06/09/2023 3:27 PM Code Status & VTE Plan Code Status Full code VTE Prophylaxis Plan VTE Prophylaxis will be ordered: Yes PG Care Time/CCT Total # of Minutes Spent Total Time Spent with Patient: Total time spent is greater than 50% in coordination of care (as documented) at patient's floor/unit and/or counseling patient: Coding Diagnoses Abdominal pain R10.9 Atrial fibrillation, chronic I48.20 Morbid obesity E66.01 Hypertension I10 T2DM (type 2 diabetes mellitus) E11.9 GISELL (obstructive sleep apnea) G47.33 Lymphedema of both lower extremities I89.0 Hypomagnesemia E83.42
--- NOTE | 2023-06-09 18:41 | Surgery Consultation ---
Date of Consultation June 09, 2023 Assessment & Plan (1) Abdominal pain: Assessment:Patient is a 68 years old gentleman who is past medical history atrial fibrillation on Coumadin,COPD, HTN, hyperlipidemia, diabetes, obesity BMI 52.9, gastric bypass in 1998 at [facility], sepsis, chronic kidney disease stage III. Patient presents to the ED with couple weeks history Abdominal pain with nausea and constipation, plan, based on pt's H/P, labs and CT scan finding, pt has complex abdominal hernia, loss domain. recommend to transfer higher level care for hernia specialist surgeon consult. D/W benefits, risks and alternatives of the transfer, pt and his understood, they agreed with transfer. I answered all questions, D/W ER attending. History of Present Illness Reason for Consultation: Nausea. abdominal pain Requesting Physician: DR. Farr, History of Present Illness CC: abdominal pain with nausea. HPI: Patient is a 68 years old gentleman who is past medical history atrial fibrillation on Coumadin,COPD, HTN, hyperlipidemia, diabetes, obesity BMI 52.9, gastric bypass in 1998 at [facility], sepsis, chronic kidney disease stage III. Patient presents to the ED with couple weeks history Abdominal pain with nausea and constipation, the pain located around the umbilical area. Last bowel movement was yesterday. Patient denies vomiting. no fevers, no chest pain, patient had a CT scan in the ED, IMPRESSION: 1. Abdominal hernias within the lower anterior abdominal wall contain mesenteric fat and a few loops of fluid-filled small bowel. There is narrowing of the small bowel loops at the hernia ostia with a few mildly dilated loops within the pelvis demonstrating adjacent inflammatory stranding with trace interloop edema. Correlate clinically to exclude a developing small bowel obstruction. Allergies Allergy/AdvReac Type Severity Reaction Status Date / Time bee venom protein (honey bee) Allergy Intermediate SWELLS Verified 06/09/23 17:06 metformin Allergy Intermediate HIVES Verified 06/09/23 17:06 Home Medications Medication Instructions Recorded Confirmed Type allopurinol 100 mg tablet 100 mg PO BID 06/30/19 06/09/23 History cholecalciferol (vitamin D3) 125 5,000 units PO Q2D 06/30/19 06/09/23 History mcg (5,000 unit) capsule ipratropium 20 mcg-albuterol 100 2 spray inhalation QID PRN 06/30/19 06/09/23 History mcg/actuation mist for inhalation Shortness Of Breath Or Wheezing metoprolol succinate 100 mg 100 mg PO DAILY #90 tabs 06/30/19 06/09/23 History tablet,extended release 24 hr simvastatin 20 mg tablet 20 mg PO DAILY 06/30/19 06/09/23 History terazosin 5 mg capsule 5 mg PO DAILY 06/30/19 06/09/23 History epinephrine 0.3 mg/0.3 mL 0.3 mg IM UD PRN hypersensitivity 10/12/19 06/09/23 History injection, auto-injector (EpiPen) reaction magnesium chloride 71.5 mg 71.5 mg PO BID 12/09/19 06/09/23 History (magnesium chloride) tablet,delayed release (Slow-Mag) multivit,Ca,min-iron 8 mg-folic 1 tab PO DAILY 01/02/20 06/09/23 History acid 200 mcg-lycopene 600 mcg tablet (Centrum Men) cephalexin 500 mg capsule 500 mg PO BID #60 caps 02/28/20 06/09/23 Rx warfarin 5 mg tablet (Jantoven) 10 mg PO WK 08/10/20 06/09/23 History insulin lispro 100 unit/mL 0 unit subcut TIDM 01/12/23 06/09/23 History subcutaneous pen (Humalog KwikPen (U-100) Insulin) warfarin 5 mg tablet (Jantoven) 7.5 mg PO 6XWK 01/12/23 06/09/23 History furosemide 40 mg tablet 40 mg PO DAILY 02/18/23 06/09/23 History gabapentin 100 mg capsule 100 mg PO BID 02/18/23 06/09/23 History lisinopril 5 mg tablet 5 mg PO DAILY 02/18/23 06/09/23 History ascorbic acid (vitamin C) 500 mg 500 mg PO DAILY 06/09/23 06/09/23 History tablet insulin glargine U-300 conc 300 24 unit subcut HS 06/09/23 06/09/23 History unit/mL (3 mL) subcutaneous pen (Toujeo Max U-300 SoloStar) Patient History Medical History (Updated 06/09/23 @ 18:48 by Brock Zacarias PA-C) ARF (acute renal failure) CKD (chronic kidney disease), stage III COPD exacerbation Elevated lactic acid level Generalized weakness Headache Hyperlipidemia Hypertension Leukocytosis Lymphedema of both lower extremities Near syncope Obesity GISELL (obstructive sleep apnea) Sepsis Sepsis due to group B Streptococcus Sinusitis T2DM (type 2 diabetes mellitus) Surgical History H/O gastric bypass 1998 Total knee replacement status R once; L twice Family History Mother Heart disease Kidney disease Hypertension Father Dementia Diabetes Heart disease Social History Smoking Status: Never smoker Hx Alcohol Use: Yes Alcohol type: beer and hard liquor Alcohol Intake Frequency Comment: Occasionally Hx Substance Use: No Preferred Language: Sinhala Communication Ability: Effective Advertising Account Manager Required: No Beliefs That Will Affect Care: None marital status: Current Living Situation: Spouse current occupational status: retired 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 [employer] Feels Safe at Home: Yes Assistive Devices: None Review of Systems Constitutional: obesity Eyes: as per Subjective / HPI Respiratory: COPD, obstructive sleep apnea Cardiovascular: Additional Comments: A-fib, HTN, hyperlipidemia Gastrointestinal: gastric bypass in 1998 Neurologic: as per Subjective / HPI Psychiatric: as per Subjective / HPI Endocrine: DM Hematologic / Lymphatic: as per Subjective / HPI Physical Exam Constitutional: obesity Eyes: PERRL, conjunctivae normal, anicteric sclerae Neck: trachea midline, no thyromegaly Respiratory: normal respiratory effort, lungs clear to auscultation Cardiovascular: Rate/Rhythm: + irregularly irregular Gastrointestinal (Abdomen): soft, mild tenderness at just above umbilical area, no rebound pain, no distend, no tenderness at lower abdomen, BS +. Neurologic: patellar DTR's 2+ bilat, sensation intact Psychiatric: A+Ox3, euthymic affect Results & Data Vital Signs (Past 12 Hours) Vital Signs Temp Pulse Resp BP Pulse Ox O2 Del Method 06/09/23 18:11 65 06/09/23 13:40 36.9 C 72 20 111/77 100 Room Air Laboratory Results Lab Results 06/09/23 06/09/23 06/09/23 Range/Units 16:00 16:00 16:00 WBC 8.88 (4.8-10.8) K/ul RBC 4.91 (4.70-6.10) M/uL Hgb 15.9 (14.0-18.0) g/dl Hct 46.0 (42.0-52.0) % MCV 93.7 (80.0-100.0) fL MCH 32.4 (25.0-34.0) pg MCHC 34.6 (32.0-36.0) g/dL RDW Std Deviation 50.2 H (36.4-46.3) fL RDW Coeff of Jack 14.5 (11.5-14.5) % Plt Count 141 (130-400) K/uL MPV 10.3 (9.4-12.4) fL Immature Gran % (Auto) 0.3 % Neut % (Auto) 83.3 % Lymph % (Auto) 12.7 % [place] % (Auto) 3.2 % Eos % (Auto) 0.3 % Baso % (Auto) 0.2 % Neut # (Auto) 7.39 H (1.40-6.50) K/uL Lymph # (Auto) 1.13 L (1.2-3.4) K/uL [place] # (Auto) 0.28 (0.11-0.59) K/uL Eos # (Auto) 0.03 (0-0.50) K/uL Baso # (Auto) 0.02 (0-0.2) K/uL Immature Gran # (Auto) 0.03 (0.01-0.20) K/uL PT 22.7 H (9.0-12.0) Seconds INR 2.2 H (0.9-1.1) APTT 35.9 H (21.0-31.0) Seconds PTT Ratio 1.3 Sodium 139 (136-145) mmol/L Potassium 3.9 (3.5-5.1) mmol/L Chloride 104 (98-107) mmol/L Carbon Dioxide 26 (21-32) mmol/L Anion Gap 9 (3-11) BUN 35 H (6-23) mg/dl Creatinine 1.78 H (0.6-1.4) mg/dl Est Cr Clr Drug Dosing 67.8 ml/min Est GFR ( Amer) 45.1 ml/min Est GFR (Non-Af Amer) 38.9 ml/min BUN/Creatinine Ratio 19.7 (10-20) Glucose 101 H (70-99(Fasting)) mg/dl Lactate (0.4-2.0) mmol/L Calcium 10.1 (8.6-10.3) mg/dl Magnesium 1.6 L (1.7-2.4) mg/dl Total Bilirubin 1.5 H (0.2-1.0) mg/dl AST 18 (13-39) U/L ALT 6 L (7-52) U/L Alkaline Phosphatase 46 (34-104) U/L Total Protein 7.4 (6.0-8.3) gm/dl Albumin 4.5 (3.4-5.0) gm/dl Globulin 2.9 (2.5-4.0) gm/dl Albumin/Globulin Ratio 1.6 (0.9-2) Lipase 33 (11-82) U/L Urine Color Urine Appearance (Clear) Urine pH (4.5-7.5) Ur Specific Lookout (1.000-1.030) Urine Protein (Negative) Urine Glucose (UA) (Negative) Urine Ketones (Negative) Urine Blood (Negative) Urine Nitrite (Negative) Urine Bilirubin (Negative) Urine Urobilinogen (Negative) Ur Leukocyte Esterase (Negative) SARS-CoV-2, RNA, NAAT (NEGATIVE) 06/09/23 06/09/23 06/09/23 Range/Units 16:00 17:09 18:00 WBC (4.8-10.8) K/ul RBC (4.70-6.10) M/uL Hgb (14.0-18.0) g/dl Hct (42.0-52.0) % MCV (80.0-100.0) fL MCH (25.0-34.0) pg MCHC (32.0-36.0) g/dL RDW Std Deviation (36.4-46.3) fL RDW Coeff of Jack (11.5-14.5) % Plt Count (130-400) K/uL MPV (9.4-12.4) fL Immature Gran % (Auto) % Neut % (Auto) % Lymph % (Auto) % [place] % (Auto) % Eos % (Auto) % Baso % (Auto) % Neut # (Auto) (1.40-6.50) K/uL Lymph # (Auto) (1.2-3.4) K/uL [place] # (Auto) (0.11-0.59) K/uL Eos # (Auto) (0-0.50) K/uL Baso # (Auto) (0-0.2) K/uL Immature Gran # (Auto) (0.01-0.20) K/uL PT (9.0-12.0) Seconds INR (0.9-1.1) APTT (21.0-31.0) Seconds PTT Ratio Sodium (136-145) mmol/L Potassium (3.5-5.1) mmol/L Chloride (98-107) mmol/L Carbon Dioxide (21-32) mmol/L Anion Gap (3-11) BUN (6-23) mg/dl Creatinine (0.6-1.4) mg/dl Est Cr Clr Drug Dosing ml/min Est GFR ( Amer) ml/min Est GFR (Non-Af Amer) ml/min BUN/Creatinine Ratio (10-20) Glucose (70-99(Fasting)) mg/dl Lactate 1.0 (0.4-2.0) mmol/L Calcium (8.6-10.3) mg/dl Magnesium (1.7-2.4) mg/dl Total Bilirubin (0.2-1.0) mg/dl AST (13-39) U/L ALT (7-52) U/L Alkaline Phosphatase (34-104) U/L Total Protein (6.0-8.3) gm/dl Albumin (3.4-5.0) gm/dl Globulin (2.5-4.0) gm/dl Albumin/Globulin Ratio (0.9-2) Lipase (11-82) U/L Urine Color Yellow Urine Appearance Clear (Clear) Urine pH 5.0 (4.5-7.5) Ur Specific Lookout 1.008 (1.000-1.030) Urine Protein Negative (Negative) Urine Glucose (UA) Negative (Negative) Urine Ketones Negative (Negative) Urine Blood Negative (Negative) Urine Nitrite Negative (Negative) Urine Bilirubin Negative (Negative) Urine Urobilinogen Negative (Negative) Ur Leukocyte Esterase Negative (Negative) SARS-CoV-2, RNA, NAAT NEGATIVE (NEGATIVE) Diagnostic Findings ABDOMEN AND PELVIS CT WITHOUT CONTRAST CT DOSE: 1942.59 mGy.cm HISTORY: Acute upper abdominal pain Upper abd pain TECHNIQUE: Multiaxial CT images of the abdomen and pelvis were performed without contrast. A dose lowering technique was utilized adhering to the principles of ALARA. COMPARISON STUDY: 12/22/2017 FINDINGS: Limited exam secondary to patient body habitus and lack of contrast. Extensive coronary artery calcifications with trace pericardial effusion. Trace pleural effusions. Partially imaged irregular subsolid 1.1 cm irregular nodule within the left lower lobe on image 1 series 3 was previously measured at 1.3 cm. No pneumatosis or pneumoperitoneum. The unenhanced spleen, moderately atrophic pancreas and adrenal glands are unremarkable. Cholelithiasis with equivocal gallbladder wall thickening. Hepatic steatosis. Cortical thinning of the kidneys with bilateral perinephric stranding. There is an exophytic lesion of the posterior superior pole right kidney measuring 3.8 cm with Hounsfield unit of 45, stable in size from prior. There is an additional possible lesion of the inferior pole right kidney measuring 3.6 cm on image 204. No urolith or hydronephrosis. Prostatomegaly. Unremarkable urinary bladder. No abdominal aortic aneurysm. Mild nonspecific iliac chain lymphadenopathy with lymph nodes measuring up to 1.7 cm on the left. Postoperative changes of this down neck. Colonic diverticulosis. There are a few scattered small bowel air-fluid levels noted within the lower abdomen and pelvis with mild dilation measuring up to 3.4 cm. Hernias within the lower abdominal pannus containing mesenteric fat and loops of small bowel. Small bowel narrowing at the hernia ostia are noted. Moderate interloop edema with trace ascites. Mesenteric stranding at the abdominal hernia site. Several small additional fat filled abdominal wall hernias are noted. Appendectomy. Degenerative changes of the spine, pelvis and hips. IMPRESSION: 1. Abdominal hernias within the lower anterior abdominal wall contain mesenteric fat and a few loops of fluid-filled small bowel. There is narrowing of the small bowel loops at the hernia ostia with a few mildly dilated loops within the pelvis demonstrating adjacent inflammatory stranding with trace interloop edema. Correlate clinically to exclude a developing small bowel obstruction. 2. No pneumoperitoneum. 3. Cholelithiasis. 4. Stable indeterminate 3.8 cm exophytic mass of the superior pole right kidney appears stable dating back to the 2018 exam. 5. Possible lesion of the inferior pole right kidney could be correlated with a nonemergent follow-up renal protocol CT. 6. Partially imaged subsolid 1.1 cm nodule within the left lower lobe also appears stable from 2018. 7. Additional findings as above.
[2023-06-09] MEDS: MAGNESIUM SULFATE / D5W 1 GM/100 ML BAG IV SCH ×2 (18:46→21:29)
--- NOTE | 2023-06-09 19:46 | History & Physical Report ---
Date of Service June 09, 2023 Assessment & Plan (1) Abdominal pain: Plan: -Admit to med/tele -Currently stable -Patient has been having increased abdominal pain, decreased appetite, constipation, and nausea over the past week -CT of the abd/pelvis today shows signs of possible bowel obstruction due to bowel located within the abdominal wall -Patient is currently comfortable lying flat but symptoms are exacerbated with increased intra-abdominal pressure -Patient accepted to [facility] by Dr. Zamora, no available beds at this time, will be admitted to medicine service until a bed is available -General surgery has agreed to follow while admitted in case of acute d ecompensation -NPO overnight -Patient is currently comfortable at rest, will hold NG tube placement for now -Light IV fluids overnight while NPO -If any acute clinical decline overnight would have General Surgery re-evaluate -Will transition the patient to a heparin drip for anticoagulation with afib in case the patient would need the OR in the near future -AM CBC, CMP, Mag, PT/INR (2) Atrial fibrillation, chronic: Plan: -Stable -Holding Warfarin in case of emergent OR in the near future -INR currently 2.2, spoke with pharmacy, appreciate their help. >Will start low dose heparin drip without bolus as he is currently therapeutic with Warfarin at this time -Will continue daily PO metoprolol for now to prevent reflex tachycardia (3) Hypertension: Plan: -Stable -Hold lisinopril for now to prevent hypotension (4) T2DM (type 2 diabetes mellitus): Plan: -Patient is on a complex outpatient regimen -Pharmacy Glycemic consult placed for assistance -For now will monitor BSG q6h while NPO, goal is 110-160 -Normally on 24 units U-300 HS -Will start 8 units lantus BID for now, CF of 30 q6h -Follow Pharmacy recommendations (5) Hypomagnesemia: Plan: -Noted to be 1.6 today -Appears to be a chronic issue as he is on Slow-mag outpatient -Will give 2 bags of 1gm IV mag-sulfate on admission -Monitor am mag level and continue to monitor on tele (6) GISELL (obstructive sleep apnea): Plan: -Patient normally on HS CPAP -Due to patient being high risk for nausea/vomiting at this time, will hold HS CPAP for now. -Will monitor on pulse oximetry and write communication to start HS CPAP if he were to desaturate overnight Plan The patient was discussed with Dr. Topete at the time of the admission History of Present Illness Chief Complaint: Abd pain, nausea, constipation Primary Care Provider: Aden Roche is a 67yo male with history of bariatric surgery at [facility] in 1998, HTN, HLP, DMII, Atrial Fibrillation on Coumadin, GISELL, recurrent MRSA infection (follows with [facility] and on chronic Keflex therapy), and morbid obesity who presented to the [facility] ED on 06/09 with complaints of abdominal pain and constipation. In the ED, vitals were stable. Labs were significant for an INR of 2.2, amg of 1.6, total bili of 1.5. CT of the abd/pelvis wo con was read as "1. Abdominal hernias within the lower anterior abdominal wall contain mesenteric fat and a few loops of fluid-filled small bowel. There is narrowing of the small bowel loops at the hernia ostia with a few mildly dilated loops within the pelvis demonstrating adjacent inflammatory stranding with trace interloop edema. Correlate clinically to exclude a developing small bowel obstruction. 2. No pneumoperitoneum. 3. Cholelithiasis. 4. Stable indeterminate 3.8 cm exophytic mass of the superior pole right kidney appears stable dating back to the 2018 exam. 5. Possible lesion of the inferior pole right kidney could be correlated with a nonemergent follow-up renal protocol CT. 6. Partially imaged subsolid 1.1 cm nodule within the left lower lobe also appears stable from 2018. 7. Additional findings as above.". General Surgery was consulted and recommended transfer to a tertiary care facility due to the patient's BMI and complex abdominal history. The patient was accepted to [facility] by Dr. Zamora but they are currently without a clean bed. The patient will be admitted to Medicine until transfer. General surgery agreed to follow while here in case of acute decompensation. Prior to admission the patient was given 4mg IV morphine, 4mg IV zofran, and started on NSS at 80 mL/hr. At the time of the exam the patient was lying in bed in no acute distress with is sitting bedside, history was obtained from both. They state that the patient has two, large abdominal wall hernias at the site of his previous bariatric surgery. His hernias frequently protrude through the abdominal wall and stay out for hours, but always reduce themselves. He states that he has ch ronic abd pain and inconsistent bowel movements since his bariatric surgery. Approximately one week ago the patient started to develop increased abdominal pain, decreased appetite, nausea, and constipation. He had a large bowel movement on 06/06 and a small bowel movement yesterday, he states he is currently passing a small amount amount of gas. He states that yesterday his abdominal hernia protruded severely after bending over, he experienced severe pain after that. While in the waiting room today the patient states that he was in severe pain as sitting in the chair was increasing his intra-abdominal pressure. He walked to the bathroom earlier which exacerbated his symptoms, but he is currently without pain while lying flat. He denies recent fever, chills, chest pain, SOB, cough, nausea, vomiting, diarrhea, dysuria hematuria, melena, worsening LE swelling and recent trauma. He is a full code and would want his to make medical decisions for him if he cannot make them himself. Please refer to Dr. Topete's attestation for any changes to the treatment plan Allergies Allergy/AdvReac Type Severity Reaction Status Date / Time bee venom protein (honey bee) Allergy Intermediate SWELLS Verified 06/09/23 17:06 metformin Allergy Intermediate HIVES Verified 06/09/23 17:06 Home Medications Medication Instructions Recorded Confirmed Type allopurinol 100 mg tablet 100 mg PO BID 06/30/19 06/09/23 History cholecalciferol (vitamin D3) 125 5,000 units PO Q2D 06/30/19 06/09/23 History mcg (5,000 unit) capsule ipratropium 20 mcg-albuterol 100 2 spray inhalation QID PRN 06/30/19 06/09/23 History mcg/actuation mist for inhalation Shortness Of Breath Or Wheezing metoprolol succinate 100 mg 100 mg PO DAILY #90 tabs 06/30/19 06/09/23 History tablet,extended release 24 hr simvastatin 20 mg tablet 20 mg PO DAILY 06/30/19 06/09/23 History terazosin 5 mg capsule 5 mg PO DAILY 06/30/19 06/09/23 History epinephrine 0.3 mg/0.3 mL 0.3 mg IM UD PRN hypersensitivity 10/12/19 06/09/23 History injection, auto-injector (EpiPen) reaction magnesium chloride 71.5 mg 71.5 mg PO BID 12/09/19 06/09/23 History (magnesium chloride) tablet,delayed release (Slow-Mag) multivit,Ca,min-iron 8 mg-folic 1 tab PO DAILY 01/02/20 06/09/23 History acid 200 mcg-lycopene 600 mcg tablet (Centrum Men) cephalexin 500 mg capsule 500 mg PO BID #60 caps 02/28/20 06/09/23 Rx warfarin 5 mg tablet (Jantoven) 10 mg PO WK 08/10/20 06/09/23 History insulin lispro 100 unit/mL 0 unit subcut TIDM 01/12/23 06/09/23 History subcutaneous pen (Humalog KwikPen (U-100) Insulin) warfarin 5 mg tablet (Jantoven) 7.5 mg PO 6XWK 01/12/23 06/09/23 History furosemide 40 mg tablet 40 mg PO DAILY 02/18/23 06/09/23 History gabapentin 100 mg capsule 100 mg PO BID 02/18/23 06/09/23 History lisinopril 5 mg tablet 5 mg PO DAILY 02/18/23 06/09/23 History ascorbic acid (vitamin C) 500 mg 500 mg PO DAILY 06/09/23 06/09/23 History tablet insulin glargine U-300 conc 300 24 unit subcut HS 06/09/23 06/09/23 History unit/mL (3 mL) subcutaneous pen (Toujeo Max U-300 SoloStar) Past Med/Surg History Medical History (Updated 06/09/23 @ 20:42 by Luis Angel Farr MD) ARF (acute renal failure) CKD (chronic kidney disease), stage III COPD exacerbation Elevated lactic acid level Generalized weakness Headache Hyperlipidemia Hypertension Leukocytosis Lymphedema of both lower extremities Near syncope Obesity GISELL (obstructive sleep apnea) Sepsis Sepsis due to group B Streptococcus Sinusitis T2DM (type 2 diabetes mellitus) Surgical History H/O gastric bypass 1998 Total knee replacement status R once; L twice Family History Mother Heart disease Kidney disease Hypertension Father Dementia Diabetes Heart disease Social History Smoking Status: Never smoker Hx Alcohol Use: Yes Alcohol type: beer and hard liquor Alcohol Intake Frequency Comment: Occasionally Hx Substance Use: No Preferred Language: Comoran Communication Ability: Effective Kiln Car 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 Feels Safe at Home: Yes Assistive Devices: None Physical Exam Physical Exam: Physical Exam: General: In no acute distress, stated age, morbidly obese, non- toxic appearing HEENT: Normocephalic, atraumatic, no scleral icterus, pupils around round, symmetrical, and reactive to light, moist mucus membranes, trachea midline, no thyromegaly Chest/Pulm: No respiratory distress, symmetrical chest expansion, clear breath sounds throughout Cardiac: RRR, no murmurs noted Abdomen: Large central abdominal scar from previous bariatric surgery is well/healed and without signs on infection, no sign of protruding hernia while patient is lying flat, hyperactive bowel sounds, soft, tender to palpation in the central abdomen and BL lower abdominal ortiz Musculoskeletal: S/P previous left pointer finger amputation, otherwise Symmetrical and without signs of acute trauma, upper and lower extremities with full ROM, no atrophy, spasticity, or flaccidity Extremities: Radial, dorsalis pedis, and posterior tibial pulses are intact and symmetrical, chronic severe venous stasis in the BL LE's Skin: Warm, dry, no rashes , lesions, or scars noted Neuro: Alert and oriented to person, place, month, year, and president, no focal defects, no tremors noted Psych: No acute distress, calm and cooperative during the exam Results & Data Results & Data Vital Signs (Past 12 Hours) Vital Signs Temp Pulse Resp BP Pulse Ox O2 Del Method 06/09/23 19:31 63 9 L 98 06/09/23 19:31 139/90 06/09/23 19:30 64 16 98 06/09/23 19:02 63 18 98 06/09/23 19:02 169/90 H 06/09/23 19:00 66 10 L 153/84 H 94 06/09/23 18:30 64 10 L 98 06/09/23 18:11 65 06/09/23 13:40 36.9 C 72 20 111/77 100 Room Air Laboratory Results Abnormal lab results 06/09/23 06/09/23 06/09/23 Range/Units 16:00 16:00 16:00 RDW Std Deviation 50.2 H (36.4-46.3) fL Neut # (Auto) 7.39 H (1.40-6.50) K/uL Lymph # (Auto) 1.13 L (1.2-3.4) K/uL PT 22.7 H (9.0-12.0) Seconds INR 2.2 H (0.9-1.1) APTT 35.9 H (21.0-31.0) Seconds BUN 35 H (6-23) mg/dl Creatinine 1.78 H (0.6-1.4) mg/dl Glucose 101 H (70-99(Fasting)) mg/dl Magnesium 1.6 L (1.7-2.4) mg/dl Total Bilirubin 1.5 H (0.2-1.0) mg/dl ALT 6 L (7-52) U/L Diagnostic Findings Abdomen/Pelvis CT 06/09/23 13:[address] WITHOUT CONTRAST CT DOSE: 1942.59 mGy.cm HISTORY: Acute upper abdominal pain Upper abd pain TECHNIQUE: Multiaxial CT images of the abdomen and pelvis were performed without contrast. A dose lowering technique was utilized adhering to the principles of ALARA. COMPARISON STUDY: 12/22/2017 FINDINGS: Limited exam secondary to patient body habitus and lack of contrast. Extensive coronary artery calcifications with trace pericardial effusion. Trace pleural effusions. Partially imaged irregular subsolid 1.1 cm irregular nodule within the left lower lobe on image 1 series 3 was previously measured at 1.3 cm. No pneumatosis or pneumoperitoneum. The unenhanced spleen, moderately atrophic pancreas and adrenal glands are unremarkable. Cholelithiasis with equivocal gallbladder wall thickening. Hepatic steatosis. Cortical thinning of the kidneys with bilateral perinephric stranding. There is an exophytic lesion of the posterior superior pole right kidney measuring 3.8 cm with Hounsfield unit of 45, stable in size from prior. There is an additional possible lesion of the inferior pole right kidney measuring 3.6 cm on image 204. No urolith or hydronephrosis. Prostatomegaly. Unremarkable urinary bladder. No abdominal aortic aneurysm. Mild nonspecific iliac chain lymphadenopathy with lymph nodes measuring up to 1.7 cm on the left. Postoperative changes of this down neck. Colonic diverticulosis. There are a few scattered small bowel air-fluid levels noted within the lower abdomen and pelvis with mild dilation measuring up to 3.4 cm. Hernias within the lower abdominal pannus containing mesenteric fat and loops of small bowel. Small bowel narrowing at the hernia ostia are noted. Moderate interloop edema with trace ascites. Mesenteric stranding at the abdominal hernia site. Several small additional fat filled abdominal wall hernias are noted. Appendectomy. Degenerative changes of the spine, pelvis and hips. IMPRESSION: 1. Abdominal hernias within the lower anterior abdominal wall contain mesenteric fat and a few loops of fluid-filled small bowel. There is narrowing of the small bowel loops at the hernia ostia with a few mildly dilated loops within the pelvis demonstrating adjacent inflammatory stranding with trace interloop edema. Correlate clinically to exclude a developing small bowel obstruction. 2. No pneumoperitoneum. 3. Cholelithiasis. 4. Stable indeterminate 3.8 cm exophytic mass of the superior pole right kidney appears stable dating back to the 2018 exam. 5. Possible lesion of the inferior pole right kidney could be correlated with a nonemergent follow-up renal protocol CT. 6. Partially imaged subsolid 1.1 cm nodule within the left lower lobe also appears stable from 2018. 7. Additional findings as above. ACT 112: Negative or not required by law. The above report was generated using voice recognition software. It may contain grammatical, syntax or spelling errors. Electronically signed by: Rommel Prince M.D. 06/09/2023 3:27 PM ECG Additional Comments: Will obtain ECG on admission Code Status & VTE Plan Code Status Full code Supervising Physician Co-Signing Physician Notes Patient seen and examined, chart reviewed, case discussed with Brock Zacarias PA-C and I agree with the assessment and plan as above except as otherwise noted Labs and images reviewed 68-year-old male with past medical history of bariatric surgery, hypertension, hyperlipidemia, DM 2, A-fib on Coumadin, GISELL, recurrent MRSA infection followed by Brandee GUAJARDO who presented with abdominal plain constipation and who was admitted for SBO. Initially recommended for transfer to tertiary care due to BMI and complex history, was excepted by [facility] Dr. Zamora but bed is not available at this time. Case was reviewed with evening on-call surgery who agree to be on consult, patient is admitted to medicine for observation until transferred to [facility]. Patient has improved pain following morphine, Zofran, NSS. No acute distress at bedside. Is starting to pass a small amount of gas, last bowel movement was 06/06. Abdomen is nontender at time of admitting assessment. We will admit, n.p.o., and follow-up. If any nausea/vomiting/abdominal pain develop place NGT. Agree with management as above PG Care Time/CCT Total # of Minutes Spent Total Time Spent with Patient: Total time spent is greater than 50% in coordination of care (as documented) at patient's floor/unit and/or counseling patient: [place] [address] INT INP/OBS CARE 3/75MIN Patient Type Established Medical Decision Making High Complexity Diagnoses Abdominal pain R10.9 Atrial fibrillation, chronic I48.20 Hypertension I10 T2DM (type 2 diabetes mellitus) E11.9 Hypomagnesemia E83.42 GISELL (obstructive sleep apnea) G47.33
[2023-06-09] MEDS ORDERED: GLUCOSE 40% GEL 15 GM TUBE PO PRN (19:52)
[2023-06-09] MEDS ORDERED: GLUCAGON FOR INJ 1 MG VIAL SQ PRN (19:52)
[2023-06-09] MEDS ORDERED: DEXTROSE 50% 50 ML SYRINGE IV PRN (19:52)
[2023-06-09] MEDS ORDERED: CARBOHYDRATES FOR HYPOGLYCEMIA PO PRN (19:52)
[2023-06-09] MEDS ORDERED: GLUCOSE 10 TAB/TUBE PO PRN (19:52)
[2023-06-09] MEDS ORDERED: PHARMACY GLYCEMIC MGMT CONSULT PRN (19:54)
[2023-06-09] MEDS ORDERED: Heparin IV Adult Wt-Based Low-Dose *NO* Bolus Protocol IV SCH (20:06)
--- NOTE | 2023-06-09 20:42 | Emergency Department Note ---
History of Present Illness General Chief Complaint: Abdominal Pain Stated Complaint: SEVERE ABDOMINAL PAIN Time Seen by Provider: 06/09/23 16:05 History of Present Illness Provider Complaint: abdominal pain Onset (ago): 1 week(s) Pain Consistency: intermittent Location: diffuse Severity: moderate Maximum Pain Intensity: 6 Current Pain Intensity: 6 Quality: + stabbing and + sharp Relieved By: + nothing Exacerbated By: + eating Context: no foreign travel, no possible food poisoning, no sick contacts, no recent antibiotic use, no recent surgery/procedure or no recent injury Associated Symptoms: + nausea; no vomiting, no fever, no chills, no constipation, no dysuria, no hematemesis, no hematochezia, no melena and no hematuria Home Medications Medication Instructions Recorded Confirmed Type allopurinol 100 mg tablet 100 mg PO BID 06/30/19 06/09/23 History cholecalciferol (vitamin D3) 125 5,000 units PO Q2D 06/30/19 06/09/23 History mcg (5,000 unit) capsule ipratropium 20 mcg-albuterol 100 2 spray inhalation QID PRN 06/30/19 06/09/23 History mcg/actuation mist for inhalation Shortness Of Breath Or Wheezing metoprolol succinate 100 mg 100 mg PO DAILY #90 tabs 06/30/19 06/09/23 History tablet,extended release 24 hr simvastatin 20 mg tablet 20 mg PO DAILY 06/30/19 06/09/23 History terazosin 5 mg capsule 5 mg PO DAILY 06/30/19 06/09/23 History epinephrine 0.3 mg/0.3 mL 0.3 mg IM UD PRN hypersensitivity 10/12/19 06/09/23 History injection, auto-injector (EpiPen) reaction magnesium chloride 71.5 mg 71.5 mg PO BID 12/09/19 06/09/23 History (magnesium chloride) tablet,delayed release (Slow-Mag) multivit,Ca,min-iron 8 mg-folic 1 tab PO DAILY 01/02/20 06/09/23 History acid 200 mcg-lycopene 600 mcg tablet (Centrum Men) cephalexin 500 mg capsule 500 mg PO BID #60 caps 02/28/20 06/09/23 Rx warfarin 5 mg tablet (Jantoven) 10 mg PO WK 08/10/20 06/09/23 History insulin lispro 100 unit/mL 0 unit subcut TIDM 01/12/23 06/09/23 History subcutaneous pen (Humalog KwikPen (U-100) Insulin) warfarin 5 mg tablet (Jantoven) 7.5 mg PO 6XWK 01/12/23 06/09/23 History furosemide 40 mg tablet 40 mg PO DAILY 02/18/23 06/09/23 History gabapentin 100 mg capsule 100 mg PO BID 02/18/23 06/09/23 History lisinopril 5 mg tablet 5 mg PO DAILY 02/18/23 06/09/23 History ascorbic acid (vitamin C) 500 mg 500 mg PO DAILY 06/09/23 06/09/23 History tablet insulin glargine U-300 conc 300 24 unit subcut HS 06/09/23 06/09/23 History unit/mL (3 mL) subcutaneous pen (Toujeo Max U-300 SoloStar) Allergies Allergy/AdvReac Type Severity Reaction Status Date / Time bee venom protein (honey bee) Allergy Intermediate SWELLS Verified 06/09/23 17:06 metformin Allergy Intermediate HIVES Verified 06/09/23 17:06 Past Med/Surg History Medical History (Updated 06/09/23 @ 20:42 by Luis Angel Farr MD) ARF (acute renal failure) CKD (chronic kidney disease), stage III COPD exacerbation Elevated lactic acid level Generalized weakness Headache Hyperlipidemia Hypertension Leukocytosis Lymphedema of both lower extremities Near syncope Obesity GISELL (obstructive sleep apnea) Sepsis Sepsis due to group B Streptococcus Sinusitis T2DM (type 2 diabetes mellitus) Surgical History H/O gastric bypass 1998 Total knee replacement status R once; L twice Family History Mother Heart disease Kidney disease Hypertension Father Dementia Diabetes Heart disease Social History Smoking Status: Never smoker Hx Alcohol Use: Yes Alcohol type: beer and hard liquor Alcohol Intake Frequency Comment: Occasionally Hx Substance Use: No Preferred Language: Tristanian Communication Ability: Effective [employer] Associate Required: No Beliefs That Will Affect Care: None marital status: Current Living Situation: Spouse current occupational status: retired 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 Feels Safe at Home: Yes Assistive Devices: None Physical Exam Vital Signs: Vital Signs - 24 hr 06/09/23 13:40 06/09/23 18:11 06/09/23 19:00 Temperature 36.9 C Temperature Source Temporal Artery Sc an Pulse Rate 72 65 Pulse Rate from Sp O2 Sensor Respiratory Rate 20 Respiratory Effort / Characteristics Non-Labored Non-Labored Respiratory Depth Normal Blood Pressure 111/77 Blood Pressure Swapna n 88 Pulse Oximetry 100 Oxygen Delivery Me thod Room Air Sepsis Recent Feve r Within 48 Hours No Sepsis New/Unexpla ined Change in Men rose Status N/A Sepsis Action Take n by Nursing No Action Required 06/09/23 18:30 06/09/23 19:00 06/09/23 19:02 Temperature Temperature Source Pulse Rate 64 66 Pulse Rate from Sp O2 Sensor 63 67 Respiratory Rate 10 L 10 L Respiratory Effort / Characteristics Respiratory Depth Blood Pressure 153/84 H 169/90 H Blood Pressure Swapna n 107 116 Pulse Oximetry 98 94 Oxygen Delivery Me thod Sepsis Recent Feve r Within 48 Hours Sepsis New/Unexpla ined Change in Men rose Status Sepsis Action Take n by Nursing 06/09/23 19:02 06/09/23 19:30 06/09/23 19:31 Temperature Temperature Source Pulse Rate 63 64 Pulse Rate from Sp O2 Sensor 63 64 Respiratory Rate 18 16 Respiratory Effort / Characteristics Respiratory Depth Blood Pressure 139/90 Blood Pressure Swapna n 106 Pulse Oximetry 98 98 Oxygen Delivery Me thod Sepsis Recent Feve r Within 48 Hours Sepsis New/Unexpla ined Change in Men rose Status Sepsis Action Take n by Nursing 06/09/23 19:31 Temperature Temperature Source Pulse Rate 63 Pulse Rate from Sp O2 Sensor 61 Respiratory Rate 9 L Respiratory Effort / Characteristics Respiratory Depth Blood Pressure Blood Pressure Swapna n Pulse Oximetry 98 Oxygen Delivery Me thod Sepsis Recent Feve r Within 48 Hours Sepsis New/Unexpla ined Change in Men rose Status Sepsis Action Take n by Nursing Physical Exam: Physical Exam GENERAL: She is oriented to person, place, and time. She appears well-developed and well-nourished. She does not appear distressed. HENT: Exam performed. -Head: Normocephalic and atraumatic. -Right Ear: External ear normal. No mastoid erythema -Left Ear: External ear normal. No mastoid erythema -Mouth/Throat: The oropharynx is clear and moist. No trismus in the jaw. No dental abscesses or uvula swelling. No oropharyngeal exudate or tonsillar abscesses. EYES: Conjunctivae and EOM are normal.Right eye exhibits no discharge. Left eye exhibits no discharge. No scleral icterus. NECK: Normal range of motion. Neck supple. No JVD present. No tracheal deviation and normal range of motion present. CV: Normal rate, irregular rhythm, normal heart sounds and intact distal pulses. There is no peripheral edema. Palpable radial pulses bue. PULM/CHEST: Effort normal and breath sounds normal. No respiratory distress. No stridor. She has no wheezes. She has no rales. -Chest Wall: She exhibits no tenderness. ABD: The abdomen is soft and morbidly obese no distension. No mass is present. There is diffuse tenderness to palpation. There is no rebound, no guarding MUSC/SKEL: Normal range of motion. There is no peripheral edema, tenderness or deformity. NEURO: Motor and sensation grossly intact. SKIN: Skin is warm and dry. She is not diaphoretic. PSYCH: She has a normal mood and affect. Behavior is normal. Judgment and thought content normal. Course Course 1605: The patient was evaluated in room A3. A complete history and physical exam was performed Cardiac monitoring: An order was placed for continuous cardiac monitoring. The monitor shows a rate of 70 with sinus rhythm interpreted by ak 1724: Vital signs stable. Labs within normal limits, creatinine at baseline, INR therapeutic. CT shows abdominal hernias within the lower anterior abdominal wall containing mesenteric fat and a few loops of small fluid filled small bowel with narrowing of the small bowel loops at the hernia ostia with a few mildly dilated loops within the pelvis demonstrating adjacent inflammatory stranding with trace interloop edema. Radiology recommended to correlate for developing small bowel obstruction. There is concern that the patient could be developing a small bowel obstruction, discussed the case with Dr. Morris on-call general surgery who stated to admit to medicine and he will be down to evaluate the patient. [facility] hospitalist team Brock Zacarias and notified about the patient. 1899: Dr. Morris came down and evaluated the patient and recommended transfer as he stated the hernia looked too complicated and recommended tertiary care facility. 's team stated that they did not evaluate the patient and recommend transfer as they do not feel comfortable managing the patient without surgical backup. Discussed with the patient and family who stated they prefer to be transferred to [facility] and not to [facility] where the gastric bypass surgery was done more than 20 years ago. 1918: Spoke with Dr. Zamora general surgery [facility]. He stated he would accept the patient as a transfer however the transfer center stated that there were no available beds at [facility] at this time in the ED is too full to accept any ED to ED transfers. Dr. Zamora stated that if the patient starts vomiting to place an NG tube however at this time to hold off on putting NG tube as he has not been having vomiting. Dr. Zamora states he will accept the patient as a transfer when a bed becomes available at [facility]. I discussed this plan with the patient and family and they state that they are happy to stay at this facility until transfer is available to [facility]. Discussed the case with the [facility] Hospitalist team Dr. Rutherford who asked that general surgery be consulted to make sure that they felt comfortable being on consult if the patient is admitted here. 1941: Spoke with Dr. Waldron who is now on-call for general surgery at this facility and states she is comfortable being on consult until the patient can be transferred to [facility]. [facility] hospitalist team Dr. Rutherford and Brock FISHER will admit the patient. Administered Medications Magnesium Sulfate/Dextrose (Magnesium Sulfate / D5w) 1 gm in 100 mls @ 50 mls/hr IV Q2H RYLAN Stop: 06/09/23 22:29 Last Admin: 06/09/23 18:46 Dose: 50 mls/hr Documented By: DILAN Discontinued Medications Sodium Chloride (Nss 1000ml) 1,000 mls @ 80 mls/hr IV .[id number] RYLAN Stop: 07/09/23 17:29 Last Admin: 06/09/23 17:58 Dose: 80 mls/hr Documented By: DILAN Morphine Sulfate (Morphine Sulfate 4 Mg/Ml 1 Ml Carp\Vial) 4 mg IV NOW STA Stop: 06/09/23 17:28 Last Admin: 06/09/23 17:58 Dose: 4 mg Documented By: DILAN Ondansetron HCl (Ondansetron Inj 2 Mg/Ml 2 Ml Vial) 4 mg IV NOW STA Stop: 06/09/23 17:28 Last Admin: 06/09/23 17:58 Dose: 4 mg Documented By: WCS Medical Decision Making Laboratory Data Attestation: I reviewed the patient's lab results. 06/09/23 16:00 06/09/23 16:00 Lab Results 06/09/23 06/09/23 06/09/23 Range/Units 16:00 16:00 16:00 WBC 8.88 (4.8-10.8) K/ul RBC 4.91 (4.70-6.10) M/uL Hgb 15.9 (14.0-18.0) g/dl Hct 46.0 (42.0-52.0) % MCV 93.7 (80.0-100.0) fL MCH 32.4 (25.0-34.0) pg MCHC 34.6 (32.0-36.0) g/dL RDW Std Deviation 50.2 H (36.4-46.3) fL RDW Coeff of Jack 14.5 (11.5-14.5) % Plt Count 141 (130-400) K/uL MPV 10.3 (9.4-12.4) fL Immature Gran % (Auto) 0.3 % Neut % (Auto) 83.3 % Lymph % (Auto) 12.7 % [place] % (Auto) 3.2 % Eos % (Auto) 0.3 % Baso % (Auto) 0.2 % Neut # (Auto) 7.39 H (1.40-6.50) K/uL Lymph # (Auto) 1.13 L (1.2-3.4) K/uL [place] # (Auto) 0.28 (0.11-0.59) K/uL Eos # (Auto) 0.03 (0-0.50) K/uL Baso # (Auto) 0.02 (0-0.2) K/uL Immature Gran # (Auto) 0.03 (0.01-0.20) K/uL PT 22.7 H (9.0-12.0) Seconds INR 2.2 H (0.9-1.1) APTT 35.9 H (21.0-31.0) Seconds PTT Ratio 1.3 Sodium 139 (136-145) mmol/L Potassium 3.9 (3.5-5.1) mmol/L Chloride 104 (98-107) mmol/L Carbon Dioxide 26 (21-32) mmol/L Anion Gap 9 (3-11) BUN 35 H (6-23) mg/dl Creatinine 1.78 H (0.6-1.4) mg/dl Est Cr Clr Drug Dosing 67.8 ml/min Est GFR ( Amer) 45.1 ml/min Est GFR (Non-Af Amer) 38.9 ml/min BUN/Creatinine Ratio 19.7 (10-20) Glucose 101 H (70-99(Fasting)) mg/dl Lactate (0.4-2.0) mmol/L Calcium 10.1 (8.6-10.3) mg/dl Magnesium 1.6 L (1.7-2.4) mg/dl Total Bilirubin 1.5 H (0.2-1.0) mg/dl AST 18 (13-39) U/L ALT 6 L (7-52) U/L Alkaline Phosphatase 46 (34-104) U/L Total Protein 7.4 (6.0-8.3) gm/dl Albumin 4.5 (3.4-5.0) gm/dl Globulin 2.9 (2.5-4.0) gm/dl Albumin/Globulin Ratio 1.6 (0.9-2) Lipase 33 (11-82) U/L Urine Color Urine Appearance (Clear) Urine pH (4.5-7.5) Ur Specific [place] (1.000-1.030) Urine Protein (Negative) Urine Glucose (UA) (Negative) Urine Ketones (Negative) Urine Blood (Negative) Urine Nitrite (Negative) Urine Bilirubin (Negative) Urine Urobilinogen (Negative) Ur Leukocyte Esterase (Negative) SARS-CoV-2, RNA, NAAT (NEGATIVE) 06/09/23 06/09/23 06/09/23 Range/Units 16:00 17:09 18:00 WBC (4.8-10.8) K/ul RBC (4.70-6.10) M/uL Hgb (14.0-18.0) g/dl Hct (42.0-52.0) % MCV (80.0-100.0) fL MCH (25.0-34.0) pg MCHC (32.0-36.0) g/dL RDW Std Deviation (36.4-46.3) fL RDW Coeff of Jack (11.5-14.5) % Plt Count (130-400) K/uL MPV (9.4-12.4) fL Immature Gran % (Auto) % Neut % (Auto) % Lymph % (Auto) % [place] % (Auto) % Eos % (Auto) % Baso % (Auto) % Neut # (Auto) (1.40-6.50) K/uL Lymph # (Auto) (1.2-3.4) K/uL [place] # (Auto) (0.11-0.59) K/uL Eos # (Auto) (0-0.50) K/uL Baso # (Auto) (0-0.2) K/uL Immature Gran # (Auto) (0.01-0.20) K/uL PT (9.0-12.0) Seconds INR (0.9-1.1) APTT (21.0-31.0) Seconds PTT Ratio Sodium (136-145) mmol/L Potassium (3.5-5.1) mmol/L Chloride (98-107) mmol/L Carbon Dioxide (21-32) mmol/L Anion Gap (3-11) BUN (6-23) mg/dl Creatinine (0.6-1.4) mg/dl Est Cr Clr Drug Dosing ml/min Est GFR ( Amer) ml/min Est GFR (Non-Af Amer) ml/min BUN/Creatinine Ratio (10-20) Glucose (70-99(Fasting)) mg/dl Lactate 1.0 (0.4-2.0) mmol/L Calcium (8.6-10.3) mg/dl Magnesium (1.7-2.4) mg/dl Total Bilirubin (0.2-1.0) mg/dl AST (13-39) U/L ALT (7-52) U/L Alkaline Phosphatase (34-104) U/L Total Protein (6.0-8.3) gm/dl Albumin (3.4-5.0) gm/dl Globulin (2.5-4.0) gm/dl Albumin/Globulin Ratio (0.9-2) Lipase (11-82) U/L Urine Color Yellow Urine Appearance Clear (Clear) Urine pH 5.0 (4.5-7.5) Ur Specific [place] 1.008 (1.000-1.030) Urine Protein Negative (Negative) Urine Glucose (UA) Negative (Negative) Urine Ketones Negative (Negative) Urine Blood Negative (Negative) Urine Nitrite Negative (Negative) Urine Bilirubin Negative (Negative) Urine Urobilinogen Negative (Negative) Ur Leukocyte Esterase Negative (Negative) SARS-CoV-2, RNA, NAAT NEGATIVE (NEGATIVE) Imaging Data Radiologist's Impression: Abdomen/Pelvis CT 06/09/23 13:[address] WITHOUT CONTRAST CT DOSE: 1942.59 mGy.cm HISTORY: Acute upper abdominal pain Upper abd pain TECHNIQUE: Multiaxial CT images of the abdomen and pelvis were performed without contrast. A dose lowering technique was utilized adhering to the principles of ALARA. COMPARISON STUDY: 12/22/2017 FINDINGS: Limited exam secondary to patient body habitus and lack of contrast. Extensive coronary artery calcifications with trace pericardial effusion. Trace pleural effusions. Partially imaged irregular subsolid 1.1 cm irregular nodule within the left lower lobe on image 1 series 3 was previously measured at 1.3 cm. No pneumatosis or pneumoperitoneum. The unenhanced spleen, moderately atrophic pancreas and adrenal glands are unremarkable. Cholelithiasis with equivocal gallbladder wall thickening. Hepatic steatosis. Cortical thinning of the kidneys with bilateral perinephric stranding. There is an exophytic lesion of the posterior superior pole right kidney measuring 3.8 cm with Hounsfield unit of 45, stable in size from prior. There is an additional possible lesion of the inferior pole right kidney measuring 3.6 cm on image 204. No urolith or hydronephrosis. Prostatomegaly. Unremarkable urinary bladder. No abdominal aortic aneurysm. Mild nonspecific iliac chain lymphadenopathy with lymph nodes measuring up to 1.7 cm on the left. Postoperative changes of this down neck. Colonic diverticulosis. There are a few scattered small bowel air-fluid levels noted within the lower abdomen and pelvis with mild dilation measuring up to 3.4 cm. Hernias within the lower abdominal pannus containing mesenteric fat and loops of small bowel. Small bowel narrowing at the hernia ostia are noted. Moderate interloop edema with trace ascites. Mesenteric stranding at the abdominal hernia site. Several small additional fat filled abdominal wall hernias are noted. Appendectomy. Degenerative changes of the spine, pelvis and hips. IMPRESSION: 1. Abdominal hernias within the lower anterior abdominal wall contain mesenteric fat and a few loops of fluid-filled small bowel. There is narrowing of the small bowel loops at the hernia ostia with a few mildly dilated loops within the pelvis demonstrating adjacent inflammatory stranding with trace interloop edema. Correlate clinically to exclude a developing small bowel obstruction. 2. No pneumoperitoneum. 3. Cholelithiasis. 4. Stable indeterminate 3.8 cm exophytic mass of the superior pole right kidney appears stable dating back to the 2018 exam. 5. Possible lesion of the inferior pole right kidney could be correlated with a nonemergent follow-up renal protocol CT. 6. Partially imaged subsolid 1.1 cm nodule within the left lower lobe also appears stable from 2018. 7. Additional findings as above. ACT 112: Negative or not required by law. The above report was generated using voice recognition software. It may contain grammatical, syntax or spelling errors. Electronically signed by: Rommel Prince M.D. 06/09/2023 3:27 PM ECG Data Attestation: I personally reviewed and interpreted this ECG as follows: Indication: abdominal pain Rate (beats per minute): 59 Rhythm: atrial fibrillation Findings: no ST depression, no ST elevation or no prolonged QT MDM Narrative 1605: The patient was evaluated in room A3. A complete history and physical exam was performed Cardiac monitoring: An order was placed for continuous cardiac monitoring. The monitor shows a rate of 70 with sinus rhythm interpreted by ak 1724: Vital signs stable. Labs within normal limits, creatinine at baseline, INR therapeutic. CT shows abdominal hernias within the lower anterior abdominal wall containing mesenteric fat and a few loops of small fluid filled small bowel with narrowing of the small bowel loops at the hernia ostia with a few mildly dilated loops within the pelvis demonstrating adjacent inflammatory stranding with trace interloop edema. Radiology recommended to correlate for developing small bowel obstruction. There is concern that the patient could be developing a small bowel obstruction, discussed the case with Dr. Morris on-call general surgery who stated to admit to medicine and he will be down to evaluate the patient. [facility] hospitalist team Brock Zacarias and notified about the patient. 1900: Dr. Morris came down and evaluated the patient and recommended transfer as he stated the hernia looked too complicated and recommended tertiary care facility. [facility]'s team stated that they did not evaluate the patient and recommend transfer as they do not feel comfortable managing the patient without surgical backup. Discussed with the patient and family who stated they prefer to be transferred to [facility] and not to [facility] where the gastric bypass surgery was done more than 20 years ago. 1918: Spoke with Dr. Zamora general surgery [facility]. He stated he would accept the patient as a transfer however the transfer center stated that there were no available beds at [facility] at this time in the ED is too full to accept any ED to ED transfers. Dr. Zamora stated that if the patient starts vomiting to place an NG tube however at this time to hold off on putting NG tube as he has not been having vomiting. Dr. Zamora states he will accept the patient as a transfer when a bed becomes available at [facility]. I discussed this plan with the patient and family and they state that they are happy to stay at this facility until transfer is available to [facility]. Discussed the case with the [facility] hospitalist team Dr. Rutherford who asked that general surgery be consulted to make sure that they felt comfortable being on consult if the patient is admitted here. 1941: Spoke with Dr. Waldron who is now on-call for general surgery at this facility and states she is comfortable being on consult until the patient can be transferred to [facility]. [facility] hospitalist team Dr. Rutherford and Brock FISHER will admit the patient. Impression & Plan SBO (small bowel obstruction), Obesity Discharge Plan Visit Data Chief Complaint: Abdominal Pain Stated Complaint: SEVERE ABDOMINAL PAIN ED Provider: Luis Angel Farr Discharge Problem: SBO (small bowel obstruction), Obesity Patient Disposition: Being Evaluated by Hospitalist Forms Stand Alone Forms: My [facility] Prescriptions Prescriptions: No Action cephalexin 500 mg capsule 500 mg PO BID Qty: 60 3RF Rx Instructions: REGISTERED RESPIRATORY TECHNICIAN ABX Ozempic 2 mg/dose (8 mg/3 mL) pen injector 2 mg subcut WK 0RF Rx Instructions: INJECT 2MG SUB Q EVERY WEEK ON FRIDAY ipratropium-albuterol 20-100 mcg/actuation mist 2 spray inhalation QID PRN (Reason: Shortness Of Breath Or Wheezing) cholecalciferol (vitamin D3) 5,000 unit capsule 5,000 units PO Q2D allopurinol 100 mg tablet 100 mg PO BID metoprolol succinate 100 mg tablet extended release 24 hr 100 mg PO DAILY Qty: 90 simvastatin 20 mg tablet 20 mg PO DAILY terazosin 5 mg capsule 5 mg PO DAILY epinephrine [EpiPen] 0.3 mg/0.3 mL auto-injector 0.3 mg IM UD PRN (Reason: hypersensitivity reaction) Slow-Mag 71.5 mg tablet,delayed release (DR/EC) 71.5 mg PO BID Centrum Men 8 mg iron- 200 mcg-600 mcg tablet 1 tab PO DAILY gabapentin 100 mg capsule 100 mg PO BID furosemide 40 mg tablet 40 mg PO DAILY lisinopril 5 mg tablet 5 mg PO DAILY warfarin [Jantoven] 5 mg tablet 10 mg PO WK Rx Instructions: TAKE 10MG EVERY FRIDAY warfarin [Jantoven] 5 mg tablet 7.5 mg PO 6XWK Rx Instructions: TAKE 7.5MG EVERY FRIDAY/FRIDAY/FRIDAY/FRIDAY/FRIDAY/FRIDAY. insulin lispro [Humalog KwikPen Insulin] 100 unit/mL insulin pen 0 unit subcut TIDM Rx Instructions: PER SLIDING SCALE ascorbic acid (vitamin C) 500 mg Tablet 500 mg PO DAILY Toujeo Max U-300 SoloStar 300 unit/mL (3 mL) insulin pen 24 unit SUBCUT HS Referrals Referrals: Aden Mims [Primary Care Provider] -
[2023-06-09] MEDS: HEPARIN SODIUM/DEXTROSE 25,000 UNITS/500 ML BAG IV SCH (20:58)
[2023-06-09] MEDS: LACTATED RINGER'S 1,000 ML IV SCH (20:59)
[2023-06-09] MEDS ORDERED: LANTUS PER UNIT CHARGE SQ SCH (22:00)
[2023-06-09] MEDS ORDERED: IPRATROPIUM BROMIDE/ALBUTEROL respimat INH INH PRN (23:13)
[2023-06-09] MEDS ORDERED: IPRATROPIUM BROMIDE HFA INHALER INH PRN (23:15)
[2023-06-09] MEDS ORDERED: ALBUTEROL HFA 8 GM INHALER INH PRN (23:15)
[2023-06-10] MEDS ORDERED: MoRPHine SULFATE 4 MG/ML 1 ML CARP\\VIAL IV PRN (01:00)
[2023-06-10] MEDS ORDERED: MoRPHine SULFATE 2 MG/ML CARP IV PRN (01:00)
[2023-06-10] MEDS ORDERED: MICONAZOLE NITRATE POWDER 85 GM EXT PRN (01:02)
[2023-06-10] MEDS: ACETAMINOPHEN 1,000 MG/100 ML VIAL IV PRN ×3 (01:27→18:39)
[2023-06-10 03:25] LABS: Basophils # (auto) 0.02 K/uL (0-0.2); Basophils % (auto) 0.3 %; Eosinophils # (auto) 0.08 K/uL (0-0.50); Eosinophils % (auto) 1.3 %; Hematocrit (blood only) 38.3 % (42.0-52.0); Hemoglobin 13.1 g/dl (14.0-18.0); Lymphocytes % (auto) 32.5 %; Mean Corpuscular Hemoglobin 32.5 pg (25.0-34.0); Mean Corpuscular Hgb Conc 34.2 g/dL (32.0-36.0); Monocytes # (auto) 0.31 K/uL (0.11-0.59); Neutrophils # (auto) 3.74 K/uL (1.40-6.50); Neutrophils % (auto) 60.9 %; Platelet Count 128 K/uL (130-400); RDW Coefficient of Variation 14.4 % (11.5-14.5); RDW Standard Deviation 49.9 fL (36.4-46.3); Red Blood Count 4.03 M/uL (4.70-6.10); White Blood Count 6.15 K/ul (4.8-10.8)
[2023-06-10 03:51] LABS: Partial Thromboplastin Ratio 1.4; Partial Thromboplastin Time 39.8 Seconds (21.0-31.0); Prothrombin Time 20.9 Seconds (9.0-12.0)
[2023-06-10 04:19] LABS: Albumin Globulin Ratio 1.5 (0.9-2); Albumin Level 3.5 gm/dl (3.4-5.0); BUN Creatinine Ratio 20.9 (10-20); Bilirubin,Total 1.2 mg/dl (0.2-1.0); Calcium 9.1 mg/dl (8.6-10.3); Creatinine Clr Calc Pharmacy 67.5 ml/min; Est GFR (African American) 45.4 ml/min; Est GFR (Non-African American) 39.2 ml/min; Globulin 2.3 gm/dl (2.5-4.0); Magnesium 1.9 mg/dl (1.7-2.4); Potassium 3.9 mmol/L (3.5-5.1); Total Protein 5.8 gm/dl (6.0-8.3)
[2023-06-10] MEDS: INSULIN ASPART PER UNIT CHARGE SC SCH ×3 (06:13→18:15)
[2023-06-10] MEDS: LACTATED RINGER'S 1,000 ML IV SCH ×2 (07:47→17:53)
[2023-06-10] MEDS ORDERED: METOPROLOL SUCC 50MG EXT REL TAB PO SCH (09:00)
--- NOTE | 2023-06-10 10:42 | Pharmacy Report ---
Pharmacy Glycemic Short Note 2 - Date of Service June 10, 2023 - Glycemic Short BSG Results (Last 24 hours): 06/09/23 06/09/23 06/09/23 16:00 20:31 23:29 Glucose 101 H POC Glucose 104 H 104 H 06/10/23 06/10/23 03:04 06:10 Glucose 94 POC Glucose 101 H OUTPATIENT ANTIDIABETIC REGIMEN: * Mynor Esquivel 24 units HS ASSESSMENT: * Patient admitted with abdominal pain. Type 2 diabetic managed on insulin at home. Notes state patient with decreased appetite, nausea over the past week. Concerns for possible bowel obstruction. * NPO in case plans for OR. Fasting BSG 94 mg/dL - no basal insulin given last night * Will trend BSGs today, consider adding small scale for basal insulin at HS PLAN FOR INPATIENT GLYCEMIC CONTROL: * Hold outpatient oral diabetes medications * Basal insulin * Lantus 0-10 units HS based upon BSG value * Bolus insulin * NovoLog per scale ACHS or Q6hrs while NPO * Goal Range: Low 110 mg/dL - High 140 mg/dL * Correction Factor: 20 mg/dL/unit * Nutritional / Prandial insulin per carb ratio of 1 unit per 10 grams CHO consumed
[2023-06-10 11:14] LABS: Partial Thromboplastin Ratio 1.5
--- NOTE | 2023-06-10 11:29 | Electrocardiogram Report ---
Test Reason : Blood Pressure : / mmHG Vent. Rate : 059 BPM Atrial Rate : 000 BPM P-R Int : 000 ms QRS Dur : 102 ms QT Int : 420 ms P-R-T Axes : 000 -17 002 degrees QTc Int : 415 ms Poor data quality, interpretation may be adversely affected Atrial fibrillation with slow ventricular response with a competing junctional pacemaker with prematu re ventricular or aberrantly conducted complexes Abnormal ECG When compared with ECG of 12-JAN-2023 19:29, Vent. rate has decreased BY 32 BPM Confirmed by James Carter ([id number]) on 06/10/2023 11:29:31 AM Referred By: REFERRED SELF Confirmed By:James Carter
--- NOTE | 2023-06-10 15:07 | Hospitalist Progress Note ---
Date of Service June 10, 2023 Assessment & Plan (1) Abdominal pain: Plan: He appears to have a partial small bowel obstruction due to abdominal wall hernias. Surgery consultation appreciated. They recommend transfer to a tertiary care center for further care and he has been accepted by Dr. Zamora at [facility] but a bed is not available today. Continue n.p.o. status and IV fluids for now. Pain control measures. (2) Atrial fibrillation, chronic: Plan: Telemetry. Coumadin is on hold. Heparin infusion for now. Rate control (3) Hypertension: Plan: Currently stable. Will administer intravenous hydralazine as needed (4) T2DM (type 2 diabetes mellitus): Plan: Currently NPO. Sliding scale coverage. Basal Lantus therapy at reduced doses. (5) Hypomagnesemia: Plan: Corrected with parenteral replacement. (6) GISELL (obstructive sleep apnea): Plan: CPAP on hold due to high risk for vomiting. Plan Transfer to [facility] when a bed is available. He has been accepted by Dr. Zamora Admission and Anticipated Discharge Date Admission Date: June 09, 2023 Subjective Alert and oriented. Medically stable. [facility] has stated they will not have a bed for him today. Hopefully tomorrow, June 11. Continue n.p.o. status along with IV fluids and heparin drip. Serial labs ordered. Review of Systems Review of Systems: Constitutional-no fever or chills ENT-no blurred vision, no double vision, no epistaxis, no sore throat Respiratory-no cough, no wheezing, no shortness of breath Cardiac-no palpitations, no chest pain, no syncope GI-no nausea, vomiting, diarrhea, melena, hematochezia. Diffuse bilateral lower abdominal discomfort has lessened since admission -no urinary retention, no urinary incontinence, no dysuria, no hematuria Musculoskeletal-no joint pain, no muscle tenderness Skin-no bruising, no rashes, no pruritus Neuro-no isolated weakness, no paresthesia, no weakness Psych-no depression, no anxiety Physical Exam Physical Exam: General-alert and oriented x3, no fevers, no chills. Morbidly obese HEENT-head atraumatic and normocephalic, pupils equal and reactive to light, extraocular muscles intact Neck-no lymphadenopathy or thyromegaly, trachea midline Chest-clear to auscultation percussion. No rales wheezing or rhonchi Cardiac-regular rate and rhythm, normal S1 and S2, no murmurs Abdomen-normal bowel sounds, nondistended, tenderness in the lower abdomen bilaterally with no rebound or guarding. No ascites, no hepatosplenomegaly Extremities-bilateral nonpitting edema both lower extremities below the knees Neuro-cranial nerves II through XII intact, motor and sensory function within normal limits, strength symmetrical , no focal deficits Psych-normal affect, normal mood Results & Data Results & Data Vital Signs (Past 12 Hours) Vital Signs Temp Pulse Pulse Resp BP Pulse Ox O2 Del Method 06/10/23 07:00 48 L 06/10/23 11:09 36.5 C 59 L 18 111/67 97 Room Air 06/10/23 07:45 Room Air 06/10/23 07:46 36.5 C 48 L 18 114/58 L 98 Room Air 06/10/23 04:32 58 L 06/10/23 03:10 36.5 C 64 16 123/73 96 Room Air Laboratory Results 06/10/23 03:04 06/10/23 03:04 PG Care Time/CCT Total # of Minutes Spent Total Time Spent with Patient: Total time spent is greater than 50% in coordination of care (as documented) at patient's floor/unit and/or counseling patient: Coding Level of Care Code 58446 SUB INP/OBS CARE 3/50MIN Diagnoses Abdominal pain R10.9 Atrial fibrillation, chronic I48.20 Hypertension I10 T2DM (type 2 diabetes mellitus) E11.9 Hypomagnesemia E83.42 GISELL (obstructive sleep apnea) G47.33
--- NOTE | 2023-06-10 16:04 | Surgery Progress Note ---
Date of Service June 10, 2023 Assessment & Plan (1) Abdominal pain: Plan: Assessment:Patient is a 68 years old gentleman who is past medical history atrial fibrillation on Coumadin,COPD, HTN, hyperlipidemia, diabetes, obesity BMI 52.9, gastric bypass in 1998 at [facility], sepsis, chronic kidney disease stage III. Patient presents to the ED with couple weeks history Abdominal pain with nausea and constipation, plan, based on pt's H/P, labs and CT scan finding, pt has complex abdominal hernia, loss domain. recommend to transfer higher level care for hernia specialist surgeon consult. D/W benefits, risks and alternatives of the transfer, pt and his understood, they agreed with transfer. I answered all questions, D/W ER attending. 06/10/2023, 4:02 PM F/u complex abdominal wall hernia, pt is doing better, [place] [facility] [place], sign off today, please call with questions. Thanks. Admission and Anticipated Discharge Date Admission Date: June 09, 2023 Supervising Physician Co-Signing Physician Notes Patient seen and examined, chart reviewed, case discussed with Brock Zacarias PA-C and I agree with the assessment and plan as above except as otherwise noted Labs and images reviewed 68-year-old male with past medical history of bariatric surgery, hypertension, hyperlipidemia, DM 2, A-fib on Coumadin, GISELL, recurrent MRSA infection followed by [facility] who presented with abdominal plain constipation and who was admitted for SBO. Initially recommended for transfer to tertiary care due to BMI and complex history, was excepted by [facility] [place] Zamora but bed is not available at this time. Case was reviewed with evening on-call surgery who agree to be on consult, patient is admitted to medicine for observation until transferred [place] [facility] Patient has improved pain following morphine, Zofran, NSS. No acute distress at bedside. Is starting to pass a small amount of gas, last bowel movement was 06/06. Abdomen is nontender at time of admitting assessment. We will admit, n.p.o., and follow-up. If any nausea/vomiting/abdominal pain develop place NGT. Agree with management as above Subjective Alert and oriented. Medically stable. [facility] has stated they will not have a bed for him today. Hopefully tomorrow, June 11. Continue n.p.o. status along with IV fluids and heparin drip. Serial labs ordered. 06/10/2023 4:[address] Morris F/U abdominal wall hernia. pt feels better, no significant abdominal pain now, no nausea, no vomiting, no fever, passed some gas, no BM yet. Review of Systems Constitutional: obesity Eyes: as per Subjective / HPI Respiratory: COPD, obstructive sleep apnea Cardiovascular: Additional Comments: A-fib, HTN, hyperlipidemia Gastrointestinal: gastric bypass in 1998 Neurologic: as per Subjective / HPI Psychiatric: as per Subjective / HPI Endocrine: DM Hematologic / Lymphatic: as per Subjective / HPI Physical Exam Eyes: PERRL, conjunctivae normal, anicteric sclerae Neck: trachea midline, no thyromegaly Respiratory: normal respiratory effort, lungs clear to auscultation Cardiovascular: Rate/Rhythm: + irregularly irregular Gastrointestinal (Abdomen): soft, NT, Nd, BS +, lower abdominal wall hernia +. Neurologic: patellar DTR's 2+ bilat, sensation intact Psychiatric: A+Ox3, euthymic affect Results & Data Vital Signs (Past 12 Hours) Vital Signs Temp Pulse Pulse Resp BP Pulse Ox O2 Del Method 06/10/23 15:12 36.4 C L 18 136/69 96 Room Air 06/10/23 14:34 67 06/10/23 07:00 48 L 06/10/23 11:09 36.5 C 59 L 18 111/67 97 Room Air 06/10/23 07:45 Room Air 06/10/23 07:46 36.5 C 48 L 18 114/58 L 98 Room Air 06/10/23 04:32 58 L Laboratory Results Lab Results 06/09/23 06/09/23 06/09/23 Range/Units 16:00 16:00 16:00 WBC 8.88 (4.8-10.8) K/ul RBC 4.91 (4.70-6.10) M/uL Hgb 15.9 (14.0-18.0) g/dl Hct 46.0 (42.0-52.0) % MCV 93.7 (80.0-100.0) fL MCH 32.4 (25.0-34.0) pg MCHC 34.6 (32.0-36.0) g/dL RDW Std Deviation 50.2 H (36.4-46.3) fL RDW Coeff of Jack 14.5 (11.5-14.5) % Plt Count 141 (130-400) K/uL MPV 10.3 (9.4-12.4) fL Immature Gran % (Auto) 0.3 % Neut % (Auto) 83.3 % Lymph % (Auto) 12.7 % [place] % (Auto) 3.2 % Eos % (Auto) 0.3 % Baso % (Auto) 0.2 % Neut # (Auto) 7.39 H (1.40-6.50) K/uL Lymph # (Auto) 1.13 L (1.2-3.4) K/uL [place] # (Auto) 0.28 (0.11-0.59) K/uL Eos # (Auto) 0.03 (0-0.50) K/uL Baso # (Auto) 0.02 (0-0.2) K/uL Immature Gran # (Auto) 0.03 (0.01-0.20) K/uL PT 22.7 H (9.0-12.0) Seconds INR 2.2 H (0.9-1.1) APTT 35.9 H (21.0-31.0) Seconds PTT Ratio 1.3 Sodium 139 (136-145) mmol/L Potassium 3.9 (3.5-5.1) mmol/L Chloride 104 (98-107) mmol/L Carbon Dioxide 26 (21-32) mmol/L Anion Gap 9 (3-11) BUN 35 H (6-23) mg/dl Creatinine 1.78 H (0.6-1.4) mg/dl Est Cr Clr Drug Dosing 67.8 ml/min Est GFR ( Amer) 45.1 ml/min Est GFR (Non-Af Amer) 38.9 ml/min BUN/Creatinine Ratio 19.7 (10-20) Glucose 101 H (70-99(Fasting)) mg/dl POC Glucose (70-99) mg/dl Lactate (0.4-2.0) mmol/L Calcium 10.1 (8.6-10.3) mg/dl Magnesium 1.6 L (1.7-2.4) mg/dl Total Bilirubin 1.5 H (0.2-1.0) mg/dl AST 18 (13-39) U/L ALT 6 L (7-52) U/L Alkaline Phosphatase 46 (34-104) U/L Total Protein 7.4 (6.0-8.3) gm/dl Albumin 4.5 (3.4-5.0) gm/dl Globulin 2.9 (2.5-4.0) gm/dl Albumin/Globulin Ratio 1.6 (0.9-2) Lipase 33 (11-82) U/L Urine Color Urine Appearance (Clear) Urine pH (4.5-7.5) Ur Specific [place] (1.000-1.030) Urine Protein (Negative) Urine Glucose (UA) (Negative) Urine Ketones (Negative) Urine Blood (Negative) Urine Nitrite (Negative) Urine Bilirubin (Negative) Urine Urobilinogen (Negative) Ur Leukocyte Esterase (Negative) SARS-CoV-2, RNA, NAAT (NEGATIVE) 06/09/23 06/09/23 06/09/23 Range/Units 16:00 17:09 18:00 WBC (4.8-10.8) K/ul RBC (4.70-6.10) M/uL Hgb (14.0-18.0) g/dl Hct (42.0-52.0) % MCV (80.0-100.0) fL MCH (25.0-34.0) pg MCHC (32.0-36.0) g/dL RDW Std Deviation (36.4-46.3) fL RDW Coeff of Jack (11.5-14.5) % Plt Count (130-400) K/uL MPV (9.4-12.4) fL Immature Gran % (Auto) % Neut % (Auto) % Lymph % (Auto) % [place] % (Auto) % Eos % (Auto) % Baso % (Auto) % Neut # (Auto) (1.40-6.50) K/uL Lymph # (Auto) (1.2-3.4) K/uL [place] # (Auto) (0.11-0.59) K/uL Eos # (Auto) (0-0.50) K/uL Baso # (Auto) (0-0.2) K/uL Immature Gran # (Auto) (0.01-0.20) K/uL PT (9.0-12.0) Seconds INR (0.9-1.1) APTT (21.0-31.0) Seconds PTT Ratio Sodium (136-145) mmol/L Potassium (3.5-5.1) mmol/L Chloride (98-107) mmol/L Carbon Dioxide (21-32) mmol/L Anion Gap (3-11) BUN (6-23) mg/dl Creatinine (0.6-1.4) mg/dl Est Cr Clr Drug Dosing ml/min Est GFR ( Amer) ml/min Est GFR (Non-Af Amer) ml/min BUN/Creatinine Ratio (10-20) Glucose (70-99(Fasting)) mg/dl POC Glucose (70-99) mg/dl Lactate 1.0 (0.4-2.0) mmol/L Calcium (8.6-10.3) mg/dl Magnesium (1.7-2.4) mg/dl Total Bilirubin (0.2-1.0) mg/dl AST (13-39) U/L ALT (7-52) U/L Alkaline Phosphatase (34-104) U/L Total Protein (6.0-8.3) gm/dl Albumin (3.4-5.0) gm/dl Globulin (2.5-4.0) gm/dl Albumin/Globulin Ratio (0.9-2) Lipase (11-82) U/L Urine Color Yellow Urine Appearance Clear (Clear) Urine pH 5.0 (4.5-7.5) Ur Specific [place] 1.008 (1.000-1.030) Urine Protein Negative (Negative) Urine Glucose (UA) Negative (Negative) Urine Ketones Negative (Negative) Urine Blood Negative (Negative) Urine Nitrite Negative (Negative) Urine Bilirubin Negative (Negative) Urine Urobilinogen Negative (Negative) Ur Leukocyte Esterase Negative (Negative) SARS-CoV-2, RNA, NAAT NEGATIVE (NEGATIVE) 06/09/23 06/09/23 06/10/23 Range/Units 20:31 23:29 03:04 WBC 6.15 (4.8-10.8) K/ul RBC 4.03 L (4.70-6.10) M/uL Hgb 13.1 L (14.0-18.0) g/dl Hct 38.3 L (42.0-52.0) % MCV 95.0 (80.0-100.0) fL MCH 32.5 (25.0-34.0) pg MCHC 34.2 (32.0-36.0) g/dL RDW Std Deviation 49.9 H (36.4-46.3) fL RDW Coeff of Jack 14.4 (11.5-14.5) % Plt Count 128 L (130-400) K/uL MPV 10.0 (9.4-12.4) fL Immature Gran % (Auto) 0.0 % Neut % (Auto) 60.9 % Lymph % (Auto) 32.5 % [place] % (Auto) 5.0 % Eos % (Auto) 1.3 % Baso % (Auto) 0.3 % Neut # (Auto) 3.74 (1.40-6.50) K/uL Lymph # (Auto) 2.00 (1.2-3.4) K/uL [place] # (Auto) 0.31 (0.11-0.59) K/uL Eos # (Auto) 0.08 (0-0.50) K/uL Baso # (Auto) 0.02 (0-0.2) K/uL Immature Gran # (Auto) 0.00 L (0.01-0.20) K/uL PT (9.0-12.0) Seconds INR (0.9-1.1) APTT (21.0-31.0) Seconds PTT Ratio Sodium (136-145) mmol/L Potassium (3.5-5.1) mmol/L Chloride (98-107) mmol/L Carbon Dioxide (21-32) mmol/L Anion Gap (3-11) BUN (6-23) mg/dl Creatinine (0.6-1.4) mg/dl Est Cr Clr Drug Dosing ml/min Est GFR ( Amer) ml/min Est GFR (Non-Af Amer) ml/min BUN/Creatinine Ratio (10-20) Glucose (70-99(Fasting)) mg/dl POC Glucose 104 H 104 H (70-99) mg/dl Lactate (0.4-2.0) mmol/L Calcium (8.6-10.3) mg/dl Magnesium (1.7-2.4) mg/dl Total Bilirubin (0.2-1.0) mg/dl AST (13-39) U/L ALT (7-52) U/L Alkaline Phosphatase (34-104) U/L Total Protein (6.0-8.3) gm/dl Albumin (3.4-5.0) gm/dl Globulin (2.5-4.0) gm/dl Albumin/Globulin Ratio (0.9-2) Lipase (11-82) U/L Urine Color Urine Appearance (Clear) Urine pH (4.5-7.5) Ur Specific [place] (1.000-1.030) Urine Protein (Negative) Urine Glucose (UA) (Negative) Urine Ketones (Negative) Urine Blood (Negative) Urine Nitrite (Negative) Urine Bilirubin (Negative) Urine Urobilinogen (Negative) Ur Leukocyte Esterase (Negative) SARS-CoV-2, RNA, NAAT (NEGATIVE) 06/10/23 06/10/23 06/10/23 Range/Units 03:04 03:04 06:10 WBC (4.8-10.8) K/ul RBC (4.70-6.10) M/uL Hgb (14.0-18.0) g/dl Hct (42.0-52.0) % MCV (80.0-100.0) fL MCH (25.0-34.0) pg MCHC (32.0-36.0) g/dL RDW Std Deviation (36.4-46.3) fL RDW Coeff of Jack (11.5-14.5) % Plt Count (130-400) K/uL MPV (9.4-12.4) fL Immature Gran % (Auto) % Neut % (Auto) % Lymph % (Auto) % [place] % (Auto) % Eos % (Auto) % Baso % (Auto) % Neut # (Auto) (1.40-6.50) K/uL Lymph # (Auto) (1.2-3.4) K/uL [place] # (Auto) (0.11-0.59) K/uL Eos # (Auto) (0-0.50) K/uL Baso # (Auto) (0-0.2) K/uL Immature Gran # (Auto) (0.01-0.20) K/uL PT 20.9 H (9.0-12.0) Seconds INR 2.0 H (0.9-1.1) APTT 39.8 H (21.0-31.0) Seconds PTT Ratio 1.4 Sodium 139 (136-145) mmol/L Potassium 3.9 (3.5-5.1) mmol/L Chloride 106 (98-107) mmol/L Carbon Dioxide 26 (21-32) mmol/L Anion Gap 7 (3-11) BUN 37 H (6-23) mg/dl Creatinine 1.77 H (0.6-1.4) mg/dl Est Cr Clr Drug Dosing 67.5 ml/min Est GFR ( Amer) 45.4 ml/min Est GFR (Non-Af Amer) 39.2 ml/min BUN/Creatinine Ratio 20.9 H (10-20) Glucose 94 (70-99(Fasting)) mg/dl POC Glucose 101 H (70-99) mg/dl Lactate (0.4-2.0) mmol/L Calcium 9.1 (8.6-10.3) mg/dl Magnesium 1.9 (1.7-2.4) mg/dl Total Bilirubin 1.2 H (0.2-1.0) mg/dl AST 14 (13-39) U/L ALT 5 L (7-52) U/L Alkaline Phosphatase 35 (34-104) U/L Total Protein 5.8 L D (6.0-8.3) gm/dl Albumin 3.5 (3.4-5.0) gm/dl Globulin 2.3 L (2.5-4.0) gm/dl Albumin/Globulin Ratio 1.5 (0.9-2) Lipase (11-82) U/L Urine Color Urine Appearance (Clear) Urine pH (4.5-7.5) Ur Specific [place] (1.000-1.030) Urine Protein (Negative) Urine Glucose (UA) (Negative) Urine Ketones (Negative) Urine Blood (Negative) Urine Nitrite (Negative) Urine Bilirubin (Negative) Urine Urobilinogen (Negative) Ur Leukocyte Esterase (Negative) SARS-CoV-2, RNA, NAAT (NEGATIVE) 06/10/23 06/10/23 Range/Units 10:08 12:16 WBC (4.8-10.8) K/ul RBC (4.70-6.10) M/uL Hgb (14.0-18.0) g/dl Hct (42.0-52.0) % MCV (80.0-100.0) fL MCH (25.0-34.0) pg MCHC (32.0-36.0) g/dL RDW Std Deviation (36.4-46.3) fL RDW Coeff of Jack (11.5-14.5) % Plt Count (130-400) K/uL MPV (9.4-12.4) fL Immature Gran % (Auto) % Neut % (Auto) % Lymph % (Auto) % [place] % (Auto) % Eos % (Auto) % Baso % (Auto) % Neut # (Auto) (1.40-6.50) K/uL Lymph # (Auto) (1.2-3.4) K/uL [place] # (Auto) (0.11-0.59) K/uL Eos # (Auto) (0-0.50) K/uL Baso # (Auto) (0-0.2) K/uL Immature Gran # (Auto) (0.01-0.20) K/uL PT (9.0-12.0) Seconds INR (0.9-1.1) APTT 41.0 H* (21.0-31.0) Seconds PTT Ratio 1.5 Sodium (136-145) mmol/L Potassium (3.5-5.1) mmol/L Chloride (98-107) mmol/L Carbon Dioxide (21-32) mmol/L Anion Gap (3-11) BUN (6-23) mg/dl Creatinine (0.6-1.4) mg/dl Est Cr Clr Drug Dosing ml/min Est GFR ( Amer) ml/min Est GFR (Non-Af Amer) ml/min BUN/Creatinine Ratio (10-20) Glucose (70-99(Fasting)) mg/dl POC Glucose 98 (70-99) mg/dl Lactate (0.4-2.0) mmol/L Calcium (8.6-10.3) mg/dl Magnesium (1.7-2.4) mg/dl Total Bilirubin (0.2-1.0) mg/dl AST (13-39) U/L ALT (7-52) U/L Alkaline Phosphatase (34-104) U/L Total Protein (6.0-8.3) gm/dl Albumin (3.4-5.0) gm/dl Globulin (2.5-4.0) gm/dl Albumin/Globulin Ratio (0.9-2) Lipase (11-82) U/L Urine Color Urine Appearance (Clear) Urine pH (4.5-7.5) Ur Specific [place] (1.000-1.030) Urine Protein (Negative) Urine Glucose (UA) (Negative) Urine Ketones (Negative) Urine Blood (Negative) Urine Nitrite (Negative) Urine Bilirubin (Negative) Urine Urobilinogen (Negative) Ur Leukocyte Esterase (Negative) SARS-CoV-2, RNA, NAAT (NEGATIVE)
[2023-06-10] MEDS ORDERED: LANTUS PER UNIT CHARGE SQ SCH (21:00)
[2023-06-10] MEDS: HEPARIN SODIUM/DEXTROSE 25,000 UNITS/500 ML BAG IV SCH (21:31)
[2023-06-11] MEDS ORDERED: INSULIN ASPART PER UNIT CHARGE SC SCH
[2023-06-11] MEDS: INSULIN ASPART PER UNIT CHARGE SC SCH ×4 (00:17→18:13)
[2023-06-11] MEDS: LACTATED RINGER'S 1,000 ML IV SCH ×2 (03:32→12:57)
[2023-06-11 06:12] LABS: Basophils # (auto) 0.02 K/uL (0-0.2); Basophils % (auto) 0.4 %; Eosinophils # (auto) 0.08 K/uL (0-0.50); Eosinophils % (auto) 1.6 %; Hematocrit (blood only) 38.2 % (42.0-52.0); Hemoglobin 12.9 g/dl (14.0-18.0); Lymphocytes # (auto) 1.67 K/uL (1.2-3.4); Lymphocytes % (auto) 32.4 %; Mean Corpuscular Hemoglobin 32.1 pg (25.0-34.0); Mean Corpuscular Hgb Conc 33.8 g/dL (32.0-36.0); Mean Platelet Volume 9.8 fL (9.4-12.4); Monocytes # (auto) 0.29 K/uL (0.11-0.59); Monocytes % (auto) 5.6 %; Platelet Count 116 K/uL (130-400); RDW Coefficient of Variation 14.2 % (11.5-14.5); RDW Standard Deviation 49.8 fL (36.4-46.3); Red Blood Count 4.02 M/uL (4.70-6.10); White Blood Count 5.16 K/ul (4.8-10.8)
[2023-06-11 06:20] LABS: Calcium 8.8 mg/dl (8.6-10.3); Creatinine Clr Calc Pharmacy 74.1 ml/min; Est GFR (African American) 50.9 ml/min; Est GFR (Non-African American) 43.9 ml/min; Potassium 3.8 mmol/L (3.5-5.1)
[2023-06-11 06:30] LABS: INR 1.9 (0.9-1.1); Partial Thromboplastin Ratio 1.4; Partial Thromboplastin Time 38.1 Seconds (21.0-31.0); Prothrombin Time 19.5 Seconds (9.0-12.0)
[2023-06-11] MEDS ORDERED: PANTOprazole 40 MG in SYRINGE 0 ML IV SCH (11:00)
--- NOTE | 2023-06-11 12:31 | Hospitalist Progress Note ---
Date of Service June 11, 2023 Assessment & Plan (1) Abdominal pain: Plan: He appears to have a partial small bowel obstruction due to abdominal wall hernias. Surgery consultation appreciated. They recommend transfer to a tertiary care center for further care and he has been accepted by Dr. Zamora at [facility] but a bed is not available today. Continue n.p.o. status and IV fluids for now. Pain control measures. (2) Atrial fibrillation, chronic: Plan: Telemetry. Coumadin is on hold. Heparin infusion for now. Rate control . INR is dropping as expected (3) Hypertension: Plan: Currently stable. Will administer intravenous hydralazine as needed (4) T2DM (type 2 diabetes mellitus): Plan: Currently NPO. Sliding scale coverage. Basal Lantus therapy at reduced doses. (5) Hypomagnesemia: Plan: Corrected with parenteral replacement. (6) GISELL (obstructive sleep apnea): Plan: CPAP on hold due to high risk for vomiting. Plan Transfer to [facility] [address] when a bed is available. He has been accepted by Dr. Zamora Admission and Anticipated Discharge Date Admission Date: June 09, 2023 Subjective Alert and oriented. No new problems. He states he is passing some flatus. He remains n.p.o. on IV fluids. He also remains on a heparin drip. INR is down to 1.9 off Coumadin. Awaiting bed availability at [facility] Review of Systems Review of Systems: Constitutional-no fever or chills ENT-no blurred vision, no double vision, no epistaxis, no sore throat Respiratory-no cough, no wheezing, no shortness of breath Cardiac-no palpitations, no chest pain, no syncope GI-no nausea, vomiting, diarrhea, melena, hematochezia. Diffuse bilateral lower abdominal discomfort has lessened since admission -no urinary retention, no urinary incontinence, no dysuria, no hematuria Musculoskeletal-no joint pain, no muscle tenderness Skin-no bruising, no rashes, no pruritus Neuro-no isolated weakness, no paresthesia, no weakness Psych-no depression, no anxiety Physical Exam Physical Exam: General-alert and oriented x3, no fevers, no chills. Morbidly obese HEENT-head atraumatic and normocephalic, pupils equal and reactive to light, extraocular muscles intact Neck-no lymphadenopathy or thyromegaly, trachea midline Chest-clear to auscultation percussion. No rales wheezing or rhonchi Cardiac-regular rate and rhythm, normal S1 and S2, no murmurs Abdomen-normal bowel sounds, nondistended, tenderness in the lower abdomen bilaterally with no rebound or guarding. No ascites, no hepatosplenomegaly Extremities-bilateral nonpitting edema both lower extremities below the knees Neuro-cranial nerves II through XII intact, motor and sensory function within normal limits, strength symmetrical , no focal deficits Psych-normal affect, normal mood Results & Data Results & Data Vital Signs (Past 12 Hours) Vital Signs Temp Pulse Resp BP Pulse Ox O2 Del Method 06/11/23 11:57 36.4 C L 62 16 181/82 H 99 Room Air 06/11/23 11:20 Room Air, CPAP 06/11/23 07:40 36.5 C 64 16 153/82 H 98 Room Air 06/11/23 03:35 36.4 C L 62 16 158/75 H 96 Room Air Laboratory Results 06/11/23 05:47 06/11/23 05:47 PG Care Time/CCT Total # of Minutes Spent Total Time Spent with Patient: Total time spent is greater than 50% in coordination of care (as documented) at patient's floor/unit and/or counseling patient: Coding Level of Care Code 49170 SUB INP/OBS CARE 2/35MIN Diagnoses Abdominal pain R10.9 Atrial fibrillation, chronic I48.20 Hypertension I10 T2DM (type 2 diabetes mellitus) E11.9 Hypomagnesemia E83.42 GISELL (obstructive sleep apnea) G47.33
[2023-06-11 13:00] LABS: Partial Thromboplastin Ratio 1.4; Partial Thromboplastin Time 39.7 Seconds (21.0-31.0)
[2023-06-11] MEDS: ACETAMINOPHEN 1,000 MG/100 ML VIAL IV PRN (15:29)
--- NOTE | 2023-06-11 16:57 | Discharge Summary ---
Date of Service June 11, 2023 Admission HPI Per Admitting Provider Melchor is a 67yo male with history of bariatric surgery at [place] in 1998, HTN, HLP, DMII, Atrial Fibrillation on Coumadin, GISELL, recurrent MRSA infection (follows with [facility] and on chronic Keflex therapy), and morbid obesity who presented to the [facility] ED on 06/09 with complaints of abdominal pain and constipation. In the ED, vitals were stable. Labs were significant for an INR of 2.2, amg of 1.6, total bili of 1.5. CT of the abd/pelvis wo con was read as "1. Abdominal hernias within the lower anterior abdominal wall contain mesenteric fat and a few loops of fluid-filled small bowel. There is narrowing of the small bowel loops at the hernia ostia with a few mildly dilated loops within the pelvis demonstrating adjacent inflammatory stranding with trace interloop edema. Correlate clinically to exclude a developing small bowel obstruction. 2. No pneumoperitoneum. 3. Cholelithiasis. 4. Stable indeterminate 3.8 cm exophytic mass of the superior pole right kidney appears stable dating back to the 2018 exam. 5. Possible lesion of the inferior pole right kidney could be correlated with a nonemergent follow-up renal protocol CT. 6. Partially imaged subsolid 1.1 cm nodule within the left lower lobe also appears stable from 2018. 7. Additional findings as above.". General Surgery was consulted and recommended transfer to a tertiary care facility due to the patient's BMI and complex abdominal history. The patient was accepted to [facility] [place] by [place]. Zamora but they are currently without a clean bed. The patient will be admitted to Medicine until transfer. General surgery agreed to follow while here in case of acute decompensation. Prior to admission the patient was given 4mg IV morphine, 4mg IV zofran, and started on NSS at 80 mL/hr. At the time of the exam the patient was lying in bed in no acute distress with is sitting bedside, history was obtained from both. They state that the patient has two, large abdominal wall hernias at the site of his previous bariatric surgery. His hernias frequently protrude through the abdominal wall and stay out for hours, but always reduce themselves. He states that he has chronic abd pain and inconsistent bowel movements since his bariatric surgery. Approximately one week ago the patient started to develop increased abdominal pain, decreased appetite, nausea, and constipation. He had a large bowel movem ent on 06/06 and a small bowel movement yesterday, he states he is currently passing a small amount amount of gas. He states that yesterday his abdominal hernia protruded severely after bending over, he experienced severe pain after that. While in the waiting room today the patient states that he was in severe pain as sitting in the chair was increasing his intra-abdominal pressure. He walked to the bathroom earlier which exacerbated his symptoms, but he is currently without pain while lying flat. He denies recent fever, chills, chest pain, SOB, cough, nausea, vomiting, diarrhea, dysuria hematuria, melena, worsening LE swelling and recent trauma. He is a full code and would want his to make medical decisions for him if he cannot make them himself. Please refer to Dr. Topete's attestation for any changes to the treatment plan Principal Diagnosis SBO, abdominal wall hernias Discharge Exam General-alert and oriented x3, no fevers, no chills. Morbidly obese HEENT-head atraumatic and normocephalic, pupils equal and reactive to light, extraocular muscles intact Neck-no lymphadenopathy or thyromegaly, trachea midline Chest-clear to auscultation percussion. No rales wheezing or rhonchi Cardiac-regular rate and rhythm, normal S1 and S2, no murmurs Abdomen-normal bowel sounds, nondistended, tenderness in the lower abdomen bilaterally with no rebound or guarding. No ascites, no hepatosplenomegaly Extremities-bilateral nonpitting edema both lower extremities below the knees Neuro-cranial nerves II through XII intact, motor and sensory function within normal limits, strength symmetrical , no focal deficits Psych-normal affect, normal mood Discharge Data Allergies Allergy/AdvReac Type Severity Reaction Status Date / Time bee venom protein (honey bee) Allergy Intermediate SWELLS Verified 06/09/23 17:06 metformin Allergy Intermediate HIVES Verified 06/09/23 17:06 Consultations 06/09/23 17:27 ED Decision to Admit Stat 06/09/23 17:28 Consult General Surgery Stat Ordered Studies 06/09/23 13:42 CT abd pelvis wo con Stat Hospital Course (1) Abdominal pain: He appears to have a partial small bowel obstruction due to abdominal wall hernias. Surgery consultation appreciated. They recommend transfer to a tertiary care center for further care and he has been accepted by Dr. Zamora at [facility] [address] but a bed is not available today. Continue n.p.o. status and IV fluids for now. Pain control measures. (2) Atrial fibrillation, chronic: Telemetry. Coumadin is on hold. Heparin infusion for now. Rate control . INR is dropping as expected (3) Hypertension: Currently stable. Will administer intravenous hydralazine as needed (4) T2DM (type 2 diabetes mellitus): Currently NPO. Sliding scale coverage. Basal Lantus therapy at reduced doses. (5) Hypomagnesemia: Corrected with parenteral replacement. (6) GISELL (obstructive sleep apnea): CPAP on hold due to high risk for vomiting. Plan Transfer to [facility] [address] when a bed is available. He has been accepted by Dr. Zamora Total Time Total Time Spent Total Time Spent (In Minutes): 45 minutes Discharge Plan Discharge Items Patient Disposition: Transfer Acute Care Hospital Reason For Visit: SBO, HYPO-MAG Discharge Diagnosis: SBO, intra-abdominal wall hernia, hypomagnesemia Activity: As commented below Activity Comment: bedrest Non-emergency contact: Primary Care Provider Call non-emergency contact if: you have any medication questions and your symptoms worsen Follow-up/Referrals: Aden Mims [Primary Care Provider] - Diet: Nothing by Mouth Addtl Attending Provider Instructions: follow up with primary care provider after discharge from [facility] Pending Studies at Discharge: No Stand-Alone Forms: My [facility] Skilled Items Patient informed of condition?: Yes DNR: No Discharge Level of Care: Other Communicable Disease: No Discharge Prognosis: Stable Lines: Peripheral IV Urinary Catheter: No Medications and DC Order Prescriptions: New morphine 2 mg/mL Syringe 2 mg IV Q4H PRNQty: 0 0RF Continued ipratropium-albuterol 20-100 mcg/actuation mist 2 spray inhalation QID PRN (Reason: Shortness Of Breath Or Wheezing) Held cephalexin 500 mg capsule 500 mg PO BID Qty: 60 3RF Hold Instructions: Resume on 07/12/23. hold Rx Instructions: RETIREMENT ABX Ozempic 2 mg/dose (8 mg/3 mL) pen injector 2 mg subcut WK 0RF Hold Instructions: Resume on 07/12/23. Rx Instructions: INJECT 2MG SUB Q EVERY WEEK ON FRIDAY cholecalciferol (vitamin D3) 5,000 unit capsule 5,000 units PO Q2D Hold Instructions: Resume on 07/12/23. allopurinol 100 mg tablet 100 mg PO BID Hold Instructions: Resume on 07/12/23. metoprolol succinate 100 mg tablet extended release 24 hr 100 mg PO DAILY Qty: 90 Hold Instructions: Resume on 07/12/23. simvastatin 20 mg tablet 20 mg PO DAILY Hold Instructions: Resume on 07/12/23. terazosin 5 mg capsule 5 mg PO DAILY Hold Instructions: Resume on 07/12/23. epinephrine [EpiPen] 0.3 mg/0.3 mL auto-injector 0.3 mg IM UD PRN (Reason: hypersensitivity reaction) Hold Instructions: Resume on 07/12/23. Slow-Mag 71.5 mg tablet,delayed release (DR/EC) 71.5 mg PO BID Hold Instructions: Resume on 07/12/23. Centrum Men 8 mg iron- 200 mcg-600 mcg tablet 1 tab PO DAILY Hold Instructions: Resume on 07/12/23. gabapentin 100 mg capsule 100 mg PO BID Hold Instructions: Resume on 07/12/23. furosemide 40 mg tablet 40 mg PO DAILY Hold Instructions: Resume on 07/12/23. lisinopril 5 mg tablet 5 mg PO DAILY Hold Instructions: Resume on 07/12/23. warfarin [Jantoven] 5 mg tablet 10 mg PO WK Hold Instructions: Resume on 07/16/23. Rx Instructions: TAKE 10MG EVERY FRIDAY warfarin [Jantoven] 5 mg tablet 7.5 mg PO 6XWK Hold Instructions: Resume on 07/12/23. Rx Instructions: TAKE 7.5MG EVERY FRIDAY/FRIDAY/FRIDAY/FRIDAY/FRIDAY/FRIDAY. insulin lispro [Humalog KwikPen Insulin] 100 unit/mL insulin pen 0 unit subcut TIDM Hold Instructions: Resume on 07/12/23. Rx Instructions: PER SLIDING SCALE ascorbic acid (vitamin C) 500 mg Tablet 500 mg PO DAILY Hold Instructions: Resume on 07/12/23. Toujeo Max U-300 SoloStar 300 unit/mL (3 mL) insulin pen 24 unit SUBCUT HS Hold Instructions: Resume on 07/12/23. Discharge Orders: Discharge Order (Routine); Ordered 06/11/23 Ordered By: Willam Lockett Admission Data Admit Date/Time: 06/09/23 19:52 Attending Provider: Willam Lockett Admit Provider: Dalton Topete Primary Care Provider: Aden Mims Other Providers: Vini Aguayo ; Aquilino Morris Coding Level of Care Code 54306 INP/OBS DISCH >30 MIN Diagnoses Abdominal pain R10.9 Atrial fibrillation, chronic I48.20 Hypertension I10 T2DM (type 2 diabetes mellitus) E11.9 Hypomagnesemia E83.42 GISELL (obstructive sleep apnea) G47.33
[2023-06-11 20:24] LABS: Partial Thromboplastin Ratio 1.5
[2023-06-11 20:25] LABS: Partial Thromboplastin Time 41.7 Seconds (21.0-31.0)
== END 2023-06-11 19:41 | disposition short-term general hospital (02) | DRG 394 ==
LOC: ED 13:31 → 2W 19:52 → SUATTDRO 19:52 → 2W 21:00

== ENCOUNTER 2023-06-26 13:15 | Inpatient (IN) ==
[2023-06-26] MEDS ORDERED: SODIUM CHLORIDE 0.9% 1000ML 1,000 ML IV ONE (13:34)
--- NOTE | 2023-06-26 13:51 | Emergency Department Note ---
Impression & Plan SBO (small bowel obstruction), Abdominal pain ED Provider Note NAME: KOBE RO AGE: 68 SEX: M : 1955 ARRIVES VIA: Ambulance INFORMANT: Patient ED PROVIDER(S): David Aguilera DO CHIEF COMPLAINT: abdominal pain HPI: Patient is a 68-year-old male with a past medical history of A-fib, small bowel obstruction and gastric bypass who presents to the ER for abdominal pain periumbilically associated with nausea and 2 episodes of vomiting. Pain started this morning. He has had this pain off and on for the past several months. He was actually recently transferred down to [facility] [place] but did not have any surgery. Denies any chest pain or shortness of breath. No dysuria urgency or frequency. No other exacerbating or remitting factors. PAST MEDICAL HISTORY:See Below PAST SURGICAL HISTORY:See Below FAMILY HISTORY:See Below SOCIAL HISTORY:See Below HOME MEDICATIONS:See Below ALLERGIES:See Below VITALS:See Below PHYSICAL EXAMINATION: GENERAL: Sitting up in bed, alert, morbidly obese, disheveled EYE EXAM: normal conjunctiva. OROPHARYNX: mucous membranes are moist NECK: supple, no nuchal rigidity, no adenopathy, non-tender LUNGS: Clear to auscultation. Normal chest wall mechanics HEART: no murmurs, S1 normal and S2 normal ABDOMEN: abdomen soft, TTP in epigastric abd, normo-active bowel sounds, no masses, no rebound or guarding. BACK: Back is symmetrical on inspection and there is no deformity, no midline tenderness, no CVA tenderness. SKIN: no rashes and no bruising UPPER EXTREMITIES: upper extremities are grossly normal. LOWER EXTREMITIES: No pitting edema. NEURO EXAM: Normal sensorium, cranial nerves II-XII grossly intact, normal speech, no gross weakness of arms, no gross weakness of legs. MEDICAL DECISION MAKING: Patient is a 68-year-old male who presents ER for periumbilical abdominal pain associate with nausea and vomiting. IV was established blood work was obtained. External records reviewed. Labs show no significant leukocytosis or anemia. BMP with a creatinine of 1.6 which is fairly consistent with previous. LFTs were unremarkable. T. bili 1.5. Lipase was normal. UA was clean. CT abdomen pelvis shows a small bowel obstruction with ventral hernia. This was discussed with Dr. Gasca who evaluate the patient at bedside. Recommended admission to the hospital service and discussed with Dr. Dalton Spain for further evaluation. Patient was given IV fluids and Zofran. He was updated bedside. He was given morphine as well Triage Nursing notes reviewed. Limited review of prior medical records performed Vital Signs: reviewed and remarkable for no significant abnormalities Differential diagnosis: Differential diagnoses includes but is not limited to gastritis, peptic ulcer disease, GERD, gallbladder disease, pancreatitis, small bowel obstruction, appendicitis, diverticulitis, hernia, urinary tract infection, torsion, perforation, trauma, infectious. ER treatment provided: See below Diagnostics interpreted by me include EKG and cardiac monitoring as listed below: -Cardiac Monitoring: An order was placed for continuous cardiac monitoring. The monitor shows a rate of 70 with sinus rhythm. -ECG: none -Laboratory studies:Interpreted by me as stated above in MDM and shown below. Imaging studies: Xrays: As interpreted by me:none CTs show: CT abdomen pelvis per my read shows no pneumonia in the lungs CT abdomen pelvis per radiology showed a bowel obstruction Consultation(s): As described in MDM Procedures:none Critical Care: None Past Med/Surg History Medical History (Updated 06/26/23 @ 17:21 by David Aguilera DO) ARF (acute renal failure) CKD (chronic kidney disease), stage III COPD exacerbation Elevated lactic acid level Generalized weakness Headache Hyperlipidemia Hypertension Leukocytosis Lymphedema of both lower extremities Near syncope Obesity GISELL (obstructive sleep apnea) Sepsis Sepsis due to group B Streptococcus Sinusitis T2DM (type 2 diabetes mellitus) Surgical History H/O gastric bypass 1998 Total knee replacement status R once; L twice Family History Mother Heart disease Kidney disease Hypertension Father Dementia Diabetes Heart disease Social History Smoking Status: Unknown if ever smoked Hx Alcohol Use: Yes Alcohol type: beer Alcohol Intake Frequency Comment: Occasionally Hx Substance Use: No Preferred Language: Syriac Communication Ability: Effective Salon/Spa Manager Required: No Beliefs That Will Affect Care: Rastafari Rastafari Beliefs: Restoration marital status: Current Living Situation: Spouse current occupational status: retired 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 Feels Safe at Home: Yes Assistive Devices: Cane, CPAP and Walker Allergies Allergies Allergy/AdvReac Type Severity Reaction Status Date / Time bee venom protein (honey bee) Allergy Intermediate SWELLS Verified 06/26/23 15:49 metformin Allergy Intermediate HIVES Verified 06/26/23 15:49 Home Meds Home Medications Medication Instructions Recorded Confirmed allopurinol 100 mg tablet 100 mg PO BID 06/30/19 06/26/23 cholecalciferol (vitamin D3) 125 5,000 units PO Q2D 06/30/19 06/26/23 mcg (5,000 unit) capsule ipratropium 20 mcg-albuterol 100 2 spray inhalation QID PRN 06/30/19 06/26/23 mcg/actuation mist for inhalation Shortness Of Breath Or Wheezing metoprolol succinate 100 mg 100 mg PO DAILY #90 tabs 06/30/19 06/26/23 tablet,extended release 24 hr simvastatin 20 mg tablet 20 mg PO QID 06/30/19 06/26/23 terazosin 5 mg capsule 5 mg PO QPM 06/30/19 06/26/23 epinephrine 0.3 mg/0.3 mL 0.3 mg IM UD PRN hypersensitivity 10/12/19 06/26/23 injection, auto-injector (EpiPen) reaction magnesium chloride 71.5 mg 71.5 mg PO BID 12/09/19 06/26/23 (magnesium chloride) tablet,delayed release (Slow-Mag) multivit,Ca,min-iron 8 mg-folic 1 tab PO DAILY 01/02/20 06/26/23 acid 200 mcg-lycopene 600 mcg tablet (Centrum Men) insulin lispro 100 unit/mL 0 unit subcut TIDM 01/12/23 06/26/23 subcutaneous pen (Humalog KwikPen (U-100) Insulin) warfarin 5 mg tablet (Jantoven) 7.5 - 10 mg PO DIRECTED 01/12/23 06/26/23 furosemide 40 mg tablet 40 mg PO DAILY 02/18/23 06/26/23 gabapentin 100 mg capsule 100 mg PO BID 02/18/23 06/26/23 lisinopril 5 mg tablet 5 mg PO DAILY 02/18/23 06/26/23 ascorbic acid (vitamin C) 500 mg 500 mg PO DAILY 06/09/23 06/26/23 tablet insulin glargine U-300 conc 300 24 unit subcut HS 06/09/23 06/26/23 unit/mL (3 mL) subcutaneous pen (Toujeo Max U-300 SoloStar) insulin glargine U-300 conc 300 24 unit subcut HS 06/26/23 06/26/23 unit/mL (3 mL) subcutaneous pen (Toujeo Max U-300 SoloStar) Previous Rx's Medication Instructions Recorded cephalexin 500 mg capsule 500 mg PO BID #60 caps 02/28/20 Results & Data (ED) Vital Signs Vital Signs - 24 hr 06/26/23 13:26 06/26/23 13:39 06/26/23 15:08 Temperature 37 C Temperature Source Oral Pulse Rate 66 60 61 Respiratory Rate 15 17 Blood Pressure 148/89 H 112/63 Blood Pressure Mean 108 79 Pulse Oximetry 100 93 Oxygen Delivery Method Room Air Room Air Sepsis Recent Fever Within 48 Hours No Sepsis New/Unexplained Change in Mental Status N/A Sepsis Action Taken by Nursing No Action Required 06/26/23 15:32 06/26/23 16:00 06/26/23 16:30 Temperature Temperature Source Pulse Rate 64 57 L 58 L Respiratory Rate 15 12 23 Blood Pressure 106/62 106/62 129/72 Blood Pressure Mean 76 76 91 Pulse Oximetry 98 99 100 Oxygen Delivery Method Room Air Room Air Room Air Sepsis Recent Fever Within 48 Hours Sepsis New/Unexplained Change in Mental Status Sepsis Action Taken by Nursing 06/26/23 17:00 Temperature Temperature Source Pulse Rate 66 Respiratory Rate 13 Blood Pressure 120/70 Blood Pressure Mean 86 Pulse Oximetry 96 Oxygen Delivery Method Room Air Sepsis Recent Fever Within 48 Hours Sepsis New/Unexplained Change in Mental Status Sepsis Action Taken by Nursing Laboratory Data 06/26/23 13:37 06/26/23 13:37 Lab Results 06/26/23 06/26/23 06/26/23 Range/Units 13:37 13:37 13:38 WBC 9.16 (4.8-10.8) K/ul RBC 4.77 (4.70-6.10) M/uL Hgb 15.5 (14.0-18.0) g/dl Hct 44.9 (42.0-52.0) % MCV 94.1 (80.0-100.0) fL MCH 32.5 (25.0-34.0) pg MCHC 34.5 (32.0-36.0) g/dL RDW Std Deviation 49.4 H (36.4-46.3) fL RDW Coeff of Jack 14.3 (11.5-14.5) % Plt Count 145 (130-400) K/uL MPV 10.0 (9.4-12.4) fL Immature Gran % (Auto) 0.3 % Neut % (Auto) 85.2 % Lymph % (Auto) 11.2 % [place] % (Auto) 2.9 % Eos % (Auto) 0.3 % Baso % (Auto) 0.1 % Neut # (Auto) 7.79 H (1.40-6.50) K/uL Lymph # (Auto) 1.03 L (1.2-3.4) K/uL [place] # (Auto) 0.27 (0.11-0.59) K/uL Eos # (Auto) 0.03 (0-0.50) K/uL Baso # (Auto) 0.01 (0-0.2) K/uL Immature Gran # (Auto) 0.03 (0.01-0.20) K/uL Sodium 139 (136-145) mmol/L Potassium 4.0 (3.5-5.1) mmol/L Chloride 103 (98-107) mmol/L Carbon Dioxide 27 (21-32) mmol/L Anion Gap 9 (3-11) BUN 33 H (6-23) mg/dl Creatinine 1.69 H (0.6-1.4) mg/dl Est Cr Clr Drug Dosing Not Reportable Est GFR ( Amer) 48.0 ml/min Est GFR (Non-Af Amer) 41.4 ml/min BUN/Creatinine Ratio 19.5 (10-20) Glucose 109 H (70-99(Fasting)) mg/dl Calcium 10.0 (8.6-10.3) mg/dl Total Bilirubin 1.5 H (0.2-1.0) mg/dl AST 22 (13-39) U/L ALT 8 (7-52) U/L Alkaline Phosphatase 40 (34-104) U/L Total Protein 7.5 (6.0-8.3) gm/dl Albumin 4.5 (3.4-5.0) gm/dl Globulin 3.0 (2.5-4.0) gm/dl Albumin/Globulin Ratio 1.5 (0.9-2) Lipase 57 (11-82) U/L Urine Color Yellow Urine Appearance Clear (Clear) Urine pH 5.5 (4.5-7.5) Ur Specific [place] 1.007 (1.000-1.030) Urine Protein Negative (Negative) Urine Glucose (UA) Negative (Negative) Urine Ketones Negative (Negative) Urine Blood Negative (Negative) Urine Nitrite Negative (Negative) Urine Bilirubin Negative (Negative) Urine Urobilinogen Negative (Negative) Ur Leukocyte Esterase Negative (Negative) Administered Medications Discontinued Medications Sodium Chloride (Nss 1000ml) 1,000 mls @ 999 mls/hr IV .Q1H1M ONE Stop: 06/26/23 14:34 Last Admin: 06/26/23 15:18 Dose: 999 mls/hr Documented By: ERINN Ioversol (Ioversol 350 Mg 125ml Prefilled Syringe) 117 ml IV ONCE ONE Stop: 06/26/23 14:41 Last Admin: 06/26/23 14:40 Dose: 117 ml Documented By: YARELIS Morphine Sulfate (Morphine Sulfate 10 Mg/Ml Carp/Vial) 6 mg IV NOW STA Stop: 06/26/23 15:15 Last Admin: 06/26/23 15:25 Dose: 6 mg Documented By: ERINN Ondansetron HCl (Ondansetron Inj 2 Mg/Ml 2 Ml Vial) 4 mg IV NOW STA Stop: 06/26/23 15:15 Last Admin: 06/26/23 15:25 Dose: 4 mg Documented By: [facility] Imaging Data Radiologist's Impression: Abdomen/Pelvis CT 06/26/23 13:34 CT SCAN OF THE ABDOMEN AND PELVIS WITH IV CONTRAST CLINICAL HISTORY: Generalized abdominal pain. COMPARISON STUDY: Abdominal CT dated 06/09/2023 and 02/14/2018. TECHNIQUE: Following the IV administration of 117 cc of Optiray 350, CT scan of the abdomen and pelvis is performed from the lung bases to the proximal femora. Images are reviewed in the axial, sagittal, and coronal planes. IV contrast was administered without complication. A dose lowering technique was utilized adhering to the principles of ALARA. The examination is degraded by large body habitus, and by streak artifact from the body wall abutting the CT gantry. A portion of the right abdomen was not included in the examination. CT DOSE: 2113.95 mGy.cm FINDINGS: Lung bases: The heart is enlarged and without pericardial effusion. The coronary arteries are densely calcified. There is mild elevation of the right hemidiaphragm with associated atelectasis. A 14 mm groundglass nodule in the left lower lobe is similar to previous. There are punctate calcified granulomas. Liver: The contrast-enhanced liver is normal in size, contour, and attenuation. There is no intrahepatic biliary ductal dilatation. The hepatic veins and portal veins are patent. Gallbladder: There are small gallstones without CT evidence of acute cholecystitis. Spleen: Normal in size and attenuation. Pancreas: Unremarkable. Adrenal glands: Unremarkable. Kidneys: The contrast enhanced kidneys demonstrate cortical atrophy and are wit hout hydronephrosis. The kidneys enhance symmetrically. A 3.6 cm indeterminate lesion arising from the right kidney on image #191 is unchanged. This does not clearly show postcontrast enhancement. Abdominal vasculature: The abdominal aorta is normal in course and caliber no ting mild to moderate atherosclerotic calcification. Stomach and bowel: There is a small hiatal hernia. There is evidence of previous gastric surgery. A ventral hernia in the pelvis contains small bowel loops. The small bowel upstream to the hernia is distended and fluid-filled, measuring up to 3.3 cm diameter. The distal small bowel is decompressed, and this is consistent with a small bowel obstruction. No focally thick-walled bowel loops identified. There is no pneumatosis intestinalis or portal venous gas. The appendix is not visualized. Peritoneum: There is no intraperitoneal free air or abdominal ascites. There are numerous fat-containing ventral hernias. Lymphadenopathy: Prominent left iliac chain lymph nodes are similar to previous. The largest measures 2.1 cm. Pelvic viscera: The prostate gland is normal as visualized. The bladder is not distended, and the wall appears thickened/trabeculated indicating chronic outlet obstruction. Skeletal structures: No lytic or blastic lesions are seen. IMPRESSION: 1. Findings are consistent with a small bowel obstruction. A bowel containing ve ntral hernia in the pelvis is the transition point. 2. No intraperitoneal free air is identified. No thick-walled bowel loops identified and there is no pneumatosis intestinalis or portal venous gas. 3. Cholelithiasis. 4. A 14 mm groundglass lesion in the left lower lobe has been present dating back to 2018. This is suspicious for a low-grade adenomatous lesion. Nonemergent pulmonology follow-up is recommended. 5. An indeterminant exophytic lesion arising from the right kidney is similar to previous. This does not show definitive postcontrast enhancement. 6. Cardiomegaly. 7. Additional findings as above. ACT 112: Negative or not required by law. Electronically signed by: Satish Rodriguez M.D. 06/26/2023 3:03 PM Discharge Plan Visit Data Chief Complaint: Abdominal Pain Stated Complaint: AB PAIN ED Provider: David Aguilera Discharge Problem: SBO (small bowel obstruction), Abdominal pain Forms Stand Alone Forms: [facility] Prescriptions Prescriptions: No Action cephalexin 500 mg capsule 500 mg PO BID Qty: 60 3RF Hold Instructions: Resume on 07/12/23. 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 Rx Instructions: Takes in pm allopurinol 100 mg tablet 100 mg PO BID Hold Instructions: Resume on 07/12/23. metoprolol succinate 100 mg tablet extended release 24 hr 100 mg PO DAILY Qty: 90 Hold Instructions: Resume on 07/12/23. simvastatin 20 mg tablet 20 mg PO QID Hold Instructions: Resume on 07/12/23. terazosin 5 mg capsule 5 mg PO QPM Hold Instructions: Resume on 07/12/23. epinephrine [EpiPen] 0.3 mg/0.3 mL auto-injector 0.3 mg IM UD PRN (Reason: hypersensitivity reaction) Hold Instructions: Resume on 07/12/23. Slow-Mag 71.5 mg tablet,delayed release (DR/EC) 71.5 mg PO BID Hold Instructions: Resume on 07/12/23. Centrum Men 8 mg iron- 200 mcg-600 mcg tablet 1 tab PO DAILY Hold Instructions: Resume on 07/12/23. gabapentin 100 mg capsule 100 mg PO BID Hold Instructions: Resume on 07/12/23. furosemide 40 mg tablet 40 mg PO DAILY Hold Instructions: Resume on 07/12/23. lisinopril 5 mg tablet 5 mg PO DAILY Hold Instructions: Resume on 07/12/23. warfarin [Jantoven] 5 mg tablet 7.5 - 10 mg PO DIRECTED Hold Instructions: Resume on 07/12/23. Rx Instructions: as directed by anticoagulation clinic insulin lispro [Humalog KwikPen Insulin] 100 unit/mL insulin pen 0 unit subcut TIDM Hold Instructions: Resume on 07/12/23. Rx Instructions: PER SLIDING SCALE ascorbic acid (vitamin C) 500 mg Tablet 500 mg PO DAILY Hold Instructions: Resume on 07/12/23. Toujeo Max U-300 SoloStar 300 unit/mL (3 mL) insulin pen 24 unit SUBCUT HS Hold Instructions: Resume on 07/12/23. Toujeo Max U-300 SoloStar 300 unit/mL (3 mL) insulin pen 24 unit SUBCUT HS Referrals Referrals: Aden Mims [Primary Care Provider] -
[2023-06-26 13:55] LABS: Basophils # (auto) 0.01 K/uL (0-0.2); Basophils % (auto) 0.1 %; Eosinophils # (auto) 0.03 K/uL (0-0.50); Eosinophils % (auto) 0.3 %; Hematocrit (blood only) 44.9 % (42.0-52.0); Hemoglobin 15.5 g/dl (14.0-18.0); Immature Granulocytes # (auto) 0.03 K/uL (0.01-0.20); Immature Granulocytes % (auto) 0.3 %; Lymphocytes # (auto) 1.03 K/uL (1.2-3.4); Lymphocytes % (auto) 11.2 %; Mean Corpuscular Hemoglobin 32.5 pg (25.0-34.0); Mean Corpuscular Hgb Conc 34.5 g/dL (32.0-36.0); Mean Corpuscular Volume 94.1 fL (80.0-100.0); Monocytes # (auto) 0.27 K/uL (0.11-0.59); Monocytes % (auto) 2.9 %; Neutrophils # (auto) 7.79 K/uL (1.40-6.50); Neutrophils % (auto) 85.2 %; Platelet Count 145 K/uL (130-400); RDW Coefficient of Variation 14.3 % (11.5-14.5); RDW Standard Deviation 49.4 fL (36.4-46.3); Red Blood Count 4.77 M/uL (4.70-6.10); White Blood Count 9.16 K/ul (4.8-10.8)
[2023-06-26 14:09] LABS: Alanine Aminotransferase 8 U/L (7-52); Albumin Globulin Ratio 1.5 (0.9-2); Albumin Level 4.5 gm/dl (3.4-5.0); Alkaline Phosphatase 40 U/L (34-104); Anion Gap 9 (3-11); Aspartate Aminotransferase 22 U/L (13-39); BUN Creatinine Ratio 19.5 (10-20); Bilirubin,Total 1.5 mg/dl (0.2-1.0); Blood Urea Nitrogen 33 mg/dl (6-23); Carbon Dioxide 27 mmol/L (21-32); Chloride 103 mmol/L (98-107); Est GFR (Non-African American) 41.4 ml/min; Glucose 109 mg/dl (70-99(Fasting)); Lipase 57 U/L (11-82); Sodium 139 mmol/L (136-145); Total Protein 7.5 gm/dl (6.0-8.3)
[2023-06-26 14:15] LABS: Appearance Urine Clear (Clear); Bilirubin Urine Negative (Negative); Blood Urine Negative (Negative); Color Urine Yellow; Glucose Urine UA Negative (Negative); Ketones Urine Negative (Negative); Leukocyte Esterase Urine Negative (Negative); Nitrite Urine Negative (Negative); Protein Urine Negative (Negative); Specific Gravity Urine 1.007 (1.000-1.030); Urobilinogen Urine Negative (Negative); pH Urine 5.5 (4.5-7.5)
[2023-06-26] MEDS ORDERED: IOVERSOL 350 MG 125mL Prefilled Syringe IV ONE (14:40)
--- NOTE | 2023-06-26 15:04 | CT Scan Report ---
CT SCAN OF THE ABDOMEN AND PELVIS WITH IV CONTRAST CLINICAL HISTORY: Generalized abdominal pain. COMPARISON STUDY: Abdominal CT dated 06/09/2023 and 02/14/2018. TECHNIQUE: Following the IV administration of 117 cc of Optiray 350, CT scan of the abdomen and pelv is is performed from the lung bases to the proximal femora. Images are reviewed in the axial, sagitta l, and coronal planes. IV contrast was administered without complication. A dose lowering technique w as utilized adhering to the principles of ALARA. The examination is degraded by large body habitus, a nd by streak artifact from the body wall abutting the CT gantry. A portion of the right abdomen was n ot included in the examination. CT DOSE: 2113.95 mGy.cm FINDINGS: Lung bases: The heart is enlarged and without pericardial effusion. The coronary arteries are densely calcified. There is mild elevation of the right hemidiaphragm with associated atelectasis. A 14 mm g roundglass nodule in the left lower lobe is similar to previous. There are punctate calcified granulo mas. Liver: The contrast-enhanced liver is normal in size, contour, and attenuation. There is no intrahepa tic biliary ductal dilatation. The hepatic veins and portal veins are patent. Gallbladder: There are small gallstones without CT evidence of acute cholecystitis. Spleen: Normal in size and attenuation. Pancreas: Unremarkable. Adrenal glands: Unremarkable. Kidneys: The contrast enhanced kidneys demonstrate cortical atrophy and are without hydronephrosis. T he kidneys enhance symmetrically. A 3.6 cm indeterminate lesion arising from the right kidney on imag e #191 is unchanged. This does not clearly show postcontrast enhancement. Abdominal vasculature: The abdominal aorta is normal in course and caliber noting mild to moderate at herosclerotic calcification. Stomach and bowel: There is a small hiatal hernia. There is evidence of previous gastric surgery. A v entral hernia in the pelvis contains small bowel loops. The small bowel upstream to the hernia is dis tended and fluid-filled, measuring up to 3.3 cm diameter. The distal small bowel is decompressed, and this is consistent with a small bowel obstruction. No focally thick-walled bowel loops identified. T here is no pneumatosis intestinalis or portal venous gas. The appendix is not visualized. Peritoneum: There is no intraperitoneal free air or abdominal ascites. There are numerous fat-contain ing ventral hernias. Lymphadenopathy: Prominent left iliac chain lymph nodes are similar to previous. The largest measures 2.1 cm. Pelvic viscera: The prostate gland is normal as visualized. The bladder is not distended, and the wal l appears thickened/trabeculated indicating chronic outlet obstruction. Skeletal structures: No lytic or blastic lesions are seen. IMPRESSION: 1. Findings are consistent with a small bowel obstruction. A bowel containing ventral hernia in the p neil is the transition point. 2. No intraperitoneal free air is identified. No thick-walled bowel loops identified and there is no pneumatosis intestinalis or portal venous gas. 3. Cholelithiasis. 4. A 14 mm groundglass lesion in the left lower lobe has been present dating back to 2018. This is vicente spicious for a low-grade adenomatous lesion. Nonemergent pulmonology follow-up is recommended. 5. An indeterminant exophytic lesion arising from the right kidney is similar to previous. This does not show definitive postcontrast enhancement. 6. Cardiomegaly. 7. Additional findings as above. ACT 112: Negative or not required by law. Electronically signed by: Satish Rodriguez M.D. 06/26/2023 3:03 PM
[2023-06-26] MEDS ORDERED: ONDANSETRON INJ 2 MG/ML 2 ML VIAL IV STA (15:14)
[2023-06-26] MEDS ORDERED: MoRPHine SULFATE 10 MG/ML CARP/VIAL IV STA (15:14)
--- NOTE | 2023-06-26 16:09 | History & Physical Report ---
Date of Service June 26, 2023 Assessment & Plan (1) SBO (small bowel obstruction): Plan: -Admit to med/surge -Currently stable -Patient developed acute onset of abd pain/nausea/vomiting this am while trying to have a bowel movement -Ct of the abd/pelvis w/IV con showed "Findings are consistent with a small bowel obstruction. A bowel containing ventral hernia in the pelvis is the transition point". -General surgery evaluated the patient and recommends conservative management at this time with NPO status, bowel rest and pain control -If he were to clinically decline the patient would need to be transferred to a tertiary care facility due to his complex abdominal history -Will hold Warfarin and switch him to a Heparin drip >Will obtain PTT/INR now -Strict NPO -No need for NG tube at this time as he is comfortable at rest -Pain control with IV tylenol and morphine -Will wait for admission ECG prior to ordering antiemetics -Heparin drip for DVT PPX -AM CBC, CMP, Mag, PT/INR (2) Atrial fibrillation, chronic: Plan: -Stable -Hold PO metoprolol for now with NPO status, HR currently in the 50's -Will hold warfarin and convert to heparin drip in case of emergent surgery (3) Hypertension: Plan: -Stable -Hold PO antihypertensives with NPO status and currently stable BP (4) T2DM (type 2 diabetes mellitus): Plan: -Monitor BSG q4h, goal is 110-160 -10 units lantus BID -CF of 50 q4h -Adjust regimen as needed (5) GISELL (obstructive sleep apnea): Plan: -Will place order for patient to use his own cpap (6) Hyperlipidemia: Plan: -Hold statin Plan The patient was discussed with Dr. Topete at the time of the admission History of Present Illness Chief Complaint: abdominal pain, nausea, vomiting Primary Care Provider: Aden Roche is a 67yo male with history of bariatric surgery at [place] in 1998, morbid obesity, HTN, HLP, DMII, Atrial Fibrillation on Coumadin, GISELL, recurrent MRSA infection (follows with [facility] and on chronic Keflex therapy), and known abdominal wall hernia who presented to the [facility] ED onwith RUQ abdominal pain, nausea, and vomiting. Vitals remained stable in the ED. Labs were significant for a total bili of 1.5. CT of the abd/pelvis w/IV con was read as 1. Findings are consistent with a small bowel obstruction. A bowel containing ventral hernia in the pelvis is the transition point. 2. No intraperitoneal free air is identified. No thick-walled bowel loops identified and there is no pneumatosis intestinalis or portal venous gas. 3. Cholelithiasis. 4. A 14 mm groundglass lesion in the left lower lobe has been present dating back to 2018. This is suspicious for a low-grade adenomatous lesion. Nonemergent pulmonology follow-up is recommended. 5. An indeterminant exophytic lesion arising from the right kidney is similar to previous. This does not show definitive postcontrast enhancement. 6. Cardiomegaly.. Prior to admission the patient was given 1L NSS, 6 mg IV morphine, and 4 mg IV Zofran. The patient was evaluated by General Surgery who was comfortable with the patient being admitted to the medicine service with conservative treatment at this time. The patient was last admitted to [facility] in May for the same complaints and findings. General surgery evaluated the patient at that time and recommended transfer to a tertiary care facility due to his body habitus and complex surgical history. The patient was admitted to the medicine service until he had a bed ready at [facility]. He was eventually transferred to [facility] but did not receive surgical repair of the hernia at that visit. At the time of the exam the patient was lying in bed in no acute distress with his sitting bedside. He states that he was doing well after his discharge from [facility] until this am when he started to develop intense lower abdominal pain, nausea, and non-bloody emesis. Just prior to symptoms developing the patient was trying to have a bowel movement. His bowel output is very inconsistent since his previous abdominal procedures. When asked, he states that he often has to strain to have a BM. He is not taking a consistent stool softener at this time. General Surgery at [facility] advised him to see a follow up appointment with their General Surgery team closer to home to try and setup an elective procedure. He was seen by Dr. Morris of [facility] General surgery and was told that he would need to lose additional weight before an elective procedure could occur, as the additional weight from his pannus would likely cause failure of any elective repair of his hernia. He does follow with Dr. Brian of [facility] Weight management but has not seen him in some time. [facility] did mention that his previous bariatric surgery could be adjusted to help with weight loss. His symptoms are currently controlled if he is at rest and he is passing gas. He denies any other complaints at this time. Please refer to Dr. Gamez's attestation for any changes to the treatment plan Allergies Allergy/AdvReac Type Severity Reaction Status Date / Time bee venom protein (honey bee) Allergy Intermediate SWELLS Verified 06/26/23 15:49 metformin Allergy Intermediate HIVES Verified 06/26/23 15:49 Home Medications Medication Instructions Recorded Confirmed Type allopurinol 100 mg tablet 100 mg PO BID 06/30/19 06/26/23 History cholecalciferol (vitamin D3) 125 5,000 units PO Q2D 06/30/19 06/26/23 History mcg (5,000 unit) capsule ipratropium 20 mcg-albuterol 100 2 spray inhalation QID PRN 06/30/19 06/26/23 History mcg/actuation mist for inhalation Shortness Of Breath Or Wheezing metoprolol succinate 100 mg 100 mg PO DAILY #90 tabs 06/30/19 06/26/23 History tablet,extended release 24 hr simvastatin 20 mg tablet 20 mg PO QID 06/30/19 06/26/23 History terazosin 5 mg capsule 5 mg PO QPM 06/30/19 06/26/23 History epinephrine 0.3 mg/0.3 mL 0.3 mg IM UD PRN hypersensitivity 10/12/19 06/26/23 History injection, auto-injector (EpiPen) reaction magnesium chloride 71.5 mg 71.5 mg PO BID 12/09/19 06/26/23 History (magnesium chloride) tablet,delayed release (Slow-Mag) multivit,Ca,min-iron 8 mg-folic 1 tab PO DAILY 01/02/20 06/26/23 History acid 200 mcg-lycopene 600 mcg tablet (Centrum Men) cephalexin 500 mg capsule 500 mg PO BID #60 caps 02/28/20 06/26/23 Rx insulin lispro 100 unit/mL 0 unit subcut TIDM 01/12/23 06/26/23 History subcutaneous pen (Humalog KwikPen (U-100) Insulin) warfarin 5 mg tablet (Jantoven) 7.5 - 10 mg PO DIRECTED 01/12/23 06/26/23 History furosemide 40 mg tablet 40 mg PO DAILY 02/18/23 06/26/23 History gabapentin 100 mg capsule 100 mg PO BID 02/18/23 06/26/23 History lisinopril 5 mg tablet 5 mg PO DAILY 02/18/23 06/26/23 History ascorbic acid (vitamin C) 500 mg 500 mg PO DAILY 06/09/23 06/26/23 History tablet insulin glargine U-300 conc 300 24 unit subcut HS 06/09/23 06/26/23 History unit/mL (3 mL) subcutaneous pen (Toujeo Max U-300 SoloStar) insulin glargine U-300 conc 300 24 unit subcut HS 06/26/23 06/26/23 History unit/mL (3 mL) subcutaneous pen (Toujeo Max U-300 SoloStar) Past Med/Surg History Medical History (Updated 06/26/23 @ 17:21 by David Aguilera DO) ARF (acute renal failure) CKD (chronic kidney disease), stage III COPD exacerbation Elevated lactic acid level Generalized weakness Headache Hyperlipidemia Hypertension Leukocytosis Lymphedema of both lower extremities Near syncope Obesity GISELL (obstructive sleep apnea) Sepsis Sepsis due to group B Streptococcus Sinusitis T2DM (type 2 diabetes mellitus) Surgical History H/O gastric bypass 1998 Total knee replacement status R once; L twice Family History Mother Heart disease Kidney disease Hypertension Father Dementia Diabetes Heart disease Social History Smoking Status: Unknown if ever smoked Hx Alcohol Use: Yes Alcohol type: beer Alcohol Intake Frequency Comment: Occasionally Hx Substance Use: No Preferred Language: [place] Communication Ability: Effective Mold Burner Required: No Beliefs That Will Affect Care: Anabaptism Anabaptism Beliefs: Mandaen marital status: Current Living Situation: Spouse current occupational status: retired 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 Feels Safe at Home: Yes Assistive Devices: Cane, CPAP and Walker Physical Exam Physical Exam: Physical Exam: General: In no acute distress, stated age, well-nourished, non-toxic appearing HEENT: Normocephalic, atraumatic, no scleral icterus, pupils around round, symmetrical, and reactive to light, moist mucus membranes, trachea midline, no thyromegaly Chest/Pulm: No respiratory distress, symmetrical chest expansion, clear breath sounds throughout Cardiac: RRR, no murmurs noted Abdomen: Obese abdomen, bruising in various stages of healing from insulin injections, hypoactive bowel sounds, patient with large lower abdominal wall hernia which is tender to palpation but non-tender at rest Musculoskeletal: Symmetrical and without signs of acute trauma, upper and lower extremities with full ROM, no atrophy, spasticity, or flaccidity Extremities: Radial, dorsalis pedis, and posterior tibial pulses are intact and symmetrical, severe BL LE lymphedema at baseline Skin: Warm, dry, no rashes , lesions, or scars noted Neuro: Alert and oriented to person, place, month, year, and president, no focal defects, no tremors noted Psych: No acute distress, calm and cooperative during the exam Results & Data Results & Data Vital Signs (Past 12 Hours) Vital Signs Temp Pulse Resp BP Pulse Ox O2 Del Method 06/26/23 15:32 64 15 106/62 98 Room Air 06/26/23 15:08 61 17 112/63 93 Room Air 06/26/23 13:39 60 06/26/23 13:26 37 C 66 15 148/89 H 100 Room Air Laboratory Results Abnormal lab results 06/26/23 06/26/23 Range/Units 13:37 13:37 RDW Std Deviation 49.4 H (36.4-46.3) fL Neut # (Auto) 7.79 H (1.40-6.50) K/uL Lymph # (Auto) 1.03 L (1.2-3.4) K/uL BUN 33 H (6-23) mg/dl Creatinine 1.69 H (0.6-1.4) mg/dl Glucose 109 H (70-99(Fasting)) mg/dl Total Bilirubin 1.5 H (0.2-1.0) mg/dl Diagnostic Findings Abdomen/Pelvis CT 06/26/23 13:34 CT SCAN OF THE ABDOMEN AND PELVIS WITH IV CONTRAST CLINICAL HISTORY: Generalized abdominal pain. COMPARISON STUDY: Abdominal CT dated 06/09/2023 and 02/14/2018. TECHNIQUE: Following the IV administration of 117 cc of Optiray 350, CT scan of the abdomen and pelvis is performed from the lung bases to the proximal femora. Images are reviewed in the axial, sagittal, and coronal planes. IV contrast was administered without complication. A dose lowering technique was utilized adhering to the principles of ALARA. The examination is degraded by large body habitus, and by streak artifact from the body wall abutting the CT gantry. A portion of the right abdomen was not included in the examination. CT DOSE: 2113.95 mGy.cm FINDINGS: Lung bases: The heart is enlarged and without pericardial effusion. The coronary arteries are densely calcified. There is mild elevation of the right hemidiaphragm with associated atelectasis. A 14 mm groundglass nodule in the left lower lobe is similar to previous. There are punctate calcified granulomas. Liver: The contrast-enhanced liver is normal in size, contour, and attenuation. There is no intrahepatic biliary ductal dilatation. The hepatic veins and portal veins are patent. Gallbladder: There are small gallstones without CT evidence of acute cholecystitis. Spleen: Normal in size and attenuation. Pancreas: Unremarkable. Adrenal glands: Unremarkable. Kidneys: The contrast enhanced kidneys demonstrate cortical atrophy and are without hydronephrosis. The kidneys enhance symmetrically. A 3.6 cm indeterminate lesion arising from the right kidney on image #191 is unchanged. This does not clearly show postcontrast enhancement. Abdominal vasculature: The abdominal aorta is normal in course and caliber noting mild to moderate atherosclerotic calcification. Stomach and bowel: There is a small hiatal hernia. There is evidence of previous gastric surgery. A ventral hernia in the pelvis contains small bowel loops. The small bowel upstream to the hernia is distended and fluid-filled, measuring up to 3.3 cm diameter. The distal small bowel is decompressed, and this is consistent with a small bowel obstruction. No focally thick-walled bowel loops identified. There is no pneumatosis intestinalis or portal venous gas. The appendix is not visualized. Peritoneum: There is no intraperitoneal free air or abdominal ascites. There are numerous fat-containing ventral hernias. Lymphadenopathy: Prominent left iliac chain lymph nodes are similar to previous. The largest measures 2.1 cm. Pelvic viscera: The prostate gland is normal as visualized. The bladder is not distended, and the wall appears thickened/trabeculated indicating chronic outlet obstruction. Skeletal structures: No lytic or blastic lesions are seen. IMPRESSION: 1. Findings are consistent with a small bowel obstruction. A bowel containing ventral hernia in the pelvis is the transition point. 2. No intraperitoneal free air is identified. No thick-walled bowel loops identified and there is no pneumatosis intestinalis or portal venous gas. 3. Cholelithiasis. 4. A 14 mm groundglass lesion in the left lower lobe has been present dating back to 2018. This is suspicious for a low-grade adenomatous lesion. Nonemergent pulmonology follow-up is recommended. 5. An indeterminant exophytic lesion arising from the right kidney is similar to previous. This does not show definitive postcontrast enhancement. 6. Cardiomegaly. 7. Additional findings as above. ACT 112: Negative or not required by law. Electronically signed by: Satish Rodriguez M.D. 06/26/2023 3:03 PM ECG Additional Comments: Will obtain ECG on admission Code Status & VTE Plan Code Status Full code VTE Prophylaxis Plan VTE Prophylaxis will be ordered: Yes Supervising Physician Co-Signing Physician Notes Patient seen and examined, chart reviewed, case discussed with Brock Zacarias PA-C and I agree with the assessment and plan as above except as otherwise noted Labs and images reviewed Melchor is a 68-year-old male with a past medical history of [facility], hypertension, hyperlipidemia, DM 2, A-fib on Coumadin, GISELL, and recurrent past MRSA infections with abdominal wall hernia who presents with abdominal pain, nausea, vomiting and who has a CT consistent with small bowel obstruction. Patient is with multiple medical comorbidities and due to his prior bariatric surgery would be a complicated surgical intervention. Abdomen obese, bowel sounds absent, large abdominal wall hernia mildly tender to palpation is present. Surgery is consulted and reasonable to follow patient at this time as surgical intervention is not anticipated however if this was needed he would need to be transferred to tertiary care. Medical management of SBO at this time. PG Care Time/CCT Total # of Minutes Spent Total Time Spent with Patient: Total time spent is greater than 50% in coordination of care (as documented) at patient's floor/unit and/or counseling patient: Coding [place] [address] INT INP/OBS CARE 3/75MIN Patient Type Established Medical Decision Making High Complexity Diagnoses SBO (small bowel obstruction) K56.609 Atrial fibrillation, chronic I48.20 Hypertension I10 T2DM (type 2 diabetes mellitus) E11.9 GISELL (obstructive sleep apnea) G47.33 Hyperlipidemia E78.5
--- NOTE | 2023-06-26 16:48 | Surgery Consultation ---
Date of Consultation June 26, 2023 Assessment & Plan (1) SBO (small bowel obstruction): (2) Atrial fibrillation, chronic: (3) Morbid obesity: (4) Metabolic syndrome: Plan Six 8-year-old gentleman recently hospitalized and treated conservatively for small bowel obstruction at the level of his hernia presents with the same symptoms. He is on Coumadin for atrial fibrillation. I long discussion with him concerning the hernia. He is quite high risk given his obesity and comorbi dities. He is a very high risk for recurrence of the hernia if it is fixed. As he improved last time with observation, we will observe him for now. He has no fever, tachycardia. His white count is normal. He is still passing flatus. We will place him on IV fluids and make him n.p.o. We will observe for now. We will follow along while he is in the hospital. History of Present Illness Reason for Consultation: Small bowel obstruction Requesting Physician: David Aguilera MD Attending Physician: David Aguilera MD History of Present Illness 68-year-old man presents with a 1 day history of epigastric to periumbilical abdominal pain. This was accompanied with nausea and vomiting. He did have 2 bowel movements yesterday. He has been passing gas this morning. He has a h istory of a gastric bypass in 1998. He is on Coumadin for atrial fibrillation. He was recently seen in the emergency department for a small bowel obstruction from a possible incarcerated hernia 3 weeks ago, and was sent to [facility] due to morbid obesity and other medical problems. Once at [facility], they observed him for 2 days. He improved, was advancing his diet, and was sent home. He just the bariatric surgeon/hernia specialist in [place] 3 days ago who recommended weight loss prior to hernia repair. On CT scan today he has a midline hernia above his umbilicus containing loops of bowel with what appears to be the beginning of a small bowel obstruction with slightly dilated bowel upstream. He denies fevers or chills. He denies significant pain at this time. Allergies Allergy/AdvReac Type Severity Reaction Status Date / Time bee venom protein (honey bee) Allergy Intermediate SWELLS Verified 06/26/23 15:49 metformin Allergy Intermediate HIVES Verified 06/26/23 15:49 Home Medications Medication Instructions Recorded Confirmed Type allopurinol 100 mg tablet 100 mg PO BID 06/30/19 06/26/23 History cholecalciferol (vitamin D3) 125 5,000 units PO Q2D 06/30/19 06/26/23 History mcg (5,000 unit) capsule ipratropium 20 mcg-albuterol 100 2 spray inhalation QID PRN 06/30/19 06/26/23 History mcg/actuation mist for inhalation Shortness Of Breath Or Wheezing metoprolol succinate 100 mg 100 mg PO DAILY #90 tabs 06/30/19 06/26/23 History tablet,extended release 24 hr simvastatin 20 mg tablet 20 mg PO QID 06/30/19 06/26/23 History terazosin 5 mg capsule 5 mg PO QPM 06/30/19 06/26/23 History epinephrine 0.3 mg/0.3 mL 0.3 mg IM UD PRN hypersensitivity 10/12/19 06/26/23 History injection, auto-injector (EpiPen) reaction magnesium chloride 71.5 mg 71.5 mg PO BID 12/09/19 06/26/23 History (magnesium chloride) tablet,delayed release (Slow-Mag) multivit,Ca,min-iron 8 mg-folic 1 tab PO DAILY 01/02/20 06/26/23 History acid 200 mcg-lycopene 600 mcg tablet (Centrum Men) cephalexin 500 mg capsule 500 mg PO BID #60 caps 02/28/20 06/26/23 Rx insulin lispro 100 unit/mL 0 unit subcut TIDM 01/12/23 06/26/23 History subcutaneous pen (Humalog KwikPen (U-100) Insulin) warfarin 5 mg tablet (Jantoven) 7.5 - 10 mg PO DIRECTED 01/12/23 06/26/23 History furosemide 40 mg tablet 40 mg PO DAILY 02/18/23 06/26/23 History gabapentin 100 mg capsule 100 mg PO BID 02/18/23 06/26/23 History lisinopril 5 mg tablet 5 mg PO DAILY 02/18/23 06/26/23 History ascorbic acid (vitamin C) 500 mg 500 mg PO DAILY 06/09/23 06/26/23 History tablet insulin glargine U-300 conc 300 24 unit subcut HS 06/09/23 06/26/23 History unit/mL (3 mL) subcutaneous pen (Toujeo Max U-300 SoloStar) insulin glargine U-300 conc 300 24 unit subcut HS 06/26/23 06/26/23 History unit/mL (3 mL) subcutaneous pen (Toujeo Max U-300 SoloStar) Patient History Medical History ARF (acute renal failure) CKD (chronic kidney disease), stage III COPD exacerbation Elevated lactic acid level Generalized weakness Headache Hyperlipidemia Hypertension Leukocytosis Lymphedema of both lower extremities Near syncope Obesity GISELL (obstructive sleep apnea) Sepsis Sepsis due to group B Streptococcus Sinusitis T2DM (type 2 diabetes mellitus) Surgical History H/O gastric bypass 1998 Total knee replacement status R once; L twice Family History Mother Heart disease Kidney disease Hypertension Father Dementia Diabetes Heart disease Social History Smoking Status: Unknown if ever smoked Hx Alcohol Use: Yes Alcohol type: beer Alcohol Intake Frequency Comment: Occasionally Hx Substance Use: No Preferred Language: Kittitian Communication Ability: Effective Database Security Administrator Required: No Beliefs That Will Affect Care: Spiritism Spiritism Beliefs: Anabaptism marital status: Current Living Situation: Spouse current occupational status: retired 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 Feels Safe at Home: Yes Assistive Devices: Cane, CPAP and Walker Review of Systems Review of Systems: All systems reviewed & are unremarkable except as noted in HPI & below Physical Exam Constitutional: WD/WN, vitals as above Eyes: PERRL, conjunctivae normal, anicteric sclerae Neck: trachea midline, no thyromegaly Respiratory: normal respiratory effort; no respiratory distress and no labored breathing Cardiovascular: Rate/Rhythm: regular rate and regular rhythm Gastrointestinal (Abdomen): Inspection/Auscultation: abdomen normal to inspection, + significant pannus and + abdominal surgical incision; abdomen not distended Percussion/Palpation: + abdomen tender (Mild TTP at level of periumbilical hernia) and abdomen soft; no guarding and abdomen not rigid Skin: no rashes, warm and dry Psychiatric: A+Ox3, euthymic affect Results & Data Vital Signs (Past 12 Hours) Vital Signs Temp Pulse Resp BP Pulse Ox O2 Del Method 06/26/23 16:30 58 L 23 129/72 100 Room Air 06/26/23 16:00 57 L 12 106/62 99 Room Air 06/26/23 15:32 64 15 106/62 98 Room Air 06/26/23 15:08 61 17 112/63 93 Room Air 06/26/23 13:39 60 06/26/23 13:26 37 C 66 15 148/89 H 100 Room Air Laboratory Results 06/26/23 06/26/23 06/26/23 Range/Units 13:38 13:37 13:37 WBC 9.16 (4.8-10.8) K/ul RBC 4.77 (4.70-6.10) M/uL Hgb 15.5 (14.0-18.0) g/dl Hct 44.9 (42.0-52.0) % MCV 94.1 (80.0-100.0) fL MCH 32.5 (25.0-34.0) pg MCHC 34.5 (32.0-36.0) g/dL RDW Std Deviation 49.4 H (36.4-46.3) fL RDW Coeff of Jack 14.3 (11.5-14.5) % Plt Count 145 (130-400) K/uL MPV 10.0 (9.4-12.4) fL Immature Gran % (Auto) 0.3 % Neut % (Auto) 85.2 % Lymph % (Auto) 11.2 % Hill % (Auto) 2.9 % Eos % (Auto) 0.3 % Baso % (Auto) 0.1 % Neut # (Auto) 7.79 H (1.40-6.50) K/uL Lymph # (Auto) 1.03 L (1.2-3.4) K/uL Hill # (Auto) 0.27 (0.11-0.59) K/uL Eos # (Auto) 0.03 (0-0.50) K/uL Baso # (Auto) 0.01 (0-0.2) K/uL Immature Gran # (Auto) 0.03 (0.01-0.20) K/uL Sodium 139 (136-145) mmol/L Potassium 4.0 (3.5-5.1) mmol/L Chloride 103 (98-107) mmol/L Carbon Dioxide 27 (21-32) mmol/L Anion Gap 9 (3-11) BUN 33 H (6-23) mg/dl Creatinine 1.69 H (0.6-1.4) mg/dl Est Cr Clr Drug Dosing Not Reportable Est GFR ( Amer) 48.0 ml/min Est GFR (Non-Af Amer) 41.4 ml/min BUN/Creatinine Ratio 19.5 (10-20) Glucose 109 H (70-99(Fasting)) mg/dl Calcium 10.0 (8.6-10.3) mg/dl Total Bilirubin 1.5 H (0.2-1.0) mg/dl AST 22 (13-39) U/L ALT 8 (7-52) U/L Alkaline Phosphatase 40 (34-104) U/L Total Protein 7.5 (6.0-8.3) gm/dl Albumin 4.5 (3.4-5.0) gm/dl Globulin 3.0 (2.5-4.0) gm/dl Albumin/Globulin Ratio 1.5 (0.9-2) Lipase 57 (11-82) U/L Urine Color Yellow Urine Appearance Clear (Clear) Urine pH 5.5 (4.5-7.5) Ur Specific [place] 1.007 (1.000-1.030) Urine Protein Negative (Negative) Urine Glucose (UA) Negative (Negative) Urine Ketones Negative (Negative) Urine Blood Negative (Negative) Urine Nitrite Negative (Negative) Urine Bilirubin Negative (Negative) Urine Urobilinogen Negative (Negative) Ur Leukocyte Esterase Negative (Negative) Diagnostic Findings CT SCAN OF THE ABDOMEN AND PELVIS WITH IV CONTRAST CLINICAL HISTORY: Generalized abdominal pain. COMPARISON STUDY: Abdominal CT dated 06/09/2023 and 02/14/2018. TECHNIQUE: Following the IV administration of 117 cc of Optiray 350, CT scan of the abdomen and pelvis is performed from the lung bases to the proximal femora. Images are reviewed in the axial, sagittal, and coronal planes. IV contrast was administered without complication. A dose lowering technique was utilized adhering to the principles of ALARA. The examination is degraded by large body habitus, and by streak artifact from the body wall abutting the CT gantry. A portion of the right abdomen was not included in the examination. CT DOSE: 2113.95 mGy.cm FINDINGS: Lung bases: The heart is enlarged and without pericardial effusion. The coronary arteries are densely calcified. There is mild elevation of the right hemidiaphragm with associated atelectasis. A 14 mm groundglass nodule in the left lower lobe is similar to previous. There are punctate calcified granulomas. Liver: The contrast-enhanced liver is normal in size, contour, and attenuation. There is no intrahepatic biliary ductal dilatation. The hepatic veins and portal veins are patent. Gallbladder: There are small gallstones without CT evidence of acute cholecystitis. Spleen: Normal in size and attenuation. Pancreas: Unremarkable. Adrenal glands: Unremarkable. Kidneys: The contrast enhanced kidneys demonstrate cortical atrophy and are without hydronephrosis. The kidneys enhance symmetrically. A 3.6 cm indeterminate lesion arising from the right kidney on image #191 is unchanged. This does not clearly show postcontrast enhancement. Abdominal vasculature: The abdominal aorta is normal in course and caliber noting mild to moderate atherosclerotic calcification. Stomach and bowel: There is a small hiatal hernia. There is evidence of previous gastric surgery. A ventral hernia in the pelvis contains small bowel loops. The small bowel upstream to the hernia is distended and fluid-filled, measuring up to 3.3 cm diameter. The distal small bowel is decompressed, and this is consistent with a small bowel obstruction. No focally thick-walled bowel loops identified. There is no pneumatosis intestinalis or portal venous gas. The appendix is not visualized. Peritoneum: There is no intraperitoneal free air or abdominal ascites. There are numerous fat-containing ventral hernias. Lymphadenopathy: Prominent left iliac chain lymph nodes are similar to previous. The largest measures 2.1 cm. Pelvic viscera: The prostate gland is normal as visualized. The bladder is not distended, and the wall appears thickened/trabeculated indicating chronic outlet obstruction. Skeletal structures: No lytic or blastic lesions are seen. IMPRESSION: 1. Findings are consistent with a small bowel obstruction. A bowel containing ventral hernia in the pelvis is the transition point. 2. No intraperitoneal free air is identified. No thick-walled bowel loops identified and there is no pneumatosis intestinalis or portal venous gas. 3. Cholelithiasis. 4. A 14 mm groundglass lesion in the left lower lobe has been present dating back to 2018. This is suspicious for a low-grade adenomatous lesion. Nonemergent pulmonology follow-up is recommended. 5. An indeterminant exophytic lesion arising from the right kidney is similar to previous. This does not show definitive postcontrast enhancement. 6. Cardiomegaly. 7. Additional findings as above.
[2023-06-26] MEDS ORDERED: MoRPHine SULFATE 4 MG/ML 1 ML CARP\\VIAL IV PRN (17:03)
[2023-06-26] MEDS ORDERED: ACETAMINOPHEN 1,000 MG/100 ML VIAL IV PRN (17:03)
[2023-06-26] MEDS ORDERED: DEXTROSE 50% 50 ML SYRINGE IV PRN (17:07)
[2023-06-26] MEDS ORDERED: GLUCOSE 10 TAB/TUBE PO PRN (17:07)
[2023-06-26] MEDS ORDERED: GLUCOSE 40% GEL 15 GM TUBE PO PRN (17:07)
[2023-06-26] MEDS ORDERED: CARBOHYDRATES FOR HYPOGLYCEMIA PO PRN (17:07)
[2023-06-26] MEDS ORDERED: GLUCAGON FOR INJ 1 MG VIAL SQ PRN (17:07)
[2023-06-26] MEDS ORDERED: ONDANSETRON INJ 2 MG/ML 2 ML VIAL IV PRN (17:10)
[2023-06-26 17:35] LABS: INR 1.7 (0.9-1.1); Partial Thromboplastin Ratio 1.2; Partial Thromboplastin Time 32.5 Seconds (21.0-31.0); Prothrombin Time 18.5 Seconds (9.0-12.0)
[2023-06-26] MEDS ORDERED: Heparin IV Adult Wt-Based Low-Dose *NO* Bolus Protocol IV STA (18:34)
[2023-06-26] MEDS: HEPARIN SODIUM/DEXTROSE 25,000 UNITS/500 ML BAG IV SCH (19:47)
[2023-06-26] MEDS: INSULIN ASPART PER UNIT CHARGE SC SCH (19:51)
[2023-06-26] MEDS ORDERED: IPRATROPIUM BROMIDE/ALBUTEROL respimat INH INH PRN (20:17)
[2023-06-26] MEDS ORDERED: Albuterol HFA 8 GM Inhaler (Combivent Respimat P&T Subs) INH PRN (20:20)
[2023-06-26] MEDS ORDERED: Ipratropium HFA Inhaler (Combivent Respimat P&T Subs) INH PRN (20:20)
[2023-06-26] MEDS: LANTUS PER UNIT CHARGE SQ SCH (20:47)
[2023-06-27] MEDS: INSULIN ASPART PER UNIT CHARGE SC SCH ×4 (00:11→20:52)
[2023-06-27] MEDS ORDERED: SODIUM CHLORIDE 0.9% 1000ML 1,000 ML IV SCH (00:15)
[2023-06-27 02:14] LABS: Basophils # (auto) 0.02 K/uL (0-0.2); Basophils % (auto) 0.3 %; Eosinophils # (auto) 0.09 K/uL (0-0.50); Eosinophils % (auto) 1.3 %; Hematocrit (blood only) 39.2 % (42.0-52.0); Hemoglobin 13.6 g/dl (14.0-18.0); Immature Granulocytes # (auto) 0.02 K/uL (0.01-0.20); Immature Granulocytes % (auto) 0.3 %; Lymphocytes # (auto) 1.75 K/uL (1.2-3.4); Lymphocytes % (auto) 24.6 %; Mean Corpuscular Hemoglobin 32.7 pg (25.0-34.0); Mean Corpuscular Hgb Conc 34.7 g/dL (32.0-36.0); Mean Corpuscular Volume 94.2 fL (80.0-100.0); Mean Platelet Volume 9.5 fL (9.4-12.4); Monocytes # (auto) 0.38 K/uL (0.11-0.59); Monocytes % (auto) 5.3 %; Neutrophils # (auto) 4.86 K/uL (1.40-6.50); Neutrophils % (auto) 68.2 %; Platelet Count 127 K/uL (130-400); RDW Coefficient of Variation 14.2 % (11.5-14.5); Red Blood Count 4.16 M/uL (4.70-6.10); White Blood Count 7.12 K/ul (4.8-10.8)
[2023-06-27 02:30] LABS: Albumin Globulin Ratio 1.5 (0.9-2); Albumin Level 3.7 gm/dl (3.4-5.0); BUN Creatinine Ratio 20.1 (10-20); Bilirubin,Total 1.3 mg/dl (0.2-1.0); Calcium 8.9 mg/dl (8.6-10.3); Creatinine Clr Calc Pharmacy 128.6 ml/min; Est GFR (African American) 51.7 ml/min; Est GFR (Non-African American) 44.6 ml/min; Globulin 2.5 gm/dl (2.5-4.0); Magnesium 1.6 mg/dl (1.7-2.4); Potassium 3.4 mmol/L (3.5-5.1); Total Protein 6.2 gm/dl (6.0-8.3)
[2023-06-27 02:44] LABS: INR 1.7 (0.9-1.1); Prothrombin Time 17.7 Seconds (9.0-12.0)
[2023-06-27 02:45] LABS: Partial Thromboplastin Ratio 1.3; Partial Thromboplastin Time 37.2 Seconds (21.0-31.0)
--- NOTE | 2023-06-27 06:55 | Surgery Progress Note ---
Date of Service June 27, 2023 Assessment & Plan (1) SBO (small bowel obstruction): Plan Hospital day #2 Significant improvement. He is passing flatus. He has significantly reduced abdominal pain and tenderness. The hernia site feels much softer than before. We will continue to monitor. If he continues to pass flatus, advance to clear liquid diet later today. Admission and Anticipated Discharge Date Admission Date: June 26, 2023 Subjective Feeling much better today. Minimal abdominal pain or tenderness. Passing flatus. No nausea or vomiting. No fevers overnight. Physical Exam Physical Exam: NAD, A&O x 3 AFVSS Abdomen: Obese, soft Mild TTP near supraumbilical hernia Supraumbilical hernia site much softer than yesterday Results & Data Vital Signs (Past 12 Hours) Vital Signs Temp Pulse Pulse Resp BP BP Pulse Ox 06/26/23 23:42 06/26/23 21:36 36.5 C 61 18 144/73 H 94 06/26/23 21:00 51 L 16 98 06/26/23 21:09 120/80 06/26/23 20:40 46 L 9 L 100 06/26/23 20:30 45 L 9 L 98 06/26/23 20:20 53 L 16 98 06/26/23 20:10 52 L 5 L 97 06/26/23 20:00 52 L 8 L 98 06/26/23 19:50 48 L 11 L 99 06/26/23 19:40 50 L 14 06/26/23 19:31 142/78 H 06/26/23 19:31 57 L 15 06/26/23 19:30 47 L 9 L 06/26/23 19:20 53 L 11 L 94 06/26/23 19:10 57 L 20 98 06/26/23 19:00 51 L 13 85 L 06/26/23 19:00 159/101 H O2 Del Method 06/26/23 23:42 Room Air 06/26/23 21:36 Room Air 06/26/23 21:00 06/26/23 21:09 06/26/23 20:40 06/26/23 20:30 06/26/23 20:20 06/26/23 20:10 06/26/23 20:00 06/26/23 19:50 06/26/23 19:40 06/26/23 19:31 06/26/23 19:31 06/26/23 19:30 06/26/23 19:20 06/26/23 19:10 06/26/23 19:00 06/26/23 19:00
[2023-06-27] MEDS: LANTUS PER UNIT CHARGE SQ SCH ×2 (07:24→21:02)
--- NOTE | 2023-06-27 08:29 | Electrocardiogram Report ---
Test Reason : Blood Pressure : / mmHG Vent. Rate : 056 BPM Atrial Rate : 394 BPM P-R Int : 000 ms QRS Dur : 158 ms QT Int : 476 ms P-R-T Axes : 000 015 -04 degrees QTc Int : 459 ms Atrial fibrillation with slow ventricular response Right bundle branch block Abnormal ECG When compared with ECG of 09-JUN-2023 19:05, Right bundle branch block is now Present Confirmed by Alex Castaneda ([id number]) on 06/27/2023 8:28:31 AM Referred By: REFERRED SELF Confirmed By:Tree Castaneda
[2023-06-27] MEDS: NSS + 20MEQ KCL 20 MEQ/1,000 ML BAG IV SCH ×2 (09:10→19:24)
[2023-06-27] MEDS: PANTOprazole 40 MG in SYRINGE 0 ML IV SCH (09:10)
[2023-06-27 10:11] LABS: Partial Thromboplastin Ratio 1.4; Partial Thromboplastin Time 38.2 Seconds (21.0-31.0)
[2023-06-27] MEDS ORDERED: INSULIN ASPART PER UNIT CHARGE SC SCH (12:00)
--- NOTE | 2023-06-27 12:07 | Hospitalist Progress Note ---
Date of Service June 27, 2023 Assessment & Plan (1) SBO (small bowel obstruction): Plan: Improved. Clear liquids will be started later today possibly. Continue IV f luids for now. Appreciate surgery consultation and recommendations. (2) Atrial fibrillation, chronic: Plan: Currently stable. Metoprolol will be restarted as soon as possible. Warfarin is on hold. He is now on a heparin drip in the event surgery is needed (3) Hypertension: Plan: Currently stable. Will use intravenous hydralazine as needed until oral medic ations are restarted (4) T2DM (type 2 diabetes mellitus): Plan: Low-dose basal insulin twice daily. Sliding scale coverage. Eventual advancement to ADA diet (5) GISELL (obstructive sleep apnea): Plan: CPAP. Stable (6) Hyperlipidemia: Plan: Stable. Resume statin therapy when taking p.o. Plan Hopefully surgery can be avoided and he will be discharged to home soon Admission and Anticipated Discharge Date Admission Date: June 26, 2023 Subjective Alert and oriented. He has improved since admission. Surgery entry noted. He is passing flatus. He might be able to start clear liquids later today. He remains on a heparin drip and Coumadin remains on hold. Potassium will repeat be replaced intravenously. Continue IV fluids for now. Review of Systems Review of Systems: Constitutional-no fever or chills ENT-no blurred vision, no double vision, no epistaxis, no sore throat Respiratory-no cough, no wheezing, no shortness of breath Cardiac-no palpitations, no chest pain, no syncope GI-bowel obstruction symptoms have improved. No vomiting -no urinary retention, no urinary incontinence, no dysuria, no hematuria Musculoskeletal-no joint pain, no muscle tenderness Skin-no bruising, no rashes, no pruritus Neuro-no isolated weakness, no paresthesia, no weakness Psych-no depression, no anxiety Physical Exam Physical Exam: General-alert and oriented x3, no fevers, no chills. Obese HEENT-head atraumatic and normocephalic, pupils equal and reactive to light, extraocular muscles intact Neck-no lymphadenopathy or thyromegaly, trachea midline Chest-clear to auscultation percussion. No rales wheezing or rhonchi Cardiac-regular rate and rhythm, normal S1 and S2 Abdomen-normal bowel sounds, nontender, no hepatosplenomegaly Extremities-no cyanosis, clubbing, or edema Neuro-cranial nerves II through XII intact, motor and sensory function within normal limits, strength symmetrical 5/5, no focal deficits Psych-normal affect, normal mood Results & Data Results & Data Vital Signs (Past 12 Hours) Vital Signs Temp Pulse Resp BP Pulse Ox O2 Del Method 06/27/23 07:31 36.6 C 60 17 103/65 96 Room Air Laboratory Results 06/27/23 02:00 06/27/23 02:00 PG Care Time/CCT Total # of Minutes Spent Total Time Spent with Patient: Total time spent is greater than 50% in coordination of care (as documented) at patient's floor/unit and/or counseling patient: Coding Level of Care Code 04262 SUB INP/OBS CARE 3/50MIN Diagnoses SBO (small bowel obstruction) K56.609 Atrial fibrillation, chronic I48.20 Hypertension I10 T2DM (type 2 diabetes mellitus) E11.9 GISELL (obstructive sleep apnea) G47.33 Hyperlipidemia E78.5
[2023-06-27] MEDS ORDERED: Nursing to Pharmacy Communication SCH ×3 (16:45→19:15)
[2023-06-27 17:14] LABS: Partial Thromboplastin Ratio 1.4; Partial Thromboplastin Time 39.6 Seconds (21.0-31.0)
[2023-06-27] MEDS: HEPARIN SODIUM/DEXTROSE 25,000 UNITS/500 ML BAG IV SCH ×2 (17:36→19:20)
[2023-06-28 00:44] LABS: Partial Thromboplastin Ratio 1.6
[2023-06-28 00:45] LABS: Partial Thromboplastin Time 44.1 Seconds (21.0-31.0)
[2023-06-28] MEDS: NSS + 20MEQ KCL 20 MEQ/1,000 ML BAG IV SCH ×2 (04:49→18:03)
[2023-06-28 07:11] LABS: Basophils # (auto) 0.02 K/uL (0-0.2); Basophils % (auto) 0.3 %; Eosinophils # (auto) 0.08 K/uL (0-0.50); Eosinophils % (auto) 1.2 %; Hematocrit (blood only) 35.5 % (42.0-52.0); Hemoglobin 12.1 g/dl (14.0-18.0); Immature Granulocytes # (auto) 0.02 K/uL (0.01-0.20); Immature Granulocytes % (auto) 0.3 %; Lymphocytes # (auto) 1.44 K/uL (1.2-3.4); Lymphocytes % (auto) 21.3 %; Mean Corpuscular Hemoglobin 32.8 pg (25.0-34.0); Mean Corpuscular Hgb Conc 34.1 g/dL (32.0-36.0); Mean Corpuscular Volume 96.2 fL (80.0-100.0); Mean Platelet Volume 9.9 fL (9.4-12.4); Monocytes # (auto) 0.36 K/uL (0.11-0.59); Monocytes % (auto) 5.3 %; Neutrophils # (auto) 4.84 K/uL (1.40-6.50); Neutrophils % (auto) 71.6 %; Platelet Count 114 K/uL (130-400); RDW Coefficient of Variation 14.4 % (11.5-14.5); RDW Standard Deviation 50.4 fL (36.4-46.3); Red Blood Count 3.69 M/uL (4.70-6.10); White Blood Count 6.76 K/ul (4.8-10.8)
[2023-06-28 07:26] LABS: BUN Creatinine Ratio 15.8 (10-20); Calcium 8.3 mg/dl (8.6-10.3); Creatinine Clr Calc Pharmacy 75.7 ml/min; Est GFR (African American) 52.1 ml/min; Est GFR (Non-African American) 44.9 ml/min; Magnesium 1.6 mg/dl (1.7-2.4)
[2023-06-28 07:56] LABS: INR 1.7 (0.9-1.1); Partial Thromboplastin Ratio 1.6; Prothrombin Time 18.2 Seconds (9.0-12.0)
[2023-06-28 07:58] LABS: Partial Thromboplastin Time 45.7 Seconds (21.0-31.0)
[2023-06-28] MEDS: INSULIN ASPART PER UNIT CHARGE SC SCH ×4 (09:00→20:55)
[2023-06-28] MEDS: LANTUS PER UNIT CHARGE SQ SCH ×2 (09:23→20:54)
--- NOTE | 2023-06-28 09:58 | XRay Report ---
KUB HISTORY: Small bowel obstruction. Follow-up. COMPARISON: Abdomen and pelvis CTA 1023. FINDINGS: Dilated small bowel loops seen along the right side the abdomen which have progressed in th e interval. This is consistent with the patient's known small bowel obstruction. These measure up to 5.8 cm in diameter. There is gas and stool remaining within the nondistended colon. No renal calculi . No ureteral calculi. No pneumoperitoneum or pneumatosis. IMPRESSION: Dilated loops of small bowel within the right side of the abdomen which have progressed in the interv al. This consistent with the patient's known small bowel obstruction which is better appreciated on t he recent abdomen and pelvis CT. ACT 112: Negative or not required by law. Electronically signed by: Jae Robins M.D. 06/28/2023 9:57 AM
--- NOTE | 2023-06-28 10:09 | Surgery Progress Note ---
Date of Service June 28, 2023 Assessment & Plan (1) SBO (small bowel obstruction): Plan: Ordered KUB today which continues to show persistent small bowel obstruction. We will keep him on clear liquids for now since he is tolerating. No urgent or emergent indication for surgical intervention at this time (2) Morbid obesity: (3) Incisional hernia: Admission and Anticipated Discharge Date Admission Date: June 26, 2023 Subjective Patient seen. Feeling better. Denies abdominal pain nausea or vomiting. He is tolerating clear liquids although no bowel function yet Physical Exam Physical Exam: Alert. No acute distress Abdomen is soft. Palpable midline hernia. Large abdominal pannus. The abdomen is nontender Results & Data Vital Signs (Past 12 Hours) Vital Signs Temp Pulse Resp BP Pulse Ox O2 Del Method 06/28/23 07:08 37.0 C 65 16 110/71 96 Room Air PG Care Time/CCT Total # of Minutes Spent Total Time Spent with Patient: Total time spent is greater than 50% in coordination of care (as documented) at patient's floor/unit and/or counseling patient: Coding Level of Care Code 56196 SUB INP/OBS CARE 2/35MIN Diagnoses SBO (small bowel obstruction) K56.609 Morbid obesity E66.01 Incisional hernia K43.2
[2023-06-28] MEDS: PANTOprazole 40 MG in SYRINGE 0 ML IV SCH (10:42)
[2023-06-28] MEDS: HEPARIN SODIUM/DEXTROSE 25,000 UNITS/500 ML BAG IV SCH (12:52)
--- NOTE | 2023-06-28 14:29 | Hospitalist Progress Note ---
Date of Service June 28, 2023 Assessment & Plan (1) SBO (small bowel obstruction): Plan: Improved. Clear liquids continue. Appreciate surgery consultation and recom mendations. (2) Atrial fibrillation, chronic: Plan: Currently stable. Metoprolol will be restarted when diet is advanced further. Warfarin is on hold. He is on a heparin drip in the event surgery is needed (3) Hypertension: Plan: Currently stable. Will use intravenous hydralazine as needed until oral medications are restarted (4) T2DM (type 2 diabetes mellitus): Plan: Low-dose basal insulin twice daily. Sliding scale coverage. Eventual advancement to ADA diet (5) GISELL (obstructive sleep apnea): Plan: CPAP. Stable (6) Hyperlipidemia: Plan: Stable. Resume statin therapy when taking p.o. Plan Hopefully surgery can be avoided and he will be discharged to home soon Admission and Anticipated Discharge Date Admission Date: June 26, 2023 Subjective Alert and oriented. is at the bedside. No significant changes. Surgical entry noted. He remains on clear liquids and minimal IV fluids. Coumadin remains on hold. He is currently on a heparin drip. Mild hypokalemia has been corrected. Creatinine stable at 1.5 Review of Systems Review of Systems: Constitutional-no fever or chills ENT-no blurred vision, no double vision, no epistaxis, no sore throat Respiratory-no cough, no wheezing, no shortness of breath Cardiac-no palpitations, no chest pain, no syncope GI-bowel obstruction symptoms have improved. No vomiting -no urinary retention, no urinary incontinence, no dysuria, no hematuria Musculoskeletal-no joint pain, no muscle tenderness Skin-no bruising, no rashes, no pruritus Neuro-no isolated weakness, no paresthesia, no weakness Psych-no depression, no anxiety Physical Exam Physical Exam: General-alert and oriented x3, no fevers, no chills. Obese HEENT-head atraumatic and normocephalic, pupils equal and reactive to light, extraocular muscles intact Neck-no lymphadenopathy or thyromegaly, trachea midline Chest-clear to auscultation percussion. No rales wheezing or rhonchi Cardiac-regular rate and rhythm, normal S1 and S2 Abdomen-normal bowel sounds, nontender, no hepatosplenomegaly Extremities-no cyanosis, clubbing, or edema Neuro-cranial nerves II through XII intact, motor and sensory function within normal limits, strength symmetrical 5/5, no focal deficits Psych-normal affect, normal mood Results & Data Results & Data Vital Signs (Past 12 Hours) Vital Signs Temp Pulse Resp BP Pulse Ox O2 Del Method 06/28/23 07:45 Room Air 06/28/23 07:08 37.0 C 65 16 110/71 96 Room Air Laboratory Results 06/28/23 06:43 06/28/23 06:43 PG Care Time/CCT Total # of Minutes Spent Total Time Spent with Patient: Total time spent is greater than 50% in coordination of care (as documented) at patient's floor/unit and/or counseling patient: Coding Level of Care Code 43951 SUB INP/OBS CARE 2/35MIN Diagnoses SBO (small bowel obstruction) K56.609 Atrial fibrillation, chronic I48.20 Hypertension I10 T2DM (type 2 diabetes mellitus) E11.9 GISELL (obstructive sleep apnea) G47.33 Hyperlipidemia E78.5
[2023-06-29 07:15] LABS: Basophils # (auto) 0.02 K/uL (0-0.2); Basophils % (auto) 0.4 %; Eosinophils # (auto) 0.09 K/uL (0-0.50); Eosinophils % (auto) 1.8 %; Hematocrit (blood only) 34.8 % (42.0-52.0); Hemoglobin 11.9 g/dl (14.0-18.0); Immature Granulocytes # (auto) 0.01 K/uL (0.01-0.20); Immature Granulocytes % (auto) 0.2 %; Lymphocytes # (auto) 1.36 K/uL (1.2-3.4); Lymphocytes % (auto) 27.3 %; Mean Corpuscular Hemoglobin 32.6 pg (25.0-34.0); Mean Corpuscular Hgb Conc 34.2 g/dL (32.0-36.0); Mean Corpuscular Volume 95.3 fL (80.0-100.0); Mean Platelet Volume 9.2 fL (9.4-12.4); Monocytes # (auto) 0.29 K/uL (0.11-0.59); Monocytes % (auto) 5.8 %; Neutrophils # (auto) 3.21 K/uL (1.40-6.50); Neutrophils % (auto) 64.5 %; Platelet Count 112 K/uL (130-400); RDW Coefficient of Variation 14.2 % (11.5-14.5); RDW Standard Deviation 49.7 fL (36.4-46.3); Red Blood Count 3.65 M/uL (4.70-6.10); White Blood Count 4.98 K/ul (4.8-10.8)
[2023-06-29 07:35] LABS: Magnesium 1.5 mg/dl (1.7-2.4)
[2023-06-29 07:52] LABS: INR 1.7 (0.9-1.1); Partial Thromboplastin Ratio 1.6; Prothrombin Time 17.7 Seconds (9.0-12.0)
[2023-06-29 08:22] LABS: Partial Thromboplastin Time 45.4 Seconds (21.0-31.0)
[2023-06-29] MEDS: HEPARIN SODIUM/DEXTROSE 25,000 UNITS/500 ML BAG IV SCH (08:53)
[2023-06-29] MEDS: INSULIN ASPART PER UNIT CHARGE SC SCH ×4 (08:56→21:28)
[2023-06-29] MEDS: LANTUS PER UNIT CHARGE SQ SCH (09:05)
[2023-06-29 10:43] LABS: BUN Creatinine Ratio 13.4 (10-20); Calcium 8.1 mg/dl (8.6-10.3); Creatinine Clr Calc Pharmacy 84.3 ml/min; Est GFR (African American) 59.2 ml/min; Est GFR (Non-African American) 51.1 ml/min; Potassium 3.9 mmol/L (3.5-5.1)
[2023-06-29] MEDS: PANTOprazole 40 MG in SYRINGE 0 ML IV SCH (11:22)
[2023-06-29] MEDS: MAGNESIUM SULFATE / D5W 1 GM/100 ML BAG IV SCH ×2 (11:23→13:11)
[2023-06-29] MEDS: NSS + 20MEQ KCL 20 MEQ/1,000 ML BAG IV SCH (13:11)
--- NOTE | 2023-06-29 13:15 | Surgery Progress Note ---
Date of Service June 29, 2023 Assessment & Plan (1) Incisional hernia: Plan: Clinically improving. Will advance to full liquid diet. (2) SBO (small bowel obstruction): Admission and Anticipated Discharge Date Admission Date: June 26, 2023 Subjective Patient seen. Feeling well. He has no abdominal pain. He has not had a bowel movement but he is passing a lot of flatus. No nausea or vomiting. He is tolerating full trays of clear liquids. Physical Exam Constitutional: WD/WN, vitals as above no acute distress and not ill appearing Eyes: PERRL, conjunctivae normal, anicteric sclerae EOM intact bilaterally ENMT: external ear and nose normal, oropharynx normal Ears: no hearing impairment Neck: trachea midline, no thyromegaly Respiratory: normal respiratory effort; no respiratory distress and does not use accessory muscles Cardiovascular: Rate/Rhythm: regular rate and regular rhythm Gastrointestinal (Abdomen): Soft. Nontender. Large ventral hernia reduced. Skin: no rashes, warm and dry Psychiatric: Orientation: alert, oriented x 3 and cooperative Results & Data Vital Signs (Past 12 Hours) Vital Signs Temp Pulse Resp BP Pulse Ox O2 Del Method 06/29/23 07:26 36.9 C 61 16 119/56 L 98 Room Air PG Care Time/CCT Total # of Minutes Spent Total Time Spent with Patient: Total time spent is greater than 50% in coordination of care (as documented) at patient's floor/unit and/or counseling patient: Coding Level of Care Code 04621 SUB INP/OBS CARE 2/35MIN Diagnoses Incisional hernia K43.2 SBO (small bowel obstruction) K56.609
--- NOTE | 2023-06-29 14:39 | Hospitalist Progress Note ---
Date of Service June 29, 2023 Assessment & Plan (1) SBO (small bowel obstruction): Plan: Improving. Diet has been advanced to full liquids by surgery. Appreciate jules gatica consultation and recommendations. (2) Atrial fibrillation, chronic: Plan: Currently stable. Metoprolol has been restarted. Warfarin is on hold while on heparin drip. (3) Hypertension: Plan: Currently stable. Metoprolol has been restarted (4) T2DM (type 2 diabetes mellitus): Plan: Lantus dosage down titrated today, June 29 due to borderline low glucose. Eventual advancement to ADA diet (5) GISELL (obstructive sleep apnea): Plan: CPAP. Stable (6) Hyperlipidemia: Plan: Stable. Resumed statin therapy Plan Hopeful discharge to home tomorrow, June 30 Admission and Anticipated Discharge Date Admission Date: June 26, 2023 Subjective Alert and oriented. No distress. He has been seen by general surgery again. Diet has been advanced to full liquids by surgery. INR remains at 1.7. Creatinine stable at 1.4. Hopefully he can go home tomorrow, June 30 Review of Systems Review of Systems: Constitutional-no fever or chills ENT-no blurred vision, no double vision, no epistaxis, no sore throat Respiratory-no cough, no wheezing, no shortness of breath Cardiac-no palpitations, no chest pain, no syncope GI-bowel obstruction symptoms have improved. No vomiting -no urinary retention, no urinary incontinence, no dysuria, no hematuria Musculoskeletal-no joint pain, no muscle tenderness Skin-no bruising, no rashes, no pruritus Neuro-no isolated weakness, no paresthesia, no weakness Psych-no depression, no anxiety Physical Exam Physical Exam: General-alert and oriented x3, no fevers, no chills. Obese HEENT-head atraumatic and normocephalic, pupils equal and reactive to light, extraocular muscles intact Neck-no lymphadenopathy or thyromegaly, trachea midline Chest-clear to auscultation percussion. No rales wheezing or rhonchi Cardiac-regular rate and rhythm, normal S1 and S2 Abdomen-normal bowel sounds, nontender, no hepatosplenomegaly Extremities-no cyanosis, clubbing, or edema Neuro-cranial nerves II through XII intact, motor and sensory function within normal limits, strength symmetrical 5/5, no focal deficits Psych-normal affect, normal mood Results & Data Results & Data Vital Signs (Past 12 Hours) Vital Signs Temp Pulse Resp BP Pulse Ox O2 Del Method 06/29/23 07:50 Room Air 06/29/23 07:26 36.9 C 61 16 119/56 L 98 Room Air Laboratory Results 06/29/23 06:47 06/29/23 06:47 PG Care Time/CCT Total # of Minutes Spent Total Time Spent with Patient: Total time spent is greater than 50% in coordination of care (as documented) at patient's floor/unit and/or counseling patient: Coding Level of Care Code 04142 SUB INP/OBS CARE 3/50MIN Diagnoses SBO (small bowel obstruction) K56.609 Atrial fibrillation, chronic I48.20 Hypertension I10 T2DM (type 2 diabetes mellitus) E11.9 GISELL (obstructive sleep apnea) G47.33 Hyperlipidemia E78.5
[2023-06-29] MEDS: METOPROLOL SUCC 50MG EXT REL TAB PO SCH (15:53)
[2023-06-29] MEDS: SIMVASTATIN 20 MG TAB PO SCH (20:43)
[2023-06-29] MEDS ORDERED: LANTUS PER UNIT CHARGE SQ SCH (21:00)
[2023-06-30] MEDS: HEPARIN SODIUM/DEXTROSE 25,000 UNITS/500 ML BAG IV SCH ×2 (03:01→22:26)
[2023-06-30] MEDS: INSULIN ASPART PER UNIT CHARGE SC SCH ×4 (07:43→22:17)
[2023-06-30] MEDS: METOPROLOL SUCC 50MG EXT REL TAB PO SCH (07:45)
[2023-06-30 08:29] LABS: Partial Thromboplastin Ratio 1.5
[2023-06-30 08:38] LABS: Partial Thromboplastin Time 43.2 Seconds (21.0-31.0)
[2023-06-30] MEDS: NSS + 20MEQ KCL 20 MEQ/1,000 ML BAG IV SCH (08:55)
--- NOTE | 2023-06-30 11:01 | Surgery Progress Note ---
Date of Service June 30, 2023 Assessment & Plan (1) SBO (small bowel obstruction): Plan Hospital day #5 doing well. may discharge to home from surgical standpoint. Admission and Anticipated Discharge Date Admission Date: June 26, 2023 Subjective doing well. continuing to pass gas. no nausea/vomiting. tolerating diet. Physical Exam Physical Exam: NAD, A&O x 3 AFVSS Abdomen: Obese, soft NTND Supraumbilical hernia site soft Results & Data Vital Signs (Past 12 Hours) Vital Signs Temp Pulse Resp BP Pulse Ox O2 Del Method 06/30/23 07:29 36.3 C L 61 16 130/69 97 Room Air
[2023-06-30] MEDS ORDERED: ACETAMINOPHEN 500 MG TAB PO PRN (11:21)
[2023-06-30] MEDS: PANTOprazole 40 MG in SYRINGE 0 ML IV SCH (11:57)
[2023-06-30 12:32] LABS: Calcium 8.3 mg/dl (8.6-10.3); Potassium 3.9 mmol/L (3.5-5.1)
[2023-06-30 12:37] LABS: BUN Creatinine Ratio 9.4 (10-20); Creatinine Clr Calc Pharmacy 86.8 ml/min; Est GFR (African American) 61.3 ml/min; Est GFR (Non-African American) 52.9 ml/min
--- NOTE | 2023-06-30 17:24 | Hospitalist Progress Note ---
Date of Service June 30, 2023 Assessment & Plan (1) SBO (small bowel obstruction): Plan: Improving. +flatus. +BM today. Tolerating full liquids diet. Defer additional diet advancement to gen surg. Appreciate general surgery recs. (2) Atrial fibrillation, chronic: Plan: HRs have been slow in the 50s. May need dose adjustment from 100mg/day to 75mg/day. Restart coumadin - give 10mg now. INR am. Cont heparin drip until d/c. (3) Hypertension: Plan: Controlled (4) T2DM (type 2 diabetes mellitus): Plan: Hba1c 5.9% in March 2023. HOLD lantus. loose SSI novolog coverage. (5) GISELL (obstructive sleep apnea): Plan: cont HS CPAP (6) Hyperlipidemia: Plan: Cont simvastatin (7) Morbid obesity with BMI of 50.0-59.9, adult: Plan: BMI 52 Plan DVT proph - heparin drip Since patient has had 2 SBOs in the last 2 months will refer back to Dr Lee Thomas at [facility] (Bariatric surgery). If deemed not candidate for elective hernia repair by Dr Thomas then refer to [facility] system. Admission and Anticipated Discharge Date Admission Date: June 26, 2023 Subjective had small bowel movement this am he reports severe constipation at home - on average he has BM about every 10 days, and sometimes no BM for up to 3 weeks! has had this bowel habit pattern for many years last colonoscopy - [facility] - about 3-4 years ago; no pathology seen no nausea/emesis tolerating full liquids patient frustrated that he has not been able to find a surgeon to fix his hernia did see a Dr Thomas with [facility] who comes to [place] from [place] he saw Dr Thomas in 11/2022 - was told not an operative candidate at that time saw a surgeon at [facility] this year - was told to lose weight, then return to surg clinic in September for recheck Review of Systems Review of Systems: cv - no cp pulm - chronic JURADO GI - frequent episodes of abd pain - sometimes right after eating, other times 1-2 hours later Physical Exam Physical Exam: gen - morbidly obese, NAD neck - no obvious JVD mouth - MMM heart - irregular, lali, s1s2 lungs - CTA b/l abd - soft, midline hernia (reducible), BS+, NT, not distended ext - <1+ edema b/l, pulses 2+ b/l skin - stasis changes b/l shins Results & Data Results & Data Vital Signs (Past 12 Hours) Vital Signs Temp Pulse Resp BP Pulse Ox O2 Del Method 06/30/23 15:44 36.4 C L 61 18 131/72 96 Room Air 06/30/23 07:40 Room Air 06/30/23 07:29 36.3 C L 61 16 130/69 97 Room Air Laboratory Results Laboratory Results - last 24 hr 06/29/23 06/30/23 06/30/23 20:31 07:17 07:17 APTT 43.2 H* PTT Ratio 1.5 Sodium Cancelled Potassium Cancelled Chloride Cancelled Carbon Dioxide Cancelled Anion Gap Cancelled BUN Cancelled Creatinine Cancelled Est Cr Clr Drug Dosing Cancelled Est GFR ( Amer) Cancelled Est GFR (Non-Af Amer) Cancelled BUN/Creatinine Ratio Cancelled Glucose Cancelled POC Glucose 89 Calcium Cancelled Magnesium 1.7 06/30/23 06/30/23 06/30/23 07:17 07:40 11:52 APTT PTT Ratio Sodium 140 Potassium 3.9 Chloride 109 H Carbon Dioxide 24 Anion Gap 7 BUN 13 Creatinine 1.38 Est Cr Clr Drug Dosing 86.8 Est GFR ( Amer) 61.3 Est GFR (Non-Af Amer) 52.9 BUN/Creatinine Ratio 9.4 L Glucose 70 POC Glucose 73 77 Calcium 8.3 L Magnesium 06/30/23 16:44 APTT PTT Ratio Sodium Potassium Chloride Carbon Dioxide Anion Gap BUN Creatinine Est Cr Clr Drug Dosing Est GFR ( Amer) Est GFR (Non-Af Amer) BUN/Creatinine Ratio Glucose POC Glucose 80 Calcium Magnesium PG Care Time/CCT Total # of Minutes Spent Total Time Spent with Patient: Total time spent is greater than 50% in coordination of care (as documented) at patient's floor/unit and/or counseling patient: Coding Level of Care Code 51318 SUB INP/OBS CARE 2/35MIN Diagnoses SBO (small bowel obstruction) K56.609 Atrial fibrillation, chronic I48.20 Hypertension I10 T2DM (type 2 diabetes mellitus) E11.9 GISELL (obstructive sleep apnea) G47.33 Hyperlipidemia E78.5 Morbid obesity with BMI of 50.0-59.9, adult E66.01; Z68.43
[2023-06-30] MEDS ORDERED: WARFARIN SOD 10 MG TAB PO ONE (18:16)
[2023-06-30] MEDS: SIMVASTATIN 20 MG TAB PO SCH (20:55)
[2023-07-01] MEDS: INSULIN ASPART PER UNIT CHARGE SC SCH ×4 (08:23→20:45)
[2023-07-01] MEDS: METOPROLOL SUCC 25MG EXT REL TAB PO SCH (09:17)
[2023-07-01 09:29] LABS: BUN Creatinine Ratio 7.6 (10-20); Calcium 8.5 mg/dl (8.6-10.3); Creatinine Clr Calc Pharmacy 83.2 ml/min; Est GFR (African American) 58.2 ml/min; Est GFR (Non-African American) 50.2 ml/min; Potassium 3.9 mmol/L (3.5-5.1)
[2023-07-01 09:40] LABS: INR 1.5 (0.9-1.1)
[2023-07-01] MEDS ORDERED: WARFARIN SOD 10 MG TAB PO ONE (10:00)
[2023-07-01 10:14] LABS: Partial Thromboplastin Ratio 1.5
[2023-07-01 10:15] LABS: Partial Thromboplastin Time 43.2 Seconds (21.0-31.0)
[2023-07-01] MEDS: PANTOprazole 40 MG in SYRINGE 0 ML IV SCH (10:40)
--- NOTE | 2023-07-01 15:52 | Electrocardiogram Report ---
Test Reason : Blood Pressure : / mmHG Vent. Rate : 052 BPM Atrial Rate : 202 BPM P-R Int : 000 ms QRS Dur : 166 ms QT Int : 462 ms P-R-T Axes : 000 213 023 degrees QTc Int : 429 ms Atrial fibrillation with slow ventricular response Indeterminate axis Right bundle branch block Abnormal ECG When compared with ECG of 27-JUN-2023 07:22, No significant change Confirmed by Morales Whitehead ([id number]) on 07/01/2023 3:52:03 PM Referred By: REFERRED SELF Confirmed By:Morales Whitehead
[2023-07-01] MEDS: HEPARIN SODIUM/DEXTROSE 25,000 UNITS/500 ML BAG IV SCH (15:54)
--- NOTE | 2023-07-01 16:03 | Hospitalist Progress Note ---
Date of Service July 01, 2023 Assessment & Plan (1) SBO (small bowel obstruction): Plan: Improving. +flatus. +BM today. Tolerating full liquids diet. Defer additional diet advancement to gen surg. Appreciate general surgery recs. (2) Atrial fibrillation, chronic: Plan: HRs have been slow in the 50s. May need dose adjustment from 100mg/day to 75mg/day. Restart coumadin - give 10mg now. INR am. Cont heparin drip until d/c. (3) Hypertension: Plan: Controlled (4) T2DM (type 2 diabetes mellitus): Plan: Hba1c 5.9% in March 2023. HOLD lantus. loose SSI novolog coverage. (5) GISELL (obstructive sleep apnea): Plan: cont HS CPAP (6) Hyperlipidemia: Plan: Cont simvastatin (7) Morbid obesity with BMI of 50.0-59.9, adult: Plan: BMI 52 Plan DVT proph - heparin drip Since patient has had 2 SBOs in the last 2 months will refer back to Dr Lee Thomas at [facility] (Bariatric surgery). If deemed not candidate for elective hernia repair by Dr Thomas then refer to [facility]. Admission and Anticipated Discharge Date Admission Date: June 26, 2023 Physical Exam Physical Exam: gen - morbidly obese, NAD neck - no obvious JVD mouth - MMM heart - irregular, lali, s1s2 lungs - CTA b/l abd - soft, midline hernia (reducible), BS+, NT, not distended ext - <1+ edema b/l, pulses 2+ b/l skin - stasis changes b/l shins Results & Data Results & Data Vital Signs (Past 12 Hours) Vital Signs Temp Pulse Resp BP Pulse Ox O2 Del Method 07/01/23 14:56 36.4 C L 54 L 18 132/75 98 Room Air 07/01/23 09:16 67 07/01/23 07:04 36.4 C L 55 L 18 129/71 99 CPAP Laboratory Results Laboratory Results - last 24 hr 06/30/23 06/30/23 07/01/23 16:44 20:50 07:45 PT INR APTT PTT Ratio Sodium Potassium Chloride Carbon Dioxide Anion Gap BUN Creatinine Est Cr Clr Drug Dosing Est GFR ( Amer) Est GFR (Non-Af Amer) BUN/Creatinine Ratio Glucose POC Glucose 80 102 H 89 Calcium 07/01/23 07/01/23 07/01/23 08:54 08:54 08:54 PT 16.0 H INR 1.5 H APTT 43.2 H* Cancelled PTT Ratio 1.5 Cancelled Sodium 139 Potassium 3.9 Chloride 107 Carbon Dioxide 27 Anion Gap 5 BUN 11 Creatinine 1.44 H Est Cr Clr Drug Dosing 83.2 Est GFR ( Amer) 58.2 Est GFR (Non-Af Amer) 50.2 BUN/Creatinine Ratio 7.6 L Glucose 155 H POC Glucose Calcium 8.5 L 07/01/23 11:41 PT INR APTT PTT Ratio Sodium Potassium Chloride Carbon Dioxide Anion Gap BUN Creatinine Est Cr Clr Drug Dosing Est GFR ( Amer) Est GFR (Non-Af Amer) BUN/Creatinine Ratio Glucose POC Glucose 100 H Calcium PG Care Time/CCT Total # of Minutes Spent Total Time Spent with Patient: Total time spent is greater than 50% in coordination of care (as documented) at patient's floor/unit and/or counseling patient: Coding Diagnoses SBO (small bowel obstruction) K56.609 Atrial fibrillation, chronic I48.20 Hypertension I10 T2DM (type 2 diabetes mellitus) E11.9 GISELL (obstructive sleep apnea) G47.33 Hyperlipidemia E78.5 Morbid obesity with BMI of 50.0-59.9, adult E66.01; Z68.43
[2023-07-01] MEDS: SIMVASTATIN 20 MG TAB PO SCH (20:46)
[2023-07-01] MEDS: PANTOprazole 40 MG TAB PO SCH (22:13)
[2023-07-02 08:06] LABS: Basophils # (auto) 0.02 K/uL (0-0.2); Basophils % (auto) 0.4 %; Eosinophils # (auto) 0.08 K/uL (0-0.50); Eosinophils % (auto) 1.6 %; Hematocrit (blood only) 38.2 % (42.0-52.0); Hemoglobin 12.9 g/dl (14.0-18.0); Immature Granulocytes # (auto) 0.02 K/uL (0.01-0.20); Immature Granulocytes % (auto) 0.4 %; Lymphocytes # (auto) 1.24 K/uL (1.2-3.4); Lymphocytes % (auto) 25.3 %; Mean Corpuscular Hemoglobin 32.3 pg (25.0-34.0); Mean Corpuscular Hgb Conc 33.8 g/dL (32.0-36.0); Mean Corpuscular Volume 95.5 fL (80.0-100.0); Mean Platelet Volume 9.8 fL (9.4-12.4); Monocytes # (auto) 0.27 K/uL (0.11-0.59); Monocytes % (auto) 5.5 %; Neutrophils # (auto) 3.28 K/uL (1.40-6.50); Neutrophils % (auto) 66.8 %; Platelet Count 120 K/uL (130-400); RDW Coefficient of Variation 14.5 % (11.5-14.5); RDW Standard Deviation 50.6 fL (36.4-46.3); White Blood Count 4.91 K/ul (4.8-10.8)
[2023-07-02 08:23] LABS: INR 1.9 (0.9-1.1); Partial Thromboplastin Ratio 1.4; Partial Thromboplastin Time 38.7 Seconds (21.0-31.0); Prothrombin Time 19.6 Seconds (9.0-12.0)
[2023-07-02] MEDS: METOPROLOL SUCC 25MG EXT REL TAB PO SCH (08:33)
[2023-07-02] MEDS: PANTOprazole 40 MG TAB PO SCH (08:33)
[2023-07-02] MEDS: INSULIN ASPART PER UNIT CHARGE SC SCH ×2 (08:34→12:23)
--- NOTE | 2023-07-02 11:33 | Discharge Summary ---
Date of Service July 02, 2023 Admission HPI Per Admitting Provider Melchor is a 67yo male with history of bariatric surgery at [place] in 1998, morbid obesity, HTN, HLP, DMII, Atrial Fibrillation on Coumadin, GISELL, recurrent MRSA infection (follows with [facility] and on chronic Keflex therapy), and known abdominal wall hernia who presented to the [facility] ED onwith RUQ abdominal pain, nausea, and vomiting. Vitals remained stable in the ED. Labs were significant for a total bili of 1.5. CT of the abd/pelvis w/IV con was read as 1. Findings are consistent with a small bowel obstruction. A bowel containing ventral hernia in the pelvis is the transition point. 2. No intraperitoneal free air is identified. No thick-walled bowel loops identified and there is no pneumatosis intestinalis or portal venous gas. 3. Cholelithiasis. 4. A 14 mm groundglass lesion in the left lower lobe has been present dating back to 2017. This is suspicious for a low-grade adenomatous lesion. Nonemergent pulmonology follow-up is recommended. 5. An indeterminant exophytic lesion arising from the right kidney is similar to previous. This does not show definitive postcontrast enhancement. 6. Cardiomegaly.. Prior to admission the patient was given 1L NSS, 6 mg IV morphine, and 4 mg IV Zofran. The patient was evaluated by General Surgery who was comfortable with the patient being admitted to the medicine service with conservative treatment at this time. The patient was last admitted to [facility] in May for the same complaints and findings. General surgery evaluated the patient at that time and recommended transfer to a tertiary care facility due to his body habitus and complex surgical history. The patient was admitted to the medicine service until he had a bed ready at [facility]. He was eventually transferred to [facility] but did not receive surgical repair of the hernia at that visit. At the time of the exam the patient was lying in bed in no acute distress with his sitting bedside. He states that he was doing well after his discharge from [facility] until this am when he started to develop intense lower abdominal pain, nausea, and non-bloody emesis. Just prior to symptoms developing the patient was trying to have a bowel movement. His bowel output is very inconsistent since his previous abdominal procedures. When asked, he states that he often has to strain to have a BM. He is not taking a consistent stool softener at this time. General Surgery at [facility] advised him to see a follow up appointment with their General Surgery team closer to home to try and setup an elective procedure. He was seen by Dr. Morris of [facility] General surgery and was told that he would need to lose additional weight before an elective procedure could occur, as the additional weight from his pannus would likely cause failure of any elective repair of his hernia. He does follow with Dr. Brian of [facility] Weight management but has not seen him in some time. [facility] did mention that his previous bariatric surgery could be adjusted to help with weight loss. His symptoms are currently controlled if he is at rest and he is passing gas. He denies any other complaints at this time. Please refer to Dr. Gamez's attestation for any changes to the treatment plan Discharge Exam gen - morbidly obese, NAD neck - no obvious JVD mouth - MMM heart - irregular, lali, s1s2 lungs - CTA b/l abd - soft, midline hernia (reducible), BS+, NT, not distended ext - <1+ edema b/l, pulses 2+ b/l skin - stasis changes b/l shins Discharge Data Allergies Allergy/AdvReac Type Severity Reaction Status Date / Time bee venom protein (honey bee) Allergy Intermediate SWELLS Verified 06/26/23 15:49 metformin Allergy Intermediate HIVES Verified 06/26/23 15:49 Consultations 06/26/23 15:14 Consult General Surgery Stat ED Decision to Admit Stat 07/01/23 07:52 Burn CD for patient Routine Ordered Studies 06/26/23 13:34 CT Abd and Pelvis [CT abd pelvis IV con only] Stat Hospital Course (1) SBO (small bowel obstruction): Improving. +flatus. +BM today. Tolerating full liquids diet. Defer additional diet advancement to gen surg. Appreciate general surgery recs. (2) Atrial fibrillation, chronic: HRs have been slow in the 50s. May need dose adjustment from 100mg/day to 75mg/day. Restart coumadin - give 10mg now. INR am. Cont heparin drip until d/c. (3) Hypertension: Controlled (4) T2DM (type 2 diabetes mellitus): Hba1c 5.9% in March 2023. HOLD lantus. loose SSI novolog coverage. (5) GISELL (obstructive sleep apnea): cont HS CPAP (6) Hyperlipidemia: Cont simvastatin (7) Morbid obesity with BMI of 50.0-59.9, adult: BMI 52 Plan DVT proph - heparin drip Since patient has had 2 SBOs in the last 2 months will refer back to Dr Lee Thomas at [facility] (Bariatric surgery). If deemed not candidate for elective hernia repair by Dr Thomas then refer to [place] system. Discharge Plan Discharge Items Patient Disposition: Home - Self-Care Reason For Visit: ABDOMINAL HERNIA, SBO Discharge Diagnosis: 1. SBO (small bowel obstruction) due to abdominal wall hernia - surgical follow-up needed 2. Chronic constipation 3. Pulmonary nodule of the left lung lower lobe - chronic, present for several years - follow-up with pulmonology recommended 4. Right-sided kidney lesion - follow-up with [facility] as scheduled 5. Incidentally seen gallstones on your CT scan Activity: Resume your previous activity Non-emergency contact: Primary Care Provider, Surgeon and Specialist Call non-emergency contact if: you have any medication questions, your symptoms worsen and you have a fever Follow-up/Referrals: Aden Mims [Primary Care Provider] - 07/11/23 11:30 am Lee Thomas M.D. [Outside Practitioners] - 07/07/23 2:30 pm Diet: Carb Consistent or DM2 and Low Fiber Addtl Attending Provider Instructions: Mr Cooper, You were hospitalized due to a small bowel obstruction/blockage. You have had this obstruction twice recently. It is due to a ventral hernia/incisional hernia on your abdominal wall. Fortunately you improved again with conservative measures - gentle IV fluids, bowel rest, and time. General surgery was involved in your care and provided recommendations for your obstruction. Your symptoms improved with the above and you began to pass gas/stool. You are tolerating a low-fiber diet. You are at risk of having another bowel obstruction because of the hernia. Ideally the hernia is fixed in the near-future. Recommendations - 1. low fiber diet x 7 days. See handout. 2. start [id number] miralax 17gm (one serving) once a day. This is for constipation. You can start this tomorrow, 07/03/23. 3. during your stay we noted that your heart rate was often low on your metoprolol succinate 100mg daily. We reduced the dose to 75mg once daily in response to the low heart rates. I have called in a new prescription for the lower dose. 4. you have a pulmonary nodule (growth) in the left lung at the bottom. It has been present for several years. Please ask your family doctor for a referral to [facility] to have this looked at. This can be done at any time in the next few weeks. 5. please keep any regularly scheduled appointments with [facility] next week for your kidneys. 6. be sure to bring the CD with you to the appointment with the surgeon in [place]. This CD contains your [address] scans of your abdomen. 7. your INR today, 07/02/23, is 1.9. Please resume your usual coumadin schedule as previous. Check your INR this coming Friday as previously scheduled. 8. at this time there is nothing to do for the gallstones seen on CT scan. The gall bladder did not appear sick on your images. If you develop recurrent episodes of abdominal pain under your right rib cage after eating meals, however, you would need additional testing for the gall bladder. Follow-up - see separate section Return to [facility] if - * you have fevers over 100 degrees * you have worsening abdominal pains/nausea/vomiting that reminds you of your recent bowel obstructions * you are not passing gas or any stool * any other concerns It was our pleasure to care for you! -Dr Israel Pending Studies at Discharge: No Stand-Alone Forms: My [facility], Smoking Cessation Medications and DC Order Prescriptions: New polyethylene glycol 3350 [Miralax] 17 gram/dose powder 17 g PO DAILY Qty: 238 0RF Rx Instructions: purchase [id number]; start 07/03/23. Continued cephalexin 500 mg capsule 500 mg PO BID Qty: 60 3RF Hold Instructions: Resume on 07/12/23. hold Rx Instructions: [employer] ABX ipratropium-albuterol 20-100 mcg/actuation mist 2 spray inhalation QID PRN (Reason: Shortness Of Breath Or Wheezing) cholecalciferol (vitamin D3) 5,000 unit capsule 5,000 units PO Q2D Hold Instructions: Resume on 07/12/23. Rx Instructions: Takes in pm allopurinol 100 mg tablet 100 mg PO BID Hold Instructions: Resume on 07/12/23. terazosin 5 mg capsule 5 mg PO QPM Hold Instructions: Resume on 07/12/23. epinephrine [EpiPen] 0.3 mg/0.3 mL auto-injector 0.3 mg IM UD PRN (Reason: hypersensitivity reaction) Hold Instructions: Resume on 07/12/23. Slow-Mag 71.5 mg tablet,delayed release (DR/EC) 71.5 mg PO BID Hold Instructions: Resume on 07/12/23. Centrum Men 8 mg iron- 200 mcg-600 mcg tablet 1 tab PO DAILY Hold Instructions: Resume on 07/12/23. gabapentin 100 mg capsule 100 mg PO BID Hold Instructions: Resume on 07/12/23. furosemide 40 mg tablet 40 mg PO DAILY Hold Instructions: Resume on 07/12/23. lisinopril 5 mg tablet 5 mg PO DAILY Hold Instructions: Resume on 07/12/23. warfarin [Jantoven] 5 mg tablet 7.5 - 10 mg PO DIRECTED Hold Instructions: Resume on 07/12/23. Rx Instructions: as directed by anticoagulation clinic insulin lispro [Humalog KwikPen Insulin] 100 unit/mL insulin pen 0 unit subcut TIDM Hold Instructions: Resume on 07/12/23. Rx Instructions: PER SLIDING SCALE ascorbic acid (vitamin C) 500 mg Tablet 500 mg PO DAILY Hold Instructions: Resume on 07/12/23. Toujeo Max U-300 SoloStar 300 unit/mL (3 mL) insulin pen 24 unit SUBCUT HS Changed metoprolol succinate 50 mg tablet extended release 24 hr 75 mg PO DAILY Qty: 45 1RF simvastatin 20 mg tablet 20 mg PO DAILY Qty: 1 0RF Discharge Orders: Discharge Order (Routine); Ordered 07/02/23 Ordered By: Rudi Garber/Other Patient Handouts: Small Bowel Obstruction, Low-Fiber Diet, What Are Gallstones, ED Pulmonary Nodule, Solitary Admission Data Admit Date/Time: 06/26/23 19:21 Attending Provider: Rudi Israel Admit Provider: Dalton Topete Primary Care Provider: Aden Mims Other Providers: Selvin Gasca ; Dalton Topete Coding Diagnoses SBO (small bowel obstruction) K56.609 Atrial fibrillation, chronic I48.20 Hypertension I10 T2DM (type 2 diabetes mellitus) E11.9 GISELL (obstructive sleep apnea) G47.33 Hyperlipidemia E78.5 Morbid obesity with BMI of 50.0-59.9, adult E66.01; Z68.43
== END 2023-07-02 15:23 | disposition home or self-care (01) | DRG 394 ==
LOC: ED 13:15 → EDINP 19:21 → SUATTDRO 19:21 → 3W 20:17

== ENCOUNTER 2024-08-06 21:00 | Inpatient (IN) ==
[2024-08-06] MEDS: ONDANSETRON INJ 2 MG/ML 2 ML VIAL IV STA (22:14)
[2024-08-06 22:39] LABS: Basophils # (auto) 0.02 K/uL (0.00-0.20); Basophils % (auto) 0.3 %; Eosinophils # (auto) 0.03 K/uL (0.00-0.50); Eosinophils % (auto) 0.4 %; Hemoglobin 14.8 g/dl (14.0-18.0); Immature Granulocytes # (auto) 0.03 K/uL (0.01-0.20); Immature Granulocytes % (auto) 0.4 %; Lymphocytes # (auto) 0.75 K/uL (1.20-3.40); Lymphocytes % (auto) 9.7 %; Mean Corpuscular Hemoglobin 31.1 pg (25.0-34.0); Mean Corpuscular Hgb Conc 32.9 g/dL (32.0-36.0); Mean Corpuscular Volume 94.5 fL (80.0-100.0); Mean Platelet Volume 9.8 fL (9.4-12.4); Monocytes # (auto) 0.42 K/uL (0.11-0.59); Monocytes % (auto) 5.5 %; Neutrophils # (auto) 6.45 K/uL (1.40-6.50); Neutrophils % (auto) 83.7 %; Platelet Count 120 K/uL (130-400); RDW Coefficient of Variation 14.6 % (11.5-14.5); RDW Standard Deviation 50.8 fL (36.4-46.3); Red Blood Count 4.76 M/uL (4.70-6.10)
[2024-08-06 22:44] LABS: Appearance Urine Clear (Clear); Bilirubin Urine Negative (Negative); Blood Urine Negative (Negative); Color Urine Yellow; Glucose Urine UA Negative (Negative); Ketones Urine Trace (Negative); Leukocyte Esterase Urine Negative (Negative); Nitrite Urine Negative (Negative); Protein Urine Negative (Negative); Urobilinogen Urine Negative (Negative); pH Urine 5.5 (4.5-7.5)
[2024-08-06 22:48] LABS: Alanine Aminotransferase 6 U/L (7-52); Albumin Globulin Ratio 1.7 (0.9-2); Albumin Level 4.7 gm/dl (3.4-5.0); Alkaline Phosphatase 57 U/L (34-104); Anion Gap 8 (3-11); Aspartate Aminotransferase 16 U/L (13-39); BUN Creatinine Ratio 21.7 (10-20); Bilirubin,Total 1.4 mg/dl (0.2-1.0); Blood Urea Nitrogen 41 mg/dl (6-23); Calcium 9.5 mg/dl (8.6-10.3); Carbon Dioxide 29 mmol/L (21-32); Chloride 98 mmol/L (98-107); Est GFR (African American) 41.6 ml/min; Est GFR (Non-African American) 35.9 ml/min; Globulin 2.7 gm/dl (2.5-4.0); Glucose 133 mg/dl (70-99(Fasting)); Lipase 50 U/L (11-82); Potassium 4.5 mmol/L (3.5-5.1); Sodium 135 mmol/L (136-145); Total Protein 7.4 gm/dl (6.0-8.3)
--- NOTE | 2024-08-07 01:07 | Emergency Department Note ---
Impression & Plan Incarcerated ventral hernia, Small bowel obstruction, Cholelithiasis admit to the [facility] ED Provider Note NAME: KOBE RO AGE: 69 SEX: Male INFORMANT: Patient ED PROVIDER(S): Florence Ocampo DO CHIEF COMPLAINT: vomiting and mid abdominal pain PLAN: Disposition: admit to the [facility] MEDICAL DECISION MAKING: this is a 69-year-old male patient who presents with significant mid abdominal pain and vomiting. Patient has had multiple episodes of crampy abdominal pain over the past week that got significantly worse yesterday and was associated with episodes of vomiting and lightheadedness. Patient had been diagnosed weeks ago with gallstones and was to have follow-up with his general surgeon. Patient has a history of multiple abdominal wall hernias that had recently been repaired this year At [facility]. laboratory studies revealed no significant leukocytosis or anemia. BUN was elevated at 41 but creatinine was at baseline at 1.89. Glucose was 133. Patient was bolused with IV normal saline solution and started on a normal saline drip. He was kept n.p.o. His pain was controlled with IV Dilaudid and nausea control with IV Zofran. patient's physical exam was concerning for small bowel obstruction and incarcerated abdominal wall hernia. I attempted reduction initially but was unsuccessful. He went for CT scan of the abdomen/pelvis. This Revealed a strangulated ventral hernia. I discussed the case with his surgeon at Dr. Velazco at [facility]. he is very familiar with this patient. he had originally except the patient in transfer recommended I attempt reduction again of the incarceration. I was able to reduce the incarcerated hernia and the patient had significant relief of his discomfort. I spoke with Dr. Velazco again and he felt the patient could remain here at [facility] under observation for the small bowel obstruction and that he could perform the repair of the ventral hernia in the near future under elective conditions. I discussed the case with Dr. Pan from the [facility] group and he was willing to admit him to his service. Care/management discussed with: Dr. Velazco at [facility] minimally invasive surgery; [facility] group Triage Nursing notes: reviewed And agree with them. Vital Signs: reviewed and Unremarkable Additional History obtained from: the patient's who is at the bedside Chronic Medical/Social Conditions affecting care: obesity, history of kidney cancer which is monitored yearly by his providers at [facility] Prior/ Outside/ External records reviewed: I reviewed an order for an abdominal complete ultrasound of the abdomen by his surgeon in [facility] to evaluate for recurrent ventral hernia Differential Diagnosis: cholecystitis, choledocholithiasis, incarcerated ventral hernia, small bowel obstruction Diagnostics, independently interpreted by me: Cardiac Monitoring: normal sinus rhythm at a rate of 71 Imaging studies: CT scan of the abdomen/pelvis: As per stat rad HPI: 69 year old Male arrives for evaluation of abdominal pain and vomiting. patient has been having intermittent episodes of mid abdominal pain and vomiting over the past week. Symptoms got drastically worse yesterday and seem to be relieved by vomiting. PAST MEDICAL HISTORY: See Below, PAST SURGICAL HISTORY: See Below, SOCIAL HISTORY: See Below, HOME MEDICATIONS: See list ALLERGIES: see list VITALS: See Below PHYSICAL EXAMINATION: HEENT: Head - normocephalic and atraumatic. Pupils are equal, round, and reactive to light. Extraocular eye muscles are intact, and sclera are anicteric. Nose - moist nasal mucosa without discharge. Mouth - moist buccal mucosa. Oropharynx is nonerythematous and there is no tonsillar exudate or edema noted. Neck: Supple; no JVD, nuchal rigidity, cervical lymphadenopathy, or auscultated bruits. Heart: Regular rate and rhythm. There is a normal S1 and S2 with no murmurs, clicks, or gallops appreciated. Lungs: Clear to auscultation bilaterally with no wheezes, rales, or rhonchi. Abdomen: Soft, Exquisite tenderness to palpation in the periumbilical region where there was an easily palpable incarcerated There are no palpable pulsatile masses or hepatosplenomegaly. There is no guarding, rigidity, or rebound noted. Extremities: No evidence of cyanosis, clubbing, or edema. There are easily palpable peripheral pulses. Skin: warm and dry with good turgor and no rashes. Emergency department treatment: checkroom chief, IV normal saline, IV Zofran, IV Dilaudid, IV Dilaudid Emergency department course: The patient was evaluated in room C-11. A complete history and physical was performed. An order was placed for continuous cardiac monitoring. The patient was in a normal sinus rhythm at a rate of 71. I attempted to reduce the presumed incarcerated hernia of the abdomen but was unsuccessful. An IV lock was initiated and labs were drawn as above. Patient was given a dose of IV Dilaudid and IV Zofran and went for CT scan of the abdomen/pelvis. Patient was bolused with IV normal saline solution and started on a normal saline drip. Patient had gotten some relief of his discomfort with the above pain medications. I reviewed the results of the lab and CT with the patient and his . I discussed the case with his surgeon at [facility]. I attempted to reduce the ventral hernia incarceration again and was successful. The patient will be admitted here to the [facility] to ensure that the small bowel obstruction resolves and he will follow-up with his surgeon at [facility] for outpatient elective repair of the ventral hernia And to address the cholelithiasis. Past Med/Surg History Problem List (Updated 08/07/24 @ 07:25 by Florence Ocampo DO) Cholelithiasis (Acute) Small bowel obstruction (Acute) Incarcerated ventral hernia (Acute) Diabetes Kidney lesion Pulmonary nodule Gallstones Ventral hernia Morbid obesity with BMI of 50.0-59.9, adult Incisional hernia SBO (small bowel obstruction) (Acute) Abdominal pain (Acute) SBO (small bowel obstruction) (Acute) Abdominal pain Left shoulder pain (Acute) Urinary tract infection in male (Acute) Left arm numbness (Acute) Dietary counseling and surveillance Osteoarthritis of knees, bilateral Morbid obesity Metabolic syndrome Hyperlipidemia (Chronic) Sepsis due to group B Streptococcus Elevated lactic acid level Leukocytosis Sepsis Lymphedema of both lower extremities (Chronic) CKD (chronic kidney disease), stage III (Chronic) Medical History (Updated 08/07/24 @ 07:25 by Florence Ocampo DO) Near syncope Sinusitis Generalized weakness Headache Atrial fibrillation, chronic Obesity Hypertension T2DM (type 2 diabetes mellitus) GISELL (obstructive sleep apnea) Surgical History Total knee replacement status R once; L twice H/O gastric bypass 1998 Family History Mother Heart disease Kidney disease Hypertension Father Dementia Diabetes Heart disease Social History Smoking Status: Never smoker Hx Alcohol Use: Yes Alcohol type: beer Alcohol Intake Frequency Comment: Occasionally Hx Substance Use: No Preferred Language: Thai Communication Ability: Effective Corn Sheller Required: No Beliefs That Will Affect Care: Uatsdin Uatsdin Beliefs: Restorationism marital status: Current Living Situation: Spouse current occupational status: retired 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 Feels Safe at Home: Yes Assistive Devices: Cane and CPAP Allergies Allergies Allergy/AdvReac Type Severity Reaction Status Date / Time bee venom protein (honey bee) Allergy Intermediate SWELLS Verified 07/23/24 13:39 metformin Allergy Intermediate HIVES Verified 07/23/24 13:39 Home Meds Home Medications Medication Instructions Recorded Confirmed allopurinol 100 mg tablet 100 mg PO BID 06/30/19 07/23/24 cholecalciferol (vitamin D3) 125 5,000 units PO Q2D 06/30/19 07/23/24 mcg (5,000 unit) capsule ipratropium 20 mcg-albuterol 100 2 spray inhalation QID PRN 06/30/19 07/23/24 mcg/actuation mist for inhalation Shortness Of Breath Or Wheezing terazosin 5 mg capsule 5 mg PO QPM 06/30/19 07/23/24 epinephrine 0.3 mg/0.3 mL 0.3 mg IM UD PRN hypersensitivity 10/12/19 07/23/24 injection, auto-injector (EpiPen) reaction magnesium chloride 71.5 mg 71.5 mg PO BID 12/09/19 07/23/24 (magnesium chloride) tablet,delayed release (Slow-Mag) multivit,Ca,min-iron 8 mg-folic 1 tab PO DAILY 01/02/20 07/23/24 acid 200 mcg-lycopene 600 mcg tablet (Centrum Men) warfarin 5 mg tablet (Jantoven) 7.5 - 10 mg PO DIRECTED 01/12/23 07/23/24 furosemide 40 mg tablet 40 mg PO DAILY 02/18/23 07/23/24 gabapentin 100 mg capsule 100 mg PO BID 02/18/23 07/23/24 lisinopril 5 mg tablet 5 mg PO DAILY 02/18/23 07/23/24 ascorbic acid (vitamin C) 500 mg 500 mg PO DAILY 06/09/23 07/23/24 tablet semaglutide 2 mg/dose (8 mg/3 mL) mg subcut 09/08/23 07/23/24 subcutaneous pen injector (Ozempic) insulin glargine U-300 conc 300 14 unit subcut HS 07/23/24 07/23/24 unit/mL (3 mL) subcutaneous pen (Toujeo Max U-300 SoloStar) insulin lispro 100 unit/mL 2 unit subcut .w/ meals 07/23/24 07/23/24 subcutaneous pen (Humalog KwikPen (U-100) Insulin) Previous Rx's Medication Instructions Recorded cephalexin 500 mg capsule 500 mg PO BID #60 caps 02/28/20 metoprolol succinate 50 mg 75 mg (1.5 x 50 mg) PO DAILY #45 07/02/23 tablet,extended release 24 hr tabs polyethylene glycol 3350 17 17 g PO DAILY #238 grams 07/02/23 gram/dose oral powder (Miralax) simvastatin 20 mg tablet 20 mg PO DAILY #1 tab 07/02/23 Results & Data (ED) Vital Signs Vital Signs - 24 hr 08/06/24 21:09 08/07/24 00:22 08/07/24 01:16 Temperature 36.8 C Temperature Source Temporal Artery Scan Pulse Rate 79 71 72 Pulse Rate from SpO2 Sensor Respiratory Rate 18 20 Respiratory Effort / Characteristics Non-Labored Spontaneous Respiratory Depth Normal Blood Pressure 129/78 121/66 Blood Pressure Mean 95 86 Pulse Oximetry 98 99 Oxygen Delivery Method Room Air Sepsis Recent Fever Within 48 Hours No Sepsis New/Unexplained Change in Mental Status No Sepsis Action Taken by Nursing No Action Required 08/07/24 02:00 08/07/24 03:00 08/07/24 04:01 Temperature Temperature Source Pulse Rate 68 65 66 Pulse Rate from SpO2 Sensor 66 Respiratory Rate 14 18 22 Respiratory Effort / Characteristics Respiratory Depth Blood Pressure 121/69 128/74 135/55 L Blood Pressure Mean 86 95 79 Pulse Oximetry 96 96 99 Oxygen Delivery Method Sepsis Recent Fever Within 48 Hours Sepsis New/Unexplained Change in Mental Status Sepsis Action Taken by Nursing 08/07/24 04:45 08/07/24 06:43 Temperature Temperature Source Pulse Rate 62 Pulse Rate from SpO2 Sensor Respiratory Rate Respiratory Effort / Characteristics Respiratory Depth Blood Pressure Blood Pressure Mean Pulse Oximetry Oxygen Delivery Method Room Air Sepsis Recent Fever Within 48 Hours Sepsis New/Unexplained Change in Mental Status Sepsis Action Taken by Nursing Laboratory Data 08/06/24 22:13 08/06/24 22:13 Lab Results 08/06/24 08/06/24 Range/Units 22:13 22:20 WBC 7.70 (4.8-10.8) K/ul RBC 4.76 (4.70-6.10) M/uL Hgb 14.8 (14.0-18.0) g/dl Hct 45.0 (42.0-52.0) % MCV 94.5 (80.0-100.0) fL MCH 31.1 (25.0-34.0) pg MCHC 32.9 (32.0-36.0) g/dL RDW Std Deviation 50.8 H (36.4-46.3) fL RDW Coeff of Jack 14.6 H (11.5-14.5) % Plt Count 120 L (130-400) K/uL MPV 9.8 (9.4-12.4) fL Immature Gran % (Auto) 0.4 % Neut % (Auto) 83.7 % Lymph % (Auto) 9.7 % [place] % (Auto) 5.5 % Eos % (Auto) 0.4 % Baso % (Auto) 0.3 % Neut # (Auto) 6.45 (1.40-6.50) K/uL Lymph # (Auto) 0.75 L (1.20-3.40) K/uL [place] # (Auto) 0.42 (0.11-0.59) K/uL Eos # (Auto) 0.03 (0.00-0.50) K/uL Baso # (Auto) 0.02 (0.00-0.20) K/uL Immature Gran # (Auto) 0.03 (0.01-0.20) K/uL Sodium 135 L (136-145) mmol/L Potassium 4.5 (3.5-5.1) mmol/L Chloride 98 (98-107) mmol/L Carbon Dioxide 29 (21-32) mmol/L Anion Gap 8 (3-11) BUN 41 H (6-23) mg/dl Creatinine 1.89 H (0.6-1.4) mg/dl Est Cr Clr Drug Dosing Not Reportable Est GFR ( Amer) 41.6 ml/min Est GFR (Non-Af Amer) 35.9 ml/min BUN/Creatinine Ratio 21.7 H (10-20) Glucose 133 H (70-99(Fasting)) mg/dl Calcium 9.5 (8.6-10.3) mg/dl Total Bilirubin 1.4 H (0.2-1.0) mg/dl AST 16 (13-39) U/L ALT 6 L (7-52) U/L Alkaline Phosphatase 57 (34-104) U/L Total Protein 7.4 (6.0-8.3) gm/dl Albumin 4.7 (3.4-5.0) gm/dl Globulin 2.7 (2.5-4.0) gm/dl Albumin/Globulin Ratio 1.7 (0.9-2) Lipase 50 (11-82) U/L Urine Color Yellow Urine Appearance Clear (Clear) Urine pH 5.5 (4.5-7.5) Ur Specific [place] 1.020 (1.000-1.030) Urine Protein Negative (Negative) Urine Glucose (UA) Negative (Negative) Urine Ketones Trace H (Negative) Urine Blood Negative (Negative) Urine Nitrite Negative (Negative) Urine Bilirubin Negative (Negative) Urine Urobilinogen Negative (Negative) Ur Leukocyte Esterase Negative (Negative) Administered Medications Sodium Chloride (Nss) 500 mls @ 125 mls/hr IV .Q4H RYLAN Stop: 09/06/24 04:14 Last Admin: 08/07/24 04:24 Dose: 125 mls/hr Documented By: CHRISTY Discontinued Medications Hydromorphone HCl (Hydromorphone Inj 1 Mg/Ml Syringe) 1 mg IV NOW STA Stop: 08/07/24 01:02 Last Admin: 08/07/24 01:12 Dose: 1 mg Documented By: CHRISTY Hydromorphone HCl (Hydromorphone Inj 1 Mg/Ml Syringe) 1 mg IV NOW STA Stop: 08/07/24 04:13 Last Admin: 08/07/24 04:24 Dose: 1 mg Documented By: CHRISTY Sodium Chloride (Nss) 500 mls @ 999 mls/hr IV .Q31M ONE Stop: 08/07/24 01:31 Last Infusion: 08/07/24 02:00 Dose: Infused Documented By: Admin: 08/07/24 01:13 Dose: 999 mls/hr Documented By: NAW Ioversol (Optiray 320 100ml) 93 ml IV ONCE ONE Stop: 08/07/24 01:40 Last Admin: 08/07/24 01:40 Dose: 93 ml Documented By: YARELIS Ondansetron HCl (Ondansetron Inj 2 Mg/Ml 2 Ml Vial) 4 mg IV NOW STA Stop: 08/06/24 21:13 Last Admin: 08/06/24 22:14 Dose: 4 mg Documented By: MONA Imaging Data Radiologist's Impression: Abdomen/Pelvis CT 08/07/24 00:59 CR Exam(s): CT ABDOMEN + PELVIS With Contrast IV Amt: 93 cc's optiray 320 EXAM: CT Abdomen and Pelvis With Intravenous Contrast CLINICAL HISTORY: Reason for exam: eval for sbo; gall stones. TECHNIQUE: Axial computed tomography images of the abdomen and pelvis with intravenous contrast. Automated exposure control was utilized for the study. A dose lowering technique was utilized adhering to the principles of ALARA. CONTRAST: Patient received 93 cc's optiray 320 of IV contrast COMPARISON: CT abdomen/pelvis: 06/26/2023 FINDINGS: Motion-induced image degradation limits diagnostic sensitivity of the exam. Patient's left arm left over the upper abdomen. Lung bases: An elevated diaphragm RT>LT. No mass. No consolidation. Mildly enlarged heart. Significant coronary arterial calcifications. ABDOMEN: Liver: Unremarkable. No mass. Gallbladder and bile ducts: Somewhat distended gallbladder. Small intraluminal calcified stones. No ductal dilation. Pancreas: Diffusely atrophic. No ductal dilation. Spleen: Moderate splenomegaly, 16.7 cm in length. Adrenals: Unremarkable. No mass. Kidneys and ureters: Bilateral renal cortical thinning, LT>RT . A 4.2 x 3.8 cm versus previously 3.7 x 3.5 cm exophytic complex/suspicious cystic mass present posteriorly from the mid right kidney (series 3 image 133, series 300 image 60). A small right renal cortical cyst. No hydronephrosis. Stomach and bowel: There is an umbilical hernia with small bowel obstruction. An umbilical hernia is seen with 2.5 cm transverse dimension of its neck, and incarcerated/strangulated loop of small bowel with edematous circumferential wall thickening is located within the hernia (series 3, image 354, series 300 image 20). There is maximum 6.4 cm fluid filled dilated proximal small bowel loop. Moderate amount of stool/gas is seen throughout the colon including the rectum. PELVIS: Appendix: No acute findings in the region of the appendix Bladder: A partially decompressed bladder. No mass. Reproductive: Mildly enlarged prostate. ABDOMEN and PELVIS: Intraperitoneal space: Mesenteric lipomatosis. No free air. No significant fluid collection. Bones/joints: Osteopenia. No acute fracture. No dislocation. Multilevel moderately advanced degenerative lumbosacral spondylosis Soft tissues: There is rectus abdominis diastasis with anterior protrusion of the lower abdominal/pelvic mesenteric fat and bowel as well. Vasculature: Mild atheromatous calcification/tortuosity of the normal caliber aortoiliac vasculature. Lymph nodes: No enlarged lymph nodes. . IMPRESSION: An umbilical hernia with small bowel obstruction. There is likely incarceration/strangulation of small bowel loop with edematous circumferential wall thickening is present within the hernia. Clinical correlation/surgical consultation is warranted. A 4.2 cm versus previously 3.7 cm exophytic complex suspicious cystic mass of the right kidney. Additional imaging/follow-up recommended. A somewhat distended gallbladder. Cholelithiasis. Moderate splenomegaly. Additional findings as described above. . Communications: Call Doctor Other Electronically signed by: Li Coppola MD, DABR 08/07/24 03:12 AM Discharge Plan Visit Data Chief Complaint: Abdominal Pain Stated Complaint: STOMACH PAIN,VOMITING ED Provider: Florence Ocampo Discharge Problem: Incarcerated ventral hernia, Small bowel obstruction, Cholelithiasis Patient Disposition: Admitted As Inpatient Discharge Instructions Interventions: ED Discharge Assessment Last Done: 08/07/24 06:43 Forms Stand Alone Forms: [facility] Instagram Prescriptions Prescriptions: No Action cephalexin 500 mg capsule 500 mg PO BID Qty: 60 3RF Hold Instructions: Resume on 07/12/23. hold Rx Instructions: DENTAL TECHNOLOGIST ABX ipratropium-albuterol 20-100 mcg/actuation mist 2 spray inhalation QID PRN (Reason: Shortness Of Breath Or Wheezing) cholecalciferol (vitamin D3) 5,000 unit capsule 5,000 units PO Q2D Hold Instructions: Resume on 07/12/23. Rx Instructions: Takes in pm allopurinol 100 mg tablet 100 mg PO BID Hold Instructions: Resume on 07/12/23. terazosin 5 mg capsule 5 mg PO QPM Hold Instructions: Resume on 07/12/23. epinephrine [EpiPen] 0.3 mg/0.3 mL auto-injector 0.3 mg IM UD PRN (Reason: hypersensitivity reaction) Hold Instructions: Resume on 07/12/23. Slow-Mag 71.5 mg tablet,delayed release (DR/EC) 71.5 mg PO BID Hold Instructions: Resume on 07/12/23. Centrum Men 8 mg iron- 200 mcg-600 mcg tablet 1 tab PO DAILY Hold Instructions: Resume on 07/12/23. gabapentin 100 mg capsule 100 mg PO BID Hold Instructions: Resume on 07/12/23. furosemide 40 mg tablet 40 mg PO DAILY Hold Instructions: Resume on 07/12/23. lisinopril 5 mg tablet 5 mg PO DAILY Hold Instructions: Resume on 07/12/23. Ozempic 2 mg/dose (8 mg/3 mL) pen injector subcut Toujeo Max U-300 SoloStar 300 unit/mL (3 mL) insulin pen 14 unit SUBCUT HS insulin lispro [Humalog KwikPen Insulin] 100 unit/mL insulin pen 2 unit subcut .w/ meals Hold Instructions: Resume on 07/12/23. warfarin [Jantoven] 5 mg tablet 7.5 - 10 mg PO DIRECTED Hold Instructions: Resume on 07/12/23. Rx Instructions: as directed by anticoagulation clinic ascorbic acid (vitamin C) 500 mg Tablet 500 mg PO DAILY Hold Instructions: Resume on 07/12/23. polyethylene glycol 3350 [Miralax] 17 gram/dose powder 17 g PO DAILY Qty: 238 0RF Rx Instructions: purchase [id number]; start 07/03/23. metoprolol succinate 50 mg tablet extended release 24 hr 75 mg PO DAILY Qty: 45 1RF simvastatin 20 mg tablet 20 mg PO DAILY Qty: 1 0RF Referrals Referrals: Aden Mims [Primary Care Provider] -
[2024-08-07] MEDS: HYDROmorphone INJ 1 MG/ML SYRINGE IV STA ×2 (01:12→04:24)
[2024-08-07] MEDS: SODIUM CHLORIDE 0.9% 500 ML IV ONE (01:13)
[2024-08-07] MEDS: OPTIRAY 320 100ml IV ONE (01:40)
--- OUTSIDE RECORDS SUMMARY | 2024-08-07 02:05 | External Medical Summary | Summary of Care ---
Author Name Unknown Organization [facility] Address [address] [facility] [place] [address] Phone [phone] Care Team Providers Care Scale Operator Name Role Phone Aden Mims MD Primary Care Provider + [phone] Encounter Details Date Type Department Care Team (Late st Contact Info) Description 08/02/2024 Result Scan Unspecified Department Ileana Reyes, [facility] [address] [place] [address] <No scans attached> Allergies Active Allergy Reactions Criticality Noted Date Comments Bee Stings 04/12/2010 Metformin And Related 03/03/2007 Rash ,itchy documented as of this encounter (statuses as of 08/02/2024) Medications Medication Sig Dispensed Refills Start Date End Date Status TERAZOSIN HCL 5 MG PO CAPS 1 at bedtime 05/03/2014 Active MULTI-VITAMINS PO TABS 1 tab a day Active magnesium chloride (SLOW MAG) 64-106 MG TBEC Take 1 Tablet by mouth in the morning and 1 Tablet before bedtime. Active COMBIVENT RESPIMAT 20-100 MCG/ACT Inhaler 1 PUFF EVERY 6 HOURS 4 06/25/2017 Active lisinopril (PRINIVIL) 5 MG Tablet Take 1 Tablet by mouth in the morning. 6 06/20/2017 Active simvastatin (ZOCOR) 20 MG Tablet Take 1 Tablet by mouth every night at bedtime. 4 04/29/2017 Active Insulin Aspart 100 UNIT/ML Subcutaneous Solution Pen-injector Inject 10 Units under the skin in the morning and 10 Units at noon and 10 Units in the evening. Inject with meals. As directed by managing provider. 1 Pre-filled Pen Syringe Dosing Unit 06/16/2018 Active gabapentin (NEURONTIN) 100 MG Capsule Take 1 Capsule by mouth in the morning and 1 Capsule before bedtime. 1 07/21/2018 Active pantoprazole (PROTONIX) 40 MG TBEC Take 1 Tablet by mouth in the morning. Active BD Pen Needle Mini U/F 31G X 5 MM 01/16/2021 Active EPINEPHrine 0.3 MG/0.3ML Injection Solution Auto-injector (Autoinjector) 04/12/2021 Active Vitamin D3 125 MCG (5000 UT) Oral Tablet Take on daily 4 or 5 times a week. 30 Tablet 5 01/14/2022 Active Ozempic (2 MG/DOSE) 8 MG/3ML Subcutaneous Solution Pen-injector Inject 2 mg under the skin once a week. 05/29/2022 Active Insulin Lispro (1 Unit Dial) 100 UNIT/ML Subcutaneous Solution Pen-injector Inject under the skin . Active Furosemide 40 MG Oral Tablet (Lasix)Indications: Chronic diastolic (congestive) heart failure (HCC) Take 1 Tablet by mouth in the morning. 90 Tablet 3 03/11/2023 Active Toujeo Max SoloStar 300 UNIT/ML Subcutaneous Solution Pen-injector Inject 16 Units under the skin at bedtime. 06/09/2023 Active Metoprolol Succinate ER 50 MG Oral Tablet Extended Release 24 Hour (toPROL XL) Take 1.5 Tablets by mouth in the morning. 135 Tablet 3 09/01/2023 Active Cephalexin 500 MG Oral Capsule (Keflex)Indications :Recurrent cellulitis of lower extremity Take 1 Capsule by mouth in the morning and 1 Capsule before bedtime. 60 Capsule 3 05/28/2024 Active Allopurinol 100 MG Oral Tablet (Zyloprim)Indicatio ns:Kidney disease, chronic, stage III (GFR 30-59 ml/min) (HCC) TAKE 1 TABLET BY MOUTH TWICE DAILY 180 Tablet 07/09/2024 Active Warfarin Sodium 5 MG Oral Tablet (Coumadin)Indicatio ns:Atrial fibrillation, unspecified type ([facility]) Take 1.5 to 2 tablets by mouth daily as directed by Coumadin clinic on phone. 180 Tablet 3 07/12/2024 Active documented as of this encounter (statuses as of 08/02/2024) Active Problems Problem Noted Date Diagnosed Date Abdominal hernia 06/11/2023 Body mass index (BMI) of 50.0 to 59.9 in adult 0 01/28/2022 Overview: Per Obesity protocol Chronic kidney disease, stage 3b 05/01/2021 Overview: Per CKD protocol Type 2 diabetes mellitus wit h stage 3b chronic kidney disease 03/27/2021 Overview: Per CKD protocol Chronic diastolic (congestive) heart failure Type II or unspecified type diabetes mellitus without mention of complication, not stated as uncontrolled 06/26/2014 Mixed hyperlipidemia 06/26/2014 Atrial fibrillation 06/26/2014 Essential hypertension 06/26/2014 Obstructive sleep apnea 06/26/2014 Overview: ICD-10 update of inactive term DJD (degenerative joint disease) of knee 014 Lumbar spondylosis 06/26/2014 Overview: ICD-10 update of inactive term documented as of this encounter (statuses as of 08/02/2024) Resolved Problems Problem Noted Date Diagnosed Date Resolved Date Diabetes mellitus with stage 3 chronic kidney disease 08/30/2019 03/29/2021 Overview: Per CKD protocol Morbid obesity 06/26/2014 01/30/2022 Overview: Per Obesity protocol documented as of this encounter (statuses as of 08/02/2024) Immunizations Name Administration Dates Next Due COVID-19 mRNA, LNP-s, No Pre serve, 2-Dose Series (Moderna) 09/28/2021,03/02/2021,02/02/2021 Season Influenza, Quad, PF, Adjuvanted, 65+ Yrs, IM (FLUAD) 09/28/2021,09/08/2020 Seasonal Influenza, PF, 6 M & above, IM , (FluLaval or Fluzone) 07/31/2023,08/25/2019 documented as of this encounter Social History Tobacco Use Types Packs/Day Years Used Date Smoking Tobacco: Never Smokeless Tobacco: Former Quit: 02/20/1999 Alcohol Use Standard Drinks/Week Comments Not Currently 0 (1 standard drink = 0.6 oz pur e alcohol) occasional Personal Safety Answer Date Recorded Do you feel unsafe or have concerns for your saf ety? No 06/11/2023 Do you have concerns for you r family's safety? (Household - for ages 0-17 years) Not on file 06/11/2023 Utilities Answer Date Recorded Do you have trouble paying y our heating, water, or electric bill? (Adult - for ages 18 years and over) Not on file 06/17/2024 Is your family able to pay t he heat, water, or electric bill? (Household - for ages 0-17 years) Not on file 06/17/2024 Does your family have access to good internet? (Household - for ages 0-17 years) Not on file 06/17/2024 Social Connections Answer Date Recorded How often do you feel lonely or isolated from those around you? (Adult - for ages 18 years and over) Not on file 05/04/2024 Transportation Needs Answer Date Record ed READ ONLY Do you have troubl e getting a ride to medical visits or work? Never True 06/11/2023 Does your family have a hard time getting a ride to doctors visits? (Household - for ages 0-17 years) Not on file 06/11/2023 Has lack of transportation k ept you from medical appointments, meetings, work, or from getting things needed for daily living? Check all that apply. (Adult - for ages 18 years and over) Not on file 06/11/2023 Do you (or your family) have trouble finding or paying for a ride (transportation)? (Household - for ages 0-17 years) Not on file 06/11/2023 Housing Stability Answer Date Recorded Do you currently live in a s helter or have no steady place to sleep at night? (Adult - for ages 18 years and over) Not on file 06/11/2023 READ ONLY Do you think you a re at risk of becoming homeless? No 06/11/2023 Does your family worry about paying for your home or becoming homeless? (Household - for ages 0-17 years) Not on file 0 06/11/2023 Are you homeless or worried that you might be in the future? (Adult - for ages 18 years and over) Not on file 3 Are you (or your family) cindy eless or worried that you might be in the future? (Household - for ages 0-17 years) Not on file Food Insecurity Answer Date Recorded Do you need food for this week? No 06/11/2023 Are you able to get enough f ood for your family? (Household - for ages 0-17 years) Not on file 06/11/2023 Does your family need food t his week? (Household - for ages 0-17 years) Not on file 06/11/2023 Do you always have enough fo od for your family? (Household - for ages 0-17 years) Not on file 06/11/2023 Sex and Gender Information Value Date Recorded Sex Assigned at Not on file Gender Identity Not on file Sexual Orientation Not on file Job Start Date Occupation Industry Not on file Not on file Not on file documented as of this encounter Functional Status Functional Status Response Date of Assess ment Are you deaf or do you have serious difficulty h earing? No 06/11/2023 Are you blind or do you have serious difficulty seeing, even when wearing glasses? Yes 06/11/2023 Do you have serious difficul ty walking or climbing stairs? (5 years old or older) Yes 06/11/2023 Do you have difficulty dress ing or bathing? (5 years old or older) No 06/11/2023 Because of a physical, menta l, or emotional condition, do you have difficulty doing errands alone such as visiting a doctor s office or shopping? (15 years old or older) Yes 06/11/20 Cognitive Status Response Date of Assessm ent Because of a physical, menta l, or emotional condition, do you have serious difficulty concentrating, remembering, or making decisions? (5 years old or older) No 06/11/2023 documented as of this encounter Plan of Treatment Upcoming Encounters Date Type Department Care Team (Late st Contact Info) Description 08/03/2024 6:30 AM EDT Anticoagulation Centralized Clinical [facility] Services, [facility] [address] [place] [address] [place] [address] [facility] [place] [address] 09/28/2024 2:30 PM EST Office Visit Cardiology, [place] [address] [place] [address] Anita Fonseca PA-C [address] [place] [address] 12/21/2024 9:00 AM EST Office Visit Nephrology, [facility] [address] [place] [address] Marcy Lawrence MD [address] [place] [address] Health Maintenance Due Date Last Done Comments Depression Screening 1969 Diabetic Eye Exam 1975 Diabetic Foot Exam 1975 Hepatitis C Screening 1975 DTap/Tdap Vaccines (1 - Tdap) 02/01/1976 Cologuard 2002 Colonoscopy 2002 Colorectal Cancer Screening 2002 Fecal Occult Blood Test 2002 Sigmoidoscopy 2002 Zoster Vaccines (1 of 2) 2007 Pneumococcal Vaccine: 65+ Years (2 of 2 - PPSV23 or PCV20) 01/16/2023 11/21/2022 HbA1c 05/21/2024 11/21/2023, 05/18, 06/11/2022, Additional history exists COVID-19 Vaccine ( season) 2024 09/28/2021, 03/02/2021, 02/02/2021 Influenza Vaccine (FLU shot) (#1) 2024 07/31/2023, 09/28/2021, 09/08/2020, Additional history exists GFR 01/05/2025 07/05/2024, 010 03/2024, 08/27/2023, Additional history exists Albumin/Creatinine Ratio 07/05/2025 024, 12/26/2023, 08/27/2023, Additional history exists CKD HGB USE SMARTSET 37333 07/05/202507/054, 06/12/2023, 04/30/2023, Additional history exists CKD PHOS USE SMARTSET 44019 07/05/202506/17, 01/10/2022, 12/23/2020 Lipid Panel 06/11/2027 06/11/2022 HPV (Gardasil) Vaccine Aged Out No lo nger eligible based on patient's age to complete this topic Hepatitis B Vaccine Aged Out No longe r eligible based on patient's age to complete this topic MENINGOCOCCAL (MENACTRA/MENVEO) Aged Out No longer eligible based on patient's age to complete this topic documented as of this encounter Medical Devices Not on filedocumented as of this encounter Procedures Procedure Name Priority Date/Time Associated Diagnosis Comments OUTSIDE LAB RESULTS 08/02/2024 documented in this encounter Results * OUTSIDE LAB RESULTS (08/02/2024) 08/02/2024 Ileana Reyes [facility] LABORATORY documented in this encounter Advance Directives * Full Code (Latest Code Status on File) Date Activated Date Inactivated Comments 06/11/2023 11:13 PM 06/12/2023 8:13 PM Question Answer Comments Discussion of Advance Direct stacy occurred with: Not Discussed due to patient's condition Care Teams Scale Operator Relationship Specialty Start Date End Date Aden Mims MD [address] [place] [address] PCP - General Family Medicine 06/22/14 documented as of this encounter
--- OUTSIDE RECORDS SUMMARY | 2024-08-07 02:05 | External Medical Summary | Summary of Care ---
Author Name Unknown Organization [facility] Address [address] [facility] [place] [address] Phone [phone] Care Team Providers Care Irrigation Equipment Installer Name Role Phone Aden Mims MD Primary Care Provider [phone] Reason for Visit * Reason Comments Dosage Adjustment Via Phone (anticoag Cl inic) Encounter Details Date Type Department Care Team (Late st Contact Info) Description 08/03/2024 6:30 AM EDT Anticoagulation Centralized Clinical Pharmacy Services, [facility] [address] [place] [address] [place] [address] [place] [address] Atrial fibrillation, unspecified type (HCC)* Allergies Active Allergy Reactions Criticality Noted Date Comments Bee Stings 04/12/2010 Metformin And Related 03/03/2007 Rash ,itchy documented as of this encounter (statuses as of 08/03/2024) Medications Medication Sig Dispensed Refills Start Date [...] Oral Tablet (Coumadin)Indicatio ns:Atrial fibrillation, unspecified type (HCC) Take 1.5 to 2 tablets by mouth daily as directed by Coumadin clinic on phone. 180 Tablet 3 07/12/2024 Active documented as of this encounter (statuses as of 08/03/2024) Active Problems Problem Noted Date Diagnosed Date [...] as of this encounter (statuses as of 08/03/2024) Resolved Problems Problem Noted Date Diagnosed Date Resolved Date Diabetes mellitus with stage 3 chronic kidney disease 08/30/2019 03/29/2021 Overview: Per CKD protocol Morbid obesity 06/26/2014 01/30/2022 Overview: Per Obesity protocol documented as of this encounter (statuses as of 08/03/2024) Immunizations Name Administration Dates Next Due COVID-19 [...] 18 years and over) Not on file Are you (or your family) cindy eless [...] No 06/11/2023 documented as of this encounter Progress Notes * Israel Blackwood, otter trawler boatswain - 08/03/2024 1:43 PM EDT Contacts Contact Date/Time Type Contact Phone/Fax 08/03/2024 01:41 PM EDT Phone (Outgoing) Melchor Cooper (Self) [phone] (M) Left Message Subjective Advised patient to contact Anticoagulation Clinic if any unusual bruising or bleeding, recent illness, changes in medication, or questions/concerns. PT/INR results, Coumadin dose instructions, and next PT/INR date communicated as noted by Pharmacist: Yes ISRAEL BLACKWOOD CPhT 08/03/2024, 1:43 PM * Ileana Reyes RPh - 08/03/2024 10:09 AM EDT Coumadin Clinic (region specific) Objective Current Warfarin Dose As of 08/03/2024 Warfarin maintenance plan: 10 mg (5 mg x 2) every Mon; 7.5 mg (5 mg x 1.5) all other days INR Result As of 08/03/2024 INR goal: 2.0-3.0 INR used for dosin.4 (08/02/2024) Assessment & Plan Warfarin Plan As of 08/03/2024 Full warfarin instructions: 10 mg every Mon; 7.5 mg all other days No change documented: Ileana Reyes RPh Next INR check: 08/16/2024 Repeat PT/INR in 2 week(s) Weekly dose: not changed Additional Dosing Information: Description Home rip and groove machine operator to contact patient with dose instructions as noted. Ileana Reyes RPh 08/03/2024, 10:09 AM documented in this encounter Plan of Treatment Upcoming Encounters Date Type Department Care Team (Late st Contact Info) Description 08/17/2024 6:30 AM EDT Anticoagulation Centralized Clinical Pharmacy Services, [facility] [address] [place] [address] [place] [address] [facility], [address] [place] [address] 09/28/2024 2:30 PM EST Office Visit Cardiology, [place] [address] [place] [address] Anita Fonseca PA-C [address] [place] [address] 12/21/2024 9:00 AM EST Office Visit Nephrology, [facility] [address] [place] [address] Marcy Lawrence MD [address] [place] [address] Health Maintenance Due Date Last Done Comments [...] Additional history exists CKD HGB USE SMARTSET 79368 07/05/202507/05, 06/12/2023, 04/30/2023, Additional history exists CKD PHOS USE SMARTSET 84126 07/05/202506/17, 01/10/2022, 12/23/2020 Lipid Panel 06/11/2027 06/11/2022 [...] Name Priority Date/Time Associated Diagnosis Comments OUTSIDE LAB-PT/INR Routine 08/02/2024 documented in this encounter Results * OUTSIDE LAB-PT/INR (08/02/2024) INR-OUTSIDE LAB 2.4 HOME FINGERSTIC K DEVICE History Per Patient LABORATORY HOME FINGERSTICK DEVICE documented in this encounter Visit Diagnoses Diagnosis Atrial fibrillation, unspecified type (HCC)- Primary documented in this encounter Advance Directives * Full Code (Latest Code Status on File) Date Activated Date Inactivated Comments 06/11/2023 11:13 PM 06/12/2023 8:13 PM Question Answer Comments Discussion of Advance Direct stacy occurred with: Not Discussed due to patient's condition Care Teams Irrigation Equipment Installer Relationship Specialty Start Date End Date Aden Mims MD [address] [place] [address] PCP - General Family Medicine 06/22/14 documented as of this encounter
--- NOTE | 2024-08-07 03:13 | CT Scan Report ---
Exam(s): CT ABDOMEN + PELVIS With Contrast IV Amt: 93 cc's optiray 320 EXAM: CT Abdomen and Pelvis With Intravenous Contrast CLINICAL HISTORY: Reason for exam: eval for sbo; gall stones. TECHNIQUE: Axial computed tomography images of the abdomen and pelvis with intravenous contrast. Automated exposure control was utilized for the study. A dose lowering technique was utilized adhering to the principles of ALARA. CONTRAST: Patient received 93 cc's optiray 320 of IV contrast COMPARISON: CT abdomen/pelvis: 06/26/2023 FINDINGS: Motion-induced image degradation limits diagnostic sensitivity of the exam. Patient's left arm left over the upper abdomen. Lung bases: An elevated diaphragm RT>LT. No mass. No consolidation. Mildly enlarged heart. Significant coronary arterial calcifications. ABDOMEN: Liver: Unremarkable. No mass. Gallbladder and bile ducts: Somewhat distended gallbladder. Small intraluminal calcified stones. No ductal dilation. Pancreas: Diffusely atrophic. No ductal dilation. Spleen: Moderate splenomegaly, 16.7 cm in length. Adrenals: Unremarkable. No mass. Kidneys and ureters: Bilateral renal cortical thinning, LT>RT . A 4.2 x 3.8 cm versus previously 3.7 x 3.5 cm exophytic complex/suspicious cystic mass present posteriorly from the mid right kidney (series 3 image 133, series 300 image 60). A small right renal cortical cyst. No hydronephrosis. Stomach and bowel: There is an umbilical hernia with small bowel obstruction. An umbilical hernia is seen with 2.5 cm transverse dimension of its neck, and incarcerated/strangulated loop of small bowel with edematous circumferential wall thickening is located within the hernia (series 3, image 354, series 300 image 20). There is maximum 6.4 cm fluid filled dilated proximal small bowel loop. Moderate amount of stool/gas is seen throughout the colon including the rectum. PELVIS: Appendix: No acute findings in the region of the appendix Bladder: A partially decompressed bladder. No mass. Reproductive: Mildly enlarged prostate. ABDOMEN and PELVIS: Intraperitoneal space: Mesenteric lipomatosis. No free air. No significant fluid collection. Bones/joints: Osteopenia. No acute fracture. No dislocation. Multilevel moderately advanced degenerative lumbosacral spondylosis Soft tissues: There is rectus abdominis diastasis with anterior protrusion of the lower abdominal/pelvic mesenteric fat and bowel as well. Vasculature: Mild atheromatous calcification/tortuosity of the normal caliber aortoiliac vasculature. Lymph nodes: No enlarged lymph nodes. . IMPRESSION: An umbilical hernia with small bowel obstruction. There is likely incarceration/strangulation of small bowel loop with edematous circumferential wall thickening is present within the hernia. Clinical correlation/surgical consultation is warranted. A 4.2 cm versus previously 3.7 cm exophytic complex suspicious cystic mass of the right kidney. Additional imaging/follow-up recommended. A somewhat distended gallbladder. Cholelithiasis. Moderate splenomegaly. Additional findings as described above. . Communications: Call Doctor Other Electronically signed by: Li Coppola MD, DABR 08/07/24 03:12 AM
[2024-08-07] MEDS: SODIUM CHLORIDE 0.9% 500 ML IV SCH (04:24)
--- NOTE | 2024-08-07 05:11 | History & Physical Report ---
Date of Service August 07, 2024 Assessment & Plan (1) SBO (small bowel obstruction): Plan: Pt is a 69 yo male with PMH of DM, GISELL, HTN, and afib presenting due to abdominal pain. SBO secondary to incarcerated umbilical hernia - lab work significant for no leukocytosis, Hgb 14.8, Cr 1.89 - CTAP showing umbilical hernia w/ associated SBO and strangulated small bowel - per ER, hernia reduced while in ED - plan is for pt to have surgery with his primary surgeon (Dr. Homar Velazco) in [place] next week; would recommend contacting him/his team to determine date of surgery in order to figure out which medications need held (most importantly, his warfarin) - will keep NPO until re-evaluation by day team to determine if pt suitable for a diet RCC of right kidney - CTAP showing increase in size of right kidney mass from 3.7 cm to 4.2 cm (last CTAP 06/2023) - pt follows with PSH DM - hold home medications - will cover with insulin glargine and SSI; adjust PRN HTN - resume home regimen once pt able to take PO Diet: NPO Code: full DVT ppx: not added although pt is high risk- recommend coordination with surgeon as above Dispo: admit to med/surg (2) Hypertension: (3) Kidney lesion: (4) Diabetes: (5) CKD (chronic kidney disease), stage III: History of Present Illness Chief Complaint: abdominal pain Primary Care Provider: Aden Mims Pt is a 69 yo male with PMH of DM, GISELL, HTN, and afib presenting due to abdominal pain. Pt notes he has an extensive hx of abdominal surgeries including gastric bypass (1998) and multiple hernia repairs. His most recent hernia repair was in Dec of this year and he has not had issues with his stomach since. However, around a week ago, he noted that he started to feel sick on and off, similar to how he felt in the past. However, yesterday, he developed severe abdominal pain after eating dinner which prompted him to seek medical attention. In the ER, pt was given zofran x1, dialudid 1 mg x2, and 1 L bolus of NS with continual IVF at 125 mL/hr. Allergies Allergy/AdvReac Type Severity Reaction Status Date / Time bee venom protein (honey bee) Allergy Intermediate [facility] [place] Verified 08/07/24 18:25 metformin Allergy Intermediate HIVES Verified 08/07/24 18:25 Home Medications Medication Instructions Recorded Confirmed Type allopurinol 100 mg tablet 100 mg PO BID 06/30/19 08/07/24 History cholecalciferol (vitamin D3) 125 5,000 units PO Q2D 06/30/19 08/07/24 History mcg (5,000 unit) capsule ipratropium 20 mcg-albuterol 100 2 spray inhalation QID PRN 06/30/19 08/07/24 History mcg/actuation mist for inhalation Shortness Of Breath Or Wheezing terazosin 5 mg capsule 5 mg PO QPM 06/30/19 08/07/24 History epinephrine 0.3 mg/0.3 mL 0.3 mg IM UD PRN hypersensitivity 10/12/19 08/07/24 History injection, auto-injector (EpiPen) reaction magnesium chloride 71.5 mg 71.5 mg PO BID 12/09/19 08/07/24 History (magnesium chloride) tablet,delayed release (Slow-Mag) multivit,Ca,min-iron 8 mg-folic 1 tab PO DAILY 01/02/20 08/07/24 History acid 200 mcg-lycopene 600 mcg tablet (Centrum Men) warfarin 5 mg tablet (Jantoven) 7.5 - 10 mg PO DIRECTED 01/12/23 08/07/24 History furosemide 40 mg tablet 40 mg PO DAILY 02/18/23 08/07/24 History gabapentin 100 mg capsule 100 mg PO BID 02/18/23 08/07/24 History lisinopril 5 mg tablet 5 mg PO DAILY 02/18/23 08/07/24 History ascorbic acid (vitamin C) 500 mg 500 mg PO DAILY 06/09/23 08/07/24 History tablet metoprolol succinate 50 mg 75 mg (1.5 x 50 mg) PO DAILY #45 07/02/23 08/07/24 Rx tablet,extended release 24 hr tabs polyethylene glycol 3350 17 17 g PO DAILY #238 grams 07/02/23 08/07/24 Rx gram/dose oral powder (Miralax) simvastatin 20 mg tablet 20 mg PO DAILY #1 tab 07/02/23 08/07/24 Rx semaglutide 2 mg/dose (8 mg/3 mL) 2 mg subcut WK 09/08/23 08/07/24 History subcutaneous pen injector (Ozempic) insulin glargine U-300 conc 300 14 unit subcut HS 07/23/24 08/07/24 History unit/mL (3 mL) subcutaneous pen (Toujeo Max U-300 SoloStar) insulin lispro 100 unit/mL 2 unit subcut TIDWMEAL 07/23/24 08/07/24 History subcutaneous pen (Humalog KwikPen (U-100) Insulin) Past Med/Surg History Problem List Cholelithiasis (Acute) Small bowel obstruction (Acute) Incarcerated ventral hernia (Acute) Diabetes Kidney lesion Pulmonary nodule Gallstones Ventral hernia Morbid obesity with BMI of 50.0-59.9, adult Incisional hernia SBO (small bowel obstruction) (Acute) Abdominal pain (Acute) SBO (small bowel obstruction) (Acute) Abdominal pain Left shoulder pain (Acute) Urinary tract infection in male (Acute) Left arm numbness (Acute) Dietary counseling and surveillance Osteoarthritis of knees, bilateral Morbid obesity Metabolic syndrome Hyperlipidemia (Chronic) Sepsis due to group B Streptococcus Elevated lactic acid level Leukocytosis Sepsis Lymphedema of both lower extremities (Chronic) CKD (chronic kidney disease), stage III (Chronic) Medical History Near syncope Sinusitis Generalized weakness Headache Atrial fibrillation, chronic Obesity Hypertension T2DM (type 2 diabetes mellitus) GISELL (obstructive sleep apnea) Surgical History Total knee replacement status R once; L twice H/O gastric bypass 1998 Family History Mother Heart disease Kidney disease Hypertension Father Dementia Diabetes Heart disease Social History Smoking Status: Never smoker Hx Alcohol Use: Yes Alcohol type: beer Alcohol Intake Frequency Comment: Occasionally Hx Substance Use: No Preferred Language: Eritrean Communication Ability: Effective Java Xml Developer Required: No Beliefs That Will Affect Care: None marital status: Current Living Situation: Spouse current occupational status: retired 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 Feels Safe at Home: Yes Safety Concerns: Feels Safe At This Time Assistive Devices: CPAP and Glasses Review of Systems Review of Systems: As per HPI Physical Exam Constitutional: NAD, vitals WNL. Eyes: Conjunctivae normal. Respiratory: CTA bilaterally. Non labored breathing. No rhonchi, wheezing, or crackles. Cardiovascular: RRR. No murmurs noted. No LE edema. Gastrointestinal (Abdomen): Tender to deep palpation of RLQ and LUQ, hypoactive BS. No masses noted. Skin: Chronic bilateral LE venous stasis dermatitis Neurologic: Sensation grossly intact. No FND appreciated. Psychiatric: Speech of normal pace and content. Mood and affect congruent. Results & Data Results & Data Vital Signs (Past 12 Hours) Vital Signs Temp Pulse Resp BP Pulse Ox O2 Del Method 08/07/24 04:01 66 22 135/55 L 99 08/07/24 03:00 65 18 128/74 96 08/07/24 02:00 68 14 121/69 96 08/07/24 01:16 72 20 121/66 99 08/07/24 00:22 71 08/06/24 21:09 36.8 C 79 18 129/78 98 Room Air Supervising Physician Co-Signing Physician Notes Attending addendum: I have physically seen this patient, have supervised the medical residents activities, and agree with the H&P unless as otherwise noted. Assessment and Plan: Small bowel obstruction/incarcerated umbilical hernia- Reduced in the emergency department by Dr. Ocampo Patient has tentative surgery with Dr. Hom[facility]azco at [facility] request from surgery NPO IV fluids as noted Renal cell carcinoma of right kidney- Follows with PSH Diabetes mellitus- On semaglutide and glargine with lispro coverage as outpatient Placed on glargine and SSI Hypertension- Hold furosemide, lisinopril and metoprolol while n.p.o. Coverage with IV hydralazine if needed Resident Activity Tracking Resident Involvement: Resident Care Provided Care Provided: Adult Hospital Medicine
[2024-08-07] MEDS ORDERED: GLUCOSE 10 TAB/TUBE PO PRN (08:04)
[2024-08-07] MEDS ORDERED: MoRPHine SULFATE 4 MG/ML 1 ML CARP\\VIAL IV PRN (08:04)
[2024-08-07] MEDS ORDERED: MoRPHine SULFATE 2 MG/ML CARP IV PRN (08:04)
[2024-08-07] MEDS ORDERED: GLUCOSE 40% GEL 15 GM TUBE PO PRN (08:04)
[2024-08-07] MEDS ORDERED: DEXTROSE 50% 50 ML SYRINGE IV PRN (08:04)
[2024-08-07] MEDS ORDERED: CARBOHYDRATES FOR HYPOGLYCEMIA PO PRN (08:04)
[2024-08-07] MEDS ORDERED: GLUCAGON FOR INJ 1 MG VIAL SQ PRN (08:04)
[2024-08-07] MEDS: LANTUS PER UNIT CHARGE SQ SCH (09:03)
[2024-08-07] MEDS: INSULIN ASPART PER UNIT CHARGE SC SCH (09:04)
--- NOTE | 2024-08-07 11:15 | Communication Note ---
Date of Service: August 07, 2024 1. SBO (small bowel obstruction): Pt is a 69 yo male with PMH of DM, GISELL, HTN, and afib presenting due to abdominal pain. SBO secondary to incarcerated umbilical hernia - lab work significant for no leukocytosis, Hgb 14.8, Cr 1.89 - CTAP showing umbilical hernia w/ associated SBO and strangulated small bowel - per ER, hernia reduced while in ED - plan is for pt to have surgery with his primary surgeon (Dr. Homar Velazco) in [place] next week -surgical consult placed - advance diet as tolerated. -patient currently tolerating clear liquid RCC of right kidney - CTAP showing increase in size of right kidney mass from 3.7 cm to 4.2 cm (last CTAP 06/2023) - pt follows with PSH DM - hold home medications - will cover with insulin glargine and SSI; adjust PRN HTN - resume home regimen once pt able to take PO Diet: clear liquid, advance as tolerated Code: full Dispo: admit to med/surg
--- NOTE | 2024-08-07 11:31 | Electrocardiogram Report ---
Test Reason : Blood Pressure : */* mmHG Vent. Rate : 75 BPM Atrial Rate : * BPM P-R Int : * ms QRS Dur : 164 ms QT Int : 420 ms P-R-T Axes : * -12 -10 degrees QTcB Int : 469 ms Atrial fibrillation Right bundle branch block Abnormal ECG When compared with ECG of 30-Jun-2023 22:33, Questionable change in QRS axis Inverted T waves have replaced nonspecific T wave abnormality in Inferior leads T wave inversion more evident in Anterior leads Confirmed by Morales Whitehead ([id number]) on 08/07/2024 11:30:31 AM Referred By: Confirmed By: Morales Whitehead
[2024-08-07] MEDS: LIDOCAINE 5% 1 PATCH TD SCH (11:40)
--- NOTE | 2024-08-07 12:03 | Surgery Consultation ---
Date of Consultation August 07, 2024 Assessment & Plan (1) Small bowel obstruction: (2) Incarcerated ventral hernia: Plan six 9-year-old gentleman status post laparoscopic repair of an incisional hernia in [place] in December presented to the emergency department with an incarcerated recurrent incisional hernia. This was reduced in the emergency department. He has had no symptoms since that time. He has no nausea or vomiting. He is passing flatus. He denies any pain or tenderness. On exam, the hernia is reduced. His diet may be advanced as tolerated. He may be discharged to home as per hospitalist service. He will need to follow-up with his minimally invasive surgeon in [place] as an outpatient. We will sign off. Please call with questions. History of Present Illness Reason for Consultation: incarcerated hernia Requesting Physician: Vini Aguayo Attending Physician: Vini Aguayo History of Present Illness 69-year-old gentleman presents to the emergency department yesterday evening with severe abdominal pain and vomiting. he had a minimally invasive incisional hernia repair at [place] in December. CT scan in the emergency department demonstrated a bowel containing incarcerated hernia causing a small bowel obstruction. The emergency department spoke with the surgeon at [place], and after discussion, attempted reduction in the emergency department. Reduction was successful in the emergency department, and his pain instantly resolved. He was admitted to the hospital for observation. This morning he is feeling well. He denies significant abdominal pain. He has not had any further nausea or vomiting. He has not had fevers or chills. Allergies Allergy/AdvReac Type Severity Reaction Status Date / Time bee venom protein (honey bee) Allergy Intermediate SWELLS Verified 07/23/24 13:39 metformin Allergy Intermediate HIVES Verified 07/23/24 13:39 Home Medications Medication Instructions Recorded Confirmed Type allopurinol 100 mg tablet 100 mg PO BID 06/30/19 07/23/24 History cholecalciferol (vitamin D3) 125 5,000 units PO Q2D 06/30/19 07/23/24 History mcg (5,000 unit) capsule ipratropium 20 mcg-albuterol 100 2 spray inhalation QID PRN 06/30/19 07/23/24 History mcg/actuation mist for inhalation Shortness Of Breath Or Wheezing terazosin 5 mg capsule 5 mg PO QPM 06/30/19 07/23/24 History epinephrine 0.3 mg/0.3 mL 0.3 mg IM UD PRN hypersensitivity 10/12/19 07/23/24 History injection, auto-injector (EpiPen) reaction magnesium chloride 71.5 mg 71.5 mg PO BID 12/09/19 07/23/24 History (magnesium chloride) tablet,delayed release (Slow-Mag) multivit,Ca,min-iron 8 mg-folic 1 tab PO DAILY 01/02/20 07/23/24 History acid 200 mcg-lycopene 600 mcg tablet (Centrum Men) cephalexin 500 mg capsule 500 mg PO BID #60 caps 02/28/20 07/23/24 Rx warfarin 5 mg tablet (Jantoven) 7.5 - 10 mg PO DIRECTED 01/12/23 07/23/24 History furosemide 40 mg tablet 40 mg PO DAILY 02/18/23 07/23/24 History gabapentin 100 mg capsule 100 mg PO BID 02/18/23 07/23/24 History lisinopril 5 mg tablet 5 mg PO DAILY 02/18/23 07/23/24 History ascorbic acid (vitamin C) 500 mg 500 mg PO DAILY 06/09/23 07/23/24 History tablet metoprolol succinate 50 mg 75 mg (1.5 x 50 mg) PO DAILY #45 07/02/23 07/23/24 Rx tablet,extended release 24 hr tabs polyethylene glycol 3350 17 17 g PO DAILY #238 grams 07/02/23 07/23/24 Rx gram/dose oral powder (Miralax) simvastatin 20 mg tablet 20 mg PO DAILY #1 tab 07/02/23 07/23/24 Rx semaglutide 2 mg/dose (8 mg/3 mL) mg subcut 09/08/23 07/23/24 History subcutaneous pen injector (Ozempic) insulin glargine U-300 conc 300 14 unit subcut HS 07/23/24 07/23/24 History unit/mL (3 mL) subcutaneous pen (Toujeo Max U-300 SoloStar) insulin lispro 100 unit/mL 2 unit subcut .w/ meals 07/23/24 07/23/24 History subcutaneous pen (Humalog KwikPen (U-100) Insulin) Patient History Medical History Near syncope Sinusitis Generalized weakness Headache Atrial fibrillation, chronic Obesity Hypertension T2DM (type 2 diabetes mellitus) GISELL (obstructive sleep apnea) Surgical History Total knee replacement status R once; L twice H/O gastric bypass 1998 Family History Mother Heart disease Kidney disease Hypertension Father Dementia Diabetes Heart disease Social History Smoking Status: Never smoker Hx Alcohol Use: Yes Alcohol type: beer Alcohol Intake Frequency Comment: Occasionally Hx Substance Use: No Preferred Language: Burkinan Communication Ability: Effective Hat Maker Required: No Beliefs That Will Affect Care: None marital status: Current Living Situation: Spouse current occupational status: 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 Feels Safe at Home: Yes Safety Concerns: Feels Safe At This Time Assistive Devices: CPAP and Glasses Review of Systems Review of Systems: All systems reviewed & are unremarkable except as noted in HPI & below Physical Exam Constitutional: WD/WN, vitals as above Eyes: PERRL, conjunctivae normal, anicteric sclerae Neck: trachea midline, no thyromegaly Respiratory: normal respiratory effort; no respiratory distress and no labored breathing Cardiovascular: Rate/Rhythm: regular rate and regular rhythm Gastrointestinal (Abdomen): Inspection/Auscultation: abdomen normal to inspection; abdomen not distended Percussion/Palpation: abdomen soft; abdomen nontender, no guarding and abdomen not rigid The midline incisional hernia remains reduced Skin: no rashes, warm and dry Psychiatric: A+Ox3, euthymic affect Results & Data Vital Signs (Past 12 Hours) Vital Signs Pulse Resp BP Pulse Ox O2 Del Method 08/07/24 06:43 Room Air 08/07/24 04:45 62 08/07/24 04:01 66 22 135/55 L 99 08/07/24 03:00 65 18 128/74 96 08/07/24 02:00 68 14 121/69 96 08/07/24 01:16 72 20 121/66 99 08/07/24 00:22 71 Laboratory Results 08/07/24 08/07/24 08/06/24 Range/Units 11:33 07:55 22:20 WBC (4.8-10.8) K/ul RBC (4.70-6.10) M/uL Hgb (14.0-18.0) g/dl Hct (42.0-52.0) % MCV (80.0-100.0) fL MCH (25.0-34.0) pg MCHC (32.0-36.0) g/dL RDW Std Deviation (36.4-46.3) fL RDW Coeff of Jack (11.5-14.5) % Plt Count (130-400) K/uL MPV (9.4-12.4) fL Immature Gran % (Auto) % Neut % (Auto) % Lymph % (Auto) % [place] % (Auto) % Eos % (Auto) % Baso % (Auto) % Neut # (Auto) (1.40-6.50) K/uL Lymph # (Auto) (1.20-3.40) K/uL [place] # (Auto) (0.11-0.59) K/uL Eos # (Auto) (0.00-0.50) K/uL Baso # (Auto) (0.00-0.20) K/uL Immature Gran # (Auto) (0.01-0.20) K/uL Sodium (136-145) mmol/L Potassium (3.5-5.1) mmol/L Chloride (98-107) mmol/L Carbon Dioxide (21-32) mmol/L Anion Gap (3-11) BUN (6-23) mg/dl Creatinine (0.6-1.4) mg/dl Est Cr Clr Drug Dosing Est GFR ( Amer) ml/min Est GFR (Non-Af Amer) ml/min BUN/Creatinine Ratio (10-20) Glucose (70-99(Fasting)) mg/dl POC Glucose 89 98 (70-99) mg/dl Calcium (8.6-10.3) mg/dl Total Bilirubin (0.2-1.0) mg/dl AST (13-39) U/L ALT (7-52) U/L Alkaline Phosphatase (34-104) U/L Total Protein (6.0-8.3) gm/dl Albumin (3.4-5.0) gm/dl Globulin (2.5-4.0) gm/dl Albumin/Globulin Ratio (0.9-2) Lipase (11-82) U/L Urine Color Yellow Urine Appearance Clear (Clear) Urine pH 5.5 (4.5-7.5) Ur Specific [place] 1.020 (1.000-1.030) Urine Protein Negative (Negative) Urine Glucose (UA) Negative (Negative) Urine Ketones Trace H (Negative) Urine Blood Negative (Negative) Urine Nitrite Negative (Negative) Urine Bilirubin Negative (Negative) Urine Urobilinogen Negative (Negative) Ur Leukocyte Esterase Negative (Negative) 08/06/24 Range/Units 22:13 WBC 7.70 (4.8-10.8) K/ul RBC 4.76 (4.70-6.10) M/uL Hgb 14.8 (14.0-18.0) g/dl Hct 45.0 (42.0-52.0) % MCV 94.5 (80.0-100.0) fL MCH 31.1 (25.0-34.0) pg MCHC 32.9 (32.0-36.0) g/dL RDW Std Deviation 50.8 H (36.4-46.3) fL RDW Coeff of Jack 14.6 H (11.5-14.5) % Plt Count 120 L (130-400) K/uL MPV 9.8 (9.4-12.4) fL Immature Gran % (Auto) 0.4 % Neut % (Auto) 83.7 % Lymph % (Auto) 9.7 % [place] % (Auto) 5.5 % Eos % (Auto) 0.4 % Baso % (Auto) 0.3 % Neut # (Auto) 6.45 (1.40-6.50) K/uL Lymph # (Auto) 0.75 L (1.20-3.40) K/uL [place] # (Auto) 0.42 (0.11-0.59) K/uL Eos # (Auto) 0.03 (0.00-0.50) K/uL Baso # (Auto) 0.02 (0.00-0.20) K/uL Immature Gran # (Auto) 0.03 (0.01-0.20) K/uL Sodium 135 L (136-145) mmol/L Potassium 4.5 (3.5-5.1) mmol/L Chloride 98 (98-107) mmol/L Carbon Dioxide 29 (21-32) mmol/L Anion Gap 8 (3-11) BUN 41 H (6-23) mg/dl Creatinine 1.89 H (0.6-1.4) mg/dl Est Cr Clr Drug Dosing Not Reportable Est GFR ( Amer) 41.6 ml/min Est GFR (Non-Af Amer) 35.9 ml/min BUN/Creatinine Ratio 21.7 H (10-20) Glucose 133 H (70-99(Fasting)) mg/dl POC Glucose (70-99) mg/dl Calcium 9.5 (8.6-10.3) mg/dl Total Bilirubin 1.4 H (0.2-1.0) mg/dl AST 16 (13-39) U/L ALT 6 L (7-52) U/L Alkaline Phosphatase 57 (34-104) U/L Total Protein 7.4 (6.0-8.3) gm/dl Albumin 4.7 (3.4-5.0) gm/dl Globulin 2.7 (2.5-4.0) gm/dl Albumin/Globulin Ratio 1.7 (0.9-2) Lipase 50 (11-82) U/L Urine Color Urine Appearance (Clear) Urine pH (4.5-7.5) Ur Specific [place] (1.000-1.030) Urine Protein (Negative) Urine Glucose (UA) (Negative) Urine Ketones (Negative) Urine Blood (Negative) Urine Nitrite (Negative) Urine Bilirubin (Negative) Urine Urobilinogen (Negative) Ur Leukocyte Esterase (Negative)
[2024-08-07] MEDS: SODIUM CHLORIDE 0.9% 1,000 ML IV SCH (12:23)
[2024-08-07 14:21] VITALS: RESP 16
--- NOTE | 2024-08-07 19:07 | Billing Data ---
Date of Service August 07, 2024 Coding Level of Care Code 09720 INT INP/OBS CARE
[2024-08-08] MEDS: ACETAMINOPHEN 1,000 MG/100 ML VIAL IV PRN (05:49)
[2024-08-08 06:07] LABS: Hematocrit (blood only) 36.5 % (42.0-52.0); Mean Corpuscular Hemoglobin 31.4 pg (25.0-34.0); Mean Corpuscular Hgb Conc 32.9 g/dL (32.0-36.0); Mean Corpuscular Volume 95.5 fL (80.0-100.0); Mean Platelet Volume 9.9 fL (9.4-12.4); Platelet Count 103 K/uL (130-400); RDW Coefficient of Variation 14.7 % (11.5-14.5); RDW Standard Deviation 51.2 fL (36.4-46.3); Red Blood Count 3.82 M/uL (4.70-6.10); White Blood Count 5.21 K/ul (4.8-10.8)
[2024-08-08 06:21] LABS: BUN Creatinine Ratio 19.5 (10-20); Calcium 8.4 mg/dl (8.6-10.3); Creatinine Clr Calc Pharmacy 66.7 ml/min; Est GFR (African American) 47.7 ml/min; Est GFR (Non-African American) 41.1 ml/min; Potassium 4.1 mmol/L (3.5-5.1)
[2024-08-08 06:26] LABS: INR 1.8 (0.9-1.1); Prothrombin Time 18.7 Seconds (9.0-12.0)
[2024-08-08 07:28] VITALS: PULSE 55; TEMP 97.9; O2SAT 97
--- NOTE | 2024-08-08 09:00 | Discharge Summary ---
Discharge Summary Date of Service August 08, 2024 Principal Dx & Hospital Course #1 = Principal Diagnosis (1) SBO (small bowel obstruction): This is a 69-year-old male with past medical history of diabetes, GISELL, hypertension, A-fib who presented to the ED on 08/07/2024 with a chief complaint of abdominal pain. Patient underwent a CTAP showing umbilical hernia with associated small bowel obstruction or strangulated small bowel. Per ER documentation, hernia was reduced while in the ED. Was recommended that the patient follow-up with his primary surgeon Dr. Velazco in [place]. Surgical consultation was placed at our facility and supportive care was recommended. Patient's diet was advanced as tolerated. On day of discharge she was tolerating a low fiber diet and passing gas. (2) Kidney lesion: CTAP also did reveal an increase size of his right kidney mass from 3.7 cm to 4.2 cm. Patient follows with [facility] outpatient for management of this. He can follow-up outpatient. Plan Upon discharge, patient did resume his home diabetic medications along with his antihypertensives. Warfarin was also resumed on discharge. Admission HPI Per Admitting Provider Pt is a 69 yo male with PMH of DM, GISELL, HTN, and afib presenting due to abdominal pain. Pt notes he has an extensive hx of abdominal surgeries including gastric bypass (1998) and multiple hernia repairs. His most recent hernia repair was in Dec of this year and he has not had issues with his stomach since. However, around a week ago, he noted that he started to feel sick on and off, similar to how he felt in the past. However, yesterday, he developed severe abdominal pain after eating dinner which prompted him to seek medical attention. In the ER, pt was given zofran x1, dialudid 1 mg x2, and 1 L bolus of NS with continual IVF at 125 mL/hr. Discharge Exam Constitutional WD/WN, vitals as above Eyes PERRL, conjunctivae normal, anicteric sclerae Respiratory normal respiratory effort, lungs clear to auscultation Cardiovascular RRR, no murmur, no edema Gastrointestinal (Abdomen) normal bowel sounds, soft, nontender, no hepatosplenomegaly Psychiatric A+Ox3, euthymic affect Discharge Plan Discharge Items Patient Disposition: Home - Self-Care Reason For Visit: SBO Discharge Diagnosis: small bowel obstruction Activity: Resume your previous activity Non-emergency contact: Primary Care Provider and Surgeon Call non-emergency contact if: you have any medication questions, your pain is not controlled and your pain is worsening Follow-up/Referrals: Aden Mims [Primary Care Provider] - Diet: Carb Consistent or DM2 and Low Fiber Addtl Attending Provider Instructions: Mr. Cooper, You were recently hospitalized for abdominal pain and were found to have a bowel obstruction. Please see recommendations below regarding your discharge. 1. Please stay on a low fiber diet. 2. Please follow up with your surgeon in [place]. 3. Please resume outpatient medications. If you develop any worsening abdominal pain, nausea, vomiting, fever, chills please report to the ER for further care. Sincerely, Pam Shelton PA-C Pending Studies at Discharge: No Stand-Alone Forms: My [employer], Smoking Cessation Medications and DC Order Prescriptions: Continued ipratropium-albuterol 20-100 mcg/actuation mist 2 spray inhalation QID PRN (Reason: Shortness Of Breath Or Wheezing) cholecalciferol (vitamin D3) 5,000 unit capsule 5,000 units PO Q2D Hold Instructions: Resume on 07/12/23. Rx Instructions: Takes in pm allopurinol 100 mg tablet 100 mg PO BID Hold Instructions: Resume on 07/12/23. terazosin 5 mg capsule 5 mg PO QPM Hold Instructions: Resume on 07/12/23. epinephrine [EpiPen] 0.3 mg/0.3 mL auto-injector 0.3 mg IM UD PRN (Reason: hypersensitivity reaction) Hold Instructions: Resume on 07/12/23. Slow-Mag 71.5 mg tablet,delayed release (DR/EC) 71.5 mg PO BID Hold Instructions: Resume on 07/12/23. Centrum Men 8 mg iron- 200 mcg-600 mcg tablet 1 tab PO DAILY Hold Instructions: Resume on 07/12/23. gabapentin 100 mg capsule 100 mg PO BID Hold Instructions: Resume on 07/12/23. furosemide 40 mg tablet 40 mg PO DAILY Hold Instructions: Resume on 07/12/23. lisinopril 5 mg tablet 5 mg PO DAILY Hold Instructions: Resume on 07/12/23. Ozempic 2 mg/dose (8 mg/3 mL) pen injector 2 mg subcut WK Rx Instructions: Friday Mynor Max U-300 SoloStar 300 unit/mL (3 mL) insulin pen 14 unit SUBCUT HS insulin lispro [Humalog KwikPen Insulin] 100 unit/mL insulin pen 2 unit subcut TIDWMEAL Hold Instructions: Resume on 07/12/23. Rx Instructions: Per sliding scale warfarin [Jantoven] 5 mg tablet 7.5 - 10 mg PO DIRECTED Hold Instructions: Resume on 07/12/23. Rx Instructions: INR check every 2 weeks. Pt takes 10mg on Friday, and 7.5mg by mouth all other days. ascorbic acid (vitamin C) 500 mg Tablet 500 mg PO DAILY Hold Instructions: Resume on 07/12/23. polyethylene glycol 3350 [Miralax] 17 gram/dose powder 17 g PO DAILY Qty: 238 0RF Rx Instructions: purchase [id number]; start 07/03/23. metoprolol succinate 50 mg tablet extended release 24 hr 75 mg PO DAILY Qty: 45 1RF simvastatin 20 mg tablet 20 mg PO DAILY Qty: 1 0RF Discharge Orders: Discharge Order (Routine); Ordered 08/08/24 Ordered By: Pam Garber/Other Patient Handouts: Preventing Deep Vein Thrombosis Admission Data Admit Date/Time: 08/07/24 05:43 Attending Provider: Vini Aguayo Admit Provider: Lillian Mccall Primary Care Provider: Aden Mims Other Providers: Stephen Forrest; Selvin Gasca Other Interventions: Discharge Summary Assessment (RN) Last Done: 08/08/24 10:06 Hospital Stay Data Consultations 08/07/24 06:38 ED Decision to Admit Stat 08/07/24 09:01 Consult General Surgery Routine Diagnostic Imagining Performed 08/07/24 00:59 CT Abd and Pelvis [CT abd pelvis IV con only] Stat Pending Results Patient Have Any Pending Studies at Discharge: No Discharge Instructions Given to Patient (Per Discharging Provider) Mr. Cooper, [place] were recently hospitalized for abdominal pain and were found to have a bowel obstruction. Please see recommendations below regarding your discharge. 1. Please stay on a low fiber diet. 2. Please follow up with your surgeon in [place]. 3. Please resume outpatient medications. If you develop any worsening abdominal pain, nausea, vomiting, fever, chills please report to the ER for further care. Sincerely, Pam Shelton PA-C Total Time Total Time Spent Total Time Spent (In Minutes): 35 Total Time Includes: Examination of the Patient, Discharge Planning and Medication Reconciliation Coding Level of Care Code 75741 INP/OBS DISCH >30 MIN Diagnoses SBO (small bowel obstruction) K56.609 Kidney lesion N28.9
[2024-08-08 10:10] VITALS: BP 120/66
--- NOTE | 2024-08-08 10:55 | Surgery Progress Note ---
Date of Service August 08, 2024 Assessment & Plan (1) Small bowel obstruction: (2) Incarcerated ventral hernia: Plan 69-year-old gentleman status post laparoscopic repair of an incisional hernia in [place] in December presented to the emergency department with an incarcerat ed recurrent incisional hernia. This was reduced in the emergency department. He has had no symptoms since that time. He has no nausea or vomiting. He is passing flatus. He denies any pain or tenderness. On exam, the hernia is reduced. His diet may be advanced as tolerated. He may be discharged to home as per hospitalist service. He will need to follow-up with his minimally invasive surgeon in [place] as an outpatient. 4doing very well. May discharge to home. Call with questions or concerns. Admission and Anticipated Discharge Date Admission Date: August 07, 2024 Subjective Doing well. No pain or tenderness. Passing flatus and bowel movements. Physical Exam Physical Exam: AFVSS NCAT, A&O x 3 NCAT Abdomen: Soft, nontender, nondistended Results & Data Vital Signs (Past 12 Hours) Vital Signs Temp Pulse Resp BP BP Pulse Ox O2 Del Method 08/08/24 10:06 36.6 C 55 L 16 139/79 120/66 97 08/08/24 09:22 Room Air 08/08/24 07:25 36.6 C 55 L 16 139/79 97 Room Air Laboratory Results 08/08/24 08/08/24 08/07/24 Range/Units 07:54 05:27 20:08 WBC 5.21 (4.8-10.8) K/ul RBC 3.82 L (4.70-6.10) M/uL Hgb 12.0 L (14.0-18.0) g/dl Hct 36.5 L (42.0-52.0) % MCV 95.5 (80.0-100.0) fL MCH 31.4 (25.0-34.0) pg MCHC 32.9 (32.0-36.0) g/dL RDW Std Deviation 51.2 H (36.4-46.3) fL RDW Coeff of Jack 14.7 H (11.5-14.5) % Plt Count 103 L (130-400) K/uL MPV 9.9 (9.4-12.4) fL PT 18.7 H (9.0-12.0) Seconds INR 1.8 H (0.9-1.1) Sodium 140 (136-145) mmol/L Potassium 4.1 (3.5-5.1) mmol/L Chloride 106 (98-107) mmol/L Carbon Dioxide 29 (21-32) mmol/L Anion Gap 5 (3-11) BUN 33 H (6-23) mg/dl Creatinine 1.69 H (0.6-1.4) mg/dl Est Cr Clr Drug Dosing 66.7 ml/min Est GFR ( Amer) 47.7 ml/min Est GFR (Non-Af Amer) 41.1 ml/min BUN/Creatinine Ratio 19.5 (10-20) Glucose 76 (70-99(Fasting)) mg/dl POC Glucose 78 112 H (70-99) mg/dl Calcium 8.4 L (8.6-10.3) mg/dl 08/07/24 08/07/24 Range/Units 16:35 11:33 WBC (4.8-10.8) K/ul RBC (4.70-6.10) M/uL Hgb (14.0-18.0) g/dl Hct (42.0-52.0) % MCV (80.0-100.0) fL MCH (25.0-34.0) pg MCHC (32.0-36.0) g/dL RDW Std Deviation (36.4-46.3) fL RDW Coeff of Jack (11.5-14.5) % Plt Count (130-400) K/uL MPV (9.4-12.4) fL PT (9.0-12.0) Seconds INR (0.9-1.1) Sodium (136-145) mmol/L Potassium (3.5-5.1) mmol/L Chloride (98-107) mmol/L Carbon Dioxide (21-32) mmol/L Anion Gap (3-11) BUN (6-23) mg/dl Creatinine (0.6-1.4) mg/dl Est Cr Clr Drug Dosing ml/min Est GFR ( Amer) ml/min Est GFR (Non-Af Amer) ml/min BUN/Creatinine Ratio (10-20) Glucose (70-99(Fasting)) mg/dl POC Glucose 91 89 (70-99) mg/dl Calcium (8.6-10.3) mg/dl
== END 2024-08-08 10:53 | disposition home or self-care (01) | DRG 394 ==
LOC: SUATTDRO → ED 21:00 → SUATTDRO 08-07 05:43 → 3N 08-07 05:43